=== PATIENT | male | born 1945 | race Caucasian/White ===

== ENCOUNTER 2017-11-26 15:48 | Observation (INO) | payer MEDICARE, SELFPAY ==
[2017-11-26 15:57] VITALS: BP 168/85; PULSE 76; RESP 16; TEMP 37.7; O2SAT 95
--- NOTE | 2017-11-26 17:15 | DI.REPORT_ITS ---
SYMPTOM/DIAGNOSIS: CONFUSION, HALLUCINATIONS, ALZEHEIMERS, ? PNEUMONIA AP AND LATERAL CHEST: Comparison is made with 07/22/17. The lungs are suboptimally inflated on both views. The heart is enlarged. The patient is status post CABG. No definite infiltrate, effusion or pulmonary edema is seen. IMPRESSION: Limited exam. No gross evidence of an acute abnormality.
--- NOTE | 2017-11-26 17:16 | DI.RPTCT_ITS ---
SYMPTOM/DIAGNOSIS: ALTERED MENTAL STATUS, H/O ALZHEIMERS, CONFUSION, ? ACUTE CVA NONCONTRAST HEAD CT: Comparison is made with 07/22/17. Mild atrophy and white matter changes are again noted. No superimposed hemorrhage, mass or acute infarct is seen. The ventricles are normal in size. There is no evidence of skull fracture. The sinuses and mastoid air cells appear clear. IMPRESSION: No acute abnormality.
--- NOTE | 2017-11-26 17:17 | ED.GENADUL ---
Disposition Clinical Impression: Cognitive and behavioral changes, Confusion, History of dementia Disposition: [facility] INPATIENT Condition: Stable Medical Decision Making - Lab Data Laboratory Tests 11/26/17 11/26/17 11/26/17 17:24 17:24 17:24 WBC 9.08 RBC 4.39 L Hgb 14.3 Hct 42.3 MCV 96.4 H MCH 32.6 MCHC 33.8 RDW 13.0 Plt Count 215 MPV 8.7 Immature Gran % 0.2 Neutrophils % 55.5 Lymphocytes % 26.8 Monocytes % 14.8 Eosinophils % 2.4 Basophils % 0.3 Absolute Neutrophils 5.04 Absolute Lymphocytes 2.43 Absolute Monocytes 1.34 H Absolute Eosinophils 0.22 Absolute Basophils 0.03 Sodium 138 Potassium 4.3 Chloride 103 Carbon Dioxide 27.9 Anion Gap 7.1 BUN 22 H Creatinine 1.48 H Estimated GFR/1.73 m2 46.46 Glucose 141 H Calcium 8.9 Magnesium 2.1 Total Bilirubin 0.4 0.4 Conjugated Bilirubin 0.10 AST 13 L 13 L ALT 17 16 Alkaline Phosphatase 69 68 Troponin I 0.03 Total Protein 7.8 7.8 Albumin 3.8 3.8 Urine Color Urine Clarity Urine pH Ur Specific [place] Urine Protein Urine Ketones Urine Blood Urine Nitrite Urine Bilirubin Urine Urobilinogen Ur Leukocyte Esterase Urine Glucose 11/26/17 17:45 WBC RBC Hgb Hct MCV MCH MCHC RDW Plt Count MPV Immature Gran % Neutrophils % Lymphocytes % Monocytes % Eosinophils % Basophils % Absolute Neutrophils Absolute Lymphocytes Absolute Monocytes Absolute Eosinophils Absolute Basophils Sodium Potassium Chloride Carbon Dioxide Anion Gap BUN Creatinine Estimated GFR/1.73 m2 Glucose Calcium Magnesium Total Bilirubin Conjugated Bilirubin AST ALT Alkaline Phosphatase Troponin I Total Protein Albumin Urine Color Yellow Urine Clarity Clear Urine pH 5.0 Ur Specific [place] 1.020 Urine Protein Negative Urine Ketones Negative Urine Blood Negative Urine Nitrite Negative Urine Bilirubin Negative Urine Urobilinogen 0.2 Ur Leukocyte Esterase Negative Urine Glucose Negative 11/26/17 1750: 77 bpm. Sinus. Left anterior fascicular block. T-wave inversion in aVL which is seen in previous. No acute ST elevation or depression. - Radiology Data Radiology results: report reviewed, image reviewed Chest x-ray: No acute findings. Minimal interstitial stranding in the left lung base but no focal infiltrate. CT head: No acute findings. Moderate to severe cerebral atrophy. - Medical Decision Making 72-year-old male with history of Alzheimer's dementia who presents for worsening mental status and confusion x 3 weeks and now associated with hallucinations, and aggressive behavior for the past few days. Patient has a previous history of CVA with no residual deficits. Family denies acute medical illness. Patient started on Ativan by PCP yesterday to help the symptoms but has had no relief per family. Family concerned about patient and their safety. does not want patient coming home tonight family is open to placement at this time. Vitals within normal limits. No acute findings on exam. Patient has a flat affect and shuffled gait. Family states at baseline patient has difficulty following instructions. Patient is able to follow some commands but overall requires significant redirection and assistance. Will place an IV, check screening labs, urinalysis, chest x-ray, EKG and CT head. 1800: Nurse states that patient still agitated after 2 mg Ativan, moving around and will likely not stay still for CAT scan. Will give a dose of Haldol. 192: Labs and imaging reviewed. No acute significant findings. Chest x-ray and CT head negative for acute findings. I discussed admission with care management and they state patient has Medicare and recommend observation admission and will work on placement tomorrow. 1940: Discussed with Dr. Aceves -except patient for admission. Patient is DNR/DNI per . History of Present Illness - General Chief complaint: AMS/LOC Stated complaint: ALHZEMERS Time Seen by Provider: 11/26/17 16:32 Source: family Mode of arrival: ambulatory Limitations: altered mental status, other (h/o alzheimer's disease) - History of Present Illness Initial comments: Patient is a 72-year-old man with a history of Alzheimer's dementia diagnosed 6 years ago who presents for worsening mental status and confusion over the past 3 weeks, even worse over the past 3 days causing his family to be concerned for his and their safety. states that she does not want patient in her house at this time because she is scared of his actions. Son states that patient has gotten verbally aggressive with them and has given him looks that makes him question if he is going to be violent. states that last night while helping patient to bed, he squeezed her arm. Son states that patient appears to be hallucinating at times and grabbing for things that are not there and not recognizing them. They state that patient wandered out of the house today and was found by the police [facility] the block. states that she is open to placement for pt due to safety concerns. They deny any recent hospital admission. He denies any recent acute medical illness, fever, vomiting, diarrhea. They state patient has been eating well. They state patient generally sleeps well except for the past few nights. Family called his PCP office and she prescribed Ativan which patient took once last night and this morning but does not seem to be helping. - Related Data Blood Sugar Diagnostic [Freestyle Lite Strips] 1 strip MC PRN strip 08/22/12 Aspirin [Aspir 81] 81 mg PO DAILY tab-cap 09/10/15 Nitroglycerin [Nitrostat] 1 tab SL PRN #25 tab 02/09/16 Ranitidine HCl 300 mg PO DAILY #90 tab-cap 09/01/17 Ropinirole HCl 1 mg PO HS #90 tab-cap 11/01/17 Lorazepam 1 mg PO BID PRN #60 tab-cap 11/24/17 Mirtazapine 15 mg PO HS #30 tab-cap 11/24/17 Allergies Allergy/AdvReac Type Severity Reaction Status Date / Time Anesthetics - Amide Type AdvReac Intermediate PROLONGED Unverified 11/26/17 16:02 EFFECT ibuprofen AdvReac Mild JOINT Unverified 11/26/17 16:02 SWELLING Ouytvfo-Cxo-Dmo Reductase AdvReac Unknown ANXIETY Unverified 11/26/17 16:02 Inhibitor atorvastatin AdvReac MYALGIAS Unverified 11/26/17 16:02 CUCUMBERS Allergy Intermediate Uncoded 11/26/17 16:02 ONION AdvReac Intermediate Uncoded 11/26/17 16:02 Review of Systems Limitations: ROS unobtainable due to patients medical condition Past Medical History - Past Medical History Medical history: arthritis, CAD, dementia (alzheimer's ) BPH, Pre-diabetes Surgical history: coronary bypass surgery, other (Mitral valve repair) Psychiatric history: depression - Social History Smoking status: never smoker Alcohol use: none Drug use: none General Exam - General Limitations: altered mental status (h/o dementia, worsening mental status) General appearance: alert - Head Head exam: Present: atraumatic, normocephalic - Eye Eye exam: Present: PERRL, EOMI - ENT ENT exam: Present: mucous membranes moist, TM's normal bilaterally - Neck Neck exam: Present: normal inspection, other (no midline c-spine tenderness) - Respiratory Respiratory exam: Present: normal lung sounds bilaterally, other (no ). Absent: respiratory distress, wheezes, rales, rhonchi, stridor, chest wall tenderness - Cardiovascular Cardiovascular Exam: Present: regular rate, normal rhythm. Absent: bradycardia, tachycardia - GI/Abdominal GI/Abdominal exam: Present: soft, normal bowel sounds. Absent: distended, tenderness, guarding, rebound, rigid - Extremities Exam Extremities exam: Present: full ROM - Back Exam Back exam: Present: normal inspection - Neurological Exam Neurological exam: Present: alert, abnormal gait (shuffled) - Psychiatric Psychiatric exam: Present: normal affect - Skin Skin exam: Present: warm, dry, intact. Absent: rash Course Vital Signs - 24 hr 11/26/17 15:57 Temperature 99.9 F H Pulse 76 Respiratory 16 Rate Blood Pressure 168/85 Pulse Oximetry 95
[2017-11-26 17:26] LABS: Abs Immature Grans 0.02 k/cumm (0.0-0.09); Absolute Basophil Count 0.03 k/cumm (0.0-0.2); Absolute Eosinophil Count 0.22 k/cumm (0.0-0.7); Absolute Lymphocyte Count 2.43 k/cumm (1.2-3.4); Absolute Monocyte Count 1.34 k/cumm (0.11-0.7); Absolute Neutrophil Count 5.04 k/cumm (1.2-6.7); Basophils % 0.3; Eosinophils % 2.4; HCT 42.3 % (40.0-50.0); HGB 14.3 g/dL (13.5-17.5); Immature Grans % 0.2; Lymphocytes % 26.8; Mean Corp. HGB Concentration 33.8 g/dL (32.0-36.0); Mean Corpuscular Hemoglobin 32.6 pg (27.0-33.0); Mean Corpuscular Volume 96.4 fL (80-95); Mean Platelet Volume 8.7 fL (8.0-11.0); Monocytes % 14.8; Neutrophils % 55.5; Platelet Count 215 x1000/uL (130-400); RBC 4.39 m/cumm (4.50-6.00); White Blood Cell Count 9.08 k/cumm (4.4-10.8)
[2017-11-26] MEDS: Normal Saline 1,000 ML 125 ML IV (17:30)
[2017-11-26] MEDS: LORazepam 2 MG/ML VIAL 1 MG IVP ×2 (17:30→17:55)
[2017-11-26] MEDS: Lidocaine 2% Jelly 11 ML SYR (17:40)
[2017-11-26 17:44] LABS: ALT 16 U/L (12-78); AST 13 U/L (15-37); Albumin 3.8 g/dL (3.4-5.0); Alkaline Phosphatase 68 U/L (46-116); Bilirubin, Total 0.4 mg/dL (0.2-1.0); Total Protein 7.8 g/dL (6.4-8.2)
[2017-11-26 17:47] LABS: ALT 17 U/L (12-78); AST 13 U/L (15-37); Albumin 3.8 g/dL (3.4-5.0); Alkaline Phosphatase 69 U/L (46-116); Anion Gap 7.1 mmol/L (3-11); BUN 22 mg/dL (7-18); Bilirubin, Total 0.4 mg/dL (0.2-1.0); CO2 27.9 mmol/L (21.0-32.0); CREATININE 1.48 mg/dL (0.70-1.30); Calcium 8.9 mg/dL (8.5-10.1); Chloride 103 mmol/L (98-107); Estimated GFR 46.46 (mL/min/1.73m2); Glucose 141 mg/dL (70-100); Magnesium 2.1 mg/dL (1.8-2.4); Potassium 4.3 mmol/L (3.5-5.1); Sodium 138 mmol/L (136-145); Total Protein 7.8 g/dL (6.4-8.2); Troponin I 0.03 ng/mL (0.00-0.06)
[2017-11-26 17:56] LABS: Bilirubin Negative (Negative); Blood Negative (Negative); Clarity Clear; Glucose Negative (Negative); Ketones Negative (Negative); Leukocyte Esterase Negative (Negative); Nitrite Negative (Negative); Urobilinogen 0.2 EU/dL (Up TO 0.2)
[2017-11-26] MEDS: Haloperidol 5 MG/ML VIAL (18:10)
[2017-11-26 18:19] VITALS: RESP 16
--- NOTE | 2017-11-26 19:05 | DI.VRAD_ITS ---
EXAM: CT Head Without Intravenous Contrast CLINICAL HISTORY: 72 years old, male; Signs and symptoms; Altered mental status/memory loss; Patient HX: Altered mental status, confusion, hallucinations, h/o alzheimer's; Additional info: R/O acute CVA TECHNIQUE: Axial computed tomography images of the head/brain without intravenous contrast. Coronal and sagittal reformatted images were created and reviewed. COMPARISON: CT - HEAD WITHOUT CONTRAST 2017-07-22 09:37 FINDINGS: Brain: There is mild periventricular white matter hypodensity consistent with mild chronic microvascular ischemic change. No hemorrhage. Ventricles: There is moderate to severe, diffuse involutional change with moderate associated ventriculomegaly. Bones/joints: Unremarkable. No acute fracture. Soft tissues: Unremarkable. Sinuses: Unremarkable as visualized. No acute sinusitis. Mastoid air cells: Unremarkable as visualized. No mastoid effusion. IMPRESSION: No acute findings. Moderate to severe cerebral atrophy as discussed above. Dictated and Authenticated by: Arpan Salter MD. Ordering:GERMAINE CROWLEY MD
--- NOTE | 2017-11-26 19:29 | DI.VRAD_ITS ---
EXAM: XR Chest, 2 Views CLINICAL HISTORY: 72 years old, male; Signs and symptoms; Other: Confusion, hallucinations; Patient HX: Confusion, hallucinations, h/o alzheimers TECHNIQUE: Frontal and lateral views of the chest. COMPARISON: CR - CHEST 2 VIEWS PA,LAT 2017-07-22 09:45 FINDINGS: Lungs: There is mild interstitial stranding in the left lung base with no alveolar consolidation to suggest lobar pneumonia. Pleural space: Unremarkable. No pneumothorax. Heart: Unremarkable. No cardiomegaly. Mediastinum: Unremarkable. Bones/joints: The patient is rotated to the left. There are again median sternotomy wires. IMPRESSION: No acute findings. Minimal interstitial stranding in the left lung base with no focal infiltrate evident. Dictated and Authenticated by: Arpan Salter MD. Ordering:GERMAINE CROWLEY MD
[2017-11-26 20:43] VITALS: BP 164/91; PULSE 88; RESP 22; TEMP 37.8; O2SAT 95
[2017-11-26] MEDS: Mirtazapine 15 MG TAB PO (22:13)
[2017-11-26 22:33] LABS: TSH (W/Ref FT4) 3.33 uIU/mL (0.358-3.74)
[2017-11-26 22:38] VITALS: BP 164/91; PULSE 88; RESP 22; O2SAT 95
--- NOTE | 2017-11-27 04:58 | HPE_ITS ---
CHIEF COMPLAINT Escalating uncontrolled behavior in a patient with progressive dementia. ASSESSMENT Dementia with progression behavioral abnormalities. This is a 72-year-old gentleman with progressive dementia now with some behavioral abnormalities and the family is finding it difficult to care for him at home. He does have a low-grade elevation in his temperature, but no source of infection and no white count seen. Therefore, this will observed for n ow with repeat chest x-ray if he has any respiratory symptoms since there was some streakiness seen o n the first chest x-ray. His lungs are clear by exam now. PLAN Observe. Continue usual medications, except hold ropinirole, we may have to use Haldol, though he hanson s not have a history of Parkinson's, there is a conflict with this drug. Ativan will be used p.r.n. as will Haldol. His other medications will be continued the same, which are minimal. Case management was consulted to review possible placement for this progressive dementia, now with be havioral abnormalities and caregivers not being able to care for him at home. He is a DNR/DNI, this will be respected. HISTORY OF PRESENT ILLNESS This is a 72-year-old gentleman who has had dementia for several years, previously on a patch for his dementia, which has been discontinued. He also is seeing the Neurologist less often recently. He is a DNR/DNI and is cared for by his daughter, who was beginning to look for a placement or increased he lp at home to care for her father. Over the last several days, his delusional thoughts and agitated b ehavior has worsened, and on the night of admission, the patient was brought to the Emergency Room fo r evaluation because of three days of much worse behavior. Evaluation revealed nothing new ongoing, b ut the patient having chronic elevation of his renal functions and frequent urination because of an e nlarged prostate with an increasing PSA, which is being watched to Urology. The daughter states that he was hallucinating or at least in a delusional state and becomes very agitated when challenged. His urine was clear. He had no fever or elevation of his white blood cell count and there were no sig ns of infection on chest x-ray, though there was some streaking at the bases. The patient was brought in for observation to work on long-term placement versus increased home care for this patient. The family has already maximized their ability to take care of him and I think ther e is some caregiver burnout. When I approached the patient he was sleeping and slightly agitated, therefore, I did not awaken him, but according to the nurse, Amara Funez, he was not oriented to person, place or time and was very agitated and hard to re-direct. REVIEW OF SYSTEMS Review of systems otherwise unrevealing or unobtainable. PAST MEDICAL HISTORY 1. Coronary artery disease status post bypass surgery in the past. 2. Osteoarthritis with no surgical intervention. The patient has had injections in both knees. 3. Dementia, which is progressive, now with behavioral abnormalities and difficulty caring for him a t home. 4. Hyperglycemia with impaired glucose tolerance, not on therapy. 5. Depression with anxiety. 6. Restless leg syndrome and enlarged prostate with frequency of urine with an increasing PSA. No me ntion of prostate cancer on his outpatient records. 7. Gastroesophageal reflux disease. PAST SURGICAL HISTORY 1. CABG x3 in 2005. 2. Inguinal herniorrhaphy bilaterally, 2008. 3. Umbilical herniorrhaphy, 2008. ALLERGIES Anesthetics of the Amide type. NSAIDs. Lipitor. All statins. As well as some food allergies to cucumbers and onions. MEDICATIONS Home medications - Lorazepam 1 mg twice a day. Aspirin 81 mg daily. Ropinirole 1 mg at bedtime. Zantac 300 mg daily. Nitroglycerin 0.4 mg sublingually q. 5 minutes x3 p.r.n. chest pain. Remeron 15 mg at bedtime. He previously had been on Exelon patches, which are not being used presently. FAMILY HISTORY Family history is positive for colon cancer. Heart disease, including hypertension and strokes. SOCIAL HISTORY The patient lives with family, with the daughter being the DPOA and primary caregiver. I did not meet her, but the family was with the patient in the Emergency Room. He is a DNR/DNI. He is not a drinker. He has never smoked. Full review of systems as above, otherwise unrevealing or unobtainable. PHYSICAL EXAMINATION VITAL SIGNS - Blood pressure 194/91 last taken. Pulse 88. Respirations 22. Pulse oximetry 95% on ro om air. Temperature 37.8 slightly elevated. Glucometer was 89. Weight is 83.4 kilograms. Height 1.8 meters. GENERAL - The patient is not oriented to person, place or time and is easily agitated when challenged , even in his sleep he is fidget. He has a flattened affect. HEENT - Normocephalic. Eyes normal with sclerae anicteric. Oropharynx with slightly dry oral mucos a. NECK - Supple. No JVD noted. LUNGS - Lungs are clear to auscultation. HEART - Regular rate and rhythm. No appreciable murmurs or gallops. ABDOMEN - Soft, nontender. No palpable hepatosplenomegaly with a gentle exam, attempting not to awak en the patient. BACK - Slightly kyphotic. GENITALIA - Deferred. RECTAL - Deferred. EXTREMITIES - Nonpitting edema over the lower extremities with arthritic changes of both knees with g enu varus bilaterally. Capillary refill is fair over both feet. SKIN - Has loss of hair and shiny atrophic skin over both legs. No cyanosis. No clubbing. Skin overa ll pale, warm and dry. NEUROLOGIC - The patient moves all extremities with no focalizing motor deficits. No Babinski's bilat erally. 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 LABORATORY REVIEW Sodium 138, potassium 4.3, TCO2 27.9, creatinine 1.48, which the Emergency Room physician states is n ear his baseline. He did receive some fluids in the Emergency Room, but not as a saline lock. BUN 22, slightly elevated, glucose randomly drawn 141, Glucometer as mentioned once he was on the Medical Fl oor was only 89. Calcium 8.9, magnesium 2.1. Liver functions normal or low. TSH 3.33, protein 7.8, albumin 3.8. Troponin 0.03, which is negative. White count 9.08, H and H 14.3/42.3, MCV slightly up at 96.4, platelet count is 215. URINALYSIS - Yellow clear, pH 5, Specific gravity of 1.020, negative DIPstick say for urobilinogen 0. 2. Chest x-ray report of no infiltrates, though they mention some streakiness at the base. CT of the head had no acute findings reported.
[2017-11-27 06:53] LABS: HCT 44.4 % (40.0-50.0); HGB 15.3 g/dL (13.5-17.5); Mean Corp. HGB Concentration 34.5 g/dL (32.0-36.0); Mean Corpuscular Hemoglobin 33.3 pg (27.0-33.0); Mean Corpuscular Volume 96.5 fL (80-95); Mean Platelet Volume 8.9 fL (8.0-11.0); Platelet Count 225 x1000/uL (130-400); White Blood Cell Count 9.07 k/cumm (4.4-10.8)
[2017-11-27] MEDS: Heparin 5,000 UNITS/ML VIAL 5000 UNITS SC ×3 (06:59→22:28)
[2017-11-27 07:08] LABS: ALT 16 U/L (12-78); AST 22 U/L (15-37); Albumin 3.4 g/dL (3.4-5.0); Alkaline Phosphatase 68 U/L (46-116); Anion Gap 7.1 mmol/L (3-11); BUN 19 mg/dL (7-18); Bilirubin, Total 0.6 mg/dL (0.2-1.0); CO2 27.9 mmol/L (21.0-32.0); Chloride 105 mmol/L (98-107); Estimated GFR 49.54 (mL/min/1.73m2); Glucose 108 mg/dL (70-100); Potassium 4.4 mmol/L (3.5-5.1); Sodium 140 mmol/L (136-145); Total Protein 7.4 g/dL (6.4-8.2)
[2017-11-27 08:30] VITALS: BP 160/97; PULSE 62; RESP 16; TEMP 36.9; O2SAT 94
--- NOTE | 2017-11-27 09:03 | NUR.NOTE ---
Nursing Note: Mr. Cordero is resting well in the bed.
[2017-11-27] MEDS: Aspirin E.C. 81 MG TABEC PO (10:29)
--- NOTE | 2017-11-27 11:03 | PHARADMIT ---
Addendum entered by Florentino Grady III 11/28/17 16:31: Pharmacy Note Subjective Patient with baseline dementia, here for worseening behavior at home. unable to cope. Objective VS-OK SCr-1.79, H&H,Plts,WBC-OK BM-yesterday. Assessment Haldol decreased yesterday do to somnolence, patient awaken last night and was agitated. Plan CM report patient has no payemnt source for placement and will need to return home with . Original Note: Admission Pharmacy Clinical Review behavioral changes, confusion, h/o dementia Code Status DNR/DNI Current Weight 80.8 kg Renally Cleared and Narrow Therapeutic Index Meds Crcl~49.00 mL/min current meds okay QTc Value / Action Taken QTc 430 BP Control, Fever BP 164/91 Tmax 37.8 Electrolytes reviewed within normal limits DVT Prophylaxis heparin Opiate Usage / Scheduled Bowel Regimen Ordered no/no Plt/SCr for Heparin / Enoxaparin plt 225 SCr 1.40 INR for Warfarin n/a H/H stable, WBC/Bands h/h 15.3/44.4 wbc 9.07 Antibiotic appropriateness n/a Cultures and Sensitivities n/a Surgical ABX d/c within 24 hr n/a DM control / Insulin Dosing bg 108 n/a Heart Failure (Check EF%) (THUAN's, B-Block, Diuretics) none IV to PO Switch n/a Home Meds Reviewed yes Home Meds Not Ordered ropinirole Comments
[2017-11-27 13:44] VITALS: BP 139/67; PULSE 80; RESP 18; TEMP 36.1; O2SAT 97
--- NOTE | 2017-11-27 14:03 | PGE_ITS ---
DATE OF SERVICE: November 27, 2017 ASSESSMENT AND PLAN: #1. Change in mental status. Worsening agitation and mental status in patient with baseline underly ing dementia. Unsure of exact etiology at this time. The patient does not appear to have any evidence of acidosis by labs, and while mildly hyperglycemic does not appear to have a significant derangement of blood glucose. His pulse oximetry is normal and he does not appear to have hypoxia, but with noted minimal interstitial stranding of the left lung b ase by chest x-ray. He also has an elevated temperature that is close to but not yet considered febr ile. Monitor respiratory status closely, and if the patient becomes febrile consider antibiotic cove rage and repeat chest x-ray. Mr. Cordero does appear to have an elevated creatinine which is mild and at baseline, and his LFTs ar e normal. He does not appear to be overtly dehydrated by exam or by labs. Will double check with armando hurst but there also does not appear to be any new medication changes, but will confirm as previously stated. CT of the head was negative without any evidence of acute intracranial process or space-occu pying lesion. An MRI would be preferred but doubt that Mr. Cordero could tolerate at this time. Sod ium and calcium levels are both normal as is TSH. We will check a B12 and folic acid. Will also dis cuss with nursing to monitor closely for any signs of urinary retention and constipation. Urinalysis negative. Further detailed treatment and evaluation pending above results. We use [id number] [place] ldol on a p.r.n. basis (ropinirole is currently on hold). Will also use [id number] lorazepam as n eeded - this is not ideal but please note that the patient is on higher-dose lorazepam at home on a p .r.n. basis. #2. History of CAD. Troponin is negative and current symptoms do not appear to indicate an acute co ronary syndrome. Continue home regimen of daily antiplatelet therapy with low-dose aspirin. The pat ient does not appear to be on a statin or beta francisco javier therapy. #3. Prophylaxis. Subcutaneous heparin. H2 francisco javier. #4. Code status - DNR/DNI. SUBJECTIVE: Ptjakez-ffgb-fwpd-old man with a history of dementia admitted from the [facility] on 11/27/17 with acutely worsening mental status. Mr. Cordero has a history of dementia that has been progressive. Over the last several days, however , he has been noted to have worsening delusional thoughts and agitated behavior prompting an evaluati on in the Emergency Department. His workup in the ER was essentially negative but he was referred fo r admission due to worsening agitation at home. PHYSICAL EXAM: General: This morning Mr. Cordero is found nonverbal, sleeping but arousable, no acute distress note d. Vitals: Temperature 36.9 with a T-max of 37.8. Blood pressure 164/91. Heart rate 88. Pulse oximet ry 95% on room air. Neck: Supple. CV: Regular, non-tachycardic. No overt rubs, murmurs, or gallops appreciated. Pulm: Clear to auscultation on very limited anterior and lateral exam. Abdomen: Bowel sounds present. Soft, nondistended. Does not appear to be tender. Vascular: No overt lower extremity edema noted. LABS: Basic metabolic panel normal with the exception of a BUN of 19 and a creatinine of 1.40. Prio r creatinine of 1.48 in June of 2017. Values of 1.2 to [address] back to 2011. Glu cose of 108. LFTs appear normal. Troponin was initially checked and negative at 0.03. TSH normal a t 3.3. CBC entirely normal as well with an MCV of 96.5. Differential was checked at time of admission and w as normal as well. Urinalysis appears completely negative as well. STUDIES: #1. CT of the head without contrast: No acute findings. Moderate to severe cerebral atrophy. #2. Chest x-ray: No acute findings. Minimal interstitial stranding in the left lung base with no f ocal infiltrates evident.
--- NOTE | 2017-11-27 15:05 | PDOC.CMIN ---
Date of Service: 11/27/17 Time of Service: 15:05 Care Management Initial Assess REASON FOR HOSPITALIZATION:: Escalating uncontrolled behavior, progressive dementia PAST MEDICAL HISTORY/PAST SURGICAL HISTORY:: Coronary artery disease, osteoarthritis, dementia, hyperglycemia, depression with anxiety, restless leg syndrome, gastric reflux disease, past surgical history: CABG in 2006, inguinal hernia repair, umbilical hernia repair. PREVIOUS FUNCTIONAL STATUS/SOCIAL/FAMILY SUPPORTS:: Patient lives with his spouse in [facility]. CURRENT FUNCTIONAL STATUS:: Mary Beth is alert he is not engaged he has a patient observer present. There is no family present at this time. Mary Beth does not make eye contact and he is not able to articulate his needs at this time. CM to contact spouse by phone to address concerns and current services that may be present in the home. ADVANCE DIRECTIVES:: On file at [facility] Has patient been provided with information about the portal?: No Did the patient sign up for the portal?: No CODE STATUS:: DNR/DNI INSURANCE COVERAGE / FINANCIAL ISSUES:: Medicare and AARP PRIMARY CARE PHYSICIAN:: Dr. Novoa POTENTIAL DISCHARGE NEEDS:: Possible referral to short-term rehab facility versus home with increased support services and follow-up with primary care. PATIENT/FAMILY EDUCATION NEEDS:: Discharge education, limitations, follow-up plan of care, and resources to provide support for progressive dementia. TRANSPORTATION:: Pending discharge disposition. PLAN:: Mary Beth admitted for observation follow-up in increased confusion at home with a history of progressive dementia. Mary Beth will be discharged when medically ready per provider. Discharge disposition to be determined. CM reviewed insurance options with family and possible resources. CM to continue to provide support ongoing discharge planning and disposition.
--- NOTE | 2017-11-27 15:10 | INITIAL_ITS ---
Date of Service: 11/27/17 Time of Service: 15:05 Care Management Initial Assess REASON FOR HOSPITALIZATION:: Escalating uncontrolled behavior, progressive dementia PAST MEDICAL HISTORY/PAST SURGICAL HISTORY:: Coronary artery disease, osteoarthritis, dementia, hyperglycemia, depression with anxiety, restless leg syndrome, gastric reflux disease, past surgical history: CABG in 2006, inguinal hernia repair, umbilical hernia repair. PREVIOUS FUNCTIONAL STATUS/SOCIAL/FAMILY SUPPORTS:: Patient lives with his spouse in [facility]. CURRENT FUNCTIONAL STATUS:: Mary Beth is alert he is not engaged he has a patient observer present. There is no family present at this time. Mary Beth does not make eye contact and he is not able to articulate his needs at this time. CM to contact spouse by phone to address concerns and current services that may be present in the home. ADVANCE DIRECTIVES:: On file at [facility] Has patient been provided with information about the portal?: No Did the patient sign up for the portal?: No CODE STATUS:: DNR/DNI INSURANCE COVERAGE / FINANCIAL ISSUES:: Medicare and AARP PRIMARY CARE PHYSICIAN:: Dr. Novoa POTENTIAL DISCHARGE NEEDS:: Possible referral to short-term rehab facility versus home with increased support services and follow-up with primary care. PATIENT/FAMILY EDUCATION NEEDS:: Discharge education, limitations, follow-up plan of care, and resources to provide support for progressive dementia. TRANSPORTATION:: Pending discharge disposition. PLAN:: Mary Beth admitted for observation follow-up in increased confusion at home with a history of progressive dementia. Mary Beth will be discharged when medically ready per provider. Discharge disposition to be determined. CM reviewed insurance options with family and possible resources. CM to continue to provide support ongoing discharge planning and disposition.
[2017-11-27 15:57] VITALS: BP 136/85; PULSE 80; RESP 18; TEMP 37.1; O2SAT 97
[2017-11-27] MEDS: LORazepam 0.5 MG TAB PO ×2 (16:58→22:49)
[2017-11-27] MEDS: Insulin Aspart 300 UNITS/3 ML PEN SC (17:34)
[2017-11-27 19:59] VITALS: BP 134/77; PULSE 85; RESP 19; TEMP 37.5; O2SAT 98
[2017-11-27] MEDS: Mirtazapine 15 MG TAB PO (22:28)
[2017-11-27 23:54] VITALS: BP 144/65; PULSE 65; RESP 16; TEMP 36.4; O2SAT 96
[2017-11-28] MEDS: Acetaminophen 325 MG TAB PO (03:33)
[2017-11-28] MEDS: Heparin 5,000 UNITS/ML VIAL 5000 UNITS SC (06:25)
[2017-11-28 07:26] LABS: Abs Immature Grans 0.02 k/cumm (0.0-0.09); Absolute Basophil Count 0.05 k/cumm (0.0-0.2); Absolute Eosinophil Count 0.22 k/cumm (0.0-0.7); Absolute Lymphocyte Count 2.03 k/cumm (1.2-3.4); Absolute Monocyte Count 1.66 k/cumm (0.11-0.7); Absolute Neutrophil Count 5.09 k/cumm (1.2-6.7); Basophils % 0.6; Eosinophils % 2.4; HCT 44.8 % (40.0-50.0); HGB 15.1 g/dL (13.5-17.5); Immature Grans % 0.2; Lymphocytes % 22.4; Mean Corp. HGB Concentration 33.7 g/dL (32.0-36.0); Mean Corpuscular Hemoglobin 32.8 pg (27.0-33.0); Mean Corpuscular Volume 97.2 fL (80-95); Mean Platelet Volume 9.4 fL (8.0-11.0); Monocytes % 18.3; Neutrophils % 56.1; Platelet Count 234 x1000/uL (130-400); RBC 4.61 m/cumm (4.50-6.00); RBC Distribution Width 13.2 % (11.8-14.1); White Blood Cell Count 9.07 k/cumm (4.4-10.8)
[2017-11-28 07:33] LABS: Anion Gap 8.5 mmol/L (3-11); BUN 35 mg/dL (7-18); CO2 27.5 mmol/L (21.0-32.0); CREATININE 1.79 mg/dL (0.70-1.30); Calcium 9.2 mg/dL (8.5-10.1); Chloride 102 mmol/L (98-107); Estimated GFR 37.31 (mL/min/1.73m2); Glucose 127 mg/dL (70-100); Potassium 4.2 mmol/L (3.5-5.1); Sodium 138 mmol/L (136-145)
[2017-11-28] MEDS: Aspirin E.C. 81 MG TABEC PO (07:52)
[2017-11-28] MEDS: LORazepam 0.5 MG TAB PO (07:52)
[2017-11-28 08:00] VITALS: O2SAT 97
[2017-11-28 08:21] VITALS: BP 116/73; PULSE 97; RESP 18; TEMP 36.6; O2SAT 99
[2017-11-28 08:26] LABS: Folate 16.7 ng/mL (8.6-20.0); Vitamin B12 329 pg/mL (193-986)
--- NOTE | 2017-11-28 09:06 | NUR.NOTE ---
8-9 am pt is busy picking at the air very restless redirectable Nursing Note:
[2017-11-28 11:43] VITALS: BP 164/90; PULSE 78; RESP 18; TEMP 36.4; O2SAT 99
--- NOTE | 2017-11-28 13:25 | DM INPTCON_ITS ---
DESCRIPTION/ASSESSMENT: Appreciate diabetes consult for Mr. Cordero who is hospitalized needing usp care placement. A1c 6.3 8 months ago. BMI 25. Blood sugars this hospitalization 83-160 with sensitive insulin correction beginning last evening. History and Physical indicates deficiency in mental capacity and inability for family to care for him. INTERVENTION/PLAN: No intervention suggested at this time for either self management or glycemic management. A current A1c could give us a better sense of his overall diabetes management, but based on blood sugars alone and the plan for residential care, no consideration of change in plan is evident.
[2017-11-28 16:29] VITALS: BP 168/69; PULSE 96; RESP 18; TEMP 37.3; O2SAT 94
[2017-11-28] MEDS: Insulin Aspart 300 UNITS/3 ML PEN SC (16:58)
--- NOTE | 2017-11-28 17:54 | PDOC.CMPRO ---
Date of Service: 11/28/17 Time of Service: 17:55 Care Management Progress Note S/O: CM met with Mary Beth's spouse at the bedside to discuss discharge options. Kaity reports that she cannot and will not take the patient home as she describes the difficulty she begins to sob heavy. She states he has become more aggressive, she states he is not hitting her but that he gets mad. She states he has wandered off from the home in the past. She states she does not have [place] med[place] at this point. She believes she has worked with Crystal Arreola out of [place] to complete the application. CM left voicemail for [facility] and Ana Celeste RN to determine where the application is in the process. Mary Beth continues to have patient observer, he does not sit still and continues to wander and pick at the air constantly. Kaity states she has developed her own health issues and she is unable to emotionally or physically able to take care of Mary Beth. She states that she does not have the financial capability to pay for his care privately. Currently Mary Beth has not has not had an acute stay and would and family would be responsible for the cost of admission. CM reviewed this with Kaity and she states she is unable to afford the care. CM reviewed swing bed level 2 while LTM application is pending and CM searches for placement. Kaity agrees to contract, CM reviewed cost of the SB2 she gives permission to place the patient in SB2 status. CM to complete the contract he will transition to SB2 on 11/29/17. CM reviewed activities, and requested that she bring in some clothes for patient. She would prefer to do his laundry at home which will be respected. CM encouraged spouse to bring in activities that patient likes that may keep him busy.CM will have Kaity complete the financial assistance application while awaiting determination of LTM. Mary Beth had an appointment with Palliative on 12/06/17 CM contacted and requested she meet with patient while inpatient. A: 72 year old male admitted for observation with a diagnosis of progressive dementia with behavioral changes. P: Mary Beth will transition to SB2 on 11/29/17, he will have palliative consult while here at [facility]. CM to request inpatient consult. Spouse will complete financial assistance application and submit. Kaity will bring her taxed to attach. CM to follow up with choice for care to determine eligibility for high highest needs and send a referral to [facility] at the request of spouse. Kaity to sign the swing bed contract and meet with palliative on Tuesday once a time is confirmed she should be contacted so that she may be present. CM to continue to provide support to Pt, family and care team ongoing discharge planning and disposition.
--- NOTE | 2017-11-28 18:13 | CMPROGNOTE_ITS ---
Date of Service: 11/28/17 Time of Service: 17:55 Care Management Progress Note S/O: CM met with Mary Beth's spouse at the bedside to discuss discharge options. Kaity reports that she cannot and will not take the patient home as she describes the difficulty she begins to sob heavy. She states he has become more aggressive, she states he is not hitting her but that he gets mad. She states he has wandered off from the home in the past. She states she does not have [place] med[place] at this point. She believes she has worked with Crystal Arreola out of [place] to complete the application. CM left voicemail for [facility] and Ana Celeste RN to determine where the application is in the process. Mary Beth continues to have patient observer, he does not sit still and continues to wander and pick at the air constantly. Kaity states she has developed her own health issues and she is unable to emotionally or physically able to take care of Mary Beth. She states that she does not have the financial capability to pay for his care privately. Currently Mary Beth has not has not had an acute stay and would and family would be responsible for the cost of admission. CM reviewed this with Kaity and she states she is unable to afford the care. CM reviewed swing bed level 2 while LTM application is pending and CM searches for placement. Kaity agrees to contract, CM reviewed cost of the SB2 she gives permission to place the patient in SB2 status. CM to complete the contract he will transition to SB2 on 11/29/17. CM reviewed activities, and requested that she bring in some clothes for patient. She would prefer to do his laundry at home which will be respected. CM encouraged spouse to bring in activities that patient likes that may keep him busy.CM will have Kaity complete the financial assistance application while awaiting determination of LTM. Mary Beth had an appointment with Palliative on 12/06/17 CM contacted and requested she meet with patient while inpatient. A: 72 year old male admitted for observation with a diagnosis of progressive dementia with behavioral changes. P: Mary Beth will transition to SB2 on 11/29/17, he will have palliative consult while here at [facility]. CM to request inpatient consult. Spouse will complete financial assistance application and submit. Kaity will bring her taxed to attach. CM to follow up with choice for care to determine eligibility for high highest needs and send a referral to [facility] at the request of spouse. Kaity to sign the swing bed contract and meet with palliative on Tuesday once a time is confirmed she should be contacted so that she may be present. CM to continue to provide support to Pt, family and care team ongoing discharge planning and disposition.
[2017-11-28 19:28] VITALS: BP 143/75; PULSE 84; RESP 19; TEMP 37.4; O2SAT 97
[2017-11-28 22:13] VITALS: BP 160/75; PULSE 86; RESP 18; TEMP 36.7; O2SAT 97
[2017-11-28] MEDS: Haloperidol 5 MG/ML VIAL 2 MG IM (22:16)
[2017-11-29 03:37] VITALS: BP 137/76; PULSE 85; RESP 18; TEMP 36.8; O2SAT 97
[2017-11-29 07:34] LABS: Abs Immature Grans 0.02 k/cumm (0.0-0.09); Absolute Basophil Count 0.03 k/cumm (0.0-0.2); Absolute Eosinophil Count 0.27 k/cumm (0.0-0.7); Absolute Lymphocyte Count 1.99 k/cumm (1.2-3.4); Absolute Monocyte Count 1.28 k/cumm (0.11-0.7); Absolute Neutrophil Count 3.97 k/cumm (1.2-6.7); Basophils % 0.4; Eosinophils % 3.6; HCT 40.5 % (40.0-50.0); HGB 13.4 g/dL (13.5-17.5); Immature Grans % 0.3; Lymphocytes % 26.3; Mean Corp. HGB Concentration 33.1 g/dL (32.0-36.0); Mean Corpuscular Hemoglobin 32.4 pg (27.0-33.0); Mean Corpuscular Volume 97.8 fL (80-95); Monocytes % 16.9; Neutrophils % 52.5; Platelet Count 220 x1000/uL (130-400); RBC 4.14 m/cumm (4.50-6.00); RBC Distribution Width 13.3 % (11.8-14.1); White Blood Cell Count 7.56 k/cumm (4.4-10.8)
[2017-11-29 07:37] VITALS: BP 122/75; PULSE 75; RESP 20; TEMP 36.5; O2SAT 96
[2017-11-29 07:40] VITALS: O2SAT 96
[2017-11-29 08:03] LABS: BUN 34 mg/dL (7-18); CREATININE 1.63 mg/dL (0.70-1.30); Calcium 8.5 mg/dL (8.5-10.1); Chloride 105 mmol/L (98-107); Estimated GFR 41.56 (mL/min/1.73m2); Glucose 116 mg/dL (70-100); Potassium 3.7 mmol/L (3.5-5.1); Sodium 140 mmol/L (136-145)
--- NOTE | 2017-11-29 10:43 | NUR.NOTE ---
Patient is sitting on edge of bed eating breakfast with cadre supervision. Patient has walked in daniels with cadre this morning and is following commands well at this time. Nursing Note:
--- NOTE | 2017-11-29 11:07 | PGE_ITS ---
PROGRESS NOTE DATE: November 28, 2017 ASSESSMENT: Dementia with severe behavioral abnormalities and delusions, if not psychotic behavior, which is escalating. PLAN: 1. IM Haldol 2 mg; this can be repeated x1; we will not do cardiac monitoring because this treatment will not be continued, with risks and benefits being assessed as far as overstimulation with attempts to use telemetry. 2. I d/c'd his Heparin because of his falls and noncompliance with risk of harm being greater than benefit. 3. Follow-up should include consideration of a fixed dose of low-dose Haldol every 5 p.m., with a repeat at 9 p.m., if needed, in the range of 0.5 mg to 1 mg of Haldol p.o. ++++++++++++++++ SUBJECTIVE: The patient was having escalating agitation and falling to the ground with the assistants and cadre next to him, holding him, but also scratching himself on furniture and with his hands, and being very agitated and not being able to be redirected. This was escalating despite the use of Ativan , as needed, and a low-dose of Haldol p.o. Because of the potential harm to himself and staff with the patient becoming agitated and physical, Haldol was ordered IM with the patient not placed on telemetry, despite the higher dose of Haldol IM being used because of stimulation worsening his symptoms. He is a DNR /DNI and we are trying to keep him from hurting himself or others with short- term remedy of antipsychotics, realizing the risks and benefits. OBJECTIVE: As stated, the patient physically is very agitated; he has severe arthritis of his knees with atrophy of his muscles around his knees; and some scratching over his lower leg. He is not having good eye contact, and when sitting in his chair, slightly resting, he is very fidgety. Vital signs were stable, except for a slightly increased blood pressure at 160/ 75, pulse was normal around 86, respirations 18 and pulse oximeter normal at 97 % on room air.
[2017-11-29 11:33] VITALS: BP 122/76; PULSE 63; RESP 20; TEMP 36.5; O2SAT 96
[2017-11-29] MEDS: Insulin Aspart 300 UNITS/3 ML PEN SC (12:25)
--- NOTE | 2017-11-29 14:59 | NUR.NOTE ---
pt being discharged from acute to swingbed. Nursing Note:
--- NOTE | 2017-11-29 16:15 | PDOC.CMDIS ---
LACE Index Scoring Tool - Questions: Length of Stay (in days): 3 Acuity (Admit via E.D.?): Yes Comorbidities: Cerebrovascular Disease E.D. Visits: 2 - Answers: Total Score: 9 Risk of Readmission: Low Risk Care Management Discharge Reason for Hospitalization: Escalating uncontrolled behavior, progressive dementia Discharge Plan: he is being admitted to [facility] on 11/28/17 for placement. Patient/Family Education Needs: RN to review with meds and activity levels. Services Needed at Discharge: [facility] Facility
--- NOTE | 2017-11-29 16:19 | CMDISCH_ITS ---
LACE Index Scoring Tool - Questions: Length of Stay (in days): 3 Acuity (Admit via E.D.?): Yes Comorbidities: Cerebrovascular Disease E.D. Visits: 2 - Answers: Total Score: 9 Risk of Readmission: Low Risk Care Management Discharge Reason for Hospitalization: Escalating uncontrolled behavior, progressive dementia Discharge Plan: he is being admitted to [facility] on 11/28/17 for placement. Patient/Family Education Needs: RN to review with meds and activity levels. Services Needed at Discharge: Residential Facility
--- NOTE | 2017-11-29 16:45 | DSE_ITS ---
DATE OF ACUTE ADMISSION: November 26, 2017 DATE OF DISCHARGE TO SWING BED: November 28, 2017 DATE OF DICTATION: November 29, 2017 PRIMARY CARE PROVIDER: Michelle Novoa M.D. DISCHARGING PHYSICIAN: Chris Sparrow M.D. DISCHARGE DIAGNOSIS: Dementia with neuropsychiatric symptoms, including agitation. HISTORY OF PRESENT ILLNESS: Xrbqixr-bzhn-efbk-old man with a past medical history significant for pr ogressive dementia, reportedly worsening recently. Mr. Cordero was admitted from the Emergency Department on 11/26/17 with acute worsening mental status. Unsure of the time period or the acute nature of this change, but it has become apparent that the zunilda stapleton's spouse is no longer able to care for him. The patient was reportedly having worsening delus ional thoughts and agitation, with worsening behavior prompting an evaluation in the Emergency Depart ment. Mr. Cordero had an essentially unremarkable evaluation in the Emergency Department. However, as his spouse could not care for him at home he was admitted to the hospital. PAST MEDICAL HISTORY: 1. Dementia. 2. CAD status post CABG. 3. OA. 4. Depression and anxiety. 5. RLS. 6. BPH. 7. GERD. PAST SURGICAL HISTORY: 1. CABG x3 in 2005. 2. Bilateral inguinal hernia repair, 2008. 3. Umbilical hernia repair, 2008. ALLERGIES: 1. NSAIDs 2. Statins 3. Anesthetics of the amide type. SWING BED MEDICATIONS: 1. Aspirin 81 mg daily. 2. Nitroglycerin, 1 tablet p.r.n. 3. Ranitidine 300 mg daily. 4. Ropinirole 1 mg q.h.s. 5. Mirtazapine 15 mg q.h.s. 6. Lorazepam 1 mg b.i.d. p.r.n. 7. Haldol 0.25 mg t.i.d. p.r.n. 8. Risperidone 0.25 to 0.5 mg q.h.s. 9. Citalopram 10 mg daily. 10. Milk of magnesia. 11. Mylanta. LABS: Normal sodium, potassium, bicarb, and chloride. BUN of 34. Creatinine 1.63 with a baseline o f 1.5 last checked in June 2017. Glucose 116. LFTs are normal. Troponin negative at time of ad mission at 0.03. Normal B12, folic acid, and TSH. CBC with a normal white count and platelet count. Hemoglobin minimally low at 13.4. Urinalysis negative for protein, blood, nitrite, or leukocyte esterase. STUDIES: #1. CT of the head, 11/26/17: No acute abnormality. #2. Chest x-ray, limited exam: No gross evidence of acute abnormality. ASSESSMENT AND PLAN: #1. Change in mental status: Patient with reported worsening aggression and behavioral changes, ess entially worsening neuropsychiatric symptoms associated with dementia. At time of admission consideration was given to a wide degree of differential diagnoses for a change in mental status in this patient. He was not noted to be febrile (although at time of admission he h ad a temperature of 37.8), and his urinalysis and chest x-ray were negative for any evidence of infec tion and he does not have any leukocytosis. There does not appear to be an infection as a driving so urce of the patient's reported mental status change. Mr. Cordero does appear to have an elevated cre atinine which was mildly above baseline, and his LFTs were normal. He was not overtly dehydrated by exam or by labs. TSH, B12, and folic acid were also checked and within normal limits. CT of the hea d was negative without evidence of any acute intracranial process or space-occupying lesion - an MRI was considered but doubtful to be performed as Mr. Cordero would like not tolerate this test currentl y. The patient's sodium and calcium levels, as well as his other electrolytes were essentially normal. No evidence of urinary retention or constipation was noted and his urinalysis was negative. No recen t medication changes were noted, and although the patient is on relatively low-dose benzodiazepine on a p.r.n. basis this has been a chronic medication for him. Will consider simple progression of the patient's disease process. Please see below for specifics. #2. Dementia. Currently worsening with agitation and other neuropsychiatric symptoms. For now star t on low-dose SSRI therapy, continue chronic low-dose benzodiazepine, along with ordered [id number]-jco-[id number] e haloperidol on a p.r.n. basis. The patient will also be maintained on his q.h.s. trazodone, with l ow-dose q.h.s. risperidone ordered as well. There is a potential for QT prolongation with citalopram and haloperidol, however the SSRI is being initiated at a relatively low dose, and the patient's Marc dol is at minimal dosing on a p.r.n. basis only. Continue to monitor and adjust medications accordin gly. #3. History of CAD - noted. Continue low-dose aspirin only. The patient does not appear to be on a statin or beta francisco javier therapy. #4. Code status - DNR/DNI. #5. Disposition. Mr. Cordero's spouse is unwilling and unable to care for him at home due to his wo rsening overall behavior. She also is unable to afford either private care or placement for him. At this point, Case Management is actively working on possible safe and appropriate disposition for the patient. Greater than 45 minutes were spent on this today. cc: Michelle Novoa M.D.
== END 2017-11-28 16:00 | disposition swing bed (61) ==
PROVIDERS: Admitting Provider Family Medicine; Emergency Provider Physician Assistant; PCP Family Medicine; Visit Provider Internal Medicine
DX: F03.91 Unspecified dementia, unspecified severity, with behavioral disturbance (principal); F05 Delirium due to known physiological condition; N40.0 Benign prostatic hyperplasia without lower urinary tract symptoms; G25.81 Restless legs syndrome; K21.9 Gastro-esophageal reflux disease without esophagitis; F41.8 Other specified anxiety disorders
CPT/HCPCS: 70450; 71046; 93005; 96361; 96374; 96375; 99219; 99285 ×2; J1630 ×2; J1644 ×2; J2060; 36415; 80048; 80053; 80076; 85027; 81003; 82607; 82746; 83735; 84443; 84484; 85025; 93010; 99217; 99225; G0378

== ENCOUNTER 2017-11-28 16:00 | Inpatient (IN) | payer MEDICARE, MEDICAID, SELFPAY ==
--- NOTE | 2017-11-29 15:10 | PHARADMIT ---
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 control / Insulin Dosing bg 108 n/a Heart Failure (Check EF%) (THUAN's, B-Block, Diuretics) none IV to PO Switch n/a Home Meds Reviewed yes Home Meds Not Ordered ropinirole Comments
--- NOTE | 2017-11-29 16:20 | PDOC.CMPRO ---
Care Management Progress Note S/O-72 yo man admitted to [facility] on 11/28/17 until appropriate LTC placement can be found. Met with and completed admission agreement and psychosocail/activities assessment and plan of care. She has already completed [facility] application which is now pending. The RN, Nga Hardy, will be here on to complete the clinical assessment for [facility]. His will need to be here then. Nga will let Crystal know when this will happen. Received call from [facility] office. Dr Novoa had apparently ordered consult which has now been scheduled with Dr Martin for 3 PM on 12/01/17. Crystal has made referral to [facility]-awaiting response. A-72 yo man admitted to [facility] in anticipation of LTC placement. P-Continue to coordinate plans.
--- NOTE | 2017-11-29 16:26 | CMPROGNOTE_ITS ---
Care Management Progress Note S/O-72 yo man admitted to [facility] on 11/28/17 until appropriate LTC placement can be found. Met with and completed admission agreement and psychosocail/ activities assessment and plan of care. She has already completed [facility] application which is now pending. The RN, Nga Hardy, will be here on to complete the clinical assessment for [facility]. His will need to be here then. Nga will let Crystal know when this will happen. Received call from [facility] office. Dr Novoa had apparently ordered consult which has now been scheduled with Dr Martin for 3 PM on 12/01/17. Crystal has made referral to [facility]-awaiting response. A-72 yo man admitted to [facility] in anticipation of LTC placement. P-Continue to coordinate plans.
--- NOTE | 2017-11-29 16:27 | NUR.NOTE ---
Pt admitted to [facility] pt. See acute account [id number] for todays shift assessment. Nursing Note:
--- NOTE | 2017-11-29 16:45 | HPE_ITS ---
DATE OF ADMISSION TO SWING BED: November 28, 2017 DATE OF DICTATION: November 29, 2017 PRIMARY CARE PROVIDER: Michelle Novoa M.D. ADMITTING PHYSICIAN: Chris Sparrow M.D. DISCHARGE DIAGNOSIS: Dementia with neuropsychiatric symptoms, including agitation. HISTORY OF PRESENT ILLNESS: Assfiws-veqs-opue-old man with a past medical history significant for pr ogressive dementia, reportedly worsening recently. Mr. Cordero was admitted from the Emergency Department on 11/26/17 with acute worsening mental status. Unsure of the time period or the acute nature of this change, but it has become apparent that the zunilda stapleton's spouse is no longer able to care for him. The patient was reportedly having worsening delus ional thoughts and agitation, with worsening behavior prompting an evaluation in the Emergency Depart ment. Mr. Cordero had an essentially unremarkable evaluation in the Emergency Department. However, as his spouse could not care for him at home he was admitted to the hospital. PAST MEDICAL HISTORY: 1. Dementia. 2. CAD status post CABG. 3. OA. 4. Depression and anxiety. 5. RLS. 6. BPH. 7. GERD. PAST SURGICAL HISTORY: 1. CABG x3 in 2005. 2. Bilateral inguinal hernia repair, 2008. 3. Umbilical hernia repair, 2008. ALLERGIES: 1. NSAIDs 2. Statins 3. Anesthetics of the amide type. SWING BED MEDICATIONS: 1. Aspirin 81 mg daily. 2. Nitroglycerin, 1 tablet p.r.n. 3. Ranitidine 300 mg daily. 4. Ropinirole 1 mg q.h.s. 5. Mirtazapine 15 mg q.h.s. 6. Lorazepam 1 mg b.i.d. p.r.n. 7. Haldol 0.25 mg t.i.d. p.r.n. 8. Risperidone 0.25 to 0.5 mg q.h.s. 9. Citalopram 10 mg daily. 10. Milk of magnesia. 11. Mylanta. LABS: Normal sodium, potassium, bicarb, and chloride. BUN of 34. Creatinine 1.63 with a baseline o f 1.5 last checked in June 2017. Glucose 116. LFTs are normal. Troponin negative at time of ad mission at 0.03. Normal B12, folic acid, and TSH. CBC with a normal white count and platelet count. Hemoglobin minimally low at 13.4. Urinalysis negative for protein, blood, nitrite, or leukocyte esterase. STUDIES: #1. CT of the head, 11/26/17: No acute abnormality. #2. Chest x-ray, limited exam: No gross evidence of acute abnormality. ASSESSMENT AND PLAN: #1. Change in mental status: Patient with reported worsening aggression and behavioral changes, ess entially worsening neuropsychiatric symptoms associated with dementia. At time of admission consideration was given to a wide degree of differential diagnoses for a change in mental status in this patient. He was not noted to be febrile (although at time of admission he h ad a temperature of 37.8), and his urinalysis and chest x-ray were negative for any evidence of infec tion and he does not have any leukocytosis. There does not appear to be an infection as a driving so urce of the patient's reported mental status change. Mr. Cordero does appear to have an elevated cre atinine which was mildly above baseline, and his LFTs were normal. He was not overtly dehydrated by exam or by labs. TSH, B12, and folic acid were also checked and within normal limits. CT of the hea d was negative without evidence of any acute intracranial process or space-occupying lesion - an MRI was considered but doubtful to be performed as Mr. Cordero would like not tolerate this test currentl y. The patient's sodium and calcium levels, as well as his other electrolytes were essentially normal. No evidence of urinary retention or constipation was noted and his urinalysis was negative. No recen t medication changes were noted, and although the patient is on relatively low-dose benzodiazepine on a p.r.n. basis this has been a chronic medication for him. Will consider simple progression of the patient's disease process. Please see below for specifics. #2. Dementia. Currently worsening with agitation and other neuropsychiatric symptoms. For now star t on low-dose SSRI therapy, continue chronic low-dose benzodiazepine, along with ordered [id number]-xmm e haloperidol on a p.r.n. basis. The patient will also be maintained on his q.h.s. trazodone, with l ow-dose q.h.s. risperidone ordered as well. There is a potential for QT prolongation with citalopram and haloperidol, however the SSRI is being initiated at a relatively low dose, and the patient's Marc dol is at minimal dosing on a p.r.n. basis only. Continue to monitor and adjust medications accordin gly. #3. History of CAD - noted. Continue low-dose aspirin only. The patient does not appear to be on a statin or beta francisco javier therapy. #4. Code status - DNR/DNI. #5. Disposition. Mr. Cordero's spouse is unwilling and unable to care for him at home due to his wo rsening overall behavior. She also is unable to afford either private care or placement for him. At this point, Case Management is actively working on possible safe and appropriate disposition for the patient. Greater than 45 minutes were spent on this today. cc: Michelle Novao M.D.
[2017-11-29 19:12] VITALS: BP 123/76; PULSE 71; RESP 18; TEMP 37; O2SAT 94
[2017-11-29] MEDS: Mirtazapine 15 MG TAB (20:32)
[2017-11-29] MEDS: risperiDONE 0.25 MG TAB (20:32)
[2017-11-30] MEDS: Citalopram 10 MG TAB PO (08:06)
[2017-11-30] MEDS: LORazepam 0.5 MG TAB PO (08:06)
[2017-11-30] MEDS: Aspirin E.C. 81 MG TABEC PO (08:07)
[2017-11-30 12:05] VITALS: BP 155/81; PULSE 90; RESP 24; TEMP 37.3; O2SAT 96
--- NOTE | 2017-11-30 13:14 | PDOC.CMPRO ---
Date of Service: 11/30/17 Time of Service: 13:14 Care Management Progress Note S/O: Mary Beth is active he walks the halls frequently with patient observer. Nursing reports he is able to be redirected, and not showing signs of agitation. Medication continue to be adjusted MD reports he is slowly increasing the Risperidone to control mood and symptom management of Dementia. A:72 yo man admitted to [facility] in anticipation of LTC placement. P:Mary Beth continues to have a patient observer, he is active and walks frequently. He will have a psychiatric consult with when she has availability to address medication management and symptom improvement. CM awaiting a response from [facility] referral. alf medicaid in pending [facility] nurse Nga Ritchie will assess patient on here at [facility]. Mary Beth is in need of LTC facility, CM will review other rehab options on with spouse. Palliative is also set to meet with Pt and spouse 12/01/17. CM to continue to provide support to patient, family and care team ongoing discharge planning and disposition.
--- NOTE | 2017-11-30 13:34 | CMPROGNOTE_ITS ---
Date of Service: 11/30/17 Time of Service: 13:14 Care Management Progress Note S/O: Mary Beth is active he walks the halls frequently with patient observer. Nursing reports he is able to be redirected, and not showing signs of agitation. Medication continue to be adjusted MD reports he is slowly increasing the Risperidone to control mood and symptom management of Dementia. A:72 yo man admitted to [facility] in anticipation of LTC placement. P:Mary Beth continues to have a patient observer, he is active and walks frequently. He will have a psychiatric consult with when she has availability to address medication management and symptom improvement. CM awaiting a response from [facility] referral. group home medicaid in pending [facility] nurse Nga Ritchie will assess patient on here at [facility]. Mary Beth is in need of LTC facility, CM will review other rehab options on with spouse. Palliative is also set to meet with Pt and spouse 12/01/17. CM to continue to provide support to patient, family and care team ongoing discharge planning and disposition.
[2017-11-30 15:23] VITALS: BP 120/68; PULSE 112; RESP 20; TEMP 37.2
[2017-11-30] MEDS: Mirtazapine 15 MG TAB PO (19:56)
[2017-11-30] MEDS: risperiDONE 0.25 MG TAB 0.5 MG PO (19:57)
[2017-12-01] MEDS: LORazepam 0.5 MG TAB PO ×2 (02:06→12:30)
[2017-12-01 07:15] VITALS: BP 166/80; PULSE 84; RESP 18; TEMP 37.1; O2SAT 97
[2017-12-01] MEDS: Citalopram 10 MG TAB PO (07:49)
[2017-12-01] MEDS: Acetaminophen 325 MG TAB 650 MG PO ×2 (07:50→19:14)
[2017-12-01] MEDS: Aspirin 81 MG CHEW PO (08:46)
--- NOTE | 2017-12-01 13:00 | NUR.NOTE ---
Nursing Note: This shift, patient has required a moderate amount of assistance with feeding, complete assistance with incontinence care and bathing, and stand by guard for ambulating to ensure safety. Patient is confused and wandering, and requires a lot of redirecting to ensure patient safety. This afternoon, patient became agitated, throwing his walker around. Staff were unsuccessful in redirecting or distracting patient. PO haldol was given. Patient ambulated through halls with stand by guard assist from staff, and continued to be agitated and trying to get onto elevators. Staff assisted patient to his room and offered him food, fluid, and incontinence care. Patient ate a few bites of food, drank some coffee and an ensure. He also allowed incontinence care to be performed. Patient continued to be agitated. Patient did not respond to staff attempts to redirect or distract. PO ativan given.
--- NOTE | 2017-12-01 14:01 | PDOC.CMACT ---
Date of Service: 12/01/17 Time of Service: 14:01 Care Management Activity Note Mary Beth has had visit with his spouse, he continues to ambulate in the halls with one on one staff. He is being offered activities that allow him to fidget. He is often restless, he is re-directable at times. Music therapy has been offered, Mary Beth has difficulty focusing or expressing his needs. He appears to appreciate being allowed to walk around the halls with supervision. P:Mary Beth continues to have a patient observer, he is active and walks frequently. consulted and made medication recommendations. CM awaiting a response from [facility] referral. [employer] medicaid in pending [facility] nurse Nga Ritchie has been faxed clinicals on patient, she will try to complete the physical assessment before 12/14/17. Mary Beth is in need of LTC facility, CM to continue to provide support to patient, family and care team ongoing discharge planning and disposition.
--- NOTE | 2017-12-01 14:08 | CMACTNOTE_ITS ---
Date of Service: 12/01/17 Time of Service: 14:01 Care Management Activity Note Mary Beth has had visit with his spouse, he continues to ambulate in the halls with one on one staff. He is being offered activities that allow him to fidget. He is often restless, he is re-directable at times. Music therapy has been offered, Mary Beth has difficulty focusing or expressing his needs. He appears to appreciate being allowed to walk around the halls with supervision. P:Mary Beth continues to have a patient observer, he is active and walks frequently. consulted and made medication recommendations. CM awaiting a response from [facility] referral. group home medicaid in pending [facility] nurse Nga Ritchie has been faxed clinicals on patient, she will try to complete the physical assessment before 12/14/17. Mary Beth is in need of LTC facility, CM to continue to provide support to patient, family and care team ongoing discharge planning and disposition.
[2017-12-01] MEDS: traZODone 50 MG TAB 25 MG PO (14:32)
[2017-12-01] MEDS: Insulin Aspart 300 UNITS/3 ML PEN SC (17:10)
[2017-12-01] MEDS: Mirtazapine 15 MG TAB PO (19:14)
[2017-12-01] MEDS: risperiDONE 0.25 MG TAB 0.5 MG PO (19:14)
[2017-12-01] MEDS: Melatonin 3 MG TAB PO (22:10)
--- NOTE | 2017-12-02 02:43 | NUR.NOTE ---
Nursing Note: Care assumed at 1900. Patient confused, restless and agitated; does not respond appropriately to questions or directions. Appears to be seeing things on floor and continues to bend over to sampler pickup items or pull at things in the air. 1:1 sitter with patient at all times. Patient ambulating throughout room. Gait unsteady, appeared weak. Walking in squatting position. Patient almost fell x3, sat onto knee of nursing two times and assisted to chair with 2-3 people each time. Patient became agitated during pericare/incontinence care and swung and hit sitter once during care. Continued to reorient patient verbally, but patient shows little evidence of comprehension or learning. Patient currently resting in bed. Appears comfortable. Sitter at bedside.
[2017-12-02 09:00] VITALS: BP 168/91; PULSE 77; RESP 18; TEMP 36.9; O2SAT 97
[2017-12-02] MEDS: Citalopram 10 MG TAB PO (09:02)
[2017-12-02] MEDS: risperiDONE 0.25 MG TAB PO (09:03)
[2017-12-02] MEDS: Aspirin 81 MG CHEW PO (09:03)
[2017-12-02] MEDS: traZODone 50 MG TAB 25 MG PO (13:40)
--- NOTE | 2017-12-02 15:07 | PDOC.CMPRO ---
Date of Service: 12/02/17 Time of Service: 15:07 Care Management Progress Note S/O: CM met with spouse Kaity at the bedside she is tearful she states that she slept for the first time in five years over the past few nights. She states even with supports she would be unable to take him home. She will complete the financial application for LTM the clinicals have been faxed to [facility] and pending review. Palliative met with Mary Beth and Kaity today. Mary Beth continues to have a patient observer in the room, he is active at times he has been less agitated today per primary nurse. A: Mary Beth is a 72 year old male admitted to [facility] awaiting LTC pending approval of intermodal customer service medicaid a referral was faxed to [facility] there has been no response at this time. P:Mary Beth continues to have a patient observer, he is active and walks frequently. consulted and made medication recommendations. CM awaiting a response from [facility] referral CM left a voicemail. 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 Mary Beth is in need of LTC facility, CM to continue to provide support to patient, family and care team ongoing discharge planning and disposition.
--- NOTE | 2017-12-02 15:16 | CMPROGNOTE_ITS ---
Date of Service: 12/02/17 Time of Service: 15:07 Care Management Progress Note S/O: CM met with spouse Kaity at the bedside she is tearful she states that she slept for the first time in five years over the past few nights. She states even with supports she would be unable to take him home. She will complete the financial application for LTM the clinicals have been faxed to [facility] and pending review. Palliative met with Mary Beth and Kaity today. Mary Beth continues to have a patient observer in the room, he is active at times he has been less agitated today per primary nurse. 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 P:Mary Beth continues to have a patient observer, he is active and walks frequently. consulted and made medication recommendations. CM awaiting a response from [facility] referral CM left a voicemail. 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 Mary Beth is in need of LTC facility, CM to continue to provide support to patient, family and care team ongoing discharge planning and disposition.
[2017-12-02] MEDS: Insulin Aspart 300 UNITS/3 ML PEN SC (17:37)
[2017-12-02] MEDS: risperiDONE 0.25 MG TAB 0.5 MG PO (19:16)
[2017-12-02] MEDS: Mirtazapine 15 MG TAB PO (19:16)
[2017-12-02] MEDS: Melatonin 3 MG TAB PO (20:55)
[2017-12-03 08:20] VITALS: BP 186/88; PULSE 88; RESP 20; TEMP 37.2; O2SAT 99
[2017-12-03] MEDS: risperiDONE 0.25 MG TAB PO (09:18)
[2017-12-03] MEDS: Aspirin 81 MG CHEW PO (09:19)
[2017-12-03] MEDS: Citalopram 10 MG TAB PO (09:20)
[2017-12-03] MEDS: Haloperidol 5 MG/ML VIAL 2 MG IM (10:51)
[2017-12-03] MEDS: traZODone 50 MG TAB 25 MG PO (12:19)
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
[2017-12-03] MEDS: Melatonin 3 MG TAB PO (20:19)
[2017-12-03] MEDS: LORazepam 0.5 MG TAB PO (20:19)
[2017-12-03] MEDS: risperiDONE 0.25 MG TAB 0.5 MG PO (20:19)
[2017-12-03] MEDS: Mirtazapine 15 MG TAB PO (20:20)
[2017-12-04] MEDS: Aspirin 81 MG CHEW PO (10:05)
[2017-12-04] MEDS: Citalopram 10 MG TAB PO (10:06)
[2017-12-04] MEDS: risperiDONE 0.25 MG TAB PO (10:06)
[2017-12-04] MEDS: Milk of Magnesia 30 ML CUP PO (10:13)
[2017-12-04 10:55] VITALS: BP 197/84; PULSE 81; RESP 18; TEMP 36.7; O2SAT 97
[2017-12-04] MEDS: traZODone 50 MG TAB 25 MG PO (12:16)
[2017-12-04] MEDS: Insulin Aspart 300 UNITS/3 ML PEN SC ×2 (12:18→16:57)
[2017-12-04 19:30] VITALS: PULSE 82; RESP 24
[2017-12-04] MEDS: risperiDONE 0.25 MG TAB 0.5 MG PO (19:35)
[2017-12-04] MEDS: Mirtazapine 15 MG TAB PO (19:35)
[2017-12-04] MEDS: LORazepam 0.5 MG TAB PO (20:54)
[2017-12-04] MEDS: Melatonin 3 MG TAB PO (20:54)
[2017-12-05 07:35] VITALS: BP 165/72; PULSE 84; RESP 19; TEMP 36.8; O2SAT 97
[2017-12-05] MEDS: risperiDONE 0.25 MG TAB PO (07:44)
[2017-12-05] MEDS: Aspirin 81 MG CHEW PO (07:44)
[2017-12-05] MEDS: Citalopram 10 MG TAB PO (07:44)
[2017-12-05] MEDS: Insulin Aspart 300 UNITS/3 ML PEN SC ×3 (07:44→16:44)
[2017-12-05] MEDS: LORazepam 0.5 MG TAB PO (11:13)
--- NOTE | 2017-12-05 12:29 | PDOC.CMPRO ---
Date of Service: 12/05/17 Time of Service: 12:29 Care Management Progress Note S/O: CM met with patient and spoke with his spouse Kaity. She brought lunch from home today for Mary Beth. Mary Beth appears to enjoy her company and he appears to be eating some with her coaching. She has found all the paperwork needed for financial piece of the LTM application. CM faxed updated clinicals today to JANET [facility]. Spouse would like Mary Beth to have a shower if this is possible she states she uses the shower chair at home. A: Mary Beth is a 72 year old male admitted to [facility] awaiting LTC facility P:Mary Beth remains [facility]2 no change in status today. Awaiting [facility] med[facility] for placement. 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 CM to continue to provide support to patient, family and care team ongoing discharge planning and disposition.
--- NOTE | 2017-12-05 12:40 | CMPROGNOTE_ITS ---
Date of Service: 12/05/17 Time of Service: 12:29 Care Management Progress Note S/O: CM met with patient and spoke with his spouse Kaity. She brought lunch from home today for Mary Beth. Mary Beth appears to enjoy her company and he appears to be eating some with her coaching. She has found all the paperwork needed for financial piece of the LTM application. CM faxed updated clinicals today to JANET Clifford. Spouse would like Mary Beth to have a shower if this is possible she states she uses the shower chair at home. A: Mary Beth is a 72 year old male admitted to [facility] awaiting LTC facility P:Mary Beth remains SB2 no change in status today. Awaiting half-way medicaid for placement. 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 CM to continue to provide support to patient, family and care team ongoing discharge planning and disposition.
[2017-12-05] MEDS: traZODone 50 MG TAB 25 MG PO (16:43)
[2017-12-05] MEDS: risperiDONE 0.25 MG TAB 0.5 MG PO (20:32)
[2017-12-05] MEDS: Melatonin 3 MG TAB PO (20:33)
[2017-12-05] MEDS: Mirtazapine 15 MG TAB PO (20:33)
[2017-12-06] MEDS: Aspirin 81 MG CHEW PO (08:55)
[2017-12-06] MEDS: risperiDONE 0.25 MG TAB PO (08:55)
[2017-12-06] MEDS: Citalopram 10 MG TAB PO (08:55)
[2017-12-06] MEDS: traZODone 50 MG TAB 25 MG PO (12:21)
[2017-12-06] MEDS: Insulin Aspart 300 UNITS/3 ML PEN SC (12:21)
[2017-12-06] MEDS: Acetaminophen 325 MG TAB 650 MG PO ×2 (12:25→16:38)
[2017-12-06] MEDS: Haloperidol 5 MG/ML VIAL 2 MG IM (13:20)
--- NOTE | 2017-12-06 14:57 | NUR.NOTE ---
Nursing Note: Pt agitated, yelling in hallway, charging in different directions quickly. Nursing staff attempted to reorient Pt to room, Pt refusing to enter at this time. Attempts were made to give Pt oral Haldol, unsuccessfully. IM haldol administered to Pt. Pt was able to be directed back into his room. Kaity currently visiting with pt.
[2017-12-06] MEDS: LORazepam 0.5 MG TAB PO (16:34)
[2017-12-06] MEDS: Mirtazapine 15 MG TAB PO (19:09)
[2017-12-06] MEDS: risperiDONE 0.25 MG TAB 0.5 MG PO (19:09)
[2017-12-06] MEDS: Melatonin 3 MG TAB PO (19:09)
--- NOTE | 2017-12-07 07:44 | PCNE_ITS ---
PALLIATIVE CARE CONSULTATION DATE OF DICTATION December 05, 2017 at 11:30 a.m. DATE OF VISIT December 02, 2017 REASON FOR CONSULT 1. Advanced dementia. 2. Goals of care. 3. Family support in setting of caregiver stress. CONSULT CALLED BY Chris Sparrow M.D. PLACE OF VISIT Inpatient. ASSESSMENT AND PLAN Mary Beth Cordero is a 72-year-old man physically fit, except for his brain disease /dementia with Parkinsonism. His reports a dramatic decline in the last three weeks. He said he has had TIAs in the past and she wondered if this is what had happened again. It is unclear as this is not definable on a CAT scan and he would not be able to tolerate a brain MRI at this point in his life. His , Kaity, is quite clear, she will not be able to bring Mary Beth home. She feels that he is too much work for her at this point in time. It is dangerous for both him and her. She does have three sons, but they all have their own lives she reports and they cannot help their father to the degree that he needs it. They are looking for placement for him. Unfortunately, he did not have a three- night qualifying stay. He is currently being transferred over to Swing Bed level [address] Sparrow. He does quality for [facility] based on his illness, hopefully his finances will make him eligible as well. I do not think there is much neurologically that can be done by Dr. Lainez to help him. I do feel like he was not at all sedated during my visit with him, so I think there is certainly room to go up on his risperidone. I would probably go directly up to 0.5 b.i.d. and try to avoid Haldol due to his higher side effect incidence. Unclear whether his citalopram will really be helping him at this time. Dr. Sparrow does have a psychiatry consult into Dr. Overton, who we hope will help us manage Mr. Cordero more affectively as well. I did explain to Katiy, Mr. Cordero's , that given his other minimal health problems that Mr. Cordero could live another decade, though generally people with dementia within 10 years of first diagnosis. So we will see what happens. FOLLOWUP If he is placed in the community, I would be glad to followup with him in two months time. We will see where he ends up going. HISTORY OF PRESENT ILLNESS Mary Beth Cordero is a 72-year-old man who initially showed signs of dementia about six and a half or seven years ago. He was officially diagnosed with dementia five years ago. He was living with his up until this admission. His is Kaity. No one else has been helping her. Currently on this admission, he has been evaluated for [facility] by both Crystal Arreola and Nga Cruz. Medically, he qualifies. They are now working on finances. His reports that last three weeks, Mary Beth has had a very fast downhill decline. He has been getting mad and breaking things. He does see Dr. Lainez, Neurologist for his dementia. He has tried various medications, but none of them have worked. During my visit, he was actually pleasant and cooperative most of the time. He did standup and try to throw away papers, but otherwise was in his chair. He did not want me to touch him, but other than that, he was cooperative. Initially he was admitted by Dr. Aceves on 11/26 as an observation patient. He did have a through workup for change in mental status, all of which was negative. As the hospitalist, have modified his medications, he is doing better behaviorally. He is currently on lorazepam b.i.d. (he was on this at home). He has Haldol ordered p.r.n., though they are trying to minimize that due to his Parkinsonism. He is on mirtazapine at bedtime at 15. Citalopram just started by Dr. Sparrow. Risperidone at 0.25 in the morning and 0.5 in the afternoon. Trazodone is recommended by Dr. Overton Psychiatry. His has been seeing him every day. She is struggling with guilt. They do have three son's together, and all of them live locally, but she says that one of them cannot even look at his dad he is so upset. There is a son Tiago, who lives with them who helps a bit, but the other two sons really do not help much. His Kaity is very clear that she will not be able to bring Mary Beth home. It is too much for her. She is frightened that either he or she will be hurt. Again however, during my visit with him, he was cooperative and pleasant for 95 % of the time. PAST MEDICAL HISTORY 1. Dementia probably a combination of Alzheimer's and vascular. 2. Coronary artery bypass graft x3. 3. History of multiple TIAs. 4. Valve repair. 5. Bilateral inguinal hernia and umbilical hernia repair. 6. Osteoarthritis. 7. Hyperglycemia with impaired glucose tolerance, but not on medications. 8. History of depression with anxiety. 9. Restless leg syndrome, previously on ropinirole, but stopped on this admission. 10. Benign prostatic hypertrophy. 11. Gastroesophageal reflux disease. FAMILY HISTORY His grandmother of dementia at age 64. His aunt of dementia at age 85. His mother of dementia at age 84. His three sons are all relatively healthy so far. SOCIAL HISTORY He has been to his for 54 years. He never smoked. 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 He is not a unfortunately for him. He does not drink alcohol and never had a problem with alcohol. He has always been physically active and fit. Still is slender and strong. CURRENT MEDICATION LIST 1. Acetaminophen 650 mg p.o. q. 4 hours p.r.n. 2. Mylanta 30 cc p.o. q. 2 hours p.r.n. 3. Aspirin 81 mg p.o. daily scheduled. 4. Bisacodyl 10 mg RI daily p.r.n. 5. Citalopram 10 mg p.o. daily, started on this admission. 6. Court Protect cream. 7. Docusate sodium 100 mg p.o. t.i.d. p.r.n. 8. Glycerine chips 1 suppository RI daily. 9. Haloperidol 0.25 mg p.o. t.i.d., which they are really trying not to use, though he does appear on the 5th that he got that three times, the day prior to my visit, none on my visit day. 10. Lorazepam 0.5 mg p.o. b.i.d. p.r.n. (long-term medication for him). 11. Milk of Magnesia 30 cc p.o. daily p.r.n. 12. Melatonin 3 mg p.o. at bedtime. 13. Mirtazapine 15 mg p.o. q. pm. 14. Nitroglycerin 0.4 mg sublingual q. 5 hours p.r.n. 15. Risperidone 0.25 in the morning and 0.5 at night. 16. Trazodone 25 mg p.o. daily. 17. Fleets enema p.r.n. 18. Eucerin cream p.r.n. ALLERGIES Anesthetics of the Amide-type. Ibuprofen. REVIEW OF SYSTEMS Review of systems unable to be obtained from the patient due to his degree of dementia, but per , no fevers or chills. No weight loss. He did have some kind of change three weeks ago, which she thinks may have been a kind of TIA with behavioral changes. No complaints of pain. No nonverbal evidence of pain. No grimacing. No moaning. The rest of review of systems as much as can be obtained was negative. OBJECTIVE GENERAL - He is a slender, strong-looking man, he looks younger than stated age. Very busy working with his hands with keys, oxygen tubing, magazines. VITAL SIGNS - Temperature 36.9. Pulse 77 and regular. Blood pressure was elevated at 168/91. That is the highest he has been. Respiratory rate is 18. O2 saturation is 97% on room air. EYES - His eyes are anicteric, not injected. EOMI. HENT - No rhinorrhea. Moist mucous membranes. NECK - Neck without lymphadenopathy or thyromegaly. LUNGS - I just hear briefly before he took my stethoscope off his chest, but he has no increased work of breathing. I was unable to do any further exam. NEUROLOGIC - He is able to speak and walk without any assistance. He does seem to recognize his , but there is very poor eye contact with me. He prefers to be busy with his things than interact. SKIN - No obvious rashes or lesions. No bruising. Per nurses, no skin breakdown. LABORATORY STUDIES His white count was normal when he came in. MCV slightly elevated, but not enough to indicate a severe B12 deficiency or drinking problem. Chemistries have shown elevated creatinine throughout his admission. His last normal creatinine was 1.23 in February of 2017. His urine was negative when he came in. IMAGING Head CT done on 11/26/17 - Showed no acute abnormality, though he did have mild atrophy and white matter changes. His last brain MRI was done in September of 2014 and that showed global cerebral atrophy, but normal flow in the [place].
[2017-12-07 08:28] VITALS: PULSE 76; RESP 18; TEMP 36.7
[2017-12-07] MEDS: Aspirin 81 MG CHEW PO (08:43)
[2017-12-07] MEDS: Citalopram 10 MG TAB PO (08:43)
[2017-12-07] MEDS: risperiDONE 0.25 MG TAB PO (08:45)
[2017-12-07] MEDS: LORazepam 0.5 MG TAB PO ×2 (10:08→23:23)
[2017-12-07] MEDS: Acetaminophen 325 MG TAB 650 MG PO (10:08)
[2017-12-07] MEDS: Insulin Aspart 300 UNITS/3 ML PEN SC (11:44)
[2017-12-07] MEDS: traZODone 50 MG TAB 25 MG PO (13:41)
--- NOTE | 2017-12-07 14:39 | PDOC.CMPRO ---
Date of Service: 12/07/17 Time of Service: 14:39 Care Management Progress Note S/O: CM met with patient and his spouse Kaity today. Mary Beth has been walking the halls frequently today with [employer] he has been difficult to redirect. His spouse Kaity did bring in lunch a few times this week and sat with him he appears to enjoy this company. He has a difficult time articulating his needs often his words are garbled and word salad. CM spoke with Nga Cruz RN today pharmaceutical specialty representative medicaid clinical certification is complete still awaiting the financial completion. Spouse Kaity has agreed to referrals to all local LTC facilities and in [facility] and [place]. CM to fax referrals today. Kaity is concerned about the distant she may have to travel to see Mary Beth however understands the constraint of available facilities. A: Mary Beth is a 72 year old male admitted to [facility] advance dementia, awaiting placement. P: Mary Beth is awaiting placement, CM to fax referrals to all area LTC placement options at the request of spouse. Cm to continue to provide support to patient, family and care team ongoing discharge planning and disposition.
--- NOTE | 2017-12-07 15:00 | CMPROGNOTE_ITS ---
Date of Service: 12/07/17 Time of Service: 14:39 Care Management Progress Note S/O: CM met with patient and his spouse Kaity today. Mary Beth has been walking the halls frequently today with [employer] he has been difficult to redirect. His spouse Kaity did bring in lunch a few times this week and sat with him he appears to enjoy this company. He has a difficult time articulating his needs often his words are garbled and word salad. CM spoke with Nga Cruz RN today [place] clinical certification is complete still awaiting the financial completion. Spouse Kaity has agreed to referrals to all local LTC facilities and in [facility] and [place]. CM to fax referrals today. Kaity is concerned about the distant she may have to travel to see Mary Beth however understands the constraint of available facilities. A: Mary Beth is a 72 year old male admitted to [facility] advance dementia, awaiting placement. P: Mary Beth is awaiting placement, CM to fax referrals to all area LTC placement options at the request of spouse. Cm to continue to provide support to patient, family and care team ongoing discharge planning and disposition.
[2017-12-07] MEDS: risperiDONE 0.25 MG TAB 0.5 MG PO (19:39)
[2017-12-07] MEDS: Mirtazapine 15 MG TAB PO (19:39)
[2017-12-07] MEDS: Milk of Magnesia 30 ML CUP PO (19:40)
[2017-12-07] MEDS: Melatonin 3 MG TAB PO (19:40)
[2017-12-08] MEDS: Acetaminophen 325 MG TAB 650 MG PO ×2 (03:14→07:28)
[2017-12-08 07:20] VITALS: BP 143/71; PULSE 80; RESP 20; TEMP 36.2; O2SAT 98
[2017-12-08] MEDS: Citalopram 10 MG TAB PO (07:27)
[2017-12-08] MEDS: Aspirin 81 MG CHEW PO (07:28)
[2017-12-08] MEDS: LORazepam 0.5 MG TAB PO (07:28)
[2017-12-08] MEDS: Docusate Sodium 100 MG CAP PO (07:28)
[2017-12-08] MEDS: risperiDONE 0.25 MG TAB PO (07:29)
[2017-12-08] MEDS: Insulin Aspart 300 UNITS/3 ML PEN SC (08:13)
--- NOTE | 2017-12-08 10:50 | PDOC.PSYCONS ---
Date of Service: 12/08/17 I was asked by Alexis Malloy MD to see Mr. Cordero to evaluation and make recommendations for dementia with behavioral agitation. Information source: Patient, chart, rating scales, nursing staff. Identifying information / Chief Complaint: Mr. Cordero is a 72 year old male with past psychiatric history of dementia with prior history of anxiety and depression who was brought to the ED on November 26, 2017 with concern for worsening mental status. After a comprehensive medical work up without findings of an infectious, metabolic, or traumatic etiology for his behaviors, it was determined that his agitation was likely related to worsening dementia. He was admitted to swing bed status on November 29 given inability for his to care for the patient at home due to his dementia. Care management is actively involved in finding him placement. History Of Present Illness: Soon after admission risperidone was added twice daily to reduce prn haloperidol and lorazepam usage, as well as citalopram 10mg daily and trazodone 25mg at 1pm to haro of sundowning behaviors. Per nursing, some nights he sleeps well and other nights he is up a lot. His typical periods of agitation are in the afternoon and around 10am. This morning before 10am his nurse gave him lorazepam prn followed later by haloperidol prn at the earliest sign of possible agitation in order to prevent the typical mid-morning agitation period. Patient himself is not able to engage in conversation about mood, pain level, or any topic about his name or simply small talk. He pleasantly makes eye contact from time to time and sometimes tries to respond to my questions but speech is impoverished and poorly articulated and content is nonsensical. At one point he asked what I was selling. He cheerily said Okay, see ya! when I waved to him and said good-bye. The sitter with him at the time of my visit, who is new to the patient, reports that for the last hour has has been sitting pleasantly in the chair and sometimes engaging in conversation vaguely. He was able to name 2 of 3 colors for her on the board. He will talk about numbers. Substances: unknown history, patient unable to provide. Collateral information not available at this time. Safety: patient unable to communicate ideations, no evidence of suicidal or violent ideations. Inpatient medications: Active Medications Generic Name Dose Route Start Last Admin Trade Name Freq PRN Reason Stop Dose Admin Acetaminophen 650 mg 11/29/17 14:48 12/08/17 07:28 Tylenol PO 650 mg Q4H PRN PRN Administration Al Hydrox/Mg Hydrox/Simethicone 30 ml 11/29/17 14:42 Mylanta Liquid PO Q2H PRN PRN Aspirin 81 mg 12/01/17 08:30 12/08/17 07:28 PO 81 mg DAILY SARAH Administration Bisacodyl 10 mg 11/29/17 14:48 Dulcolax Suppository IN DAILY PRN PRN Constipation Citalopram Hydrobromide 10 mg 11/30/17 08:30 12/08/17 07:27 Celexa PO 10 mg DAILY SARAH Administration Dextrose 0 gm 11/29/17 14:41 Insta-Glucose PO DIRECTED PRN Dimethicone/Zinc Oxide 0 gm 11/29/17 14:41 Court Protect Cream TP PRN PRN Docusate Sodium 100 mg 11/29/17 14:41 12/08/17 07:28 Colace PO 100 mg TID PRN PRN Administration Glycerin 1 supp 11/29/17 14:48 IN DAILY PRN PRN Constipation Haloperidol 0.25 mg 11/29/17 14:43 12/08/17 08:14 Haldol PO 0.25 mg TID PRN PRN Administration Agitation Insulin Aspart 0 units 11/29/17 17:00 12/08/17 08:13 Novolog Flexpen SC 2 unit 0800,1200,1700 SARAH Administration Protocol Lorazepam 0.5 mg 11/29/17 14:44 12/08/17 07:28 Ativan PO 0.5 mg BID PRN PRN Administration Magnesium Hydroxide 30 ml 11/29/17 14:43 12/07/17 19:40 Milk Of Magnesia PO 30 ml DAILY PRN PRN Administration Melatonin 3 mg 12/01/17 22:00 12/07/17 19:40 PO 3 mg HS SARAH Administration Mirtazapine 15 mg 11/30/17 20:00 12/07/17 19:39 Remeron PO 15 mg QPM SARAH Administration Nitroglycerin 0.4 mg 11/29/17 14:43 Nitrostat SL Q5 MIN PRN X3 PRN Ranitidine HCl 300 mg 11/30/17 08:30 12/08/17 07:28 Zantac PO 300 mg DAILY SARAH Administration Risperidone 0.5 mg 11/30/17 20:00 12/07/17 19:39 Risperdal PO 0.5 mg QPM SARAH Administration Risperidone 0.25 mg 12/02/17 08:30 12/08/17 07:29 Risperdal PO 0.25 mg DAILY SARAH Administration Sodium Biphosphate/Sodium Phosphate 133 ml 11/29/17 14:48 Fleet Enema IN Q72H PRN Constipation Trazodone HCl 25 mg 12/01/17 13:00 12/07/17 13:41 Desyrel PO 25 mg DAILY@1300 SARAH Administration White Petrol/Mineral Oil/Lanolin 0 gm 11/29/17 14:48 Eucerin Creme TP PRN PRN Past Medical history per primary care chart: - restless Leg Syndrome - depression and anxiety - dementia - sensory hearing loss bilaterao - CABG x 3 in 2005 PAST PSYCHIATRIC HISTORY: Hospitalizations: history not gathered at this time Suicide attempts: history not gathered at this time. Prescribers: Medications: - outpatient meds - mirtazapine 15mg - lorazepam 1mg twice daily prn (likely recently getting these doses) - bupropion xl 150mg on discontinued med list. 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 REVIEW OF SYSTEMS: - patient not able to engage in ROS. MENTAL STATUS EXAM: Constitutional: appears healthy, stated age, appropriate dress, grooming, hygiene. sitting in chair with sitter beside him. Social graces to greeting and parting intact. Attitude: cooperative Psychomotor: no retardation or agitation Speech: paucity of speech, poor articulation Associations: no looseness Thought process: nonlogical Thought content without psychosis, delusions, obsessions No evidence of suicidal or homicidal ideations observed Hallucinations - none evident Mood: pt unable to state Affect: pleasant, bland Attention/Concentration: poor Judgment/insight: impaired Oriented possibly to self Language below age and education Fund of knowledge below age and education Memory poor Other cognitive testing: patient states his black sweat pants are white and when held up a playing card with the number 4 and asked the number he was unable to say. When asked if it is a 6 he stated I think probably. Assessment/Recommendations: Diagnosis: dementia with neuropsychiatric symptoms of agitation Gil Clinton is a 72 year old male with past psychiatric history of depression, anxiety and dementia who presents with acute mental status change for which medical work up was negative. He has had episodes of acute agitation on the [facility] floor and has a 1:1 sitter. Given that he likely was regularly getting lorazepam at home, he could be going through benzodiazepine withdrawal with it not being scheduled here. Starting a slow benzo taper on a schedule might reduce agitation. He appears to be tolerating citalopram well and increasing to 20mg may help with reducing agitation further. Keeping room bright during the day and dark at night will help with chronobiological rhythms and reduce risk for delirium. A 1:1 sitter while he is awake is necessary at all times. Medications: - schedule lorazepam 0.5mg around 9am. Maintain prn lorazepam 0.5mg twice daily for agitation. - increase citalopram to 20mg daily and monitor for Qtc prolongation - continue risperidone 0.5mg Am and 0.25mg pm - continue trazodone 25mg at 1pm - continue mirtazapine 15mg at bedtime - continue haloperidol 0.25mg IM prn agitation, but use this second if lorazepam prn is ineffective. Documentation of behaviors: - nursing/sitters will help with refining his management plan if they document each shift his behaviors, the time and the possible antecedents to agitated behaviors, and if medication is given, his behaviors after medication administration. Visit Statistics Total Visit Minutes: 55 Visit Time Allocation >50% of face to face visit spent in counseling (Extensive teaching, explanation and instructions. Counseling as appropriate. Review of plans, and discussion concerning medical problems dealt with at this visit. Discussion of benefits/risks of treatment, anticipated course of events, potential medication side effects, options, alternatives, and follow up plans. Questions were solicited and answered, and the patient verbalized understanding.), and/or coordination of care.
--- NOTE | 2017-12-08 11:30 | PSYCO_ITS ---
Date of Service: 12/08/17 I was asked by Alexis Malloy MD to see Mr. Cordero to evaluation and make recommendations for dementia with behavioral agitation. Information source: Patient, chart, rating scales, nursing staff. Identifying information / Chief Complaint: Mr. Cordero is a 72 year old male with past psychiatric history of dementia with prior history of anxiety and depression who was brought to the ED on November 26, 2017 with concern for worsening mental status. After a comprehensive medical work up without findings of an infectious, metabolic, or traumatic etiology for his behaviors, it was determined that his agitation was likely related to worsening dementia. He was admitted to swing bed status on November 29 given inability for his to care for the patient at home due to his dementia. Care management is actively involved in finding him placement. History Of Present Illness: Soon after admission risperidone was added twice daily to reduce prn haloperidol and lorazepam usage, as well as citalopram 10mg daily and trazodone 25mg at 1pm to haro of sundowning behaviors. Per nursing, some nights he sleeps well and other nights he is up a lot. His typical periods of agitation are in the afternoon and around 10am. This morning before 10am his nurse gave him lorazepam prn followed later by haloperidol prn at the earliest sign of possible agitation in order to prevent the typical mid- morning agitation period. Patient himself is not able to engage in conversation about mood, pain level, or any topic about his name or simply small talk. He pleasantly makes eye contact from time to time and sometimes tries to respond to my questions but speech is impoverished and poorly articulated and content is nonsensical. At one point he asked what I was selling. He cheerily said Okay, see ya! when I waved to him and said good-bye. The sitter with him at the time of my visit, who is new to the patient, reports that for the last hour has has been sitting pleasantly in the chair and sometimes engaging in conversation vaguely. He was able to name 2 of 3 colors for her on the board. He will talk about numbers. Substances: unknown history, patient unable to provide. Collateral information not available at this time. Safety: patient unable to communicate ideations, no evidence of suicidal or violent ideations. Inpatient medications: Active Medications Generic Name Dose Route Start Last Admin Trade Name Freq PRN Reason Stop Dose Admin Acetaminophen 650 mg 11/29/17 14:48 12/08/17 07:28 Tylenol PO 650 mg Q4H PRN PRN Administration Al Hydrox/Mg Hydrox/Simethicone 30 ml 11/29/17 14:42 Mylanta Liquid PO Q2H PRN PRN Aspirin 81 mg 12/01/17 08:30 12/08/17 07:28 PO 81 mg DAILY SARAH Administration Bisacodyl 10 mg 11/29/17 14:48 Dulcolax Suppository [place] DAILY PRN PRN Constipation Citalopram Hydrobromide 10 mg 11/30/17 08:30 12/08/17 07:27 Celexa PO 10 mg DAILY SARAH Administration Dextrose 0 gm 11/29/17 14:41 Insta-Glucose PO DIRECTED PRN Dimethicone/Zinc Oxide 0 gm 11/29/17 14:41 [address] Protect Cream TP PRN PRN Docusate Sodium 100 mg 11/29/17 14:41 12/08/17 07:28 Colace PO 100 mg TID PRN PRN Administration Glycerin 1 supp 11/29/17 14:48 W[place] DAILY PRN PRN Constipation Haloperidol 0.25 mg 11/29/17 14:43 12/08/17 08:14 Haldol PO 0.25 mg TID PRN PRN Administration Agitation Insulin Aspart 0 units 11/29/17 17:00 12/08/17 08:13 Novolog Flexpen SC 2 unit 0800,1200,1700 SARAH Administration Protocol Lorazepam 0.5 mg 11/29/17 14:44 12/08/17 07:28 Ativan PO 0.5 mg BID PRN PRN Administration Magnesium Hydroxide 30 ml 11/29/17 14:43 12/07/17 19:40 Milk Of Magnesia PO 30 ml DAILY PRN PRN Administration Melatonin 3 mg 12/01/17 22:00 12/07/17 19:40 PO 3 mg HS SARAH Administration Mirtazapine 15 mg 11/30/17 20:00 12/07/17 19:39 Remeron PO 15 mg QPM SARAH Administration Nitroglycerin 0.4 mg 11/29/17 14:43 Nitrostat SL Q5 MIN PRN X3 PRN Ranitidine HCl 300 mg 11/30/17 08:30 12/08/17 07:28 Zantac PO 300 mg DAILY SARAH Administration Risperidone 0.5 mg 11/30/17 20:00 12/07/17 19:39 Risperdal PO 0.5 mg QPM SARAH Administration Risperidone 0.25 mg 12/02/17 08:30 12/08/17 07:29 Risperdal PO 0.25 mg DAILY SARAH Administration Sodium Biphosphate/Sodium Phosphate 133 ml 11/29/17 14:48 Fleet Enema W[place] Q72H PRN Constipation Trazodone HCl 25 mg 12/01/17 13:00 12/07/17 13:41 Desyrel PO 25 mg DAILY@1300 SARAH Administration White Petrol/Mineral Oil/Lanolin 0 gm 11/29/17 14:48 Eucerin Creme TP PRN PRN Past Medical history per primary care chart: - restless Leg Syndrome - depression and anxiety - dementia - sensory hearing loss bilaterao - CABG x 3 in 2005 PAST PSYCHIATRIC HISTORY: Hospitalizations: history not gathered at this time Suicide attempts: history not gathered at this time. Prescribers: Medications: - outpatient meds - mirtazapine 15mg - lorazepam 1mg twice daily prn (likely recently getting these doses) - bupropion xl 150mg on discontinued med list. 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 REVIEW OF SYSTEMS: - patient not able to engage in ROS. MENTAL STATUS EXAM: Constitutional: appears healthy, stated age, appropriate dress, grooming, hygiene. sitting in chair with sitter beside him. Social graces to greeting and parting intact. Attitude: cooperative Psychomotor: no retardation or agitation Speech: paucity of speech, poor articulation Associations: no looseness Thought process: nonlogical Thought content without psychosis, delusions, obsessions No evidence of suicidal or homicidal ideations observed Hallucinations - none evident Mood: pt unable to state Affect: pleasant, bland Attention/Concentration: poor Judgment/insight: impaired Oriented possibly to self Language below age and education Fund of knowledge below age and education Memory poor Other cognitive testing: patient states his black sweat pants are white and when held up a playing card with the number 4 and asked the number he was unable to say. When asked if it is a 6 he stated I think probably. Assessment/Recommendations: Diagnosis: dementia with neuropsychiatric symptoms of agitation Gil Clinton is a 72 year old male with past psychiatric history of depression , anxiety and dementia who presents with acute mental status change for which medical work up was negative. He has had episodes of acute agitation on the [facility] floor and has a 1:1 sitter. Given that he likely was regularly getting lorazepam at home, he could be going through benzodiazepine withdrawal with it not being scheduled here. Starting a slow benzo taper on a schedule might reduce agitation. He appears to be tolerating citalopram well and increasing to 20mg may help with reducing agitation further. Keeping room bright during the day and dark at night will help with chronobiological rhythms and reduce risk for delirium. A 1:1 sitter while he is awake is necessary at all times. Medications: - schedule lorazepam 0.5mg around 9am. Maintain prn lorazepam 0.5mg twice daily for agitation. - increase citalopram to 20mg daily and monitor for Qtc prolongation - continue risperidone 0.5mg Am and 0.25mg pm - continue trazodone 25mg at 1pm - continue mirtazapine 15mg at bedtime - continue haloperidol 0.25mg IM prn agitation, but use this second if lorazepam prn is ineffective. Documentation of behaviors: - nursing/sitters will help with refining his management plan if they document each shift his behaviors, the time and the possible antecedents to agitated behaviors, and if medication is given, his behaviors after medication administration. Visit Statistics Total Visit Minutes: 55 Visit Time Allocation >50% of face to face visit spent in counseling (Extensive teaching, explanation and instructions. Counseling as appropriate. Review of plans, and discussion concerning medical problems dealt with at this visit. Discussion of benefits/risks of treatment, anticipated course of events, potential medication side effects, options, alternatives, and follow up plans. Questions were solicited and answered, and the patient verbalized understanding.), and/or coordination of care.
[2017-12-08] MEDS: traZODone 50 MG TAB 25 MG PO (13:15)
[2017-12-08] MEDS: Melatonin 3 MG TAB PO (20:03)
[2017-12-08] MEDS: risperiDONE 0.25 MG TAB 0.5 MG PO (20:03)
[2017-12-08] MEDS: Mirtazapine 15 MG TAB PO (20:04)
[2017-12-09 07:40] VITALS: BP 173/78; PULSE 77; RESP 20; TEMP 36.3; O2SAT 95
[2017-12-09 08:00] VITALS: BP 159/85
[2017-12-09] MEDS: Citalopram 10 MG TAB 20 MG PO (08:47)
[2017-12-09] MEDS: Aspirin 81 MG CHEW PO (08:47)
[2017-12-09] MEDS: LORazepam 0.5 MG TAB PO ×2 (08:47→18:49)
[2017-12-09] MEDS: risperiDONE 0.25 MG TAB PO (08:47)
--- NOTE | 2017-12-09 10:46 | PDOC.CMPRO ---
Date of Service: 12/09/17 Time of Service: 10:46 Care Management Progress Note S/O: CM faxed referrals to [facility], [facility], [facility], and [facility] at the request of Mary Beth's spouse awaiting to hear back from several. [facility] does not have a bed available per cruise coordinator Eileen, however they will keep the referral if anything changes. [facility] is reviewing the referral CM spoke with Amara in admissions. CM to continue to search for LTC placement and follow up on LTM application. Mary Beth has psychiatry consult with whom also recommended medication changes (please see her note). Mary Beth continues to have one on one patient observer. A: Mary Beth is a 72 year old male admitted to [facility] awaiting LTC placement and LTM approval. P: CM to continue to provide support to patient, family and care team ongoing discharge planning and disposition. CM to follow up referrals sent to LTC facilities.
--- NOTE | 2017-12-09 10:54 | CMPROGNOTE_ITS ---
Date of Service: 12/09/17 Time of Service: 10:46 Care Management Progress Note S/O: CM faxed referrals to [facility], [facility], [facility], and [facility] at the request of Mary Beth's spouse awaiting to hear back from several. [facility] does not have a bed available per sales planning coordinator Eileen, however they will keep the referral if anything changes. [facility] is reviewing the referral CM spoke with Amara in admissions. CM to continue to search for LTC placement and follow up on LTM application. MaryB eth has psychiatry consult with whom also recommended medication changes (please see her note). Mary Beth continues to have one on one patient observer. A: Mary Beth is a 72 year old male admitted to [facility] awaiting LTC placement and LTM approval. P: CM to continue to provide support to patient, family and care team ongoing discharge planning and disposition. CM to follow up referrals sent to LTC facilities.
--- NOTE | 2017-12-09 16:10 | PGE_ITS ---
PROGRESS NOTE DATE: December 09, 2017 @ 1542 hours Mr. Cordero has impaired glucose tolerance and has been getting fingerstick blood sugars on a daily b asis, rarely needing any insulin and if so, low dose. His last hemoglobin A1c was in the fall, 6.3% in February. I don't see the value of continuing to do fingerstick blood sugars with minimal interven tion and will discontinue these and check his hemoglobin A1c level tomorrow. If it is above 7 or 7.5 % it might be worth considering putting him on an oral agent.
[2017-12-09] MEDS: traZODone 50 MG TAB 25 MG PO (17:02)
[2017-12-09] MEDS: Mirtazapine 15 MG TAB PO (20:24)
[2017-12-09] MEDS: Melatonin 3 MG TAB PO (20:25)
[2017-12-09] MEDS: risperiDONE 0.25 MG TAB 0.5 MG PO (20:25)
[2017-12-10 07:40] LABS: Hemoglobin A1C 6.9 % (4.5-6.2)
[2017-12-10] MEDS: Citalopram 10 MG TAB 20 MG PO (08:33)
[2017-12-10] MEDS: Aspirin 81 MG CHEW PO (08:33)
[2017-12-10] MEDS: LORazepam 0.5 MG TAB PO ×2 (08:34→19:03)
[2017-12-10] MEDS: risperiDONE 0.25 MG TAB PO (08:35)
[2017-12-10 08:42] VITALS: BP 185/78; PULSE 77; RESP 20; TEMP 36.9; O2SAT 97
[2017-12-10 09:05] VITALS: BP 168/87
[2017-12-10] MEDS: traZODone 50 MG TAB 25 MG PO (12:08)
[2017-12-10] MEDS: Mirtazapine 15 MG TAB PO (19:46)
[2017-12-10] MEDS: risperiDONE 0.25 MG TAB 0.5 MG PO (19:47)
[2017-12-10] MEDS: Melatonin 3 MG TAB PO (19:47)
[2017-12-11 09:15] VITALS: BP 199/92; PULSE 78; RESP 20; TEMP 37; O2SAT 97
[2017-12-11] MEDS: risperiDONE 0.25 MG TAB PO (09:16)
[2017-12-11] MEDS: Citalopram 10 MG TAB 20 MG PO (09:16)
[2017-12-11] MEDS: LORazepam 0.5 MG TAB PO ×3 (09:17→18:07)
[2017-12-11] MEDS: Aspirin 81 MG CHEW PO (09:17)
[2017-12-11] MEDS: traZODone 50 MG TAB 25 MG PO (12:41)
--- NOTE | 2017-12-11 15:36 | NUR.NOTE ---
0910: Informed Kaity Pena CCRN of pt. elevated BP and need for potential antihypertensive medication, Kaity stated she will consult with MD. Nursing Note:
[2017-12-11] MEDS: Mirtazapine 15 MG TAB PO (18:07)
[2017-12-11] MEDS: risperiDONE 0.25 MG TAB 0.5 MG PO (18:07)
[2017-12-11] MEDS: Melatonin 3 MG TAB PO (18:08)
--- NOTE | 2017-12-11 18:27 | PDOC.CMPRO ---
Date of Service: 12/11/17 Time of Service: 18:27 Care Management Progress Note S/O: Mary Beth has a visit with his spouse and son today at the bedside. He continues to have a one on one patient observer. Mary Beth is alert and walks frequently. He appears to enjoy his and sons visit and he was able to spend sometime watching the Baseball game with them. Kaity reports that she has received notification from Medicaid that they require more financial information which she has gathered and will send in on Tuesday. Kaity also reports she has a phone interview set up with MACHO next week to review the financial information. A: Mary Beth is a 72 year old male admitted to [facility] awaiting LTC placement and LTM approval. P: CM to continue to provide support to patient, family and care team ongoing discharge planning and disposition. CM to follow up referrals sent to LTC facilities.
--- NOTE | 2017-12-11 18:30 | CMPROGNOTE_ITS ---
Date of Service: 12/11/17 Time of Service: 18:27 Care Management Progress Note S/O: Mary Beth has a visit with his spouse and son today at the bedside. He continues to have a one on one patient observer. Mary Beth is alert and walks frequently. He appears to enjoy his and sons visit and he was able to spend sometime watching the Baseball game with them. Kaity reports that she has received notification from Medicaid that they require more financial information which she has gathered and will send in on Tuesday. Kaity also reports she has a phone interview set up with MACHO next week to review the financial information. A: Mary Beth is a 72 year old male admitted to [facility] awaiting LTC placement and LTM approval. P: CM to continue to provide support to patient, family and care team ongoing discharge planning and disposition. CM to follow up referrals sent to LTC facilities.
[2017-12-12] MEDS: LORazepam 0.5 MG TAB PO ×3 (01:46→17:47)
[2017-12-12] MEDS: risperiDONE 0.25 MG TAB PO (08:26)
[2017-12-12] MEDS: Aspirin 81 MG CHEW PO (08:26)
[2017-12-12] MEDS: Citalopram 10 MG TAB 20 MG PO (08:27)
[2017-12-12] MEDS: traZODone 50 MG TAB 25 MG PO (12:56)
--- NOTE | 2017-12-12 18:09 | NUR.NOTE ---
Nursing Note: This nurse found the patient and his cadre in the kitchenette, she was trying to redirect the patient back to his room, he was not listening to her, and as she tried to direct him again , he grabbed her arm and started to push her back and forth. i intervened, and got between them, I motioned for an FELLED SEAM OPERATOR CHAINSTITCH, who took the resident for a walk around the unit, A prn nasir was taken from the [facility]. This was offered to the patient in ice cream. He refused ice cream, stated he wasn't interested. I asked him if he was interested in another coffee, he said he would like another coffee. The pill was dissolved in the coffee, and he drank it. Staff were directed to let him walk for the short time, he will be monitored for effect
[2017-12-12] MEDS: Melatonin 3 MG TAB PO (20:40)
[2017-12-12] MEDS: Acetaminophen 325 MG TAB 650 MG PO (20:40)
[2017-12-12] MEDS: risperiDONE 0.25 MG TAB 0.5 MG PO (20:40)
[2017-12-12] MEDS: Mirtazapine 15 MG TAB PO (20:41)
[2017-12-12 22:31] VITALS: BP 150/71
[2017-12-13] MEDS: LORazepam 0.5 MG TAB PO ×3 (03:30→22:50)
[2017-12-13] MEDS: Acetaminophen 325 MG TAB 650 MG PO ×2 (03:30→19:33)
[2017-12-13] MEDS: Milk of Magnesia 30 ML CUP PO (03:35)
[2017-12-13] MEDS: traZODone 50 MG TAB 25 MG PO (13:44)
[2017-12-13] MEDS: Citalopram 10 MG TAB 20 MG PO (13:44)
[2017-12-13] MEDS: risperiDONE 0.25 MG TAB PO (13:45)
[2017-12-13] MEDS: Aspirin 81 MG CHEW PO (13:45)
[2017-12-13] MEDS: Bisacodyl 10 MG SUPP PR (17:33)
[2017-12-13] MEDS: Melatonin 3 MG TAB PO (19:33)
[2017-12-13] MEDS: Docusate Sodium 100 MG CAP PO (19:33)
[2017-12-13] MEDS: risperiDONE 0.25 MG TAB 0.5 MG PO (19:33)
[2017-12-13] MEDS: Mirtazapine 15 MG TAB PO (20:00)
[2017-12-14] MEDS: LORazepam 0.5 MG TAB PO ×2 (07:31→10:34)
[2017-12-14] MEDS: Citalopram 10 MG TAB 20 MG PO (07:31)
[2017-12-14] MEDS: risperiDONE 0.25 MG TAB PO (07:31)
[2017-12-14] MEDS: Aspirin 81 MG CHEW PO (07:31)
[2017-12-14] MEDS: traZODone 50 MG TAB 25 MG PO (12:58)
--- NOTE | 2017-12-14 14:42 | SATEXT_ITS ---
Assessment: Mr. Cordero's intake is declining somewhat. It had been very good, then variable, and now it is fair to poor. His last weight was 81.6 kg. His BMI was 30 kg/m2 which is c/2 class 1 obesity. Nutritional Diagnosis: Increased nutritional risk secondary to inability to care for self. Intervention: We will continue to provide nutrient dense foods. Will continue to check in with patient and family regarding any milkshakes or supplements they may want to try for Mr. Cordero. Would suggest weighing Mr. Cordero weekly to help assess his nutritional status. Monitoring and Evaluation: 1. Will continue to monitor PO and weight. 2. Will evaluate nutrition care plan and adjust as needed.
[2017-12-15] MEDS: Aspirin 81 MG CHEW PO (07:33)
[2017-12-15] MEDS: Acetaminophen 325 MG TAB 650 MG PO (07:33)
[2017-12-15] MEDS: LORazepam 0.5 MG TAB PO (07:33)
[2017-12-15] MEDS: Citalopram 10 MG TAB 20 MG PO (07:33)
[2017-12-15] MEDS: risperiDONE 0.25 MG TAB PO (07:34)
[2017-12-15] MEDS: traZODone 50 MG TAB 25 MG PO (14:20)
[2017-12-15] MEDS: Melatonin 3 MG TAB PO (20:00)
[2017-12-15] MEDS: risperiDONE 0.25 MG TAB 0.5 MG PO (20:00)
[2017-12-15] MEDS: Mirtazapine 15 MG TAB PO (20:01)
[2017-12-15 20:42] VITALS: BP 129/70; PULSE 77; RESP 18; TEMP 37.1; O2SAT 95
[2017-12-16] MEDS: Aspirin 81 MG CHEW PO (08:33)
[2017-12-16] MEDS: Citalopram 10 MG TAB 20 MG PO (08:34)
[2017-12-16] MEDS: risperiDONE 0.25 MG TAB PO (08:39)
[2017-12-16] MEDS: LORazepam 0.5 MG TAB PO (08:43)
[2017-12-16] MEDS: traZODone 50 MG TAB 25 MG PO (12:23)
--- NOTE | 2017-12-16 13:46 | PDOC.CMACT ---
Date of Service: 12/16/17 Time of Service: 13:46 Care Management Activity Note S/O: CM met with Mary Beth today he is sitting in the chair and greets the CM upon entering the room. Mary Beth's words are clear today when the CM ask him how he is doing he states I want to go home. Per patient observer Mary Beth has been pleasant today and per report he slept well. He enjoys his spouse company she sits with him and feeds him his lunch. She often brings fresh fruits from home. Mary Beth is active and walks frequently with the patient observer. His spouse brought him a fidget blanket which she sewed buttons and other tactile object's to help with his fidgeting. Plan Mary Beth is awaiting LTM approval and transition to a LTC facility. Dr. Caicedo will meet with him and his spouse Tuesday between 12 and 1pm to discuss and review medications and treatment. Spouse has an appointment with LTM on Tuesday to review financial portion of the LTM application. Discharge disposition to be determined.
[2017-12-16] MEDS: Mirtazapine 15 MG TAB PO (19:41)
[2017-12-16] MEDS: Melatonin 3 MG TAB PO (19:41)
[2017-12-16] MEDS: risperiDONE 0.25 MG TAB 0.5 MG PO (19:41)
[2017-12-17] MEDS: Citalopram 10 MG TAB 20 MG PO (07:26)
[2017-12-17] MEDS: LORazepam 0.5 MG TAB PO (07:26)
[2017-12-17] MEDS: Aspirin 81 MG CHEW PO (07:27)
[2017-12-17] MEDS: risperiDONE 0.25 MG TAB PO (07:27)
[2017-12-17] MEDS: traZODone 50 MG TAB 25 MG PO (13:28)
[2017-12-17] MEDS: risperiDONE 0.25 MG TAB 0.5 MG PO (21:01)
[2017-12-17] MEDS: Melatonin 3 MG TAB PO (21:01)
[2017-12-17] MEDS: Mirtazapine 15 MG TAB PO (21:01)
[2017-12-18 07:21] VITALS: BP 146/86; PULSE 60; RESP 18; TEMP 36; O2SAT 95
[2017-12-18] MEDS: risperiDONE 0.25 MG TAB PO (08:05)
[2017-12-18] MEDS: Aspirin 81 MG CHEW PO (08:05)
[2017-12-18] MEDS: Citalopram 10 MG TAB 20 MG PO (08:05)
[2017-12-18] MEDS: LORazepam 0.5 MG TAB PO (08:05)
[2017-12-18] MEDS: Milk of Magnesia 30 ML CUP PO (09:21)
[2017-12-18] MEDS: traZODone 50 MG TAB 25 MG PO (12:59)
[2017-12-18] MEDS: Mirtazapine 15 MG TAB PO (20:41)
[2017-12-18] MEDS: risperiDONE 0.25 MG TAB 0.5 MG PO (20:41)
[2017-12-18] MEDS: Melatonin 3 MG TAB PO (20:41)
[2017-12-18] MEDS: Acetaminophen 325 MG TAB 650 MG PO (20:42)
[2017-12-19] MEDS: LORazepam 0.5 MG TAB PO (08:10)
[2017-12-19] MEDS: Citalopram 10 MG TAB 20 MG PO (08:10)
[2017-12-19] MEDS: risperiDONE 0.25 MG TAB PO (08:10)
[2017-12-19] MEDS: Aspirin 81 MG CHEW PO (08:10)
--- NOTE | 2017-12-19 11:51 | SATEXT_ITS ---
Assessment: Mr. Cordero's intake continues to be variable from 25% PO to 100% PO at meals, although over the weekend 100% PO is recorded at meals. There is no current weight on Mr. Cordero. His last weight was on admission 11/28/17 and was 81.6 kg. He is 63. BMI is 30 c/w class 1 obesity. He eats a wide variety of foods and takes an occasional liquid nutritional supplement. Nutritional Diagnosis: Increased nutritional risk related to inability to care for self. Intervention: Will continue to encourage nutrient dense meals and will check in with his whenever she is available at meal time. Please weigh patient now and weekly so that we can best assess his nutritional status and continue to monitor his nutritional needs. Monitoring and Evaluation: 1. Will monitor weight and PO. 2. Will evaluate nutrition care plan ongoing and adjust as needed.
--- NOTE | 2017-12-19 13:35 | PDOC.PSYFU ---
Date of Service: 12/19/17 Time of Service: 01:35 Follow Up: FOLLOW UP: Overnight and weekend events: - per notes and verbal communication with team, he had minimal agitation over the last three days and he responded well to an evening shower, a strategy they have noted may help with evening routine and prevention of agitation - MAR indicates no Haldol prn or ativan prn in the last three days. - Last night patient reportedly was not sleeping as well, up a lot of the night - This morning patient reportedly was awake, conversant, had a bowel movement, ate his full breakfast. Became sleepy by late morning. Subjective: Patient was sleeping and I did not wake him for this interview. Most of interview was with , Kaity who I met for the first time. Kaity reported concern about is sleepiness today but also states she understood he was up and alert this morning and he didn't sleep much last night. Kaity explained that she has known of his dementia for a while, chose to care for him as long as possible, became afraid of him due to his physical aggression in the couple weeks leading up to bringing him to the ED and her sons were concerned about her safety with him. Kaity reports he had anxiety throughout adulthood but did not take any psychotropic medications until the last few years prescribed by Dr. Novoa. He was on bupropion xl 150mg which was helping until recently. This was switched to mirtazapine 15mg in the couple weeks before his admission to [facility]. Kaity reports he never had trouble falling asleep, and when he did wake up in the night to pee he would go back to sleep easily. Kaity reports that she was giving him lorazepam once daily at home in the weeks prior to this admission primarily for anxiety. Kaity reports wanting him to be comfortable and for him to have medication that helps avoid episodes of agitation. Kaity reports that she has submitted all required financial paperwork for medicaid to review in preparation for long-term placement. REVIEW OF SYSTEMS: patient unable to participate MENTAL STATUS EXAM: Constitutional: resting comfortable sitting up in bed, eyes closed, breathing easily. Attitude: cooperative Psychomotor: no agitation Speech:none at this interview Associations: no looseness Thought process:unable to assess today Thought content: unable to assess today No suicidal or homicidal ideations evident behaviorally Hallucinations: none evident behaviorally Mood: calm today per staff. Affect: relaxed, calm, sleeping Attention/Concentration: asleep Judgment/insight: poor/poor Oriented: not assessed today, known to be limited to self when awake. Other cognitive testing: none Admission labs: LFTs were normal on admission, Hgb A1c is elevated. Laboratory Tests 12/10/17 06:48 Hemoglobin A1c 6.9 H Assessment/Recommendations: Gil sexton is a 72 year old male with dementia with intermittent behavioral aggression which has improved. He has not received lorazepam or haloperidol for acute agitation in 5 and 6 days respectively suggesting that scheduled medications and environmental interventions are helping. I provided psychoeducation to Kaity about the course of dementia and about the medication regimen that he is on here at the hospital. I explained the risks and benefits and indications for use of antipsychotics, benzodiazepines, and antidepressants and the longer term goal of simplifying and reducing his medications, particularly of antipsychotics and benzodiazepine. Kaity expressed concern about severe agitation returning and prefers a cautious slow approach. We agreed that given he will likely be here at [facility] for at least a couple more weeks awaiting placement, that we would not change his current medications for a few more days to be sure agitation remains minimal. Then we will begin to taper the lorazepam and the risperidone. Labs: Given that he is now on scheduled antipsychotics, we should recheck LFTs, lipids, and glucose. I will continue to follow Mr. Cordero while he is here at [facility]. Visit Statistics Total Visit Minutes: 45 Visit Time Allocation >50% of face to face visit spent in counseling (Extensive teaching, explanation and instructions. Counseling as appropriate. Review of plans, and discussion concerning medical problems dealt with at this visit. Discussion of benefits/risks of treatment, anticipated course of events, potential medication side effects, options, alternatives, and follow up plans. Questions were solicited and answered, and the patient verbalized understanding.), and/or coordination of care.
[2017-12-19] MEDS: risperiDONE 0.25 MG TAB 0.5 MG PO (19:38)
[2017-12-19] MEDS: Mirtazapine 15 MG TAB PO (19:38)
[2017-12-19] MEDS: Acetaminophen 325 MG TAB 650 MG PO (19:38)
[2017-12-19] MEDS: Melatonin 3 MG TAB PO (19:38)
[2017-12-20] MEDS: LORazepam 0.5 MG TAB PO (09:18)
[2017-12-20] MEDS: Aspirin 81 MG CHEW PO (09:18)
[2017-12-20] MEDS: Citalopram 10 MG TAB 20 MG PO (09:18)
[2017-12-20] MEDS: risperiDONE 0.25 MG TAB PO (09:18)
[2017-12-20] MEDS: traZODone 50 MG TAB 25 MG PO (13:44)
[2017-12-20] MEDS: Melatonin 3 MG TAB PO (20:16)
[2017-12-20] MEDS: Acetaminophen 325 MG TAB 650 MG PO (20:16)
[2017-12-20] MEDS: Mirtazapine 15 MG TAB PO (20:16)
[2017-12-20] MEDS: risperiDONE 0.25 MG TAB 0.5 MG PO (20:16)
[2017-12-21 07:44] LABS: ALT 19 U/L (12-78); AST 10 U/L (15-37); Albumin 3.2 g/dL (3.4-5.0); Alkaline Phosphatase 63 U/L (46-116); Anion Gap 8.7 mmol/L (3-11); BUN 23 mg/dL (7-18); Bilirubin, Total 0.6 mg/dL (0.2-1.0); CO2 27.3 mmol/L (21.0-32.0); CREATININE 1.52 mg/dL (0.70-1.30); Calcium 8.5 mg/dL (8.5-10.1); Chloride 104 mmol/L (98-107); Cholesterol 126 mg/dL (50-200); Estimated GFR 45.05 (mL/min/1.73m2); Glucose 151 mg/dL (70-100); HDL Cholesterol 37 mg/dL (40-60); LDL CHOLESTEROL 83 mg/dL (<100); Potassium 3.8 mmol/L (3.5-5.1); Sodium 140 mmol/L (136-145); Total Protein 7.3 g/dL (6.4-8.2); Triglyceride 75 mg/dL (30-150)
[2017-12-21] MEDS: LORazepam 0.5 MG TAB PO (08:31)
[2017-12-21] MEDS: Citalopram 10 MG TAB 20 MG PO (08:31)
[2017-12-21] MEDS: Aspirin 81 MG CHEW PO (08:31)
[2017-12-21] MEDS: risperiDONE 0.25 MG TAB PO (08:31)
[2017-12-21] MEDS: traZODone 50 MG TAB 25 MG PO (14:17)
--- NOTE | 2017-12-21 15:15 | PDOC.CMPRO ---
Date of Service: 12/21/17 Time of Service: 15:15 Care Management Progress Note S/O: CM met with Mary Beth today he is sitting in the chair and greets the CM upon entering the room. His spouse Kaity is present she has completed the financial portion of the LTM application she is awaiting the decision. Mary Beth has been more re-directable and appears to enjoy Kaity's visit. He is more interactive with CM and is able to answer simple questions clearly. CM faxed updates and referrals to [facility] and updates to [facility]. Kaity states she feels more confident in Mary Beth's plan of care after and his medications after meeting with . 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 Plan Mary Beth is awaiting LTM approval and transition to a LTC facility. Discharge disposition to be determined.
--- NOTE | 2017-12-21 15:25 | CMPROGNOTE_ITS ---
Date of Service: 12/21/17 Time of Service: 15:15 Care Management Progress Note S/O: CM met with Mary Beth today he is sitting in the chair and greets the CM upon entering the room. His spouse Kaity is present she has completed the financial portion of the LTM application she is awaiting the decision. Mary Beth has been more re-directable and appears to enjoy Kaity's visit. He is more interactive with CM and is able to answer simple questions clearly. CM faxed updates and referrals to [facility] and updates to [facility] first choice. Kaity states she feels more confident in Mary Beth's plan of care after and his medications after meeting with . 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 Plan Mary Beth is awaiting LTM approval and transition to a LTC facility. Discharge disposition to be determined.
[2017-12-21] MEDS: risperiDONE 0.25 MG TAB 0.5 MG PO (19:27)
[2017-12-21] MEDS: Mirtazapine 15 MG TAB PO (19:27)
[2017-12-21] MEDS: Melatonin 3 MG TAB PO (19:27)
[2017-12-22] MEDS: LORazepam 0.5 MG TAB PO (08:57)
[2017-12-22] MEDS: risperiDONE 0.25 MG TAB PO (08:57)
[2017-12-22] MEDS: Aspirin 81 MG CHEW PO (08:57)
[2017-12-22] MEDS: Citalopram 10 MG TAB 20 MG PO (08:57)
--- NOTE | 2017-12-22 11:59 | PDOC.CMACT ---
Date of Service: 12/22/17 Time of Service: 11:59 Care Management Activity Note CM met with Mary Beth today he is sitting in the chair and greets the CM upon entering the room. He continues to have a one on one patient observer. He has been more verbal throughout the week. His spouse Kaity is here most days of the week to visit she brings foods from home that he enjoys. His spouse has brought a fidget blanket which he uses sometimes, he often walks the daniels with the patient observer. He appears to enjoy his time with his spouse and family. Plan Mary Beth is awaiting LTM approval and transition to a LTC facility. Discharge disposition to be determined.
--- NOTE | 2017-12-22 15:25 | NUR.NOTE ---
Nursing Note: 1515: pt has been very sleepy throughout the day. pt awakens for am care and breakfast. pt eats well independently but does require prompting. pt ambulating in halls with GLOBAL COORDINATOR today x 1. pt falls asleep in chair, GLOBAL COORDINATOR awakens pt for lunch. pt assisted with lunch today but does not eat very well. pt back to bed after lunch today and has been resting in bed for the afternoon. afternoon dose of trazadone held related to pt sleeping. hand off to JANET Zhou who will assess the need for the medication when pt awakens. pt has been conversant when awake today, answering questions.
[2017-12-22] MEDS: risperiDONE 0.25 MG TAB 0.5 MG PO (19:41)
[2017-12-22] MEDS: Melatonin 3 MG TAB PO (19:41)
[2017-12-22] MEDS: Mirtazapine 15 MG TAB PO (19:42)
[2017-12-22] MEDS: Acetaminophen 325 MG TAB 650 MG PO (19:46)
[2017-12-23] MEDS: Citalopram 10 MG TAB 20 MG PO (09:01)
[2017-12-23] MEDS: LORazepam 0.5 MG TAB 0.25 MG PO (09:01)
[2017-12-23] MEDS: Senna TAB 1 TAB PO (09:02)
[2017-12-23] MEDS: Aspirin 81 MG CHEW PO (09:03)
[2017-12-23] MEDS: risperiDONE 0.25 MG TAB PO (09:03)
--- NOTE | 2017-12-23 12:30 | NUR.NOTE ---
Nursing Note: 1230: pt alert, ambulating in halls with PCO. pt making good eye contact. pt reported to have eaten lunch very well today. pt answering questions appropriately. continue to monitor.
[2017-12-23] MEDS: risperiDONE 0.25 MG TAB 0.5 MG PO (20:36)
[2017-12-23] MEDS: Melatonin 3 MG TAB PO (20:36)
[2017-12-23] MEDS: Mirtazapine 15 MG TAB PO (20:36)
[2017-12-24] MEDS: risperiDONE 0.25 MG TAB PO (09:02)
[2017-12-24] MEDS: Aspirin 81 MG CHEW PO (09:02)
[2017-12-24] MEDS: Citalopram 10 MG TAB 20 MG PO (09:02)
[2017-12-24] MEDS: LORazepam 0.5 MG TAB 0.25 MG PO (09:02)
[2017-12-24] MEDS: risperiDONE 0.25 MG TAB 0.5 MG PO (20:30)
[2017-12-24] MEDS: Mirtazapine 15 MG TAB PO (20:30)
[2017-12-24] MEDS: Melatonin 3 MG TAB PO (20:30)
[2017-12-25] MEDS: Citalopram 10 MG TAB 20 MG PO (09:30)
[2017-12-25] MEDS: LORazepam 0.5 MG TAB 0.25 MG PO (09:30)
[2017-12-25] MEDS: risperiDONE 0.25 MG TAB PO (09:30)
[2017-12-25] MEDS: Aspirin 81 MG CHEW PO (09:31)
[2017-12-25] MEDS: Melatonin 3 MG TAB PO (19:45)
[2017-12-25] MEDS: Mirtazapine 15 MG TAB PO (19:50)
[2017-12-25] MEDS: risperiDONE 0.25 MG TAB 0.5 MG PO (19:50)
[2017-12-26 11:30] VITALS: BP 179/90; PULSE 71; RESP 18; TEMP 36.8; O2SAT 98
[2017-12-26] MEDS: Aspirin 81 MG CHEW PO (11:30)
[2017-12-26] MEDS: Citalopram 10 MG TAB 20 MG PO (11:30)
[2017-12-26] MEDS: LORazepam 0.5 MG TAB PO (11:30)
[2017-12-26] MEDS: risperiDONE 0.25 MG TAB PO (11:30)
[2017-12-26] MEDS: Melatonin 3 MG TAB PO (20:27)
[2017-12-26] MEDS: risperiDONE 0.25 MG TAB 0.5 MG PO (20:28)
[2017-12-26] MEDS: Mirtazapine 15 MG TAB PO (20:28)
[2017-12-27] MEDS: LORazepam 0.5 MG TAB PO ×2 (09:09→17:59)
[2017-12-27] MEDS: Citalopram 10 MG TAB 20 MG PO (09:09)
[2017-12-27] MEDS: Aspirin 81 MG CHEW PO (09:09)
[2017-12-27] MEDS: risperiDONE 0.25 MG TAB PO (09:09)
[2017-12-27] MEDS: Acetaminophen 325 MG TAB 650 MG PO (18:00)
[2017-12-27] MEDS: Mirtazapine 15 MG TAB PO (19:54)
[2017-12-27] MEDS: risperiDONE 0.25 MG TAB 0.5 MG PO (19:54)
[2017-12-27] MEDS: Melatonin 3 MG TAB PO (19:54)
[2017-12-28] MEDS: Acetaminophen 325 MG TAB 650 MG PO (08:42)
[2017-12-28] MEDS: LORazepam 0.5 MG TAB PO ×2 (08:43→17:25)
[2017-12-28] MEDS: risperiDONE 0.25 MG TAB PO (08:43)
[2017-12-28] MEDS: Citalopram 10 MG TAB 20 MG PO (08:43)
[2017-12-28] MEDS: Aspirin 81 MG CHEW PO (08:43)
[2017-12-28] MEDS: Mirtazapine 15 MG TAB PO (21:38)
[2017-12-28] MEDS: risperiDONE 0.25 MG TAB 0.5 MG PO (21:39)
[2017-12-28] MEDS: Melatonin 3 MG TAB PO (21:39)
--- NOTE | 2017-12-28 22:59 | NUR.NOTE ---
Nursing Note: This patient awoke around 1630. Patient was up wandering the halls with his cadre. Patient became fixated on going into ICU and other patient's rooms. Patient became undirectable and attempted to hit another RN. PRN Ativan was given. Patient was convinced to go back to his room and finish his supper. When the patient finished eating he went to the bathroom and then continued walking the halls with staff. Patient then became tired and returned to his room got into bed and fell asleep.
[2017-12-29] MEDS: LORazepam 0.5 MG TAB PO (08:57)
[2017-12-29] MEDS: Aspirin 81 MG CHEW PO (08:58)
[2017-12-29] MEDS: Citalopram 10 MG TAB 20 MG PO (08:58)
[2017-12-29] MEDS: risperiDONE 0.25 MG TAB PO (08:59)
--- NOTE | 2017-12-29 12:23 | NUTRITION ---
Mr. Cordero's PO intake has improved and he is now taking 75-100% PO more consistently. His last weight on 12/20/17 was stable from his admission weight. Would continue to recommend however, weighing Mr. Cordero weekly to be sure we can stay on top of his nutritional status as he is at risk given his inability to care for himself. Will continue to monitor PO intake and weights. Will evaluate nutrition care plan ongoing and adjust as needed.
--- NOTE | 2017-12-29 14:13 | PDOC.CMACT ---
Date of Service: 12/29/17 Time of Service: 14:13 Care Management Activity Note Mary Beth has been ambulating in the halls with patient observer. He was visited by family yesterday including grandchildren. He received pet and music therapy this week and appears to enjoy the company. CM spoke with [facility] admissions today coordinator Meagan has just returned from vacation and is reviewing the referral. [facility] declined patient due to his wandering, concerned that they will not be able to manage his needs at their facility. Plan: Mary Beth's intermediate medicaid is pending, awaiting financial approval. [facility] is reviewing the referral and will contact CM with a decision. CM to continue to provide support to Patient and family ongoing discharge planning and disposition.
--- NOTE | 2017-12-29 14:18 | CMACTNOTE_ITS ---
Date of Service: 12/29/17 Time of Service: 14:13 Care Management Activity Note Mary Beth has been ambulating in the halls with patient observer. He was visited by family yesterday including grandchildren. He received pet and music therapy this week and appears to enjoy the company. CM spoke with [facility] admissions today coordinator Meagan has just returned from vacation and is reviewing the referral. [facility] has declined patient due to his wandering, concerned that they will not be able to manage his needs at their facility. Plan: Mary Beth's group home medicaid is pending, awaiting financial approval. [facility] is reviewing the referral and will contact CM with a decision. CM to continue to provide support to Patient and family ongoing discharge planning and disposition.
[2017-12-29] MEDS: risperiDONE 0.25 MG TAB 0.5 MG PO (19:52)
[2017-12-29] MEDS: Mirtazapine 15 MG TAB PO (19:53)
[2017-12-29] MEDS: Melatonin 3 MG TAB PO (19:53)
[2017-12-30] MEDS: Aspirin 81 MG CHEW PO (08:23)
[2017-12-30] MEDS: risperiDONE 0.25 MG TAB PO (08:24)
[2017-12-30] MEDS: LORazepam 0.5 MG TAB PO ×2 (08:24→18:30)
[2017-12-30] MEDS: Citalopram 10 MG TAB 20 MG PO (08:25)
[2017-12-30] MEDS: Acetaminophen 325 MG TAB 650 MG PO (19:27)
[2017-12-30] MEDS: risperiDONE 0.25 MG TAB 0.5 MG PO (19:27)
[2017-12-30] MEDS: Mirtazapine 15 MG TAB PO (19:28)
[2017-12-30] MEDS: Melatonin 3 MG TAB PO (19:28)
[2017-12-31] MEDS: Aspirin 81 MG CHEW PO (11:24)
[2017-12-31] MEDS: LORazepam 0.5 MG TAB PO ×2 (11:24→16:35)
[2017-12-31] MEDS: risperiDONE 0.25 MG TAB PO (11:25)
[2017-12-31] MEDS: Citalopram 10 MG TAB 20 MG PO (11:25)
[2017-12-31] MEDS: Melatonin 3 MG TAB PO (23:00)
[2017-12-31] MEDS: risperiDONE 0.25 MG TAB 0.5 MG PO (23:00)
[2017-12-31] MEDS: Mirtazapine 15 MG TAB PO (23:00)
[2018-01-01] MEDS: LORazepam 0.5 MG TAB PO (08:27)
[2018-01-01] MEDS: Aspirin 81 MG CHEW PO (08:27)
[2018-01-01] MEDS: Citalopram 10 MG TAB 20 MG PO (08:27)
[2018-01-01] MEDS: risperiDONE 0.25 MG TAB PO (08:28)
[2018-01-01 09:25] VITALS: BP 129/71; PULSE 67; RESP 18; TEMP 36.7; O2SAT 97
[2018-01-01] MEDS: Acetaminophen 325 MG TAB 650 MG PO (20:30)
[2018-01-01] MEDS: Mirtazapine 15 MG TAB PO (20:31)
[2018-01-01] MEDS: Melatonin 3 MG TAB PO (20:31)
[2018-01-01] MEDS: risperiDONE 0.25 MG TAB 0.5 MG PO (20:31)
[2018-01-02] MEDS: LORazepam 0.5 MG TAB PO (09:44)
[2018-01-02] MEDS: Aspirin 81 MG CHEW PO (09:44)
[2018-01-02] MEDS: Citalopram 10 MG TAB 20 MG PO (09:44)
[2018-01-02] MEDS: risperiDONE 0.25 MG TAB PO (09:45)
[2018-01-02] MEDS: Melatonin 3 MG TAB PO (19:31)
[2018-01-02] MEDS: risperiDONE 0.25 MG TAB 0.5 MG PO (19:31)
[2018-01-02] MEDS: Mirtazapine 15 MG TAB PO (19:32)
[2018-01-03] MEDS: LORazepam 0.5 MG TAB PO ×2 (07:43→18:20)
[2018-01-03] MEDS: risperiDONE 0.25 MG TAB PO (07:43)
[2018-01-03] MEDS: Citalopram 10 MG TAB 20 MG PO (07:44)
[2018-01-03] MEDS: Aspirin 81 MG CHEW PO (07:44)
[2018-01-03] MEDS: risperiDONE 0.25 MG TAB 0.5 MG PO (19:09)
[2018-01-03] MEDS: Melatonin 3 MG TAB PO (19:09)
[2018-01-03] MEDS: Mirtazapine 15 MG TAB PO (19:09)
[2018-01-03] MEDS: Acetaminophen 325 MG TAB 650 MG PO (23:40)
[2018-01-04] MEDS: risperiDONE 0.25 MG TAB PO (09:06)
[2018-01-04] MEDS: Citalopram 10 MG TAB 20 MG PO (09:06)
[2018-01-04] MEDS: LORazepam 0.5 MG TAB PO (09:06)
[2018-01-04] MEDS: Aspirin 81 MG CHEW PO (09:06)
--- NOTE | 2018-01-04 13:43 | NS.NUTBLAN_ITS ---
Mr. Cordero's PO intake has been more consistently good to excellent. He still has meals with poor PO. However, his weight is trending up and is currently 83.3 kg. His BMI is now 30 kg/m2 which is c/w class 1 obesity. For that reason , we will discontinue scheduled high protein liquid supplements. We can certainly send them prn. Please continue with weekly weights so that we can continue to monitor his nutritional status and evaluate the adequacy of his nutrition care plan.
--- NOTE | 2018-01-04 14:06 | PDOC.CMPRO ---
Date of Service: 01/04/18 Time of Service: 14:06 Care Management Progress Note S/O: CM met with the patient, Mary Beth is kind at time of encounter he appreciates holding his hand and talking softly. He states he is tired today he did receive a PRN dose of ativan last evening. He is ambulating in the halls with patient observer he appears to enjoy his spouse visit. continues to be consulted for medication management. CM left a voicemail for Crystal Arreola community child care associate teacher at [facility] to review supports available for the patient. A: Mary Beth is an 72 year old male admitted with dementia awaiting LTM for placement in LTC. Plan: Mary Beth's senior living medicaid is pending, awaiting financial approval. [facility] is reviewing the referral and will contact CM with a decision. CM to continue to provide support to Patient and family ongoing discharge planning and disposition.
--- NOTE | 2018-01-04 14:13 | CMPROGNOTE_ITS ---
Date of Service: 01/04/18 Time of Service: 14:06 Care Management Progress Note S/O: CM met with the patient, Mary Beth is kind at time of encounter he appreciates holding his hand and talking softly. He states he is tired today he did receive a PRN dose of ativan last evening. He is ambulating in the halls with patient observer he appears to enjoy his spouse visit. continues to be consulted for medication management. CM left a voicemail for Crystal Arreola community childcare director at [facility] to review supports available for the patient. A: Mary Beth is an 72 year old male admitted with dementia awaiting LTM for placement in LTC. Plan: Mary Beth's long-term medicaid is pending, awaiting financial approval. [facility] is reviewing the referral and will contact CM with a decision. CM to continue to provide support to Patient and family ongoing discharge planning and disposition.
--- NOTE | 2018-01-04 15:25 | NUR.NOTE ---
Nursing Note: 1525: pt has had a good day. slept in chair until approximately 0900. pt ate a fair breakfast. pt has been ambulating in halls t/o the day. pt had a very large bowel movement today; when toileted he stood up and stooled on the floor. pt making conversation that does not correlate to what is going on around him. pt is re-directable. cadre has been with pt today. continue to monitor.
[2018-01-04] MEDS: Mirtazapine 15 MG TAB PO (19:44)
[2018-01-04] MEDS: Melatonin 3 MG TAB PO (19:44)
[2018-01-04] MEDS: risperiDONE 0.25 MG TAB 0.5 MG PO (19:44)
[2018-01-05] MEDS: Acetaminophen 325 MG TAB 650 MG PO ×3 (00:35→19:45)
[2018-01-05] MEDS: Citalopram 10 MG TAB 20 MG PO (07:36)
[2018-01-05] MEDS: LORazepam 0.5 MG TAB PO ×2 (07:37→20:20)
[2018-01-05] MEDS: Aspirin 81 MG CHEW PO (07:37)
[2018-01-05] MEDS: risperiDONE 0.25 MG TAB PO (07:37)
[2018-01-05] MEDS: risperiDONE 0.25 MG TAB 0.5 MG PO (19:46)
[2018-01-05] MEDS: Mirtazapine 15 MG TAB PO (19:46)
[2018-01-05] MEDS: Melatonin 3 MG TAB PO (19:46)
[2018-01-06] MEDS: Citalopram 10 MG TAB 20 MG PO (10:33)
[2018-01-06] MEDS: Acetaminophen 325 MG TAB 650 MG PO (10:33)
[2018-01-06] MEDS: LORazepam 0.5 MG TAB PO (10:33)
[2018-01-06] MEDS: risperiDONE 0.25 MG TAB PO (10:34)
[2018-01-06] MEDS: Aspirin 81 MG CHEW PO (10:34)
--- NOTE | 2018-01-06 11:10 | PDOC.CMACT ---
Date of Service: 01/06/18 Time of Service: 11:10 Care Management Activity Note Mary Beth has been active he frequently ambulates in the halls, His family and his spouse have been visiting, he appears to enjoy having lunch with his spouse and foods from home. He appreciates soft spoken approach and visits with staff. A: Mary Beth is an 72 year old male admitted with dementia awaiting LTM for placement in LTC. Plan: Mary Beth's custodial medicaid is pending, awaiting financial approval. [facility] is reviewing the referral and will contact CM with a decision. CM to continue to provide support to Patient and family ongoing discharge planning and disposition.
--- NOTE | 2018-01-06 11:19 | CMACTNOTE_ITS ---
Date of Service: 01/06/18 Time of Service: 11:10 Care Management Activity Note Mary Beth has been active he frequently ambulates in the halls, His family and his spouse have been visiting, he appears to enjoy having lunch with his spouse and foods from home. He appreciates soft spoken approach and visits with staff. A: Mary Beth is an 72 year old male admitted with dementia awaiting LTM for placement in LTC. Plan: Mary Beth's half-way medicaid is pending, awaiting financial approval. [facility] is reviewing the referral and will contact CM with a decision. CM to continue to provide support to Patient and family ongoing discharge planning and disposition.
--- NOTE | 2018-01-06 13:29 | NS.NUTBLAN_ITS ---
Addendum to note on 01/14/18. Mr. Cordero's height was corrected and is 71/180 cm. His BMI is actually 25.7 kg/m2 which is well WNL but not consistent with class 1 obesity. Would continue to weigh patient weekly so we can monitor his nutritional status. We will continue to offer nutrient dense PO, visit with his in the afternoon to go over menus, as well as use our list of likes and dislikes for Mr. Cordero that we have in the kitchen to help get him the most satisfying and nourishing meals.
[2018-01-06] MEDS: Mirtazapine 15 MG TAB PO (20:05)
[2018-01-06] MEDS: risperiDONE 0.25 MG TAB 0.5 MG PO (20:05)
[2018-01-06] MEDS: Melatonin 3 MG TAB PO (20:05)
[2018-01-07] MEDS: risperiDONE 0.25 MG TAB PO (07:59)
[2018-01-07] MEDS: Aspirin 81 MG CHEW PO (08:00)
[2018-01-07] MEDS: LORazepam 0.5 MG TAB PO (08:00)
[2018-01-07] MEDS: Citalopram 10 MG TAB 20 MG PO (08:01)
[2018-01-07] MEDS: Melatonin 3 MG TAB PO (19:57)
[2018-01-07] MEDS: risperiDONE 0.25 MG TAB 0.5 MG PO (19:58)
[2018-01-07] MEDS: Mirtazapine 15 MG TAB PO (19:58)
[2018-01-08] MEDS: LORazepam 0.5 MG TAB PO ×2 (00:32→07:46)
--- NOTE | 2018-01-08 00:33 | NUR.NOTE ---
Nursing Note: Pt at this time was pushing and pinching trying to get into the ICU. He would not be redirected and went to hit this expert medical writer. Pt was brought back to his room, the TV was shut off and the door was closed. Pt still pushing and pinching. PRN ativan was given, will continue to monitor.
[2018-01-08 07:44] VITALS: BP 180/84; PULSE 73; RESP 17; TEMP 36.3; O2SAT 94
[2018-01-08] MEDS: Citalopram 10 MG TAB 20 MG PO (07:45)
[2018-01-08] MEDS: Aspirin 81 MG CHEW PO (07:46)
[2018-01-08] MEDS: risperiDONE 0.25 MG TAB PO (07:46)
[2018-01-08] MEDS: Acetaminophen 325 MG TAB 650 MG PO (07:50)
[2018-01-08] MEDS: Melatonin 3 MG TAB PO (20:13)
[2018-01-08] MEDS: Mirtazapine 15 MG TAB PO (20:13)
[2018-01-08] MEDS: risperiDONE 0.25 MG TAB 0.5 MG PO (20:14)
[2018-01-09] MEDS: LORazepam 0.5 MG TAB PO ×3 (09:31→22:50)
[2018-01-09] MEDS: Citalopram 10 MG TAB 20 MG PO (09:31)
[2018-01-09] MEDS: risperiDONE 0.25 MG TAB PO (09:32)
[2018-01-09] MEDS: Aspirin 81 MG CHEW PO (09:32)
--- NOTE | 2018-01-09 14:22 | PDOC.CMPRO ---
Date of Service: 01/09/18 Time of Service: 14:22 Care Management Progress Note S/O: Mary Beth is sitting up in the chair next to the bed. His spouse Kaity is present and the one on one Pt observer. Mary Beth is eating a candy bar which he appears to enjoy. He was able to shower today and tolerated it well per report. Spouse has not received a determination from residential medicaid at this time. A: Mary Beth is an 72 year old male admitted with dementia awaiting LTM for placement in LTC. Plan: Mary Beth's auditor tax medicaid is pending, awaiting financial approval. [facility] is reviewing the referral and will contact CM with a decision. CM to continue to provide support to Patient and family ongoing discharge planning and disposition.
--- NOTE | 2018-01-09 14:26 | CMPROGNOTE_ITS ---
Date of Service: 01/09/18 Time of Service: 14:22 Care Management Progress Note S/O: Mary Beth is sitting up in the chair next to the bed. His spouse Kaity is present and the one on one Pt observer. Mary Beth is eating a candy bar which he appears to enjoy. He was able to shower today and tolerated it well per report. Spouse has not received a determination from halfway medicaid at this time. A: Mary Beth is an 72 year old male admitted with dementia awaiting LTM for placement in LTC. Plan: Mary Beth's intermission coordinator medicaid is pending, awaiting financial approval. [facility] is reviewing the referral and will contact CM with a decision. CM to continue to provide support to Patient and family ongoing discharge planning and disposition.
--- NOTE | 2018-01-09 15:26 | PGE_ITS ---
DATE: January 09, 2018 ASSESSMENT AND PLAN: Mary Beth is a pleasant 72-year-old gentleman with a few medical comorbidities, mo st notable for advanced dementia. Case Management is involved in discharge planning with plans for p lacement. Continue risperidone and lorazepam as needed for aggressive behaviors. SUBJECTIVE: Adam is a pleasantly confused 72-year-old gentleman with a past medical history signif icant for CAD status post CABG, OA, depression and anxiety, restless leg syndrome, BPH, GERD, and dem entia who is on swing bed 2 status secondary to progressive dementia and his spouse's inability to ca re for him at home. He was reportedly having increased delusional thoughts and agitation as an outpa tient that were unresponsive to medication changes. In late November he had a psychiatric consultation w elier Caicedo. He has lorazepam and Haldol as needed for agitation. Nursing has no concern s or complaints to offer. There is an ACTIVATED SLUDGE ATTENDANT sitting at the bedside assisting him eating lunch. Mary Beth does not answer questions appropriately but appears comfortable. ACTIVATED SLUDGE ATTENDANT has no concerns and has not no ticed anything concerning. REVIEW OF SYSTEMS: Unable to obtain, patient does not participate. PHYSICAL EXAM: GENERAL: [id number], male. Appears his stated age. In no acute distress. Ines rt, oriented to self only. Does not respond appropriately to questions. HEENT: Unremarkable. CARDIOVASCULAR: Regular rate and rhythm, S1-S2, no S3 or S4. No murmurs. RESPIRATORY: Chest expansion symmetrical, respirations unlabored. Lungs are clear to auscultation. ABDOMEN: Flat, soft, nontender to palpation. Normoactive bowel sounds. No hepatosplenomegaly or pr ominent masses. EXTREMITIES: Lower extremities without deformity or edema. NEURO: Nonfocal. Time spent with patient was 15 minutes. This case was discussed with Dr. Chris Sparrow who is in agreement.
[2018-01-09] MEDS: Polyethylene Glycol 3350 17 GM PACKET PO (16:01)
[2018-01-09] MEDS: Melatonin 3 MG TAB PO (19:57)
[2018-01-09] MEDS: risperiDONE 0.25 MG TAB 0.5 MG PO (19:57)
[2018-01-09] MEDS: Mirtazapine 15 MG TAB PO (19:57)
[2018-01-10] MEDS: Milk of Magnesia 30 ML CUP PO (04:07)
[2018-01-10] MEDS: LORazepam 0.5 MG TAB PO ×4 (04:07→19:10)
[2018-01-10] MEDS: Acetaminophen 325 MG TAB 650 MG PO ×3 (04:07→23:17)
[2018-01-10] MEDS: risperiDONE 0.25 MG TAB PO (08:43)
[2018-01-10] MEDS: Aspirin 81 MG CHEW PO (08:43)
[2018-01-10] MEDS: Citalopram 10 MG TAB 20 MG PO (08:43)
--- NOTE | 2018-01-10 10:46 | NUR.NOTE ---
Nursing Note: Pt had an episode of epitaxis from right nare. Cadre states Pt was ripping apart a brief and cadre Giovanni thinks Pt may have hit his own face accidentally, causing the nosebleed. Pressure applied, bleeding stopped.
[2018-01-10] MEDS: Mirtazapine 15 MG TAB PO (19:09)
[2018-01-10] MEDS: risperiDONE 0.25 MG TAB 0.5 MG PO (19:09)
[2018-01-10] MEDS: Melatonin 3 MG TAB PO (19:10)
[2018-01-11] MEDS: risperiDONE 0.25 MG TAB PO (09:12)
[2018-01-11] MEDS: Aspirin 81 MG CHEW PO (09:12)
[2018-01-11] MEDS: Acetaminophen 325 MG TAB 650 MG PO (09:12)
[2018-01-11] MEDS: Polyethylene Glycol 3350 17 GM PACKET PO (09:12)
[2018-01-11] MEDS: Citalopram 10 MG TAB 20 MG PO (09:12)
[2018-01-11] MEDS: LORazepam 0.5 MG TAB PO (09:12)
[2018-01-11] MEDS: risperiDONE 0.25 MG TAB 0.5 MG PO (19:12)
[2018-01-11] MEDS: Melatonin 3 MG TAB PO (19:12)
[2018-01-11] MEDS: Mirtazapine 15 MG TAB PO (19:12)
[2018-01-12] MEDS: risperiDONE 0.25 MG TAB PO (09:29)
[2018-01-12] MEDS: LORazepam 0.5 MG TAB PO (09:29)
[2018-01-12] MEDS: Senna TAB 1 TAB PO (09:29)
[2018-01-12] MEDS: Acetaminophen 325 MG TAB 650 MG PO (09:30)
[2018-01-12] MEDS: Aspirin 81 MG CHEW PO (09:30)
[2018-01-12] MEDS: Citalopram 10 MG TAB 20 MG PO (09:30)
--- NOTE | 2018-01-12 12:09 | PDOC.CMACT ---
Date of Service: 01/12/18 Time of Service: 12:09 Care Management Activity Note Mary Beth has been ambulating in the halls with patient observer. He enjoys company during the day and interacts with staff. His spouse visits most afternoon's and appears to appreciate her visits. Mary Beth has activities in the room his spouse has brought in to enjoy during the day and help with restlessness. Mary Beth is rubbing his knees today after his walk. He is able to say that they hurt at times and better when he rest. CM noticed during ambulation Mary Beth was shuffling his feet. When Mary Beth return to his chair in the room he was rubbing both knees and they where warm to touch. CM did review this information with MANAGER MINING provider. Plan: José Miguels superintendent container terminal medicaid is pending, awaiting financial approval. CM contacted [facility] and was unable to gain information r/t need for consent to consult on patients behalf. CALVIN spoke with Julia Thomson and Sury Choi at [facility] consent was faxed to CM to have signed by Mary Beth's spouse. [facility] is reviewing the referral and will contact CM with a decision. CM to continue to provide support to Patient and family ongoing discharge planning and disposition.
--- NOTE | 2018-01-12 12:25 | CMACTNOTE_ITS ---
Date of Service: 01/12/18 Time of Service: 12:09 Care Management Activity Note Mary Beth has been ambulating in the halls with patient observer. He enjoys company during the day and interacts with staff. His spouse visits most afternoon's and appears to appreciate her visits. Mary Beth has activities in the room his spouse has brought in to enjoy during the day and help with restlessness. Mary Beth is rubbing his knees today after his walk. He is able to say that they hurt at times and better when he rest. CM noticed during ambulation Mary Beth was shuffling his feet. When Mary Beth return to his chair in the room he was rubbing both knees and they where warm to touch. CM did review this information with BUSINESS CONTINUITY GLOBAL DIRECTOR provider. Plan: José Miguels long distance operator medicaid is pending, awaiting financial approval. CM contacted [facility] and was unable to gain information r/t need for consent to consult on patients behalf. CALVIN spoke with Julia Thomson and Sury Choi at [facility] consent was faxed to CM to have signed by Mary Beth's spouse. [facility] is reviewing the referral and will contact CM with a decision. CM to continue to provide support to Patient and family ongoing discharge planning and disposition.
[2018-01-12] MEDS: risperiDONE 0.25 MG TAB 0.5 MG PO (19:49)
[2018-01-12] MEDS: Melatonin 3 MG TAB PO (19:50)
[2018-01-12] MEDS: Mirtazapine 15 MG TAB PO (19:50)
[2018-01-13] MEDS: Acetaminophen 325 MG TAB 650 MG PO (03:12)
[2018-01-13] MEDS: Citalopram 10 MG TAB 20 MG PO (08:46)
[2018-01-13] MEDS: risperiDONE 0.25 MG TAB PO (08:48)
[2018-01-13] MEDS: Senna TAB 1 TAB PO ×2 (08:48→16:30)
[2018-01-13] MEDS: LORazepam 0.5 MG TAB PO ×2 (08:48→16:30)
--- NOTE | 2018-01-13 10:12 | NUR.NOTE ---
Nursing Note: Patient noted to have a nose bleed from his R nostril lasting about 20 minutes, despite pressure being applied to this nostril. PRICILA Briceno notified. ASA held until evaluation by .
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
[2018-01-13] MEDS: Mirtazapine 15 MG TAB PO (21:01)
[2018-01-13] MEDS: Polyethylene Glycol 3350 17 GM PACKET PO (21:01)
[2018-01-13] MEDS: risperiDONE 0.25 MG TAB 0.5 MG PO (21:01)
[2018-01-13] MEDS: Melatonin 3 MG TAB PO (21:02)
[2018-01-14] MEDS: Bacitracin 1 PACKET TP ×3 (09:00→20:02)
[2018-01-14] MEDS: Senna TAB 1 TAB PO (09:01)
[2018-01-14] MEDS: Citalopram 10 MG TAB 20 MG PO (09:02)
[2018-01-14] MEDS: risperiDONE 0.25 MG TAB PO (09:03)
[2018-01-14] MEDS: LORazepam 0.5 MG TAB PO ×2 (09:04→20:33)
[2018-01-14] MEDS: Aspirin 81 MG CHEW PO (09:05)
--- NOTE | 2018-01-14 12:54 | PCNE_ITS ---
PALLIATIVE CARE FOLLOWUP NOTE DATE OF SERVICE January 13, [address] PLACE OF CONSULTATION Inpatient REASON FOR CONSULT 1. Advanced dementia. 2. Goals of care. 3. Family support in setting of caregiver stress. PLACE OF VISIT Inpatient. ASSESSMENT AND PLAN Mary Beth Cordero is a 72-year-old man with advanced dementia. His was very clear when I saw them l ast that she was not able to care for him at home further, he exhausts her. He has required one-on-on e care. He is physically still pretty agile and he loves to pace and walk. Care Management is working on finding him long-term placement. His Kaity lead me to believe that they are just waiting for long-term Medicaid to be approved. In the meantime, he is far from Hospice level of care as he is relatively physically fit. Once he los es ambulation abilities, then certainly, he can transition over to Hospice, but I do not think this i s imminent. He is stable from his behavioral perspective. Advised I would followup with him one he is settled into a new place, probably not for another month or so. SUBJECTIVE Mary Beth Cordero has been an inpatient initially on acute care, then on swing bed care since 11/26/2017. He has not been discharged since then. Unfortunately, he did not have a three-night qualifying stay, so he has been here as swing bed level 2, as a self pay I believe. He has been pleasant. He likes to walk a lot. He has required a one-on-one sitter most of the time he has been here. He is well known to the staff. He is cooperative. He likes to hold hands. Of note, hi s gait has become more shuffling since he has been here. His Parkinsonism is more pronounced. Note that since I have seen him, he has also seen Dr. Overton, psychiatrist. She recommended continu ing the citalopram he has been on prior to admission, scheduled lorazepam, melatonin for sleep, aramis zapine at night. Also, she supports the use of ongoing antipsychotics of risperidone 0.5 at night and 0.25 in the morning. Mary Beth's Kaity does not come in regularly to see him. She finds that it upsets him. He does bett er often without her. His appetite has been good. He is eating the usual amount. He is getting weighed about once a week. Shanika martinez weighed 82 kilograms when he came in, and 82.6 kilograms yesterday. He is chronically incontinent of urine and often of stool. He stools about every three days, that has been his pattern at home apparently as well. The Care Management team has just finished applying for long-term care Medicaid for him. This is acco rding to Kaity. OBJECTIVE GENERAL - A slender man, looks younger than stated age. Physically active walks fine. No acute dist ress. EYES - He seems to have poor vision. He has a hard time focusing. HENT - Hearing is also decreased. Mucous membranes are moist. Nose is without rhinorrhea. LUNGS - Lungs were clear. HEART - Heart was regular. NEUROLOGIC - Gait is shuffling. He is oriented only to self. LABORATORY STUDIES None done on his swing bed admission. The last day of his acute admission was 11/29/2017 and at that t simón he did not have an elevated white count. He was minimally anemic with a hemoglobin of 13.4. His creatinine was elevated, most recently tested on 12/21/2017 at 1.52. He did have elevated glucose of 151. His Hemoglobin A1c was 6.9. Note that this dementia testing of vitamin B12 and folate were normal. IMAGING He had a Head CT on admission on 11/26/17 - which was noted to show mild atrophy and white matter grossman ges.
--- NOTE | 2018-01-14 16:40 | PROG.BLANK ---
Date of Service: 01/14/18 Time of Service: 16:40 Progress Note Called to see Mr. Cordero with concerns regarding a rash in both lower extremities. There has been nothing new in terms of medication or topical skin care products. He does not seem to be bothered by this. He has not been seen to be scratching the area. He has been calm today and allows me to examine his legs. Exam: Bilateral lower extremity 2+ pitting edema with flat erythema, mild scale mostly on the anterior lower shins bilaterally. There is no ulceration, no induration no tenderness. Chronic venous insufficiency with stasis dermatitis. We will try compression socks and see if he will tolerate them. If not, could consider Tubigrip's. Continue moisturizing cream application.
[2018-01-14] MEDS: Acetaminophen 325 MG TAB 650 MG PO (19:29)
[2018-01-14 19:40] VITALS: BP 134/71; PULSE 69; RESP 18; TEMP 36.4; O2SAT 96
[2018-01-14] MEDS: risperiDONE 0.25 MG TAB 0.5 MG PO (20:03)
[2018-01-14] MEDS: Melatonin 3 MG TAB PO (20:04)
[2018-01-14] MEDS: Mirtazapine 15 MG TAB PO (20:04)
[2018-01-15] MEDS: Milk of Magnesia 30 ML CUP PO (10:30)
[2018-01-15] MEDS: Senna TAB 1 TAB PO ×2 (10:31→20:01)
[2018-01-15] MEDS: risperiDONE 0.25 MG TAB PO (10:33)
[2018-01-15] MEDS: Citalopram 10 MG TAB 20 MG PO (10:33)
[2018-01-15] MEDS: LORazepam 0.5 MG TAB PO ×3 (10:33→20:01)
[2018-01-15] MEDS: Aspirin 81 MG CHEW PO (10:34)
[2018-01-15] MEDS: Bacitracin 1 PACKET TP (10:34)
[2018-01-15 10:38] VITALS: BP 178/89; PULSE 72; RESP 18; TEMP 36.6; O2SAT 97
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
[2018-01-15] MEDS: risperiDONE 0.25 MG TAB 0.5 MG PO (20:01)
[2018-01-15] MEDS: Mirtazapine 15 MG TAB PO (20:01)
[2018-01-15] MEDS: Melatonin 3 MG TAB PO (20:01)
[2018-01-15] MEDS: Acetaminophen 325 MG TAB 650 MG PO (20:03)
[2018-01-16] MEDS: Bacitracin 1 PACKET TP ×2 (13:03→20:43)
[2018-01-16] MEDS: Aspirin 81 MG CHEW PO (13:03)
[2018-01-16] MEDS: Senna TAB 1 TAB PO (13:03)
[2018-01-16] MEDS: Citalopram 10 MG TAB 20 MG PO (13:03)
[2018-01-16] MEDS: Melatonin 3 MG TAB PO (20:44)
[2018-01-16] MEDS: risperiDONE 0.25 MG TAB 0.5 MG PO (20:45)
[2018-01-16] MEDS: Mirtazapine 15 MG TAB PO (20:47)
[2018-01-17] MEDS: risperiDONE 0.25 MG TAB PO (08:03)
[2018-01-17] MEDS: Aspirin 81 MG CHEW PO (08:03)
[2018-01-17] MEDS: Bacitracin 1 PACKET TP ×2 (08:03→20:19)
[2018-01-17] MEDS: Citalopram 10 MG TAB 20 MG PO (08:03)
[2018-01-17] MEDS: Senna TAB 1 TAB PO (08:04)
[2018-01-17] MEDS: LORazepam 0.5 MG TAB PO (08:04)
--- NOTE | 2018-01-17 11:04 | PDOC.CMPRO ---
Date of Service: 01/17/18 Time of Service: 11:04 Care Management Progress Note S/O: CM met with patient he has has some reported increase agitation over the last few days. CM discussed medical concerns with provider including possibility of pain or UTI as being a source of agitation. to follow up with SENIOR TRIAL ATTORNEY. Provider will order labs for Tuesday. Last labs where completed on 12/21/17. Mary Beth continues with a one on one patient observer, he is active today. CM reviewed care with primary nurse, Mary Beth was able to tolerate a shower today, and take his medication this morning. CM was able to ambulate with the patient in the daniels he is active today not wanting to stay in his room and wandering frequently. CM contacted spouse Kaity she will be here soon to visit. She states that she thinks he would benefit from some Tylenol and feels that when he gets agitated it is sometimes related to discomfort in his knees and feet. CM will review information with primary nurse. Kaity did receive information from [employer] and she mailed it to LTM today. CALVIN has left multiple messages for LTC, Ro Thomson [phone] who is on vacation until 01/23/18 and Sury Choi her yard general car supervisor at [phone] who has not returned any calls. CALVIN contacted deputy commissioners office and spoke with Renetta Mccabe and was directed to yard general car supervisor Kiesha Ramey [phone] for Choice for care and left voicemail she is on vacation until 01/23/18. CM left a message with Adult service division [phone] as well requesting a return call. A: Mary Beth is an 72 year old male admitted with dementia awaiting LTM for placement in LTC. Plan: Mary Beth's custodial medicaid is pending, awaiting financial approval. CM faxed consent to [place] medicaid and left several voicemails daily r/t status of application. LTC placement has been difficult without a payor source. CM left a voicemail. CM left a message for Meagan admission coordinator at [facility] to review referral again pending LTM. CM to continue to provide support to Patient and family ongoing discharge planning and disposition.
--- NOTE | 2018-01-17 12:31 | CMPROGNOTE_ITS ---
Date of Service: 01/17/18 Time of Service: 11:04 Care Management Progress Note S/O: CM met with patient he has has some reported increase agitation over the last few days. CM discussed medical concerns with provider including possibility of pain or UTI as being a source of agitation. to follow up with LOGISTICS SYSTEM ENGINEER. Provider will order labs for Tuesday. Last labs where completed on 12/21/17. Mary Beth continues with a one on one patient observer, he is active today. CM reviewed care with primary nurse, Mary Beth was able to tolerate a shower today, and take his medication this morning. CM was able to ambulate with the patient in the daniels he is active today not wanting to stay in his room and wandering frequently. CM contacted spouse Kaity she will be here soon to visit. She states that she thinks he would benefit from some Tylenol and feels that when he gets agitated it is sometimes related to discomfort in his knees and feet. CM will review information with primary nurse. Kaity did receive information from [employer] and she mailed it to LTM today. CALVIN has left multiple messages for LTC, Ro Thomson [phone] who is on vacation until and Sury Choi her carpenters supervisor at [phone] who has not returned any calls. CALVIN contacted deputy commissioners office and spoke with Renetta Mccabe and was directed to carpenters supervisor Kiesha Ramey [phone] for Choice for care and left voicemail she is on vacation until 01/23/18. CM left a message with Adult service division [phone] as well requesting a return call. A: Mary Beth is an 72 year old male admitted with dementia awaiting LTM for placement in LTC. Plan: Mary Beth's [facility] med[facility] is pending, awaiting financial approval. CM faxed consent to [place] medicaid and left several voicemails daily r/t status of application. LTC placement has been difficult without a payor source. CM left a voicemail. CM left a message for Meagan admission coordinator at [facility] to review referral again pending LTM. CM to continue to provide support to Patient and family ongoing discharge planning and disposition.
[2018-01-17] MEDS: Acetaminophen 325 MG TAB 650 MG PO (15:29)
[2018-01-17] MEDS: Melatonin 3 MG TAB PO (20:19)
[2018-01-17] MEDS: risperiDONE 0.25 MG TAB 0.5 MG PO (20:19)
[2018-01-17] MEDS: Mirtazapine 15 MG TAB PO (20:19)
[2018-01-18 07:07] LABS: Abs Immature Grans 0.01 k/cumm (0.0-0.09); Absolute Basophil Count 0.01 k/cumm (0.0-0.2); Absolute Eosinophil Count 0.22 k/cumm (0.0-0.7); Absolute Lymphocyte Count 1.64 k/cumm (1.2-3.4); Absolute Monocyte Count 1.12 k/cumm (0.11-0.7); Absolute Neutrophil Count 4.45 k/cumm (1.2-6.7); Basophils % 0.1; HCT 36.7 % (40.0-50.0); HGB 11.7 g/dL (13.5-17.5); Immature Grans % 0.1; Mean Corp. HGB Concentration 31.9 g/dL (32.0-36.0); Mean Corpuscular Volume 100.3 fL (80-95); Mean Platelet Volume 9.3 fL (8.0-11.0); Neutrophils % 59.8; Platelet Count 178 x1000/uL (130-400); RBC 3.66 m/cumm (4.50-6.00); RBC Distribution Width 13.7 % (11.8-14.1); White Blood Cell Count 7.45 k/cumm (4.4-10.8)
[2018-01-18 07:31] LABS: ALT 17 U/L (12-78); AST 11 U/L (15-37); Albumin 2.9 g/dL (3.4-5.0); Alkaline Phosphatase 55 U/L (46-116); Anion Gap 6.9 mmol/L (3-11); BUN 36 mg/dL (7-18); Bilirubin, Total 0.3 mg/dL (0.2-1.0); CO2 27.1 mmol/L (21.0-32.0); CREATININE 1.36 mg/dL (0.70-1.30); Calcium 8.3 mg/dL (8.5-10.1); Chloride 105 mmol/L (98-107); Estimated GFR 51.22 (mL/min/1.73m2); Glucose 129 mg/dL (70-100); Potassium 3.8 mmol/L (3.5-5.1); Sodium 139 mmol/L (136-145); TSH (W/Ref FT4) 2.03 uIU/mL (0.358-3.74); Total Protein 6.8 g/dL (6.4-8.2); Uric Acid 7.5 mg/dL (3.5-7.2)
--- NOTE | 2018-01-18 09:16 | PDOC.PSYFU ---
Date of Service: 01/18/18 Follow Up: FOLLOW UP: Recent events: increased agitation with difficulty calming, soothing. Haldol 0.25mg prn given after several environmental changes and ativan tried on 01/15/2018. Diet changed from heart healthy to regular to promote caloric intake Care management still working with patient's to facilitate approval of long-term Medicaid. b Active Medications Generic Name Dose Route Start Last Admin Trade Name Freq PRN Reason Stop Dose Admin Acetaminophen 650 mg 11/29/17 14:48 01/17/18 15:29 Tylenol PO 650 mg Q4H PRN PRN Administration Acetaminophen 650 mg 01/18/18 08:30 Tylenol PO 01/23/18 08:29 BID SARAH Al Hydrox/Mg Hydrox/Simethicone 30 ml 11/29/17 14:42 Mylanta Liquid PO Q2H PRN PRN Aspirin 81 mg 12/01/17 08:30 01/17/18 08:03 PO 81 mg DAILY SARAH Administration Bacitracin Zinc 0 packet 01/14/18 08:30 01/17/18 20:19 Bacitracin TP 1 packet TID SARAH Administration Bisacodyl 10 mg 11/29/17 14:48 12/13/17 17:33 Dulcolax Suppository TN 10 mg DAILY PRN PRN Administration Constipation Citalopram Hydrobromide 20 mg 12/08/17 12:20 01/17/18 08:03 Celexa PO 20 mg DAILY SARAH Administration Dextrose 0 gm 11/29/17 14:41 Insta-Glucose PO DIRECTED PRN Dimethicone/Zinc Oxide 0 gm 11/29/17 14:41 12/13/17 20:10 Court Protect Cream TP 1 applic PRN PRN Administration Docusate Sodium 100 mg 01/15/18 13:37 Colace Liquid PO TID PRN PRN Glycerin 1 supp 11/29/17 14:48 TN DAILY PRN PRN Constipation Haloperidol 0.25 mg 11/29/17 14:43 01/15/18 21:12 Haldol PO 0.25 mg TID PRN PRN Administration Agitation Lorazepam 0.5 mg 12/25/17 17:20 01/17/18 08:04 Ativan PO 0.5 mg DAILY SARAH Administration Lorazepam 0.5 mg 12/25/17 17:20 01/15/18 20:01 Ativan PO 0.5 mg TID PRN PRN Administration agitation or anxiety Magnesium Hydroxide 30 ml 11/29/17 14:43 01/15/18 10:30 Milk Of Magnesia PO 30 ml DAILY PRN PRN Administration Melatonin 3 mg 12/10/17 20:00 01/17/18 20:19 PO 3 mg DAILY@2000 SARAH Administration Mirtazapine 15 mg 11/30/17 20:00 01/17/18 20:19 Remeron PO 15 mg QPM SARAH Administration Nitroglycerin 0.4 mg 11/29/17 14:43 Nitrostat SL Q5 MIN PRN X3 PRN Polyethylene Glycol 17 gm 12/22/17 13:40 01/13/18 21:01 Miralax PO 17 gm DAILY PRN PRN Administration Ranitidine HCl 300 mg 11/30/17 08:30 01/17/18 08:03 Zantac PO 300 mg DAILY SARAH Administration Risperidone 0.5 mg 11/30/17 20:00 01/17/18 20:19 Risperdal PO 0.5 mg QPM SARAH Administration Risperidone 0.25 mg 12/02/17 08:30 01/17/18 08:03 Risperdal PO 0.25 mg DAILY SARAH Administration Sennosides 1 tab 12/22/17 13:40 01/15/18 20:01 Senokot PO 1 tab BID PRN PRN Administration Sennosides 1 tab 01/12/18 08:30 01/17/18 08:04 Senokot PO 1 tab DAILY SARAH Administration Sodium Biphosphate/Sodium Phosphate 133 ml 11/29/17 14:48 Fleet Enema TN Q72H PRN Constipation White Petrol/Mineral Oil/Lanolin 0 gm 11/29/17 14:48 Eucerin Creme TP PRN PRN History of Present Illness: Patient not able to participate in interview this morning as he was sleeping. Patient has been generally behaviorally stable with exception of increased agitation over the weekend. Patient's reported possibly increased pain and care management had the same impression. Labs drawn yesterday at this writers recommendation. U/A still pending. REVIEW OF SYSTEMS: patient not able to provide MENTAL STATUS EXAM: Constitutional: resting comfortably in bed, sleeping, with sitter at bedside. Assessment/recommendations: Patient with dementia with intermittent behavioral agitation and inability to verbally express needs. Recommend obtaining U/A, hold off on straight-cathing unless he is clearly delirious with worsening agitation to indicate intrusive measures to obtain urine. Recommend schedule tylenol given that he is getting prn tylenol most days and pain may be contributing to agitation. Continue psychiatric medications as prescribed. Now is not the time to attempt reduction of risperidone given his agitation. Labs reviewed and no evidence of adverse effects of medications or evidence of infection. Visit Statistics Total Visit Minutes: 15 minutes Visit Time Allocation >50% of face to face visit spent in counseling (Extensive teaching, explanation and instructions. Counseling as appropriate. Review of plans, and discussion concerning medical problems dealt with at this visit. Discussion of benefits/risks of treatment, anticipated course of events, potential medication side effects, options, alternatives, and follow up plans. Questions were solicited and answered, and the patient verbalized understanding.), and/or coordination of care.
--- NOTE | 2018-01-18 09:45 | PSYCO_ITS ---
Date of Service: 01/18/18 Follow Up: FOLLOW UP: Recent events: increased agitation with difficulty calming, soothing. Haldol 0.25mg prn given after several environmental changes and ativan tried on 2017. Diet changed from heart healthy to regular to promote caloric intake Care management still working with patient's to facilitate approval of long -term Medicaid. b Active Medications Generic Name Dose Route Start Last Admin Trade Name Freq PRN Reason Stop Dose Admin Acetaminophen 650 mg 11/29/17 14:48 01/17/18 15:29 Tylenol PO 650 mg Q4H PRN PRN Administration Acetaminophen 650 mg 01/18/18 08:30 Tylenol PO 01/23/18 08:29 BID SARAH Al Hydrox/Mg Hydrox/Simethicone 30 ml 11/29/17 14:42 Mylanta Liquid PO Q2H PRN PRN Aspirin 81 mg 12/01/17 08:30 01/17/18 08:03 PO 81 mg DAILY SARAH Administration Bacitracin Zinc 0 packet 01/14/18 08:30 01/17/18 20:19 Bacitracin TP 1 packet TID SARAH Administration Bisacodyl 10 mg 11/29/17 14:48 12/13/17 17:33 Dulcolax Suppository NE 10 mg DAILY PRN PRN Administration Constipation Citalopram Hydrobromide 20 mg 12/08/17 12:20 01/17/18 08:03 Celexa PO 20 mg DAILY SARAH Administration Dextrose 0 gm 11/29/17 14:41 Insta-Glucose PO DIRECTED PRN Dimethicone/Zinc Oxide 0 gm 11/29/17 14:41 12/13/17 20:10 Court Protect Cream TP 1 applic PRN PRN Administration Docusate Sodium 100 mg 01/15/18 13:37 Colace Liquid PO TID PRN PRN Glycerin 1 supp 11/29/17 14:48 NE DAILY PRN PRN Constipation Haloperidol 0.25 mg 11/29/17 14:43 01/15/18 21:12 Haldol PO 0.25 mg TID PRN PRN Administration Agitation Lorazepam 0.5 mg 12/25/17 17:20 01/17/18 08:04 Ativan PO 0.5 mg DAILY SARAH Administration Lorazepam 0.5 mg 12/25/17 17:20 01/15/18 20:01 Ativan PO 0.5 mg TID PRN PRN Administration agitation or anxiety Magnesium Hydroxide 30 ml 11/29/17 14:43 01/15/18 10:30 Milk Of Magnesia PO 30 ml DAILY PRN PRN Administration Melatonin 3 mg 12/10/17 20:00 01/17/18 20:19 PO 3 mg DAILY@2000 SARAH Administration Mirtazapine 15 mg 11/30/17 20:00 01/17/18 20:19 Remeron PO 15 mg QPM SARAH Administration Nitroglycerin 0.4 mg 11/29/17 14:43 Nitrostat SL Q5 MIN PRN X3 PRN Polyethylene Glycol 17 gm 12/22/17 13:40 01/13/18 21:01 Miralax PO 17 gm DAILY PRN PRN Administration Ranitidine HCl 300 mg 11/30/17 08:30 01/17/18 08:03 Zantac PO 300 mg DAILY SARAH Administration Risperidone 0.5 mg 11/30/17 20:00 01/17/18 20:19 Risperdal PO 0.5 mg QPM SARAH Administration Risperidone 0.25 mg 12/02/17 08:30 01/17/18 08:03 Risperdal PO 0.25 mg DAILY SARAH Administration Sennosides 1 tab 12/22/17 13:40 01/15/18 20:01 Senokot PO 1 tab BID PRN PRN Administration Sennosides 1 tab 01/12/18 08:30 01/17/18 08:04 Senokot PO 1 tab DAILY SARAH Administration Sodium Biphosphate/Sodium Phosphate 133 ml 11/29/17 14:48 Fleet Enema NE Q72H PRN Constipation White Petrol/Mineral Oil/Lanolin 0 gm 11/29/17 14:48 Eucerin Creme TP PRN PRN History of Present Illness: Patient not able to participate in interview this morning as he was sleeping. Patient has been generally behaviorally stable with exception of increased agitation over the weekend. Patient's reported possibly increased pain and care management had the same impression. Labs drawn yesterday at this writers recommendation. U/A still pending. REVIEW OF SYSTEMS: patient not able to provide MENTAL STATUS EXAM: Constitutional: resting comfortably in bed, sleeping, with sitter at bedside. Assessment/recommendations: Patient with dementia with intermittent behavioral agitation and inability to verbally express needs. Recommend obtaining U/A, hold off on straight-cathing unless he is clearly delirious with worsening agitation to indicate intrusive measures to obtain urine. Recommend schedule tylenol given that he is getting prn tylenol most days and pain may be contributing to agitation. Continue psychiatric medications as prescribed. Now is not the time to attempt reduction of risperidone given his agitation. Labs reviewed and no evidence of adverse effects of medications or evidence of infection. Visit Statistics Total Visit Minutes: 15 minutes Visit Time Allocation >50% of face to face visit spent in counseling (Extensive teaching, explanation and instructions. Counseling as appropriate. Review of plans, and discussion concerning medical problems dealt with at this visit. Discussion of benefits/risks of treatment, anticipated course of events, potential medication side effects, options, alternatives, and follow up plans. Questions were solicited and answered, and the patient verbalized understanding.), and/or coordination of care.
[2018-01-18] MEDS: Bacitracin 1 PACKET TP ×3 (09:47→20:37)
[2018-01-18] MEDS: Acetaminophen 325 MG TAB 650 MG PO ×2 (09:48→20:37)
[2018-01-18] MEDS: Citalopram 10 MG TAB 20 MG PO (09:49)
[2018-01-18] MEDS: LORazepam 0.5 MG TAB PO (09:49)
[2018-01-18] MEDS: Senna TAB 1 TAB PO (09:50)
[2018-01-18] MEDS: Aspirin 81 MG CHEW PO (09:52)
[2018-01-18] MEDS: risperiDONE 0.25 MG TAB PO (09:52)
--- NOTE | 2018-01-18 13:06 | PDOC.CMACT ---
Date of Service: 01/18/18 Time of Service: 13:06 Care Management Activity Note Mary Beth has been ambulating in the halls with patient observer. He enjoys company during the day and interacts with staff. His spouse visits most afternoon's. Mary Beth has activities in the room his spouse has brought in to enjoy during the day and help with restlessness. Mary Beth is offered Reiki, as well as music therapy when available. Crystal Johnston RN CM, has left multiple messages with [facility] Medicaid in regards to the status of Mary Beth's application. Plan: Mary Beth's skilled nursing medicaid is pending, awaiting financial approval. [facility] is reviewing the referral and will contact CM with a decision. CM to continue to provide support to Patient and family ongoing discharge planning and disposition.
--- NOTE | 2018-01-18 13:09 | CMACTNOTE_ITS ---
Date of Service: 01/18/18 Time of Service: 13:06 Care Management Activity Note Mary Beth has been ambulating in the halls with patient observer. He enjoys company during the day and interacts with staff. His spouse visits most afternoon's. Mary Beth has activities in the room his spouse has brought in to enjoy during the day and help with restlessness. Mary Beth is offered Reiki, as well as music therapy when available. Crystal Johnston RN CM, has left multiple messages with [facility] Medicaid in regards to the status of Mary Beth's application. Plan: Mary Beth's senior living medicaid is pending, awaiting financial approval. [facility] is reviewing the referral and will contact CM with a decision. CM to continue to provide support to Patient and family ongoing discharge planning and disposition.
[2018-01-18] MEDS: risperiDONE 0.25 MG TAB 0.5 MG PO (20:36)
[2018-01-18] MEDS: Melatonin 3 MG TAB PO (20:37)
[2018-01-18] MEDS: Mirtazapine 15 MG TAB PO (20:37)
[2018-01-18] MEDS: Docusate Sodium 100 MG/10 ML CUP PO (20:47)
[2018-01-19] MEDS: Polyethylene Glycol 3350 17 GM PACKET PO (10:42)
[2018-01-19] MEDS: Bacitracin 1 PACKET TP ×3 (10:42→19:52)
[2018-01-19] MEDS: Docusate Sodium 100 MG/10 ML CUP PO (10:42)
[2018-01-19] MEDS: Senna TAB 1 TAB PO (10:43)
[2018-01-19] MEDS: Acetaminophen 325 MG TAB 650 MG PO ×2 (10:43→19:53)
[2018-01-19] MEDS: LORazepam 0.5 MG TAB PO ×2 (10:44→19:21)
[2018-01-19] MEDS: risperiDONE 0.25 MG TAB PO (10:45)
[2018-01-19] MEDS: Aspirin 81 MG CHEW PO (10:46)
[2018-01-19] MEDS: Citalopram 10 MG TAB 20 MG PO (10:46)
[2018-01-19 15:01] LABS: Bilirubin Negative (Negative); Blood Negative (Negative); Clarity Clear; Glucose Negative (Negative); Ketones Negative (Negative); Leukocyte Esterase Trace (Negative); Nitrite Negative (Negative); Urobilinogen 0.2 EU/dL (Up TO 0.2)
[2018-01-19 15:13] LABS: WBC >50 HPF (0-5)
[2018-01-19 15:14] LABS: Bacteria Few HPF (Negative); C & S Indicated? Yes; Casts Negative LPF (Negative); Crystals Moderate Amorphous HPF (Negative); Epithelial Cells Few HPF (Negative); Mucus Trace (Negative); RBC Negative (0-2)
[2018-01-19] MEDS: Mirtazapine 15 MG TAB PO (19:52)
[2018-01-19] MEDS: Melatonin 3 MG TAB PO (19:54)
[2018-01-19] MEDS: risperiDONE 0.25 MG TAB 0.5 MG PO (19:55)
[2018-01-19 20:00] VITALS: BP 146/75; PULSE 74; RESP 18; TEMP 37.5; O2SAT 94
[2018-01-20] MEDS: Citalopram 10 MG TAB 20 MG PO (10:03)
[2018-01-20] MEDS: Senna TAB 1 TAB PO (10:03)
[2018-01-20] MEDS: LORazepam 0.5 MG TAB PO ×2 (10:04→11:50)
[2018-01-20] MEDS: risperiDONE 0.25 MG TAB PO (10:05)
[2018-01-20] MEDS: Bacitracin 1 PACKET TP ×2 (10:05→20:06)
[2018-01-20] MEDS: Acetaminophen 325 MG TAB 650 MG PO ×2 (10:06→20:08)
[2018-01-20] MEDS: Aspirin 81 MG CHEW PO (10:06)
--- NOTE | 2018-01-20 14:16 | NUR.NOTE ---
Nursing Note: Patient agitated and combative. Staff attempting to calm patient and redirect patient, but this only offers temporary relief. Patient refusing food, fluids, and toileting. This nurse administered PO haldol.
--- NOTE | 2018-01-20 14:33 | NUR.NOTE ---
Nursing Note: Patient continues to be wandering and determined, attempting to enter patient's rooms and becoming agitated when redirected. Patient continues to refuse offered food, drink, and toileting. PO ativan administered.
[2018-01-20 19:33] VITALS: BP 153/83; PULSE 69; RESP 18; TEMP 37.3; O2SAT 96
[2018-01-20] MEDS: Melatonin 3 MG TAB PO (20:07)
[2018-01-20] MEDS: Mirtazapine 15 MG TAB PO (20:07)
[2018-01-20] MEDS: risperiDONE 0.25 MG TAB 0.5 MG PO (20:07)
[2018-01-21] MEDS: Citalopram 10 MG TAB 20 MG PO (12:30)
[2018-01-21] MEDS: Bacitracin 1 PACKET TP ×2 (12:32→19:55)
[2018-01-21] MEDS: LORazepam 0.5 MG TAB PO (12:33)
[2018-01-21] MEDS: Aspirin 81 MG CHEW PO (12:34)
[2018-01-21] MEDS: risperiDONE 0.25 MG TAB PO (12:34)
[2018-01-21] MEDS: Senna TAB 1 TAB PO ×2 (12:34→19:56)
[2018-01-21] MEDS: Acetaminophen 325 MG TAB 650 MG PO ×2 (12:34→19:55)
[2018-01-21] MEDS: Melatonin 3 MG TAB PO (19:56)
[2018-01-21] MEDS: Mirtazapine 15 MG TAB PO (19:56)
[2018-01-21] MEDS: risperiDONE 0.25 MG TAB 0.5 MG PO (19:56)
[2018-01-22] MEDS: Aspirin 81 MG CHEW PO (08:50)
[2018-01-22] MEDS: Acetaminophen 325 MG TAB 650 MG PO ×2 (08:50→19:20)
[2018-01-22] MEDS: LORazepam 0.5 MG TAB PO (08:51)
[2018-01-22] MEDS: Senna TAB 1 TAB PO (08:51)
[2018-01-22] MEDS: risperiDONE 0.25 MG TAB PO (08:51)
[2018-01-22] MEDS: Bacitracin 1 PACKET TP (08:51)
[2018-01-22] MEDS: Citalopram 10 MG TAB 20 MG PO (08:54)
[2018-01-22] MEDS: Melatonin 3 MG TAB PO (19:21)
[2018-01-22] MEDS: risperiDONE 0.25 MG TAB 0.5 MG PO (19:21)
[2018-01-22] MEDS: Mirtazapine 15 MG TAB PO (19:21)
[2018-01-23] MEDS: Aspirin 81 MG CHEW PO (08:17)
[2018-01-23] MEDS: LORazepam 0.5 MG TAB PO ×2 (08:17→18:44)
[2018-01-23] MEDS: Citalopram 10 MG TAB 20 MG PO (08:18)
[2018-01-23] MEDS: Senna TAB 1 TAB PO (08:18)
[2018-01-23] MEDS: risperiDONE 0.25 MG TAB PO (08:18)
[2018-01-23] MEDS: Bacitracin 1 PACKET TP ×3 (08:18→19:22)
--- NOTE | 2018-01-23 11:35 | PDOC.CMPRO ---
Date of Service: 01/23/18 Time of Service: 11:35 Care Management Progress Note S/O: Mary Beth is sitting up in the chair today his observer is outside the room. CALVIN contacted LTM and spoke with Ro Thomson, she continues to not share any information r/t medicaid application and what financial pieces may be needed. CALVIN contacted [employer] analysis manager LTM she states she did receive the consent on behalf of the patient and is requesting it be uploaded into their system. She will contacted Ro and request follow up with CALVIN. No changes in status today CALVIN has left several messages for [facility] public information coordinator regarding placement. A: Mary Beth is an 72 year old male admitted with dementia awaiting LTM for placement in LTC. 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 LTC placement has been difficult without a payor source. CM left a voicemail. CM left a message for Meagan admission coordinator at [facility] to review referral again pending LTM. CM to continue to provide support to Patient and family ongoing discharge planning and disposition.
--- NOTE | 2018-01-23 11:50 | CMPROGNOTE_ITS ---
Date of Service: 01/23/18 Time of Service: 11:35 Care Management Progress Note S/O: Mary Beth is sitting up in the chair today his observer is outside the room. CALVIN contacted LTM and spoke with Ro Thomson, she continues to not share any information r/t medicaid application and what financial pieces may be needed. CALVIN contacted [employer] laboratory manager LTM she states she did receive the consent on behalf of the patient and is requesting it be uploaded into their system. She will contacted Ro and request follow up with CALVIN. No changes in status today CALVIN has left several messages for [facility] patient flow coordinator regarding placement. A: Mary Beth is an 72 year old male admitted with dementia awaiting LTM for placement in LTC. Plan: Mary Beth's terminal worker medicaid is pending, awaiting financial approval. LTC placement has been difficult without a payor source. CM left a voicemail. CM left a message for Meagan admission coordinator at [facility] to review referral again pending LTM. CM to continue to provide support to Patient and family ongoing discharge planning and disposition.
[2018-01-23] MEDS: Acetaminophen 325 MG TAB 650 MG PO (18:44)
[2018-01-23] MEDS: Mirtazapine 15 MG TAB PO (19:22)
[2018-01-23] MEDS: Melatonin 3 MG TAB PO (19:22)
[2018-01-23] MEDS: risperiDONE 0.25 MG TAB 0.5 MG PO (19:23)
[2018-01-24] MEDS: LORazepam 0.5 MG TAB PO ×3 (08:13→19:26)
[2018-01-24] MEDS: Senna TAB 1 TAB PO (08:13)
[2018-01-24] MEDS: Citalopram 10 MG TAB 20 MG PO (08:13)
[2018-01-24] MEDS: Bacitracin 1 PACKET TP ×3 (08:13→19:25)
[2018-01-24] MEDS: Aspirin 81 MG CHEW PO (08:13)
[2018-01-24] MEDS: risperiDONE 0.25 MG TAB PO (08:14)
--- NOTE | 2018-01-24 15:52 | PDOC.CMPRO ---
Date of Service: 01/24/18 Time of Service: 15:52 Care Management Progress Note S/O: Mary Beth is sitting up in the chair today his observer is outside the room. CM contacted LTM and spoke with Julia Thomson, reviewed the financial required documents. Three way call with Julia, Kaity (Mary Beth's spouse) and [employer] funds verified and Senior Living Medicaid has been approved. It will be retroactive until the day of admission to swing bed on 11/29/2017. CM reviewed benefits with Kaity and what to expect as the patient share cost. Kaity was provided with a break down from medicaid r/t how patient share is determined and what cost of living expenses are included. CM contacted Meagan at [facility] and notified of approval of terminal carman medicaid she has requested updated reports. CM faxed requested information to [facility]. A: Mary Beth is an 72 year old male admitted with dementia awaiting LTM for placement in LTC. Plan: [facility] terminal carman medicaid is now active LTC placement has been difficult without a payor source. [facility] is reviewing referral. CM to continue to provide support to Patient and family ongoing discharge planning and disposition.
--- NOTE | 2018-01-24 15:58 | CMPROGNOTE_ITS ---
Date of Service: 01/24/18 Time of Service: 15:52 Care Management Progress Note S/O: Mary Beth is sitting up in the chair today his observer is outside the room. CM contacted LTM and spoke with Julia Thomson, reviewed the financial required documents. Three way call with Julia, Kaity (Mary Beth's spouse) and [employer] funds verified and [employer] Medicaid has been approved. It will be retroactive until the day of admission to swing bed on 11/29/2017. CM reviewed benefits with Kaity and what to expect as the patient share cost. Kaity was provided with a break down from medicaid r/t how patient share is determined and what cost of living expenses are included. CM contacted Meagan at [facility] and notified of approval of terminal operations manager medicaid she has requested updated reports. CM faxed requested information to [facility]. A: Mary Beth is an 72 year old male admitted with dementia awaiting LTM for placement in LTC. Plan: [facility] terminal operations manager medicaid is now active LTC placement has been difficult without a payor source. [facility] is reviewing referral. CM to continue to provide support to Patient and family ongoing discharge planning and disposition.
[2018-01-24] MEDS: Acetaminophen 325 MG TAB 650 MG PO (19:25)
[2018-01-24] MEDS: Melatonin 3 MG TAB PO (19:26)
[2018-01-24] MEDS: Mirtazapine 15 MG TAB PO (19:26)
[2018-01-24] MEDS: risperiDONE 0.25 MG TAB 0.5 MG PO (19:26)
[2018-01-25] MEDS: Acetaminophen 325 MG TAB 650 MG PO (01:28)
[2018-01-25] MEDS: LORazepam 0.5 MG TAB PO (11:57)
[2018-01-25] MEDS: Bacitracin 1 PACKET TP ×3 (11:57→19:26)
[2018-01-25] MEDS: Citalopram 10 MG TAB 20 MG PO (11:57)
[2018-01-25] MEDS: Senna TAB 1 TAB PO (11:57)
[2018-01-25] MEDS: Aspirin 81 MG CHEW PO (11:57)
[2018-01-25] MEDS: risperiDONE 0.25 MG TAB PO (11:57)
--- NOTE | 2018-01-25 13:20 | NUR.NOTE ---
Nursing Note: As of 1320 on 01/25/18, pt. has been appropriate, cooperative, and pleasant throughout the day thus far. Pt. has slept most of the day thus far. Pt. did wake up to use the bathroom, sit in the chair, eat lunch, and then walk one half loop around the unit with the HEATING OPERATORS ENGINEER cadre. Pt. allowed the RN to perform a full assessment and to administer his medications to him. Pt. is currently resting in bed. RN will reassess as necessary.
--- NOTE | 2018-01-25 16:23 | NUR.NOTE ---
Nursing Note: darshan is sitting up in his chair.Having a snack an is cooperative at this time
[2018-01-25] MEDS: risperiDONE 0.25 MG TAB 0.5 MG PO (19:28)
[2018-01-25] MEDS: Melatonin 3 MG TAB PO (19:29)
[2018-01-25] MEDS: Mirtazapine 15 MG TAB PO (19:29)
[2018-01-26] MEDS: LORazepam 0.5 MG TAB PO ×2 (12:16→20:25)
[2018-01-26] MEDS: Acetaminophen 325 MG TAB 650 MG PO ×2 (12:17→19:22)
[2018-01-26] MEDS: Bacitracin 1 PACKET TP ×2 (12:17→19:21)
[2018-01-26] MEDS: Citalopram 10 MG TAB 20 MG PO (12:17)
[2018-01-26] MEDS: risperiDONE 0.25 MG TAB PO (12:17)
[2018-01-26] MEDS: Senna TAB 1 TAB PO ×2 (12:17→19:22)
[2018-01-26] MEDS: Aspirin 81 MG CHEW PO (12:17)
--- NOTE | 2018-01-26 13:07 | NUR.NOTE ---
Nursing Note: pt eating well, verbalizes need to use the bathroom/void. pt drinking well. taking medications without difficulty. pt is alert and responding to staff questions today. pt denies pain. pt did sleep until approximately 1030 this am and has been appropriate since that time.
--- NOTE | 2018-01-26 15:43 | PDOC.CMACT ---
Date of Service: 01/26/18 Time of Service: 15:43 Care Management Activity Note Mary Beth is sitting up in the chair today he is appropriate with nurse CALVIN he smiles and holds my hand. He has been sleepy this morning per patient observer report. Mary Beth has been ambulating in the halls with patient observer. He enjoys company during the day and interacts with staff. His spouse visits most afternoon's and appears to appreciate her visits. Mary Beth has activities in the room his spouse has brought in to enjoy during the day and help with restlessness. CM met with spouse at the bedside and provided an update. She has brought Mary Beth haro and is sitting with him. Plan: Mary Beth's custodial medicaid is now active. [facility] was sent updated clinicals and the [facility] is looking at the referral again. CM to continue to provide support to Patient and family ongoing discharge planning and disposition.
--- NOTE | 2018-01-26 15:47 | CMACTNOTE_ITS ---
Date of Service: 01/26/18 Time of Service: 15:43 Care Management Activity Note Mary Beth is sitting up in the chair today he is appropriate with nurse CALVIN he smiles and holds my hand. He has been sleepy this morning per patient observer report. Mary Beth has been ambulating in the halls with patient observer. He enjoys company during the day and interacts with staff. His spouse visits most afternoon's and appears to appreciate her visits. Mary Beth has activities in the room his spouse has brought in to enjoy during the day and help with restlessness. CM met with spouse at the bedside and provided an update. She has brought Mary Beth haro and is sitting with him. Plan: Mary Beth's alf medicaid is now active. [facility] was sent updated clinicals and the [facility] is looking at the referral again. CM to continue to provide support to Patient and family ongoing discharge planning and disposition.
[2018-01-26] MEDS: risperiDONE 0.25 MG TAB 0.5 MG PO (19:21)
[2018-01-26] MEDS: Mirtazapine 15 MG TAB PO (19:21)
[2018-01-26] MEDS: Melatonin 3 MG TAB PO (19:22)
[2018-01-27] MEDS: Acetaminophen 325 MG TAB 650 MG PO ×3 (03:46→19:26)
[2018-01-27] MEDS: Citalopram 10 MG TAB 20 MG PO (10:52)
[2018-01-27] MEDS: Senna TAB 1 TAB PO (10:52)
[2018-01-27] MEDS: Bacitracin 1 PACKET TP ×2 (10:52→14:17)
[2018-01-27] MEDS: Aspirin 81 MG CHEW PO (10:52)
[2018-01-27] MEDS: LORazepam 0.5 MG TAB PO (10:53)
[2018-01-27] MEDS: risperiDONE 0.25 MG TAB PO (10:53)
[2018-01-27] MEDS: Melatonin 3 MG TAB PO (19:26)
[2018-01-27] MEDS: risperiDONE 0.25 MG TAB 0.5 MG PO (19:26)
[2018-01-27] MEDS: Mirtazapine 15 MG TAB PO (19:26)
[2018-01-28] MEDS: Bacitracin 1 PACKET TP ×3 (09:00→19:24)
[2018-01-28] MEDS: Senna TAB 1 TAB PO (09:00)
[2018-01-28] MEDS: risperiDONE 0.25 MG TAB PO (09:00)
[2018-01-28] MEDS: LORazepam 0.5 MG TAB PO ×2 (09:00→22:07)
[2018-01-28] MEDS: Aspirin 81 MG CHEW PO (09:00)
[2018-01-28] MEDS: Citalopram 10 MG TAB 20 MG PO (09:00)
--- NOTE | 2018-01-28 16:57 | NUR.NOTE ---
Nursing Note: 1650 Pt quite agitated with current cadre, cadres in rooms 226 and 227 switched to try and alleviate Pt agitation. Lithographic Photographer and CC aware and are in agreement with this plan.
[2018-01-28] MEDS: risperiDONE 0.25 MG TAB 0.5 MG PO (19:22)
[2018-01-28] MEDS: Acetaminophen 325 MG TAB 650 MG PO (19:22)
[2018-01-28] MEDS: Melatonin 3 MG TAB PO (19:24)
[2018-01-28] MEDS: Mirtazapine 15 MG TAB PO (19:24)
[2018-01-28 19:40] VITALS: BP 155/74; RESP 18; TEMP 37.3
[2018-01-29] MEDS: risperiDONE 0.25 MG TAB PO (11:00)
[2018-01-29] MEDS: Acetaminophen 325 MG TAB 650 MG PO ×2 (11:00→19:11)
[2018-01-29] MEDS: LORazepam 0.5 MG TAB PO (11:00)
[2018-01-29] MEDS: Senna TAB 1 TAB PO (11:00)
[2018-01-29] MEDS: Citalopram 10 MG TAB 20 MG PO (11:00)
[2018-01-29] MEDS: Aspirin 81 MG CHEW PO (11:01)
[2018-01-29] MEDS: Bacitracin 1 PACKET TP ×2 (11:01→19:12)
[2018-01-29] MEDS: risperiDONE 0.25 MG TAB 0.5 MG PO (19:12)
[2018-01-29] MEDS: Mirtazapine 15 MG TAB PO (19:12)
[2018-01-29] MEDS: Melatonin 3 MG TAB PO (19:12)
--- NOTE | 2018-01-29 21:04 | NUR.NOTE ---
Nursing Note: Patient has been in a great mood this shift. Patient had a good visit with his early in the shift. Attempting to talk and joke with staff, laughing and smiling. Patient has walked the halls with his TEMPERATURE LOGGING OPERATOR and took a shower. Patient ate supper and a snack around 1999. Patient is now quietly puttering in his room
[2018-01-30] MEDS: Bacitracin 1 PACKET TP ×2 (10:19→19:15)
[2018-01-30] MEDS: Citalopram 10 MG TAB 20 MG PO (10:19)
[2018-01-30] MEDS: Aspirin 81 MG CHEW PO (10:19)
[2018-01-30] MEDS: risperiDONE 0.25 MG TAB PO (10:20)
[2018-01-30] MEDS: LORazepam 0.5 MG TAB PO (10:20)
[2018-01-30] MEDS: Senna TAB 1 TAB PO (10:20)
[2018-01-30] MEDS: Melatonin 3 MG TAB PO (19:14)
[2018-01-30] MEDS: Mirtazapine 15 MG TAB PO (19:14)
[2018-01-30] MEDS: risperiDONE 0.25 MG TAB 0.5 MG PO (19:15)
[2018-01-31] MEDS: Bacitracin 1 PACKET TP ×2 (08:26→19:06)
[2018-01-31] MEDS: risperiDONE 0.25 MG TAB PO (08:26)
[2018-01-31] MEDS: Senna TAB 1 TAB PO (08:26)
[2018-01-31] MEDS: LORazepam 0.5 MG TAB PO (08:26)
[2018-01-31] MEDS: Citalopram 10 MG TAB 20 MG PO (08:27)
[2018-01-31] MEDS: Aspirin 81 MG CHEW PO (08:27)
--- NOTE | 2018-01-31 15:04 | PDOC.CMPRO ---
- If Service Date Differs Date of service: 01/31/18 Time of Service: 15:04 Care Management Progress Note S/O: Mary Beth is visiting with his spouse Kaity today and walking in the halls. CM sent requested clinicals and updates to Betty Steven at [facility] assistance in finding appropriate placement for Mary Beth. CM to expand referrals throughout [place] to clerk rating care facilities. Admission coordinator at the [facility] is planning to meet with Mary Beth and Kaity sometime this week.Coordiantor is out of the office today unable to confirm a date and time. [facility] has not offered a bed at this time. 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 P:Mary Beth will remain at [facility] until bricklayer's assistant care facility offers a bed. CM to fax referrals across [place] today. clerk rating medicaid is active at this time, CM verified Kaity has received notification. CM to continue to outreach [facility] for assistance and resources for group home placement for Mary Beth.
--- NOTE | 2018-01-31 15:16 | CMPROGNOTE_ITS ---
- If Service Date Differs Date of service: 01/31/18 Time of Service: 15:04 Care Management Progress Note S/O: Mary Beth is visiting with his spouse Kaity today and walking in the halls. CM sent requested clinicals and updates to Betty Steven at [facility] assistance in finding appropriate placement for Mary Beth. CM to expand referrals throughout [place] to manager intermediate care facilities. Admission coordinator at the [facility] is planning to meet with Mary eBth and Kaity sometime this week.Coordiantor is out of the office today unable to confirm a date and time. [facility] has not offered a bed at this time. 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 P:Mary Beth will remain at [facility] until watermelon inspector care facility offers a bed. CM to fax referrals across [place] today. manager intermediate medicaid is active at this time, CM verified Kaity has received notification. CM to continue to outreach [facility] for assistance and resources for [facility] placement for Mary Beth.
[2018-01-31] MEDS: risperiDONE 0.25 MG TAB 0.5 MG PO (19:06)
[2018-01-31] MEDS: Melatonin 3 MG TAB PO (19:06)
[2018-01-31] MEDS: Acetaminophen 325 MG TAB 650 MG PO (19:07)
[2018-01-31] MEDS: Mirtazapine 15 MG TAB PO (19:07)
--- NOTE | 2018-01-31 22:49 | NUR.NOTE ---
pt has been in a good mood since this nurse came on at 1900. pt has been happy and talking with this nurse and lamberto. pt has walked multiple loops in [place] and has eaten lots of snacks, ice cream, grapes and gram crackers with peanut butter, pt has shown no signs of anger or aggression. will continue to monitor.
[2018-02-01] MEDS: risperiDONE 0.25 MG TAB PO (10:31)
[2018-02-01] MEDS: Citalopram 10 MG TAB 20 MG PO (10:31)
[2018-02-01] MEDS: Bacitracin 1 PACKET TP (10:31)
[2018-02-01] MEDS: LORazepam 0.5 MG TAB PO (10:31)
[2018-02-01] MEDS: Senna TAB 1 TAB PO (10:31)
[2018-02-01] MEDS: Aspirin 81 MG CHEW PO (10:31)
--- NOTE | 2018-02-01 13:48 | PDOC.CMACT ---
- If Service Date Differs Date of service: 02/01/18 Time of Service: 13:48 Care Management Activity Note Mary Beth is sitting up in the chair his spouse is at his side. He appears to be enjoying Montoya's food at this time and dipping his [place] Sor[place] fries in ketchup. He has been ambulating in the halls frequently. He has several activities his spouse has brought including building blocks. Mary Beth was able to have pet therapy this week. He has had several visits with his spouse and family during the week, he appears to enjoy her spending time and eating lunch with him. Mary Beth and Kaity where able to meet with Amara from the [facility] today to review as a potential predatory animal exterminator placement. [facility] today. A referral was faxed to [facility] awaiting response from admission coordinator. Plan: Mary Beth is awaiting skilled nursing placement. Meeting went well with the [facility], CM and family are awaiting possible bed offer. CM to continue to provide support to patient and family ongoing discharge planning and disposition.
--- NOTE | 2018-02-01 14:04 | CMACTNOTE_ITS ---
- If Service Date Differs Date of service: 02/01/18 Time of Service: 13:48 Care Management Activity Note Mary Beth is sitting up in the chair his spouse is at his side. He appears to be enjoying Montoya's food at this time and dipping his Malay fries in ketchup. He has been ambulating in the halls frequently. He has several activities his spouse has brought including building blocks. Mary Beth was able to have pet therapy this week. He has had several visits with his spouse and family during the week, he appears to enjoy her spending time and eating lunch with him. Mary Beth and Kaity where able to meet with Amara from the [facility] today to review as a potential intermediate manager placement. [facility] not have a bed today. A referral was faxed to [facility]a [facility] awaiting response from admission coordinator. Plan: Mary Beth is awaiting nursing home placement. Meeting went well with the [facility], CM and family are awaiting possible bed offer. CM to continue to provide support to patient and family ongoing discharge planning and disposition.
--- NOTE | 2018-02-01 18:19 | NUR.NOTE ---
Nursing Note: Pt quite cooperative and pleasant throughout this shift. Agreeable to taking medications, has a good appetite, and has been ambulating the halls frequently with patient sitter.
[2018-02-01] MEDS: risperiDONE 0.25 MG TAB 0.5 MG PO (20:20)
[2018-02-01] MEDS: Melatonin 3 MG TAB PO (20:20)
[2018-02-01] MEDS: Mirtazapine 15 MG TAB PO (20:21)
[2018-02-02] MEDS: Acetaminophen 325 MG TAB 650 MG PO ×2 (10:04→18:17)
[2018-02-02] MEDS: Citalopram 10 MG TAB 20 MG PO (10:04)
[2018-02-02] MEDS: Senna TAB 1 TAB PO (10:04)
[2018-02-02] MEDS: Aspirin 81 MG CHEW PO (10:04)
[2018-02-02] MEDS: risperiDONE 0.25 MG TAB PO (10:04)
[2018-02-02] MEDS: LORazepam 0.5 MG TAB PO (10:04)
[2018-02-02] MEDS: Bacitracin 1 PACKET TP (10:04)
[2018-02-02] MEDS: Mirtazapine 15 MG TAB PO (18:18)
[2018-02-02] MEDS: Melatonin 3 MG TAB PO (18:18)
[2018-02-02] MEDS: risperiDONE 0.25 MG TAB 0.5 MG PO (18:18)
[2018-02-03 01:42] VITALS: RESP 16
[2018-02-03] MEDS: Bacitracin 1 PACKET TP ×3 (07:51→19:23)
[2018-02-03] MEDS: Acetaminophen 325 MG TAB 650 MG PO (07:51)
[2018-02-03] MEDS: Aspirin 81 MG CHEW PO (07:51)
[2018-02-03] MEDS: Senna TAB 1 TAB PO (07:51)
[2018-02-03] MEDS: Citalopram 10 MG TAB 20 MG PO (07:51)
[2018-02-03] MEDS: LORazepam 0.5 MG TAB PO (07:51)
[2018-02-03] MEDS: risperiDONE 0.25 MG TAB PO (07:52)
[2018-02-03] MEDS: Mirtazapine 15 MG TAB PO (19:23)
[2018-02-03] MEDS: risperiDONE 0.25 MG TAB 0.5 MG PO (19:23)
[2018-02-03] MEDS: Melatonin 3 MG TAB PO (19:23)
--- NOTE | 2018-02-04 02:07 | NUR.NOTE ---
Nursing Note: Pt has had a good shift. He was pleasant and easy to redirect. He had a good appetite and took all of his meds crushed in chocolate ice cream. Pt was up walking the halls for about 3 hours straight. In that time he sat down in a wheelchair and asked to be pushed. As he was being pushed he was laughing, smiling and joking around. At one point every time he went around the corner he made car noises and then would laugh.After all of this, at approximately 2AM, he went straight to bed and fell asleep. Will continue to monitor.
[2018-02-04] MEDS: Citalopram 10 MG TAB 20 MG PO (07:29)
[2018-02-04] MEDS: risperiDONE 0.25 MG TAB PO (07:29)
[2018-02-04] MEDS: Bacitracin 1 PACKET TP ×2 (07:29→20:09)
[2018-02-04] MEDS: Aspirin 81 MG CHEW PO (07:30)
[2018-02-04] MEDS: Senna TAB 1 TAB PO ×2 (07:30→18:10)
[2018-02-04] MEDS: LORazepam 0.5 MG TAB PO (07:30)
--- NOTE | 2018-02-04 12:02 | PDOC.CMPRO ---
- If Service Date Differs Date of service: 02/04/18 Time of Service: 12:02 Care Management Progress Note S/O: CM met with patient at the bedside he is sitting up in the chair. He slept in this morning he continues to have a patient observer outside the room. Mary Beth is eating on his own and appears to have a good appetite. CM provided support and comfort to the patient including a warm blanket around his shoulders. A: Mary Beth is a 72 year old male admitted with advance dementia awaiting a lobsterman placement. Plan: Mary Beth is awaiting manager terminal placement. Lalito gates, [facility] request follow up on Tuesday related to bed. Referral was sent to [facility] spouse would prefer Mary Beth stay in the this area. CM and family are awaiting possible bed offer. CM to continue to provide support to patient and family ongoing discharge planning and disposition.
--- NOTE | 2018-02-04 12:08 | CMPROGNOTE_ITS ---
- If Service Date Differs Date of service: 02/04/18 Time of Service: 12:02 Care Management Progress Note S/O: CM met with patient at the bedside he is sitting up in the chair. He slept in this morning he continues to have a patient observer outside the room. Mary Beth is eating on his own and appears to have a good appetite. CM provided support and comfort to the patient including a warm blanket around his shoulders. A: Mary Beth is a 72 year old male admitted with advance dementia awaiting a lobsterman placement. Plan: Mary Beth is awaiting remote computer terminal operator placement. Lalito gates[facility] request follow up on Tuesday related to bed. Referral was sent to [facility] spouse would prefer Mary Beth stay in the this area. CM and family are awaiting possible bed offer. CM to continue to provide support to patient and family ongoing discharge planning and disposition.
[2018-02-04] MEDS: Docusate Sodium 100 MG/10 ML CUP PO (18:09)
[2018-02-04] MEDS: risperiDONE 0.25 MG TAB 0.5 MG PO (20:09)
[2018-02-04] MEDS: Melatonin 3 MG TAB PO (20:09)
[2018-02-04] MEDS: Mirtazapine 15 MG TAB PO (20:09)
[2018-02-05] MEDS: Senna TAB 1 TAB PO (07:46)
[2018-02-05] MEDS: LORazepam 0.5 MG TAB PO ×2 (07:46→16:42)
[2018-02-05] MEDS: Bacitracin 1 PACKET TP ×2 (07:46→13:37)
[2018-02-05] MEDS: risperiDONE 0.25 MG TAB PO (07:46)
[2018-02-05] MEDS: Acetaminophen 325 MG TAB 650 MG PO ×2 (07:46→16:41)
[2018-02-05] MEDS: Aspirin 81 MG CHEW PO (07:46)
[2018-02-05] MEDS: Citalopram 10 MG TAB 20 MG PO (07:47)
[2018-02-05] MEDS: Milk of Magnesia 30 ML CUP PO (08:19)
[2018-02-05] MEDS: Mirtazapine 15 MG TAB PO (19:39)
[2018-02-05] MEDS: risperiDONE 0.25 MG TAB 0.5 MG PO (19:39)
[2018-02-05] MEDS: Melatonin 3 MG TAB PO (19:39)
--- NOTE | 2018-02-05 23:29 | NUR.NOTE ---
Nursing Note: 3-11 shift assessment- Pt appears alert,awake,flat affect up dressed in street clothes walking in room and wandering at times out into daniels .Approximately around 1630 pt became restless ,pushing staff away in an attempt to go jose other rooms. was given PO Ativan and PO tylenol and redirected back into room. Pt was offered snacks/drinks and eat 2 pudding and had 240cc fliuds and 100% f dinner.The rest of this evening uneventful visited at 1900 and brought pt 360cc vanilla shake and pt took 100% .Pt was toileted several times this shift no incontinence reported . Pt took all meds PO crushed in pudding/ice cream without difficulty and was in bed asleep by 2100 .cadre present all times with pt this shift
[2018-02-06] MEDS: Citalopram 10 MG TAB 20 MG PO (10:46)
[2018-02-06] MEDS: LORazepam 0.5 MG TAB PO (10:46)
[2018-02-06] MEDS: Bacitracin 1 PACKET TP ×3 (10:46→19:38)
[2018-02-06] MEDS: Senna TAB 1 TAB PO (10:47)
[2018-02-06] MEDS: risperiDONE 0.25 MG TAB PO (10:47)
[2018-02-06] MEDS: Aspirin 81 MG CHEW PO (10:47)
--- NOTE | 2018-02-06 16:20 | PDOC.CMPRO ---
- If Service Date Differs Date of service: 02/06/18 Time of Service: 16:20 Care Management Progress Note S/O: CM met with Mary Beth at the bedside he is sitting up in the chair today. Met with his spouse Kaity to provide an update. [facility] not have a bed, and they are unsure they would be able to accept him if they did. [facility] is not able to offer a bed. CM left a message for [facility] regarding referral. Per LTC facilities barriers to offering a LTC setting to Mary Beth includes past behaviors by the patient and current treatment with antipsychotics including Risperidone and Seroquel. CM reviewed benefits with spouse and explained adult family care homes in the community and Mary Beth returning home with resources including hiring a caregiver at home and paying them through [employer]. Kaity is not ready to consider home care as an options at this time. CM to continue to search for placement across [place] at the request of spouse. Mary Beth had a good day he did sleep late, he calm when Kaity is with him and visiting. A: Mary Beth is a 72 year old male with dementia waiting placement in long term care pharmacist care facility. P: CM to continue to outreach LTC facilities. CM will provide spouse with more resources to review r/t AFC homes and choices for care highest needs program. CM to continue to provide support to patient, family and care team ongoing discharge planning and disposition.
--- NOTE | 2018-02-06 16:36 | CMPROGNOTE_ITS ---
- If Service Date Differs Date of service: 02/06/18 Time of Service: 16:20 Care Management Progress Note S/O: CM met with Mary Beth at the bedside he is sitting up in the chair today. Met with his spouse Kaity to provide an update. [facility] not have a bed, and they are unsure they would be able to accept him if they did. [facility] is not able to offer a bed. CM left a message for Maura Hernandez regarding referral. Per LTC facilities barriers to offering a LTC setting to Mary Beth includes past behaviors by the patient and current treatment with antipsychotics including Risperidone and Seroquel. CM reviewed benefits with spouse and explained adult family care homes in the community and Mary Beth returning home with resources including hiring a caregiver at home and paying them through [employer]. Kaity is not ready to consider home care as an options at this time. CM to continue to search for placement across [place] at the request of spouse. Mary Beth had a good day he did sleep late, he calm when Kaity is with him and visiting. A: Mary Beth is a 72 year old male with dementia waiting placement in long term care social worker care facility. P: CM to continue to outreach LTC facilities. CM will provide spouse with more resources to review r/t AFC homes and choices for care highest needs program. CM to continue to provide support to patient, family and care team ongoing discharge planning and disposition.
[2018-02-06 19:27] VITALS: BP 158/81; PULSE 71; RESP 18; TEMP 37.1; O2SAT 97
[2018-02-06] MEDS: risperiDONE 0.25 MG TAB 0.5 MG PO (19:38)
[2018-02-06] MEDS: Mirtazapine 15 MG TAB PO (19:39)
[2018-02-06] MEDS: Melatonin 3 MG TAB PO (19:39)
[2018-02-07] MEDS: Bacitracin 1 PACKET TP ×3 (08:42→20:10)
[2018-02-07] MEDS: LORazepam 0.5 MG TAB PO (08:43)
[2018-02-07] MEDS: Senna TAB 1 TAB PO (08:43)
[2018-02-07] MEDS: risperiDONE 0.25 MG TAB PO (08:43)
[2018-02-07] MEDS: Aspirin 81 MG CHEW PO (08:43)
[2018-02-07] MEDS: Citalopram 10 MG TAB 20 MG PO (08:43)
[2018-02-07] MEDS: Mirtazapine 15 MG TAB PO (20:10)
[2018-02-07] MEDS: Melatonin 3 MG TAB PO (20:10)
[2018-02-07] MEDS: risperiDONE 0.25 MG TAB 0.5 MG PO (20:11)
[2018-02-08] MEDS: Acetaminophen 325 MG TAB 650 MG PO ×2 (00:08→20:41)
[2018-02-08] MEDS: Citalopram 10 MG TAB 20 MG PO (09:25)
[2018-02-08] MEDS: Bacitracin 1 PACKET TP ×2 (09:26→13:47)
[2018-02-08] MEDS: Senna TAB 1 TAB PO (09:26)
[2018-02-08] MEDS: Aspirin 81 MG CHEW PO (09:26)
[2018-02-08] MEDS: LORazepam 0.5 MG TAB PO (09:26)
[2018-02-08] MEDS: risperiDONE 0.25 MG TAB PO (09:27)
--- NOTE | 2018-02-08 15:20 | PDOC.CMPRO ---
- If Service Date Differs Date of service: 02/08/18 Time of Service: 15:20 Care Management Progress Note S/O: CM met with Mary Beth and his spouse at the bedside. Mary Beth is appropriate and smiles occasionally at . CM refaxed a referral [facility] at the request of Kaity, she also would like referral to AFC resources. CM provided information on AFC homes to his spouse. Referred Mary Beth to Belinda Acevedo at [facility] and [facility] in [place], [place] for possible AFC placement. A: Mary Beth is a 72 year old male with dementia waiting placement in prison care facility. P: CM to continue to outreach LTC facilities. Provide spouse with more resources to review r/t AFC homes and choices for care highest needs program. CM to continue to provide support to patient, family and care team ongoing discharge planning and disposition.
--- NOTE | 2018-02-08 15:31 | CMPROGNOTE_ITS ---
- If Service Date Differs Date of service: 02/08/18 Time of Service: 15:20 Care Management Progress Note S/O: CM met with Mary Beth and his spouse at the bedside. Mary Beth is appropriate and smiles occasionally at . CM refaxed a referral to [facility] at the request of Kaity, she also would like referral to AFC resources. CM provided information on AFC homes to his spouse. Referred Mary Beth to Belinda Acevedo at [facility] and [facility] in [place], [place] for possible AFC placement. A: Mary Beth is a 72 year old male with dementia waiting placement in longterm care facility. P: CM to continue to outreach LTC facilities. Provide spouse with more resources to review r/t AFC homes and choices for care highest needs program. CM to continue to provide support to patient, family and care team ongoing discharge planning and disposition.
[2018-02-08] MEDS: risperiDONE 0.25 MG TAB 0.5 MG PO (20:42)
[2018-02-08] MEDS: Mirtazapine 15 MG TAB PO (20:42)
[2018-02-08] MEDS: Melatonin 3 MG TAB PO (20:42)
--- NOTE | 2018-02-08 22:10 | NUR.NOTE ---
Nursing Note: 3-11 shift assessment --Pt dressed in street clothes asleep from 1530 to 1630 . Pt awoke for dinner ate 100% and took 1000cc fluids along with several snacks this shift .Pt has been calm,relaxed ,cooperative ,compliant taking medications crushed in pudding this shift.Pt was incontinent x 1 the beginning of this shift and toileted x 3.Pt has had a cadre all shift at 2200 pt assisted into bed ,teds removed and now asleep by 2230 .NO S/S of any discomfort this shift
[2018-02-09] MEDS: Senna TAB 1 TAB PO (10:33)
[2018-02-09] MEDS: LORazepam 0.5 MG TAB PO ×2 (10:33→15:56)
[2018-02-09] MEDS: Aspirin 81 MG CHEW PO (10:33)
[2018-02-09] MEDS: risperiDONE 0.25 MG TAB PO (10:33)
[2018-02-09] MEDS: Bacitracin 1 PACKET TP ×3 (10:33→19:32)
[2018-02-09] MEDS: Citalopram 10 MG TAB 20 MG PO (10:33)
--- NOTE | 2018-02-09 10:52 | PDOC.CMACT ---
- If Service Date Differs Date of service: 02/09/18 Time of Service: 10:53 Care Management Activity Note Mary Beth continues to have a patient observer outside the room. He has been corporative and redirectable. He appears to enjoy visits with his spouse, and family. CM did spend some time in the room with Mary Beth and discussing daily events with him. He has several tactile activities in the room. Kaity brought in a photo album for him to look through of him and his family. Mary Beth has taken several walks every day with his spouse, STEAM TRAIN DRIVER's and one on one patient observer. P: CM to continue to outreach LTC facilities. [facility] is reviewing new referral. CM Provided spouse with more resources to review r/t AFC homes and choices for care highest needs program. CM to continue to provide support to patient, family and care team ongoing discharge planning and disposition.
--- NOTE | 2018-02-09 11:06 | CMACTNOTE_ITS ---
- If Service Date Differs Date of service: 02/09/18 Time of Service: 10:53 Care Management Activity Note Mary Beth continues to have a patient observer outside the room. He has been corporative and redirectable. He appears to enjoy visits with his spouse, and family. CM did spend some time in the room with Mary Beth and discussing daily events with him. He has several tactile activities in the room. Kaity brought in a photo album for him to look through of him and his family. Mary Beth has taken several walks every day with his spouse, CONTINUOUS LOFT OPERATOR's and one on one patient observer. P: CM to continue to outreach LTC facilities. [facility] is reviewing new referral. CM Provided spouse with more resources to review r/t AFC homes and choices for care highest needs program. CM to continue to provide support to patient, family and care team ongoing discharge planning and disposition.
[2018-02-09] MEDS: Melatonin 3 MG TAB PO (19:33)
[2018-02-09] MEDS: Mirtazapine 15 MG TAB PO (19:33)
[2018-02-09] MEDS: risperiDONE 0.25 MG TAB 0.5 MG PO (19:33)
[2018-02-10] MEDS: Bacitracin 1 PACKET TP ×3 (10:06→21:23)
[2018-02-10] MEDS: Citalopram 10 MG TAB 20 MG PO (10:07)
[2018-02-10] MEDS: Senna TAB 1 TAB PO (10:07)
[2018-02-10] MEDS: Aspirin 81 MG CHEW PO (10:07)
[2018-02-10] MEDS: LORazepam 0.5 MG TAB PO (10:07)
[2018-02-10] MEDS: risperiDONE 0.25 MG TAB PO (10:15)
[2018-02-10] MEDS: Mirtazapine 15 MG TAB PO (21:23)
[2018-02-10] MEDS: Polyethylene Glycol 3350 17 GM PACKET PO (21:24)
[2018-02-10] MEDS: risperiDONE 0.25 MG TAB 0.5 MG PO (21:24)
[2018-02-10] MEDS: Melatonin 3 MG TAB PO (21:24)
[2018-02-11 08:33] VITALS: BP 111/72; PULSE 64; RESP 20; TEMP 36.8
[2018-02-11] MEDS: risperiDONE 0.25 MG TAB PO (08:41)
[2018-02-11] MEDS: LORazepam 0.5 MG TAB PO (08:41)
[2018-02-11] MEDS: Bacitracin 1 PACKET TP ×2 (08:41→21:03)
[2018-02-11] MEDS: Aspirin 81 MG CHEW PO (08:42)
[2018-02-11] MEDS: Senna TAB 1 TAB PO (08:42)
[2018-02-11] MEDS: Citalopram 10 MG TAB 20 MG PO (08:42)
[2018-02-11 10:30] VITALS: O2SAT 93
[2018-02-11] MEDS: risperiDONE 0.25 MG TAB 0.5 MG PO (21:03)
[2018-02-11] MEDS: Melatonin 3 MG TAB PO (21:03)
[2018-02-11] MEDS: Mirtazapine 15 MG TAB PO (21:03)
[2018-02-12] MEDS: Bacitracin 1 PACKET TP (09:50)
[2018-02-12] MEDS: LORazepam 0.5 MG TAB PO (09:50)
[2018-02-12] MEDS: Citalopram 10 MG TAB 20 MG PO (09:50)
[2018-02-12] MEDS: risperiDONE 0.25 MG TAB PO (09:50)
[2018-02-12] MEDS: Senna TAB 1 TAB PO (09:50)
[2018-02-12] MEDS: Aspirin 81 MG CHEW PO (09:50)
[2018-02-12] MEDS: risperiDONE 0.25 MG TAB 0.5 MG PO (19:27)
[2018-02-12] MEDS: Mirtazapine 15 MG TAB PO (19:27)
[2018-02-12] MEDS: Melatonin 3 MG TAB PO (19:27)
[2018-02-13] MEDS: Citalopram 10 MG TAB 20 MG PO (08:53)
[2018-02-13] MEDS: risperiDONE 0.25 MG TAB PO (08:53)
[2018-02-13] MEDS: LORazepam 0.5 MG TAB PO (08:53)
[2018-02-13] MEDS: Aspirin 81 MG CHEW PO (08:53)
[2018-02-13] MEDS: Senna TAB 1 TAB PO (08:53)
[2018-02-13] MEDS: Bacitracin 1 PACKET TP ×3 (08:53→20:50)
--- NOTE | 2018-02-13 11:36 | SATEXT_ITS ---
Assessment: Mr. Cordero continues to have excellent PO intake on a regular diet. His weight has increased significantly in the past month. He has had a 9.9% weight gain. His BMI is 28 kg/m2 which is well WNL. It was also WNL a month ago. He is 69 and currently 90.8 kg/200 lbs. He is eating his meals well and he does get snacks throughout the day. Nutritional Diagnosis: Significant weight gain related to increased energy intake. Intervention: Would recommend that we track Mr. Cordero's in between snacks specifically to see if his snacking is an area that needs to be at the very least not increased. Given his history of type 2 diabetes, excessive weight gain should be minimized even though he continues to be within a normal body weight range. Although Mr. Cordero walks frequently around the second floor, his activity is likely less than when he was at home, so he is burning less calories. Would recommend weight maintenance at this time. Monitoring and Evaluation: 1. Will monitor weight and PO intake. Please document specifically in [employer] when snacks are given so we can evaluate if Mr. Cordero needs to have lower calorie snacks available or if we can just keep his regimen the same. 2. Will evaluate his nutrition care plan on-going and adjust as needed.
--- NOTE | 2018-02-13 13:23 | W.PSYCHCONSU ---
Date of service: 02/13/18 History of Present Illness Narrative: Events since initial consultation/last note: Attempted reduction of risperidone >1month ago coincided with increased agitation and resumption of previous dose of risperidone. Medications: prn haldol last administered on 02/01/18, and 01/24/18 previous to that Labs last 24 hours: n/a Subjective: Patient was with cadre in room. Patient unable to provide history except to indicate he wanted to use the toilet. Gregory Sal reports today Mary Beth seems a bit more out of sorts, didn't get good sleep last night. No dysregulated or agitated behaviors. Has been walking a lot in the halls today and strength and balance seem unchanged and good. REVIEW OF SYSTEMS: pt unable to participate MENTAL STATUS EXAM: Constitutional: Standing up in room, makes eye contact, wearing hospital clothing, alert Attitude: cooperative, pleasant Psychomotor: no retardation or agitation Speech: extremely minimal, vague Associations: no looseness Thought process: confused Thought content without psychosis, delusions, obsessions evident No suicidal or homicidal ideations evident Hallucinations: no evidence of responding to internal stimuli Mood: off per patient sitter Affect: pleasant, but a bit concerned appearing Attention/Concentration: poor Judgment/insight: poor Oriented: x 0 Language minimal Fund of knowledge minimal Memory very poor Other cognitive testing: none Visit Statistics Total Visit Minutes: Visit Time Allocation >50% of face to face visit spent in counseling (Extensive teaching, explanation and instructions. Counseling as appropriate. Review of plans, and discussion concerning medical problems dealt with at this visit. Discussion of benefits/risks of treatment, anticipated course of events, potential medication side effects, options, alternatives, and follow up plans. Questions were solicited and answered, and the patient verbalized understanding.), and/or coordination of care. Assessment and Plan (1) Dementia with behavioral problem: Current visit: Yes Status: Chronic Mary Beth Cordero is a 72 year old male with dementia and history of neuropsychiatric behavioral dysregulation who is awaiting long-term care placement. Per Care Management, the fact that he is on antipsychotics is a barrier to placement. Today I reviewed his chart and saw patient. An re-attempt at antipsychotic reduction is appropriate given that he has not had dysregulated behaviors in over two weeks and perhaps mirtazapine could be increased and lorazepam used more often if needed for behavioral dysregulation. I will consult with team in morning meeting before making specific recommendations. Continue with care and with seeking placement as planned. [facility] Medical History CAD (coronary artery disease) Dementia Depression Hx of CABG Prediabetes Social History Smoking/Tobacco Use Status: Never Surgical History CORONARY BYPASS, 3 (~08/2005) Colonoscopy - MAC Repair of inguinal hernia (~03/2009) Repair of umbilical hernia (~03/2009) Exam Neuro General: moves all extremities Other: AIMS assessment: pt unable to comply with full AIMS. no cogwheeling or ridgity in upper extremities bilaterally. No abnormal movement or tremors noted. Standing steadily, gait noted to be slow but steady for the few steps observed. Results Labs : 01/18/18 06:50 01/18/18 06:50
--- NOTE | 2018-02-13 13:48 | PSYCO_ITS ---
Date of service: 02/13/18 History of Present Illness Narrative: Events since initial consultation/last note: Attempted reduction of risperidone >1month ago coincided with increased agitation and resumption of previous dose of risperidone. Medications: prn haldol last administered on 02/01/18, and 01/24/18 previous to that Labs last 24 hours: n/a Subjective: Patient was with cadre in room. Patient unable to provide history except to indicate he wanted to use the toilet. Gregory Sal reports today Mary Beth seems a bit more out of sorts, didn't get good sleep last night. No dysregulated or agitated behaviors. Has been walking a lot in the halls today and strength and balance seem unchanged and good. REVIEW OF SYSTEMS: pt unable to participate MENTAL STATUS EXAM: Constitutional: Standing up in room, makes eye contact, wearing hospital clothing, alert Attitude: cooperative, pleasant Psychomotor: no retardation or agitation Speech: extremely minimal, vague Associations: no looseness Thought process: confused Thought content without psychosis, delusions, obsessions evident No suicidal or homicidal ideations evident Hallucinations: no evidence of responding to internal stimuli Mood: off per patient sitter Affect: pleasant, but a bit concerned appearing Attention/Concentration: poor Judgment/insight: poor Oriented: x 0 Language minimal Fund of knowledge minimal Memory very poor Other cognitive testing: none Visit Statistics Total Visit Minutes: Visit Time Allocation >50% of face to face visit spent in counseling (Extensive teaching, explanation and instructions. Counseling as appropriate. Review of plans, and discussion concerning medical problems dealt with at this visit. Discussion of benefits/ risks of treatment, anticipated course of events, potential medication side effects, options, alternatives, and follow up plans. Questions were solicited and answered, and the patient verbalized understanding.), and/or coordination of care. Assessment and Plan (1) Dementia with behavioral problem: Current visit: Yes Status: Chronic Mary Beth Cordero is a 72 year old male with dementia and history of neuropsychiatric behavioral dysregulation who is awaiting long-term care placement. Per Care Management, the fact that he is on antipsychotics is a barrier to placement. Today I reviewed his chart and saw patient. An re- attempt at antipsychotic reduction is appropriate given that he has not had dysregulated behaviors in over two weeks and perhaps mirtazapine could be increased and lorazepam used more often if needed for behavioral dysregulation. I will consult with team in morning meeting before making specific recommendations. Continue with care and with seeking placement as planned. [facility] Medical History CAD (coronary artery disease) Dementia Depression Hx of CABG Prediabetes Social History Smoking/Tobacco Use Status: Never Surgical History CORONARY BYPASS, 3 (~08/2005) Colonoscopy - MAC Repair of inguinal hernia (~03/2009) Repair of umbilical hernia (~03/2009) Exam Neuro General: moves all extremities Other: AIMS assessment: pt unable to comply with full AIMS. no cogwheeling or ridgity in upper extremities bilaterally. No abnormal movement or tremors noted. Standing steadily, gait noted to be slow but steady for the few steps observed. Results Labs : 01/18/18 06:50 01/18/18 06:50
[2018-02-13] MEDS: Mirtazapine 15 MG TAB PO (20:50)
[2018-02-13] MEDS: Melatonin 3 MG TAB PO (20:50)
[2018-02-13] MEDS: risperiDONE 0.25 MG TAB 0.5 MG PO (20:50)
[2018-02-14] MEDS: Bacitracin 1 PACKET TP ×2 (09:12→19:38)
[2018-02-14] MEDS: Citalopram 10 MG TAB 20 MG PO (09:13)
[2018-02-14] MEDS: Senna TAB 1 TAB PO (09:13)
[2018-02-14] MEDS: LORazepam 0.5 MG TAB PO (09:13)
[2018-02-14] MEDS: risperiDONE 0.25 MG TAB PO ×2 (09:13→19:38)
[2018-02-14] MEDS: Aspirin 81 MG CHEW PO (09:14)
--- NOTE | 2018-02-14 09:49 | W.PSYCHCONSU ---
Date of service: 02/14/18 History of Present Illness Narrative: As per plan yesterday, I spoke with the medical team including hospitalist, care management, nursing, regarding reducing Mr. Cordero's risperidone. Risks and benefits were discussed including emergent and longer term plans if this trial decrease has adverse effects of worsening behaviors. Recommendations as discussed with team: - decrease risperidone to 0.25mg twice daily, down from 0.25mg AM, 0.5mg PM. - continue schedule lorazepam 0.5mg daily - continue lorazepam 0.5mg three x daily as needed for agitation - continue haloperidol 0.25mg three times daily as needed for severe agitation when no response to lorazepam prn. - we will monitor need for prn medications and adjust scheduled medications accordingly. alternatives to antipsychotics may be increasing mirtazapine at bedtime, increasing use of lorazepam, continued use of environmental interventions as allowed by circumstances of med-surg floor including daytime walking of the halls and dark room at night. - reduction of risperidone will be stepped down weekly so as not to cause agitation related to withdrawal. I will continue to be involved in his mental health management while he is here at [facility]. [facility] Medical History CAD (coronary artery disease) Dementia Depression Hx of CABG Prediabetes Social History Smoking/Tobacco Use Status: Never Surgical History CORONARY BYPASS, 3 (~08/2005) Colonoscopy - MAC Repair of inguinal hernia (~03/2009) Repair of umbilical hernia (~03/2009) Results Labs : 01/18/18 06:50 01/18/18 06:50
--- NOTE | 2018-02-14 09:56 | PSYCO_ITS ---
Date of service: 02/14/18 History of Present Illness Narrative: As per plan yesterday, I spoke with the medical team including hospitalist, care management, nursing, regarding reducing Mr. Cordero's risperidone. Risks and benefits were discussed including emergent and longer term plans if this trial decrease has adverse effects of worsening behaviors. Recommendations as discussed with team: - decrease risperidone to 0.25mg twice daily, down from 0.25mg AM, 0.5mg PM. - continue schedule lorazepam 0.5mg daily - continue lorazepam 0.5mg three x daily as needed for agitation - continue haloperidol 0.25mg three times daily as needed for severe agitation when no response to lorazepam prn. - we will monitor need for prn medications and adjust scheduled medications accordingly. alternatives to antipsychotics may be increasing mirtazapine at bedtime, increasing use of lorazepam, continued use of environmental interventions as allowed by circumstances of med-surg floor including daytime walking of the halls and dark room at night. - reduction of risperidone will be stepped down weekly so as not to cause agitation related to withdrawal. I will continue to be involved in his mental health management while he is here at [facility]. [facility] Medical History CAD (coronary artery disease) Dementia Depression Hx of CABG Prediabetes Social History Smoking/Tobacco Use Status: Never Surgical History CORONARY BYPASS, 3 (~08/2005) Colonoscopy - MAC Repair of inguinal hernia (~03/2009) Repair of umbilical hernia (~03/2009) Results Labs : 01/18/18 06:50 01/18/18 06:50
[2018-02-14] MEDS: Milk of Magnesia 30 ML CUP PO ×2 (11:51→19:39)
[2018-02-14] MEDS: Mirtazapine 15 MG TAB PO (19:38)
[2018-02-14] MEDS: Melatonin 3 MG TAB PO (19:38)
[2018-02-14] MEDS: Docusate Sodium 100 MG/10 ML CUP PO (19:39)
[2018-02-15] MEDS: Citalopram 10 MG TAB 20 MG PO (09:48)
[2018-02-15] MEDS: LORazepam 0.5 MG TAB PO ×2 (09:48→17:15)
[2018-02-15] MEDS: risperiDONE 0.25 MG TAB PO ×2 (09:48→20:42)
[2018-02-15] MEDS: Senna TAB 1 TAB PO (09:49)
[2018-02-15] MEDS: Aspirin 81 MG CHEW PO (09:49)
--- NOTE | 2018-02-15 11:17 | PDOC.CMACT ---
- If Service Date Differs Date of service: 02/15/18 Time of Service: 11:17 Care Management Activity Note Mary Beth continues to have a patient observer outside the room. He has been corporative and redirectable. He appears to enjoy visits with his spouse, and family. CM did spend some time in the room with Mary Beth and discussing daily events with him. He has several tactile activities in the room. Kaity brought in a photo album for him to look through of him and his family. Mary Beth has taken several walks every day with his spouse, CENTER LINE CUTTER OPERATOR's and one on one patient observer. recommended decreasing Risperidone which was done and per report he did well over night. P: CM to continue to outreach LTC facilities. [facility] Re[facility] is reviewing new referral. CM Provided spouse with more resources to review r/t AFC homes and choices for care highest needs program. CM is awaiting contact by Belinda Acevedo from [facility] to discuss possible AFC placement. CM to continue to provide support to patient, family and care team ongoing discharge planning and disposition.
--- NOTE | 2018-02-15 11:20 | CMACTNOTE_ITS ---
- If Service Date Differs Date of service: 02/15/18 Time of Service: 11:17 Care Management Activity Note Mary Beth continues to have a patient observer outside the room. He has been corporative and redirectable. He appears to enjoy visits with his spouse, and family. CM did spend some time in the room with Mary Beth and discussing daily events with him. He has several tactile activities in the room. Kaity brought in a photo album for him to look through of him and his family. Mary Beth has taken several walks every day with his spouse, WELDING SYSTEMS AND EQUIPMENT REPAIRER's and one on one patient observer. recommended decreasing Risperidone which was done and per report he did well over night. P: CM to continue to outreach LTC facilities. [facility] Re[facility] is reviewing new referral. CM Provided spouse with more resources to review r/t AFC homes and choices for care highest needs program. CM is awaiting contact by Belinda Acevedo from [facility] to discuss possible AFC placement. CM to continue to provide support to patient, family and care team ongoing discharge planning and disposition.
[2018-02-15] MEDS: Bacitracin 1 PACKET TP ×3 (15:53→20:42)
[2018-02-15] MEDS: Acetaminophen 325 MG TAB 650 MG PO (17:16)
[2018-02-15] MEDS: Docusate Sodium 100 MG/10 ML CUP PO (17:17)
[2018-02-15] MEDS: Mirtazapine 15 MG TAB PO (20:42)
[2018-02-15] MEDS: Melatonin 3 MG TAB PO (20:42)
--- NOTE | 2018-02-15 23:50 | NUR.NOTE ---
Nursing Note: 3-11 shift assessment-- Pt up dressed in street clothes ,appars alert,awake ,sullen wandering in room or daniels frequently this shift -1715 increasing aggitation difficult to redirect during meal time given ativan/apap 650mg and dss - Pt only ate about 50% took fliuds and medications well,Pt up voided x 2 in toilet ,no BM this shift --Pt has been pacing ,wandering majority of this shift taking several rest periods in recliner before walking about in rom again .. Snacks /juices/ea offered . Approximately 2230 pt up out of bed more aggitated haldol given PO and redirecte back to bed results pending ,coordinator informed
[2018-02-16] MEDS: Citalopram 10 MG TAB 20 MG PO (08:52)
[2018-02-16] MEDS: Milk of Magnesia 30 ML CUP PO (08:52)
[2018-02-16] MEDS: Bacitracin 1 PACKET TP ×3 (08:52→19:49)
[2018-02-16] MEDS: Aspirin 81 MG CHEW PO (08:52)
[2018-02-16] MEDS: risperiDONE 0.25 MG TAB PO ×2 (08:52→19:50)
[2018-02-16] MEDS: LORazepam 0.5 MG TAB PO ×2 (08:52→17:26)
[2018-02-16] MEDS: Senna TAB 1 TAB PO (08:53)
[2018-02-16] MEDS: Acetaminophen 325 MG TAB 650 MG PO ×2 (08:53→17:28)
--- NOTE | 2018-02-16 13:24 | NUR.NOTE ---
1245: pt has nose bleed from right nare following lunch today. pt tolerant of tissue in nose to stop bleeding. continue to monitor. Nursing Note:
--- NOTE | 2018-02-16 14:24 | NUR.NOTE ---
Nursing Note: 0634: RN arrives to shift to see CAPACITY ANALYST waiting outside pt's door looking for assistance. CAPACITY ANALYST reports pt is getting agitated. this RN enters room to find pt standing at window, furrowed brow, pt is bleeding from right hand. pt interacts with RN but does not allow RN to put bandaid on hand. pt moves towards door and RN ambulates with pt in daniels. pt agitation begins to decrease. warm blanket applied to pt's shoulders. CAPACITY ANALYST takes over care of pt at this time. pt allows for CAPACITY ANALYST to place a bandaid on hand without incident. pt eats 50% of his breakfast, takes medications without incident for RN. pt ambulates frequently this am, begins to interact and joke with staff, smiling. pt sits with CAPACITY ANALYST in daniels for a brief time this am. pt eats a good lunch. pt has been continent. pt passing flatus. pt falls asleep in recliner at approximately 1350. continue to monitor.
[2018-02-16] MEDS: Melatonin 3 MG TAB PO (19:49)
[2018-02-16] MEDS: Mirtazapine 15 MG TAB PO (19:49)
--- NOTE | 2018-02-16 23:40 | NUR.NOTE ---
Nursing Note: 3-11shift assessment pt alert,aware, cooperative most of shift -- given atiavn and apap at 1730 for anxiety /generalized joint discomfort ,brief /pants changed r/t incontinenet of urine x 1 -did well rest of night ate most of dinner ,cooperative with taking po meds,offered snacks /fliuds,walked in room most times ,toileted when agreeable ,easily redirected ,denies any pain/sob
[2018-02-17] MEDS: Bacitracin 1 PACKET TP ×3 (09:40→19:42)
[2018-02-17] MEDS: Polyethylene Glycol 3350 17 GM PACKET PO (09:40)
[2018-02-17] MEDS: Citalopram 10 MG TAB 20 MG PO (09:40)
[2018-02-17] MEDS: Docusate Sodium 100 MG/10 ML CUP PO (09:40)
[2018-02-17] MEDS: Senna TAB 1 TAB PO (09:41)
[2018-02-17] MEDS: risperiDONE 0.25 MG TAB PO ×2 (09:41→19:42)
[2018-02-17] MEDS: LORazepam 0.5 MG TAB PO (09:41)
[2018-02-17] MEDS: Aspirin 81 MG CHEW PO (09:41)
[2018-02-17] MEDS: Acetaminophen 325 MG TAB 650 MG PO (09:41)
[2018-02-17] MEDS: Melatonin 3 MG TAB PO (19:42)
[2018-02-17] MEDS: Mirtazapine 15 MG TAB 30 MG PO (19:42)
[2018-02-18] MEDS: Acetaminophen 325 MG TAB 650 MG PO ×2 (00:03→14:10)
[2018-02-18] MEDS: LORazepam 0.5 MG TAB PO ×2 (01:05→07:38)
[2018-02-18] MEDS: Milk of Magnesia 30 ML CUP PO (07:37)
[2018-02-18] MEDS: Aspirin 81 MG CHEW PO (07:37)
[2018-02-18] MEDS: Bacitracin 1 PACKET TP ×2 (07:37→14:09)
[2018-02-18] MEDS: risperiDONE 0.25 MG TAB PO ×2 (07:38→21:00)
[2018-02-18] MEDS: Senna TAB 1 TAB PO (07:38)
[2018-02-18] MEDS: Citalopram 10 MG TAB 20 MG PO (07:38)
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
[2018-02-18] MEDS: Polyethylene Glycol 3350 17 GM PACKET PO (18:35)
[2018-02-18] MEDS: Docusate Sodium 100 MG/10 ML CUP PO (18:35)
[2018-02-18] MEDS: Mirtazapine 15 MG TAB 7.5 MG PO (21:00)
[2018-02-18] MEDS: Melatonin 3 MG TAB 9 MG PO (21:00)
[2018-02-19 07:25] VITALS: BP 146/82; PULSE 75; RESP 17; TEMP 36.9; O2SAT 94
[2018-02-19] MEDS: Acetaminophen 325 MG TAB 650 MG PO ×2 (09:46→19:35)
[2018-02-19] MEDS: Milk of Magnesia 30 ML CUP PO (09:46)
[2018-02-19] MEDS: Citalopram 10 MG TAB 20 MG PO (09:46)
[2018-02-19] MEDS: Bacitracin 1 PACKET TP ×3 (09:46→19:34)
[2018-02-19] MEDS: Senna TAB 1 TAB PO ×3 (09:47→19:36)
[2018-02-19] MEDS: risperiDONE 0.25 MG TAB PO ×2 (09:47→19:34)
[2018-02-19] MEDS: LORazepam 0.5 MG TAB PO (09:47)
[2018-02-19] MEDS: Aspirin 81 MG CHEW PO (09:47)
[2018-02-19] MEDS: Bisacodyl 10 MG SUPP PR (10:05)
[2018-02-19] MEDS: Polyethylene Glycol 3350 17 GM PACKET PO ×2 (12:43→19:34)
[2018-02-19] MEDS: Melatonin 3 MG TAB 9 MG PO (19:34)
[2018-02-19] MEDS: Mirtazapine 15 MG TAB 7.5 MG PO (19:35)
[2018-02-19] MEDS: Docusate Sodium 100 MG/10 ML CUP PO (19:36)
[2018-02-20] MEDS: Bacitracin 1 PACKET TP ×3 (09:30→20:22)
[2018-02-20] MEDS: LORazepam 0.5 MG TAB PO ×2 (09:31→23:00)
[2018-02-20] MEDS: Aspirin 81 MG CHEW PO (09:31)
[2018-02-20] MEDS: risperiDONE 0.25 MG TAB PO ×2 (09:31→20:21)
[2018-02-20] MEDS: Senna TAB 1 TAB PO (09:31)
[2018-02-20] MEDS: Citalopram 10 MG TAB 20 MG PO (09:31)
[2018-02-20] MEDS: Melatonin 3 MG TAB 9 MG PO (20:20)
[2018-02-20] MEDS: Acetaminophen 325 MG TAB 650 MG PO (20:21)
[2018-02-20] MEDS: Mirtazapine 15 MG TAB 7.5 MG PO (20:21)
[2018-02-21] MEDS: Senna TAB 1 TAB PO (08:16)
[2018-02-21] MEDS: LORazepam 0.5 MG TAB PO ×3 (08:16→23:10)
[2018-02-21] MEDS: Bacitracin 1 PACKET TP ×2 (08:16→19:02)
[2018-02-21] MEDS: risperiDONE 0.25 MG TAB PO ×2 (08:17→19:03)
[2018-02-21] MEDS: Aspirin 81 MG CHEW PO (08:17)
[2018-02-21] MEDS: Citalopram 10 MG TAB 20 MG PO (08:17)
[2018-02-21] MEDS: Milk of Magnesia 30 ML CUP PO (12:46)
[2018-02-21] MEDS: Melatonin 3 MG TAB 9 MG PO (19:02)
[2018-02-21] MEDS: Mirtazapine 15 MG TAB 7.5 MG PO (19:03)
[2018-02-21] MEDS: Acetaminophen 325 MG TAB 650 MG PO (23:10)
[2018-02-22] MEDS: Milk of Magnesia 30 ML CUP PO (08:17)
[2018-02-22] MEDS: Bacitracin 1 PACKET TP ×3 (08:17→19:34)
[2018-02-22] MEDS: Acetaminophen 325 MG TAB 650 MG PO (08:17)
[2018-02-22] MEDS: Citalopram 10 MG TAB 20 MG PO (08:18)
[2018-02-22] MEDS: Aspirin 81 MG CHEW PO (08:18)
[2018-02-22] MEDS: LORazepam 0.5 MG TAB PO (08:18)
[2018-02-22] MEDS: risperiDONE 0.25 MG TAB PO ×2 (08:18→19:35)
[2018-02-22] MEDS: Senna TAB 1 TAB PO (08:18)
--- NOTE | 2018-02-22 14:58 | NUR.NOTE ---
Nursing Note: 1458: pt has had a good day today. pt does require assist with feeding today but did feed himself some of this breakfast. pt takes medications without difficulty. pt alert to self only today. pt does have a furrowed brow for part of today but did have a large bowel movement with a decrease in facial furrow. pt slept for several hours this shift. pt's does come in to visit today. pt's AUGUSTO also here to visit. continue to monitor.
[2018-02-22] MEDS: Melatonin 3 MG TAB 9 MG PO (19:34)
[2018-02-22] MEDS: Mirtazapine 15 MG TAB 7.5 MG PO (19:35)
[2018-02-22] MEDS: traZODone 50 MG TAB PO (21:26)
[2018-02-23] MEDS: LORazepam 0.5 MG TAB PO ×2 (05:31→08:59)
[2018-02-23] MEDS: Milk of Magnesia 30 ML CUP PO (08:58)
[2018-02-23] MEDS: Citalopram 10 MG TAB 20 MG PO (08:58)
[2018-02-23] MEDS: Bacitracin 1 PACKET TP ×3 (08:58→19:18)
[2018-02-23] MEDS: Aspirin 81 MG CHEW PO (08:59)
[2018-02-23] MEDS: risperiDONE 0.25 MG TAB PO ×2 (08:59→19:19)
[2018-02-23] MEDS: Acetaminophen 325 MG TAB 650 MG PO (08:59)
[2018-02-23] MEDS: Senna TAB 1 TAB PO (08:59)
--- NOTE | 2018-02-23 14:10 | PDOC.CMACT ---
- If Service Date Differs Date of service: 02/23/18 Time of Service: 14:10 Care Management Activity Note Mary Beth continues to have a patient observer outside the room and one on one at times when he needs it. He has been corporative and redirectable. He appears to enjoy visits with his spouse, and family. CM did spend some time in the room with Mary Beth and discussing daily events with him. He has several tactile activities in the room. Kaity has been here throughout the week visiting Mary Beth. Mary Beth has taken several walks every day with his spouse, SET OFF BLOCKER's and one on one patient observer. Maura Hernandez declined patient today based on behaviors. Awaiting [facility] to meet with patient and revaluate for placement. P: CM to continue to outreach LTC facilities. CM received update from [facility] a potential AFC home will be here on Tuesday at 1:30 pm to meet Mary Beth. CM provided update to spouse. CM to continue to provide support to patient, family and care team ongoing discharge planning and disposition.
--- NOTE | 2018-02-23 14:37 | NUR.NOTE ---
1435: pt has had a good day. upon arrival to this shift, pt was noted to be resting in bed. pt awoke for breakfast, does require some initial cueing with using spoon and fork but then is able to feed self. pt drinking well today, enjoying iced tea his brings in for him. pt took medications without incident. pt naps t/o the morning, gets up to void in toilet x 2. pt passing flatus and has sat on the toilet x 3 with no bowel movement noted. pt's in to visit today and states oh, there you are. pt and have been ambulating. pt making better eye contact today in comparison to 02/22 and is more verbal. continue to monitor. Nursing Note:
--- NOTE | 2018-02-23 15:00 | CMACTNOTE_ITS ---
- If Service Date Differs Date of service: 02/23/18 Time of Service: 14:10 Care Management Activity Note Mary Beth continues to have a patient observer outside the room and one on one at times when he needs it. He has been corporative and redirectable. He appears to enjoy visits with his spouse, and family. CM did spend some time in the room with Mary Beth and discussing daily events with him. He has several tactile activities in the room. Kaity has been here throughout the week visiting Mary Beth. Mary Beth has taken several walks every day with his spouse, DIPPING MACHINE OPERATOR's and one on one patient observer. Maura Hernandez declined patient today based on behaviors. Awaiting [facility] to meet with patient and revaluate for placement. P: CM to continue to outreach LTC facilities. CM received update from [facility] a potential AFC home will be here on Tuesday at 1:30 pm to meet Mary Beth. CM provided update to spouse. CM to continue to provide support to patient, family and care team ongoing discharge planning and disposition.
[2018-02-23] MEDS: Docusate Sodium 100 MG/10 ML CUP PO (19:18)
[2018-02-23] MEDS: Melatonin 3 MG TAB 9 MG PO (19:19)
[2018-02-23] MEDS: Mirtazapine 15 MG TAB 7.5 MG PO (19:19)
--- NOTE | 2018-02-23 20:37 | NUR.NOTE ---
Nursing Note: Patient is recieving scheduled bowel meds today. he has been passing a large amount of flatus he has been up and down to the toilet repeatedly with gas and urine to this point, he is restless but thus far not agitated
[2018-02-23] MEDS: traZODone 50 MG TAB PO (20:55)
[2018-02-23] MEDS: Senna TAB 2 TAB PO (21:03)
[2018-02-24] MEDS: LORazepam 0.5 MG TAB PO (08:11)
[2018-02-24] MEDS: Bacitracin 1 PACKET TP ×3 (08:11→19:34)
[2018-02-24] MEDS: Docusate Sodium 100 MG/10 ML CUP PO ×2 (08:11→19:34)
[2018-02-24] MEDS: Citalopram 10 MG TAB 20 MG PO (08:12)
[2018-02-24] MEDS: Aspirin 81 MG CHEW PO (08:12)
[2018-02-24] MEDS: Acetaminophen 325 MG TAB 650 MG PO ×2 (08:12→13:26)
[2018-02-24] MEDS: risperiDONE 0.25 MG TAB PO ×2 (08:12→19:35)
[2018-02-24] MEDS: Senna TAB 1 TAB PO (08:12)
[2018-02-24 19:23] VITALS: BP 145/70; PULSE 66; RESP 18; TEMP 37; O2SAT 94
[2018-02-24] MEDS: Mylanta Suspension 30 ML CUP PO (19:33)
[2018-02-24] MEDS: Melatonin 3 MG TAB 9 MG PO (19:34)
[2018-02-24] MEDS: Mirtazapine 15 MG TAB 7.5 MG PO (19:35)
[2018-02-24] MEDS: Senna TAB 2 TAB PO (21:39)
[2018-02-24] MEDS: traZODone 50 MG TAB 100 MG PO (21:39)
--- NOTE | 2018-02-24 22:16 | NUR.NOTE ---
Nursing Note: After dinner staff reported that they felt patient was having chest pain. apical heart rate vs all within patients normal limits, subsequent information was symptoms started as patient was lying down. patient pointed to the epigastric when asked where pain was. Patient has history of gerd and was noted to be burping frequently. He was given mylanta for the stomach, pain resolved, however patient continued to burp and his activity returned to baseline
[2018-02-25] MEDS: Acetaminophen 325 MG TAB 650 MG PO (01:45)
[2018-02-25] MEDS: LORazepam 0.5 MG TAB PO ×3 (01:46→20:11)
[2018-02-25] MEDS: Docusate Sodium 100 MG/10 ML CUP PO ×2 (09:46→20:11)
[2018-02-25] MEDS: Citalopram 10 MG TAB 20 MG PO (09:46)
[2018-02-25] MEDS: Aspirin 81 MG CHEW PO (09:46)
[2018-02-25] MEDS: risperiDONE 0.25 MG TAB PO ×2 (09:47→20:17)
[2018-02-25] MEDS: Bacitracin 1 PACKET TP ×3 (09:47→20:16)
--- NOTE | 2018-02-25 11:09 | NUR.NOTE ---
Nursing Note: Pt quite cooperative and pleasant this morning, smiling and conversing during morning care. Pt took medications without objection, and is now resting quietly in recliner.
[2018-02-25] MEDS: Melatonin 3 MG TAB 9 MG PO (20:10)
[2018-02-25] MEDS: Mirtazapine 15 MG TAB 7.5 MG PO (20:17)
[2018-02-25] MEDS: traZODone 50 MG TAB 100 MG PO (21:43)
[2018-02-25] MEDS: Senna TAB 2 TAB PO (21:43)
[2018-02-26] MEDS: Acetaminophen 325 MG TAB 650 MG PO ×2 (00:25→20:30)
[2018-02-26] MEDS: Docusate Sodium 100 MG/10 ML CUP PO ×2 (09:22→20:30)
[2018-02-26] MEDS: Aspirin 81 MG CHEW PO (09:23)
[2018-02-26] MEDS: risperiDONE 0.25 MG TAB PO ×2 (09:23→20:30)
[2018-02-26] MEDS: LORazepam 0.5 MG TAB PO (09:23)
[2018-02-26] MEDS: Citalopram 10 MG TAB 20 MG PO (09:23)
[2018-02-26] MEDS: Bacitracin 1 PACKET TP ×3 (09:23→20:30)
[2018-02-26] MEDS: Polyethylene Glycol 3350 17 GM PACKET PO (09:31)
[2018-02-26] MEDS: Mylanta Suspension 30 ML CUP PO (18:00)
--- NOTE | 2018-02-26 18:39 | NUR.NOTE ---
Nursing Note: Pt had another great day: cooperative, pleasant, agreeable to taking medications, etc. Pt ate quite well for all meals. Pt visited with family members for a few hours today and appeared to enjoy himself.
[2018-02-26] MEDS: Melatonin 3 MG TAB 9 MG PO (20:30)
[2018-02-26] MEDS: Mirtazapine 15 MG TAB 7.5 MG PO (20:30)
[2018-02-26] MEDS: Senna TAB 2 TAB PO (21:27)
[2018-02-26] MEDS: traZODone 50 MG TAB 100 MG PO (21:28)
--- NOTE | 2018-02-27 01:40 | NUR.NOTE ---
pt very pleasant, happy talking and joking with this nurse, pt walked loops in hallway with cadre and wanted to take a shower this evening. pt took all meds and ate an HS snack. pt then went wanted to go to bed. pt was tuck in by staff and is now sleeping.
[2018-02-27] MEDS: Docusate Sodium 100 MG/10 ML CUP PO ×2 (08:48→21:31)
[2018-02-27] MEDS: Polyethylene Glycol 3350 17 GM PACKET PO (08:48)
[2018-02-27] MEDS: Bacitracin 1 PACKET TP ×3 (08:48→21:31)
[2018-02-27] MEDS: risperiDONE 0.25 MG TAB PO ×2 (08:49→21:31)
[2018-02-27] MEDS: Citalopram 10 MG TAB 20 MG PO (08:49)
[2018-02-27] MEDS: LORazepam 0.5 MG TAB PO (08:49)
[2018-02-27] MEDS: Aspirin 81 MG CHEW PO (08:49)
--- NOTE | 2018-02-27 15:29 | NUR.NOTE ---
Nursing Note: Pt cooperative today, agreeable with taking medications and allowing care to be provided. Pt visited with along with adult [facility] members.
[2018-02-27] MEDS: Melatonin 3 MG TAB 9 MG PO (21:31)
[2018-02-27] MEDS: Senna TAB 2 TAB PO (21:31)
[2018-02-27] MEDS: traZODone 50 MG TAB 100 MG PO (21:31)
[2018-02-27] MEDS: Mirtazapine 15 MG TAB 7.5 MG PO (21:31)
[2018-02-28] MEDS: Docusate Sodium 100 MG/10 ML CUP PO ×2 (07:53→20:22)
[2018-02-28] MEDS: risperiDONE 0.25 MG TAB PO ×2 (07:53→20:22)
[2018-02-28] MEDS: Acetaminophen 325 MG TAB 650 MG PO (07:54)
[2018-02-28] MEDS: LORazepam 0.5 MG TAB PO (07:54)
[2018-02-28] MEDS: Aspirin 81 MG CHEW PO (07:54)
[2018-02-28] MEDS: Senna TAB 1 TAB PO (07:54)
[2018-02-28] MEDS: Citalopram 10 MG TAB 20 MG PO (07:54)
--- NOTE | 2018-02-28 10:07 | PDOC.CMPRO ---
- If Service Date Differs Date of service: 02/28/18 Time of Service: 10:07 Care Management Progress Note S/O: Mary Beth and his spouse met with potential AFC provider on Tuesday. The meeting went well Dalila EISENBERG was present during the interview. Mary Beth appeared to tolerate the meeting well he was pleasant post meeting. He smiled often throughout the rest of the day. Maureen is the potential provider she will consider the care, CM will compete the JUAN assessment and email it to Dalila Acevedo for funding. Spouse will do a home visit if placement is offered with provider and [facility]. Today Mary Beth is walking the halls with patient observer. He is chatty and smiling frequently. He continues to ambulate in the halls and appears to redirectable. He is resting better at night his trazadone was increased over the past week and appears to be improving his resting. A: Mary Beth is a 72 year old male with dementia awaiting placement in AFC home vs LTC facility. P: No change in Mary Beth status today. He continued to have a patient observer. continued to consult. Mary Beth will transition to AFC vs LTC when placement is offered. CM to complete JUAN and email to [facility]. CM to continue to provide support to patient and family ongoing discharge planning and disposition.
--- NOTE | 2018-02-28 10:25 | CMPROGNOTE_ITS ---
- If Service Date Differs Date of service: 02/28/18 Time of Service: 10:07 Care Management Progress Note S/O: Mary Beth and his spouse met with potential AFC provider on Tuesday. The meeting went well Dalila EISENBERG was present during the interview. Mary Beth appeared to tolerate the meeting well he was pleasant post meeting. He smiled often throughout the rest of the day. Maureen is the potential provider she will consider the care, CM will compete the JUAN assessment and email it to Dalila Acevedo for funding. Spouse will do a home visit if placement is offered with provider and [facility]. Today Mary Beth is walking the halls with patient observer. He is chatty and smiling frequently. He continues to ambulate in the halls and appears to redirectable. He is resting better at night his trazadone was increased over the past week and appears to be improving his resting. A: Mary Beth is a 72 year old male with dementia awaiting placement in AFC home vs LTC facility. P: No change in Mary Beth status today. He continued to have a patient observer. continued to consult. Mary Beth will transition to AFC vs LTC when placement is offered. CM to complete JUAN and email to [facility]. CM to continue to provide support to patient and family ongoing discharge planning and disposition.
[2018-02-28] MEDS: Bacitracin 1 PACKET TP ×2 (14:27→20:22)
[2018-02-28] MEDS: Melatonin 3 MG TAB 9 MG PO (20:22)
[2018-02-28] MEDS: Mirtazapine 15 MG TAB 7.5 MG PO (20:22)
[2018-02-28] MEDS: traZODone 50 MG TAB 100 MG PO (20:49)
[2018-02-28] MEDS: Senna TAB 2 TAB PO (20:49)
[2018-03-01] MEDS: Citalopram 10 MG TAB 20 MG PO (08:31)
[2018-03-01] MEDS: LORazepam 0.5 MG TAB PO ×2 (08:32→21:35)
[2018-03-01] MEDS: risperiDONE 0.25 MG TAB PO ×2 (08:32→19:10)
[2018-03-01] MEDS: Acetaminophen 325 MG TAB 650 MG PO ×2 (08:32→21:36)
[2018-03-01] MEDS: Aspirin 81 MG CHEW PO (08:32)
[2018-03-01 11:35] LABS: HCT 36.6 % (40.0-50.0); HGB 11.8 g/dL (13.5-17.5); Mean Corp. HGB Concentration 32.2 g/dL (32.0-36.0); Mean Corpuscular Hemoglobin 32.5 pg (27.0-33.0); Mean Corpuscular Volume 100.8 fL (80-95); Mean Platelet Volume 9.2 fL (8.0-11.0); Platelet Count 223 x1000/uL (130-400); RBC 3.63 m/cumm (4.50-6.00); RBC Distribution Width 13.8 % (11.8-14.1); White Blood Cell Count 7.26 k/cumm (4.4-10.8)
[2018-03-01 11:55] LABS: Anion Gap 6.6 mmol/L (3-11); BUN 34 mg/dL (7-18); CO2 28.4 mmol/L (21.0-32.0); CREATININE 1.55 mg/dL (0.70-1.30); Calcium 9.1 mg/dL (8.5-10.1); Chloride 105 mmol/L (98-107); Estimated GFR 44.05 (mL/min/1.73m2); Glucose 127 mg/dL (70-100); NT-proBNP 219 pg/mL; Potassium 4.3 mmol/L (3.5-5.1); Sodium 140 mmol/L (136-145)
[2018-03-01] MEDS: Hydrochlorothiazide 25 MG TAB PO (13:27)
--- NOTE | 2018-03-01 14:34 | PDOC.CMPRO ---
- If Service Date Differs Date of service: 03/01/18 Time of Service: 14:34 Care Management Progress Note S/O: CM was called to Mary Beth's room during the morning for increased agitation. Per report Mary Beth became agitated during his morning walk when he was redirected from a patients room. CM placed a call to spouse and requested that she come in and sit with him. CM arrived to room spoke calmly to patient, and held his hand while he took oral medications for primary nurse. CM stayed with patient until he was calm and fell asleep in his recliner. Spouse arrived and was updated. CM noticed that Mary Beth's legs where swollen and leaking serous fluid. CM reported this to primary nurse and provider. Mary Beth will have labs, and medication to assist with edema. to follow up. A: Mary Beth is a 72 year old male with dementia awaiting placement in AFC home vs LTC facility. P: No change in Mary Beth status today. He continues to have a patient observer. continues to consult. Mary Beth will transition to AFC vs LTC when placement is offered. CM to complete JUAN and email to [facility]. CM to continue to provide support to patient and family ongoing discharge planning and disposition.
--- NOTE | 2018-03-01 14:43 | CMPROGNOTE_ITS ---
- If Service Date Differs Date of service: 03/01/18 Time of Service: 14:34 Care Management Progress Note S/O: CM was called to Mary Beth's room during the morning for increased agitation. Per report Mary Beth became agitated during his morning walk when he was redirected from a patients room. CM placed a call to spouse and requested that she come in and sit with him. CM arrived to room spoke calmly to patient, and held his hand while he took oral medications for primary nurse. CM stayed with patient until he was calm and fell asleep in his recliner. Spouse arrived and was updated. CM noticed that Mary Beth's legs where swollen and leaking serous fluid. CM reported this to primary nurse and provider. Mary Beth will have labs, and medication to assist with edema. to follow up. A: Mary Beth is a 72 year old male with dementia awaiting placement in AFC home vs LTC facility. P: No change in Mary Beth status today. He continues to have a patient observer. continues to consult. Mary Beth will transition to AFC vs LTC when placement is offered. CM to complete JUAN and email to [facility]. CM to continue to provide support to patient and family ongoing discharge planning and disposition.
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
--- NOTE | 2018-03-01 15:46 | PGE_ITS ---
Assessment and Plan (1) Venous insufficiency (chronic) (peripheral): Current visit: Yes Status: Acute Trial of using Tubigrip's and see if he tolerates this. 5-day trial with hydrochlorothiazide to see if this makes any difference. If symptoms worsening may need to reconsider continued use of mirtazapine. (2) Agitation: Current visit: Yes Status: Acute Not clear if this is an unexplainable fluctuation in his mental status or driven by some underlying physical problem. Nothing on recent labs to point towards an etiology. It is difficult to know if he may have had a cerebral ischemic event, which has been a concern of his for some time. At this point I do not think we need to do any neuroimaging (unlikely that he would be able to cooperate with this). Continue current psychotropic medications. Continue behavioral interventions. Subjective Interval history since last seen: Mr. Medina was agitated again today, physically striking out at [facility] and caregivers. He received his usual morning medications and a supplemental dose of Haldol and then fell asleep. His came in also which seemed to help calm him down. There has been concerned that his legs have slowly been getting more swollen and now has a few small blisters and weeping of fluid. He is unable to provide any history. He had a bowel movement yesterday, sometimes constipation has triggered agitated behaviors. He is incontinent of urine. He has not had any cough, choking episodes and no recent fevers. Exam Narrative Exam Narrative: Somnolent in chair, does move his extremities to tactile stimuli but does not open his eyes or follow any commands at this time. Tone is symmetric. Neck veins are not visibly distended. Anterior and lateral lung [place] clear although breath sounds somewhat diminished at the bases. Regular heart rhythm without S3 or S4. No evidence of discomfort and no behavioral changes with palpation of the abdomen which does not appear distended. Bladder is not palpably distended. Extremities have 3+ edema to the knees with a few 1 cm or less superficial vesicles and a little bit of weeping of fluid from one that is ruptured. There is no erythema and no infestations of pain with palpation. Objective Objective Clinical Data: Abnormal lab results 03/01/18 03/01/18 Range/Units 11:24 11:24 RBC 3.63 L (4.50-6.00) m/cumm Hgb 11.8 L (13.5-17.5) g/dL Hct 36.6 L (40.0-50.0) % MCV 100.8 H (80-95) fL BUN 34 H (7-18) mg/dL Creatinine 1.55 H (0.70-1.30) mg/dL Glucose 127 H (70-100) mg/dL Vital Signs Temperature 37.0 C 02/24/18 19:23 Temperature Source Temporal Artery Scan 02/24/18 19:23 Pulse 66 02/24/18 19:23 Pulse Rhythm Regular 03/01/18 00:06 Respiratory Rate 18 02/24/18 19:23 Respiratory Effort Non-Labored 03/01/18 00:06 Respiratory Depth Normal 03/01/18 00:06 Respiratory Pattern Normal 03/01/18 00:06 Blood Pressure 145/70 H 02/24/18 19:23 Pulse Oximetry 94 L 02/24/18 19:23 Oxygen Delivery Method Room Air 02/24/18 19:23 Oxygen Flow Rate 0 02/24/18 19:23 Pain Level 0 02/20/18 07:14 Comment 02/20/18 07:14 Intake & Output 02/28/18 03/01/18 03/01/18 23:59 11:59 23:59 Intake Total 600 / 600 Balance 600 / 600 Intake: Oral 600 / 600 Other: Urine Color Yellow Urine Appearance Clear Stool Size Large Stool Characteristics Hard Brown Voiding Methods Toilet Laboratory Results WBC 7.26 k/cumm (4.4-10.8) 03/01/18 11:24 RBC 3.63 m/cumm (4.50-6.00) L 03/01/18 11:24 Hgb 11.8 g/dL (13.5-17.5) L 03/01/18 11:24 Hct 36.6 % (40.0-50.0) L 03/01/18 11:24 MCV 100.8 fL (80-95) H 03/01/18 11:24 MCH 32.5 pg (27.0-33.0) 03/01/18 11:24 MCHC 32.2 g/dL (32.0-36.0) 03/01/18 11:24 RDW 13.8 % (11.8-14.1) 03/01/18 11:24 Plt Count 223 x1000/uL (130-400) 03/01/18 11:24 MPV 9.2 fL (8.0-11.0) 03/01/18 11:24 Immature Gran % 0.1 01/18/18 06:50 Neutrophils % 59.8 01/18/18 06:50 Lymphocytes % 22.0 01/18/18 06:50 Monocytes % 15.0 01/18/18 06:50 Eosinophils % 3.0 01/18/18 06:50 Basophils % 0.1 01/18/18 06:50 Absolute Neutrophils 4.45 k/cumm (1.2-6.7) 01/18/18 06:50 Absolute Lymphocytes 1.64 k/cumm (1.2-3.4) 01/18/18 06:50 Absolute Monocytes 1.12 k/cumm (0.11-0.7) H 01/18/18 06:50 Absolute Eosinophils 0.22 k/cumm (0.0-0.7) 01/18/18 06:50 Absolute Basophils 0.01 k/cumm (0.0-0.2) 01/18/18 06:50 Sodium 140 mmol/L (136-145) 03/01/18 11:24 Potassium 4.3 mmol/L (3.5-5.1) 03/01/18 11:24 Chloride 105 mmol/L (98-107) 03/01/18 11:24 Carbon Dioxide 28.4 mmol/L (21.0-32.0) 03/01/18 11:24 Anion Gap 6.6 mmol/L (3-11) 03/01/18 11:24 BUN 34 mg/dL (7-18) H 03/01/18 11:24 Creatinine 1.55 mg/dL (0.70-1.30) H 03/01/18 11:24 Estimated GFR/1.73 m2 44.05 (mL/min/1.73m2) 03/01/18 11:24 Glucose 127 mg/dL (70-100) H 03/01/18 11:24 Hemoglobin A1c 6.9 % (4.5-6.2) H 12/10/17 06:48 Uric Acid 7.5 mg/dL (3.5-7.2) H 01/18/18 06:50 Calcium 9.1 mg/dL (8.5-10.1) 03/01/18 11:24 Total Bilirubin 0.3 mg/dL (0.2-1.0) 01/18/18 06:50 AST 11 U/L (15-37) L 01/18/18 06:50 ALT 17 U/L (12-78) 01/18/18 06:50 Alkaline Phosphatase 55 U/L (46-116) 01/18/18 06:50 NT-Pro-B Natriuret Pep 219 pg/mL (-299) 03/01/18 11:24 Total Protein 6.8 g/dL (6.4-8.2) 01/18/18 06:50 Albumin 2.9 g/dL (3.4-5.0) L 01/18/18 06:50 Triglycerides 75 mg/dL (30-150) 12/21/17 06:35 Total Cholesterol 126 mg/dL (50-200) 12/21/17 06:35 LDL Cholesterol Direct 83 mg/dL (<100) 12/21/17 06:35 HDL Cholesterol 37 mg/dL (40-60) L 12/21/17 06:35 TSH 2.03 uIU/mL (0.358-3.74) 01/18/18 06:50 Urine Color Yellow (Yellow) 01/19/18 13:05 Urine Clarity Clear 01/19/18 13:05 Urine pH 6.0 (5-8) 01/19/18 13:05 Ur Specific [place] 1.020 (1.005-1.025) 01/19/18 13:05 Urine Protein Negative mg/dL (Negative) 01/19/18 13:05 Urine Ketones Negative mg/dL (Negative) 01/19/18 13:05 Urine Blood Negative (Negative) 01/19/18 13:05 Urine Nitrite Negative (Negative) 01/19/18 13:05 Urine Bilirubin Negative (Negative) 01/19/18 13:05 Urine Urobilinogen 0.2 EU/dL (Up TO 0.2) 01/19/18 13:05 Ur Leukocyte Esterase Trace (Negative) H 01/19/18 13:05 Urine RBC Negative (0-2) 01/19/18 13:05 Urine WBC >50 HPF (0-5) 01/19/18 13:05 Ur Epithelial Cells Few HPF (Negative) 01/19/18 13:05 Urine Crystals Moderate amorphous HPF (Negative) 01/19/18 13:05 Urine Bacteria Few HPF (Negative) 01/19/18 13:05 Urine Casts Negative LPF (Negative) 01/19/18 13:05 Urine Mucus Trace (Negative) 01/19/18 13:05 Ur Culture Indicated? Yes 01/19/18 13:05 Urine Glucose Negative mg/dL (Negative) 01/19/18 13:05
[2018-03-01] MEDS: Melatonin 3 MG TAB 9 MG PO (19:09)
[2018-03-01] MEDS: Docusate Sodium 100 MG/10 ML CUP PO (19:09)
[2018-03-01] MEDS: Mirtazapine 15 MG TAB 7.5 MG PO (19:10)
[2018-03-01] MEDS: Bacitracin 1 PACKET TP (19:10)
[2018-03-01] MEDS: traZODone 50 MG TAB 100 MG PO (21:35)
[2018-03-02] MEDS: Acetaminophen 325 MG TAB 650 MG PO ×2 (01:33→22:30)
[2018-03-02] MEDS: Hydrochlorothiazide 25 MG TAB PO (08:25)
[2018-03-02] MEDS: Docusate Sodium 100 MG/10 ML CUP PO ×2 (08:25→19:54)
[2018-03-02] MEDS: Bacitracin 1 PACKET TP (08:25)
[2018-03-02] MEDS: Citalopram 10 MG TAB 20 MG PO (08:25)
[2018-03-02] MEDS: Aspirin 81 MG CHEW PO (08:25)
[2018-03-02] MEDS: risperiDONE 0.25 MG TAB PO ×2 (08:26→19:51)
[2018-03-02] MEDS: LORazepam 0.5 MG TAB PO ×2 (08:26→22:30)
--- NOTE | 2018-03-02 16:35 | PDOC.CMACT ---
- If Service Date Differs Date of service: 03/02/18 Time of Service: 16:35 Care Management Activity Note Mary Beth is walking in the halls with his . He is smiling he appears to be in good spirts. He appears to enjoy his spouses company. He walks the halls frequently with the patient observer. CM has spent time talking about current event with patient including sports. Mary Beth is calm with soft voices, soft rub on the back of his shoulder and sitting next to him visiting. A: Mary Beth is a 72 year old male with dementia awaiting placement in [facility] home vs LTC facility. P: No change in Mary Beth status today. He continues to have a patient observer. continues to consult. Mary Beth will transition to [facility] vs LTC when placement is offered. CM to complete JUAN and email to [facility]. CM to continue to provide support to patient and family ongoing discharge planning and disposition.
--- NOTE | 2018-03-02 16:43 | CMACTNOTE_ITS ---
- If Service Date Differs Date of service: 03/02/18 Time of Service: 16:35 Care Management Activity Note Mary Beth is walking in the halls with his . He is smiling he appears to be in good spirts. He appears to enjoy his spouses company. He walks the halls frequently with the patient observer. CM has spent time talking about current event with patient including sports. Mary Beth is calm with soft voices, soft rub on the back of his shoulder and sitting next to him visiting. A: Mary Beth is a 72 year old male with dementia awaiting placement in [facility] home vs LTC facility. P: No change in Mary Beth status today. He continues to have a patient observer. continues to consult. Mary Beth will transition to [facility] vs LTC when placement is offered. CM to complete JUAN and email to [facility]. CM to continue to provide support to patient and family ongoing discharge planning and disposition.
[2018-03-02] MEDS: Melatonin 3 MG TAB 9 MG PO (19:50)
[2018-03-02] MEDS: traZODone 50 MG TAB 100 MG PO (19:51)
[2018-03-02] MEDS: Senna TAB 2 TAB PO (19:51)
[2018-03-02] MEDS: Mirtazapine 15 MG TAB 7.5 MG PO (19:53)
[2018-03-03] MEDS: Citalopram 10 MG TAB 20 MG PO (07:50)
[2018-03-03] MEDS: Acetaminophen 325 MG TAB 650 MG PO ×2 (07:51→20:32)
[2018-03-03] MEDS: Docusate Sodium 100 MG/10 ML CUP PO ×2 (07:51→20:32)
[2018-03-03] MEDS: LORazepam 0.5 MG TAB PO ×2 (07:51→18:15)
[2018-03-03] MEDS: Aspirin 81 MG CHEW PO (07:51)
[2018-03-03] MEDS: Hydrochlorothiazide 25 MG TAB PO (07:51)
[2018-03-03] MEDS: Bacitracin 1 PACKET TP ×2 (07:51→20:32)
[2018-03-03] MEDS: risperiDONE 0.25 MG TAB PO ×2 (07:51→20:32)
[2018-03-03] MEDS: Mirtazapine 15 MG TAB 7.5 MG PO (20:31)
[2018-03-03] MEDS: Melatonin 3 MG TAB 9 MG PO (20:32)
[2018-03-03] MEDS: Senna TAB 2 TAB PO (22:07)
[2018-03-03] MEDS: traZODone 50 MG TAB 100 MG PO (22:07)
[2018-03-04] MEDS: LORazepam 0.5 MG TAB PO (07:50)
[2018-03-04] MEDS: Acetaminophen 325 MG TAB 650 MG PO ×2 (07:50→13:56)
[2018-03-04] MEDS: Citalopram 10 MG TAB 20 MG PO (07:50)
[2018-03-04] MEDS: Bacitracin 1 PACKET TP ×2 (07:50→13:56)
[2018-03-04] MEDS: risperiDONE 0.25 MG TAB PO ×2 (07:50→20:47)
[2018-03-04] MEDS: Docusate Sodium 100 MG/10 ML CUP PO ×2 (07:50→20:46)
[2018-03-04] MEDS: Aspirin 81 MG CHEW PO (07:50)
[2018-03-04] MEDS: Hydrochlorothiazide 25 MG TAB PO (07:50)
[2018-03-04] MEDS: Mirtazapine 15 MG TAB 7.5 MG PO (20:47)
[2018-03-04] MEDS: Melatonin 3 MG TAB 9 MG PO (20:47)
[2018-03-04] MEDS: Senna TAB 2 TAB PO (22:02)
[2018-03-04] MEDS: traZODone 50 MG TAB 100 MG PO (22:02)
[2018-03-05] MEDS: Acetaminophen 325 MG TAB 650 MG PO ×3 (00:18→20:18)
[2018-03-05] MEDS: LORazepam 0.5 MG TAB PO ×2 (08:33→20:18)
[2018-03-05] MEDS: risperiDONE 0.25 MG TAB PO ×2 (08:33→20:18)
[2018-03-05] MEDS: Aspirin 81 MG CHEW PO (08:33)
[2018-03-05] MEDS: Docusate Sodium 100 MG/10 ML CUP PO ×2 (08:33→20:17)
[2018-03-05] MEDS: Hydrochlorothiazide 25 MG TAB PO (08:34)
[2018-03-05] MEDS: Citalopram 10 MG TAB 20 MG PO (08:34)
[2018-03-05] MEDS: Bacitracin 1 PACKET TP ×3 (08:34→20:19)
--- NOTE | 2018-03-05 15:29 | NUR.NOTE ---
1525: this RN has had care of pt for last two days. pt has been pleasant and agreeable. no periods of agitation. pt is easily redirected. pt has taken medications with no difficulty. pt does like to sit in halls and watch people t/o the day. pt has been continent and incontinent. pt did eat better on Tuesday than on Tuesday. pt's son, Tiago was in to visit on Tuesday. pt interacted very little with son but did speak with him upon his arrival. pt watching sports on TV which he enjoys at times. continue to monitor. Nursing Note:
[2018-03-05] MEDS: Melatonin 3 MG TAB 9 MG PO (20:17)
[2018-03-05] MEDS: Mirtazapine 15 MG TAB 7.5 MG PO (20:17)
--- NOTE | 2018-03-05 22:03 | NUTRITION ---
patient is experiencing increasing agitation this evening. does not want to settle down, will not stay in one spot for any length of time. It is with great difficulty that patient takes his 2000 ordered meds. He spits the ordered 2200 meds on the plexiglass in front of the nursing station. Peer nurse attempts to soothe the patient and get him to get in bed or at least sit in the recliner
[2018-03-06] MEDS: LORazepam 0.5 MG TAB PO ×3 (03:40→19:26)
[2018-03-06] MEDS: Aspirin 81 MG CHEW PO (08:48)
[2018-03-06] MEDS: Docusate Sodium 100 MG/10 ML CUP PO ×2 (08:48→19:25)
[2018-03-06] MEDS: Citalopram 10 MG TAB 20 MG PO (08:48)
[2018-03-06] MEDS: risperiDONE 0.25 MG TAB PO ×2 (08:49→19:32)
[2018-03-06 11:47] VITALS: BP 135/55; PULSE 73; RESP 15; TEMP 36.6; O2SAT 95
[2018-03-06] MEDS: Milk of Magnesia 30 ML CUP PO (17:35)
[2018-03-06] MEDS: Melatonin 3 MG TAB 9 MG PO (19:06)
[2018-03-06] MEDS: Bacitracin 1 PACKET TP (19:06)
[2018-03-06] MEDS: Acetaminophen 325 MG TAB 650 MG PO (19:06)
[2018-03-06] MEDS: Senna TAB 1 TAB PO (19:25)
[2018-03-06] MEDS: traZODone 50 MG TAB 100 MG PO (19:25)
[2018-03-06] MEDS: Senna TAB 2 TAB PO (19:25)
[2018-03-06] MEDS: Polyethylene Glycol 3350 17 GM PACKET PO (19:27)
[2018-03-06] MEDS: Mirtazapine 15 MG TAB 7.5 MG PO (19:32)
[2018-03-07] MEDS: Acetaminophen 325 MG TAB 650 MG PO ×3 (00:10→20:57)
[2018-03-07] MEDS: Bacitracin 1 PACKET TP ×2 (08:03→20:55)
[2018-03-07] MEDS: Citalopram 10 MG TAB 20 MG PO (08:03)
[2018-03-07] MEDS: Aspirin 81 MG CHEW PO (08:03)
[2018-03-07] MEDS: LORazepam 0.5 MG TAB PO ×3 (08:03→20:55)
[2018-03-07] MEDS: risperiDONE 0.25 MG TAB PO ×2 (08:03→20:55)
[2018-03-07] MEDS: Docusate Sodium 100 MG/10 ML CUP PO ×2 (08:04→20:53)
--- NOTE | 2018-03-07 10:04 | PDOC.CMPRO ---
- If Service Date Differs Date of service: 03/07/18 Time of Service: 10:04 Care Management Progress Note S/O: Mary Beth is sitting up in the chair in his room. CM sat with patient and discussed current events with him. Mary eBth responds verbally at times throughout the conversation. CM continues to to search for LTC placement and will outreach sn[facility] medicaid again today to identify additional resources. A: Mary Beth is a 72 year old male with dementia awaiting placement in [facility] home vs LTC facility. P: No change in Mary Beth status today. He continues to have a patient observer. continues to consult. Mary Beth will transition to [facility] vs LTC when placement is offered. CM completed JUAN and emailed to [facility]. CM to continue to provide support to patient and family ongoing discharge planning and disposition.
--- NOTE | 2018-03-07 10:22 | CMPROGNOTE_ITS ---
- If Service Date Differs Date of service: 03/07/18 Time of Service: 10:04 Care Management Progress Note S/O: Mary Beth is sitting up in the chair in his room. CM sat with patient and discussed current events with him. Mary Beth responds verbally at times throughout the conversation. CM continues to to search for LTC placement and will [facility] again today to identify additional resources. A: Mary Beth is a 72 year old male with dementia awaiting placement in [facility] home vs LTC facility. P: No change in Mary Beth status today. He continues to have a patient observer. continues to consult. Mary Beth will transition to [facility] vs LTC when placement is offered. CM completed JUAN and emailed to [facility]. CM to continue to provide support to patient and family ongoing discharge planning and disposition.
--- NOTE | 2018-03-07 20:26 | PGE_ITS ---
Subjective Interval history since last seen: Patient seen briefly for his edema, which appears to be doing better, no longer weeping. Will check BMP tomorrow - if ok, resume HCTZ. Objective Objective Clinical Data: Vital Signs Temperature 36.6 C 03/06/18 11:47 Temperature Source Tympanic 03/06/18 11:47 Pulse 73 03/06/18 11:47 Pulse Rhythm Regular 03/07/18 07:39 Respiratory Rate 15 03/06/18 11:47 Respiratory Effort 03/07/18 07:39 Respiratory Depth Normal 03/07/18 07:39 Respiratory Pattern Normal 03/07/18 07:39 Blood Pressure 135/55 L 03/06/18 11:47 Pulse Oximetry 95 03/06/18 11:47 Oxygen Delivery Method Room Air 03/06/18 11:47 Oxygen Flow Rate 0 03/06/18 11:47 Pain Level 6 03/05/18 20:18 Comment 03/02/18 08:10 Intake & Output 03/06/18 03/07/18 03/07/18 23:59 11:59 23:59 Intake Total 600 / 600 960 / 960 240 / 240 Balance 600 / 600 960 / 960 240 / 240 Intake: Oral 600 / 600 960 / 960 240 / 240 Other: Comment observed pt use toilet at hs, urine. he is wearing a brief as well. brief is dry, voided in toilet Voiding Methods Diaper Diaper Toilet Incontinent Incontinent Laboratory Results WBC 7.26 k/cumm (4.4-10.8) 03/01/18 11:24 RBC 3.63 m/cumm (4.50-6.00) L 03/01/18 11:24 Hgb 11.8 g/dL (13.5-17.5) L 03/01/18 11:24 Hct 36.6 % (40.0-50.0) L 03/01/18 11:24 MCV 100.8 fL (80-95) H 03/01/18 11:24 MCH 32.5 pg (27.0-33.0) 03/01/18 11:24 MCHC 32.2 g/dL (32.0-36.0) 03/01/18 11:24 RDW 13.8 % (11.8-14.1) 03/01/18 11:24 Plt Count 223 x1000/uL (130-400) 03/01/18 11:24 MPV 9.2 fL (8.0-11.0) 03/01/18 11:24 Immature Gran % 0.1 01/18/18 06:50 Neutrophils % 59.8 01/18/18 06:50 Lymphocytes % 22.0 01/18/18 06:50 Monocytes % 15.0 01/18/18 06:50 Eosinophils % 3.0 01/18/18 06:50 Basophils % 0.1 01/18/18 06:50 Absolute Neutrophils 4.45 k/cumm (1.2-6.7) 01/18/18 06:50 Absolute Lymphocytes 1.64 k/cumm (1.2-3.4) 01/18/18 06:50 Absolute Monocytes 1.12 k/cumm (0.11-0.7) H 01/18/18 06:50 Absolute Eosinophils 0.22 k/cumm (0.0-0.7) 01/18/18 06:50 Absolute Basophils 0.01 k/cumm (0.0-0.2) 01/18/18 06:50 Sodium 140 mmol/L (136-145) 03/01/18 11:24 Potassium 4.3 mmol/L (3.5-5.1) 03/01/18 11:24 Chloride 105 mmol/L (98-107) 03/01/18 11:24 Carbon Dioxide 28.4 mmol/L (21.0-32.0) 03/01/18 11:24 Anion Gap 6.6 mmol/L (3-11) 03/01/18 11:24 BUN 34 mg/dL (7-18) H 03/01/18 11:24 Creatinine 1.55 mg/dL (0.70-1.30) H 03/01/18 11:24 Estimated GFR/1.73 m2 44.05 (mL/min/1.73m2) 03/01/18 11:24 Glucose 127 mg/dL (70-100) H 03/01/18 11:24 Hemoglobin A1c 6.9 % (4.5-6.2) H 12/10/17 06:48 Uric Acid 7.5 mg/dL (3.5-7.2) H 01/18/18 06:50 Calcium 9.1 mg/dL (8.5-10.1) 03/01/18 11:24 Total Bilirubin 0.3 mg/dL (0.2-1.0) 01/18/18 06:50 AST 11 U/L (15-37) L 01/18/18 06:50 ALT 17 U/L (12-78) 01/18/18 06:50 Alkaline Phosphatase 55 U/L (46-116) 01/18/18 06:50 NT-Pro-B Natriuret Pep 219 pg/mL (-299) 03/01/18 11:24 Total Protein 6.8 g/dL (6.4-8.2) 01/18/18 06:50 Albumin 2.9 g/dL (3.4-5.0) L 01/18/18 06:50 Triglycerides 75 mg/dL (30-150) 12/21/17 06:35 Total Cholesterol 126 mg/dL (50-200) 12/21/17 06:35 LDL Cholesterol Direct 83 mg/dL (<100) 12/21/17 06:35 HDL Cholesterol 37 mg/dL (40-60) L 12/21/17 06:35 TSH 2.03 uIU/mL (0.358-3.74) 01/18/18 06:50 Urine Color Yellow (Yellow) 01/19/18 13:05 Urine Clarity Clear 01/19/18 13:05 Urine pH 6.0 (5-8) 01/19/18 13:05 Ur Specific [place] 1.020 (1.005-1.025) 01/19/18 13:05 Urine Protein Negative mg/dL (Negative) 01/19/18 13:05 Urine Ketones Negative mg/dL (Negative) 01/19/18 13:05 Urine Blood Negative (Negative) 01/19/18 13:05 Urine Nitrite Negative (Negative) 01/19/18 13:05 Urine Bilirubin Negative (Negative) 01/19/18 13:05 Urine Urobilinogen 0.2 EU/dL (Up TO 0.2) 01/19/18 13:05 Ur Leukocyte Esterase Trace (Negative) H 01/19/18 13:05 Urine RBC Negative (0-2) 01/19/18 13:05 Urine WBC >50 HPF (0-5) 01/19/18 13:05 Ur Epithelial Cells Few HPF (Negative) 01/19/18 13:05 Urine Crystals Moderate amorphous HPF (Negative) 01/19/18 13:05 Urine Bacteria Few HPF (Negative) 01/19/18 13:05 Urine Casts Negative LPF (Negative) 01/19/18 13:05 Urine Mucus Trace (Negative) 01/19/18 13:05 Ur Culture Indicated? Yes 01/19/18 13:05 Urine Glucose Negative mg/dL (Negative) 01/19/18 13:05
[2018-03-07] MEDS: Senna TAB 2 TAB PO (20:54)
[2018-03-07] MEDS: Mirtazapine 15 MG TAB 7.5 MG PO (20:54)
[2018-03-07] MEDS: Melatonin 3 MG TAB 9 MG PO (20:55)
[2018-03-07] MEDS: traZODone 50 MG TAB 100 MG PO (20:55)
[2018-03-08 07:05] LABS: Anion Gap 9.1 mmol/L (3-11); BUN 33 mg/dL (7-18); CO2 27.9 mmol/L (21.0-32.0); CREATININE 1.68 mg/dL (0.70-1.30); Calcium 8.5 mg/dL (8.5-10.1); Chloride 104 mmol/L (98-107); Estimated GFR 40.14 (mL/min/1.73m2); Glucose 157 mg/dL (70-100); Potassium 3.6 mmol/L (3.5-5.1); Sodium 141 mmol/L (136-145)
[2018-03-08] MEDS: Citalopram 10 MG TAB 20 MG PO (10:16)
[2018-03-08] MEDS: Bacitracin 1 PACKET TP ×2 (10:16→19:32)
[2018-03-08] MEDS: Docusate Sodium 100 MG/10 ML CUP PO ×2 (10:16→19:35)
[2018-03-08] MEDS: LORazepam 0.5 MG TAB PO (10:17)
[2018-03-08] MEDS: Aspirin 81 MG CHEW PO (10:17)
[2018-03-08] MEDS: risperiDONE 0.25 MG TAB PO ×2 (10:17→19:35)
[2018-03-08 11:31] VITALS: BP 128/73; PULSE 60; RESP 20; TEMP 36.1; O2SAT 97
--- NOTE | 2018-03-08 14:12 | PDOC.CMACT ---
- If Service Date Differs Date of service: 03/08/18 Time of Service: 14:12 Care Management Activity Note Mary Beth walks frequently with patient observer, CM or his family. He had a visit this week with his family including his spouse. He smiles at times. He appears to enjoy his spouses company. CM has spent time talking about current event with patient including sports and reading to patient. Mary Beth is calm with soft voices, soft rub on the back of his shoulder and sitting next to him visiting. A: Mary Beth is a 72 year old male with dementia awaiting placement in [facility] home vs LTC facility. P: No change in Mary Beth status today. He continues to have a patient observer. CM contacted Betty PRITCHARD and faxed updated referral to be faxed to other agencies that can assist in placement. continues to consult. Mary Beth will transition to [facility] vs LTC when placement is offered. CM completed JUAN and emailed it to [facility]. CM to continue to provide support to patient and family ongoing discharge planning and disposition.
--- NOTE | 2018-03-08 14:20 | CMACTNOTE_ITS ---
- If Service Date Differs Date of service: 03/08/18 Time of Service: 14:12 Care Management Activity Note Mary Beth walks frequently with patient observer, CM or his family. He had a visit this week with his family including his spouse. He smiles at times. He appears to enjoy his spouses company. CM has spent time talking about current event with patient including sports and reading to patient. Mary Beth is calm with soft voices, soft rub on the back of his shoulder and sitting next to him visiting. A: Mary Beth is a 72 year old male with dementia awaiting placement in [facility] home vs LTC facility. P: No change in Mary Beth status today. He continues to have a patient observer. CM contacted Betty PRITCHARD and faxed updated referral to be faxed to other agencies that can assist in placement. continues to consult. Mary Beth will transition to [facility] vs LTC when placement is offered. CM completed JUAN and emailed it to [facility]. CM to continue to provide support to patient and family ongoing discharge planning and disposition.
[2018-03-08 16:27] VITALS: BP 152/81; PULSE 66; RESP 20; TEMP 36.6; O2SAT 95
[2018-03-08] MEDS: Acetaminophen 325 MG TAB 650 MG PO (16:48)
[2018-03-08] MEDS: Senna TAB 2 TAB PO (19:32)
[2018-03-08] MEDS: Mirtazapine 15 MG TAB 7.5 MG PO (19:33)
[2018-03-08] MEDS: Melatonin 3 MG TAB 9 MG PO (19:33)
[2018-03-08] MEDS: traZODone 50 MG TAB 100 MG PO (21:05)
[2018-03-09] MEDS: Acetaminophen 325 MG TAB 650 MG PO (01:48)
[2018-03-09] MEDS: LORazepam 0.5 MG TAB PO ×2 (01:48→07:39)
[2018-03-09] MEDS: Docusate Sodium 100 MG/10 ML CUP PO ×2 (07:38→19:45)
[2018-03-09] MEDS: Citalopram 10 MG TAB 20 MG PO (07:38)
[2018-03-09] MEDS: risperiDONE 0.25 MG TAB PO ×2 (07:39→19:46)
[2018-03-09] MEDS: Bacitracin 1 PACKET TP ×2 (07:39→19:44)
[2018-03-09] MEDS: Aspirin 81 MG CHEW PO (07:39)
[2018-03-09] MEDS: Mirtazapine 15 MG TAB 7.5 MG PO (19:45)
[2018-03-09] MEDS: Melatonin 3 MG TAB 9 MG PO (19:45)
[2018-03-09] MEDS: Senna TAB 2 TAB PO (21:08)
[2018-03-09] MEDS: traZODone 50 MG TAB 100 MG PO (21:08)
[2018-03-10] MEDS: Docusate Sodium 100 MG/10 ML CUP PO ×2 (10:48→19:35)
[2018-03-10] MEDS: Bacitracin 1 PACKET TP ×2 (10:48→14:24)
[2018-03-10] MEDS: Aspirin 81 MG CHEW PO (10:49)
[2018-03-10] MEDS: Citalopram 10 MG TAB 20 MG PO (10:49)
[2018-03-10] MEDS: LORazepam 0.5 MG TAB PO ×2 (10:51→22:36)
[2018-03-10] MEDS: risperiDONE 0.25 MG TAB PO ×2 (10:51→19:37)
[2018-03-10] MEDS: Acetaminophen 325 MG TAB 650 MG PO (19:36)
[2018-03-10] MEDS: Senna TAB 2 TAB PO (19:36)
[2018-03-10] MEDS: Mirtazapine 15 MG TAB 7.5 MG PO (19:37)
[2018-03-10] MEDS: Melatonin 3 MG TAB 9 MG PO (19:37)
[2018-03-10] MEDS: traZODone 50 MG TAB 100 MG PO (19:38)
[2018-03-10] MEDS: Polyethylene Glycol 3350 17 GM PACKET PO (19:39)
[2018-03-11] MEDS: Bacitracin 1 PACKET TP ×3 (07:34→19:40)
[2018-03-11] MEDS: Docusate Sodium 100 MG/10 ML CUP PO ×2 (07:34→19:40)
[2018-03-11] MEDS: Acetaminophen 325 MG TAB 650 MG PO ×3 (07:35→19:41)
[2018-03-11] MEDS: risperiDONE 0.25 MG TAB PO ×2 (07:35→19:41)
[2018-03-11] MEDS: LORazepam 0.5 MG TAB PO ×2 (07:35→13:35)
[2018-03-11] MEDS: Senna TAB 1 TAB PO (07:35)
[2018-03-11] MEDS: Citalopram 10 MG TAB 20 MG PO (07:35)
[2018-03-11] MEDS: Aspirin 81 MG CHEW PO (07:35)
[2018-03-11] MEDS: Mirtazapine 15 MG TAB 7.5 MG PO (19:40)
[2018-03-11] MEDS: Melatonin 3 MG TAB 9 MG PO (19:40)
[2018-03-11] MEDS: traZODone 50 MG TAB 100 MG PO (19:41)
[2018-03-11] MEDS: Senna TAB 2 TAB PO (19:41)
[2018-03-12] MEDS: Acetaminophen 325 MG TAB 650 MG PO ×2 (00:12→20:48)
[2018-03-12] MEDS: LORazepam 0.5 MG TAB PO ×2 (00:12→10:40)
[2018-03-12] MEDS: Aspirin 81 MG CHEW PO (10:40)
[2018-03-12] MEDS: Bacitracin 1 PACKET TP ×3 (10:40→20:47)
[2018-03-12] MEDS: Docusate Sodium 100 MG/10 ML CUP PO ×2 (10:40→20:47)
[2018-03-12] MEDS: Citalopram 10 MG TAB 20 MG PO (10:40)
[2018-03-12] MEDS: Senna TAB 1 TAB PO (10:40)
[2018-03-12] MEDS: risperiDONE 0.25 MG TAB PO ×2 (10:41→20:48)
[2018-03-12] MEDS: Polyethylene Glycol 3350 17 GM PACKET PO (10:41)
[2018-03-12 11:18] LABS: Anion Gap 10.5 mmol/L (3-11); BUN 32 mg/dL (7-18); CO2 27.5 mmol/L (21.0-32.0); CREATININE 1.41 mg/dL (0.70-1.30); Calcium 9.1 mg/dL (8.5-10.1); Chloride 103 mmol/L (98-107); Estimated GFR 49.13 (mL/min/1.73m2); Glucose 138 mg/dL (70-100); Potassium 3.7 mmol/L (3.5-5.1); Sodium 141 mmol/L (136-145)
[2018-03-12] MEDS: Melatonin 3 MG TAB 9 MG PO (20:47)
[2018-03-12] MEDS: Senna TAB 2 TAB PO (20:47)
[2018-03-12] MEDS: traZODone 50 MG TAB 100 MG PO (20:48)
[2018-03-12] MEDS: Mirtazapine 15 MG TAB 7.5 MG PO (20:48)
[2018-03-13] MEDS: LORazepam 0.5 MG TAB PO ×2 (01:42→12:32)
[2018-03-13] MEDS: Acetaminophen 325 MG TAB 650 MG PO (01:42)
[2018-03-13] MEDS: Bacitracin 1 PACKET TP ×2 (08:16→21:14)
[2018-03-13] MEDS: Polyethylene Glycol 3350 17 GM PACKET PO (08:16)
[2018-03-13 09:30] VITALS: BP 115/67; PULSE 62; RESP 18; TEMP 36.6; O2SAT 93
[2018-03-13] MEDS: Citalopram 10 MG TAB 20 MG PO (12:31)
[2018-03-13] MEDS: Aspirin 81 MG CHEW PO (12:32)
[2018-03-13] MEDS: risperiDONE 0.25 MG TAB PO ×2 (12:32→21:14)
[2018-03-13] MEDS: Docusate Sodium 100 MG/10 ML CUP PO ×2 (12:43→21:14)
--- NOTE | 2018-03-13 12:59 | NUR.NOTE ---
Nursing Note: Pt uncooperative and resistive to care this morning. Refused to take medications stating, I've had enough of that crap. Repeatedly stated over and over again No I don't want to take those. CC and MD aware. 1230 this RN attempted to medicate again, Pt did take regular AM medications but it took some time before he agreed to do so. Not willing to take this AM's ordered dose of magnesium and potassium. This nurse will attempt to medicate with these medications later in the day.
[2018-03-13 15:51] VITALS: BP 163/70; PULSE 82; RESP 20; TEMP 37.2; O2SAT 97
[2018-03-13] MEDS: traZODone 50 MG TAB 100 MG PO (21:13)
[2018-03-13] MEDS: Melatonin 3 MG TAB 9 MG PO (21:14)
[2018-03-13] MEDS: Mirtazapine 15 MG TAB 7.5 MG PO (21:14)
[2018-03-13] MEDS: Senna TAB 2 TAB PO (21:14)
[2018-03-14 07:30] VITALS: BP 166/82; PULSE 65; RESP 19; TEMP 37.2; O2SAT 94
[2018-03-14] MEDS: Polyethylene Glycol 3350 17 GM PACKET PO (09:34)
[2018-03-14] MEDS: Docusate Sodium 100 MG/10 ML CUP PO ×2 (09:34→21:00)
[2018-03-14] MEDS: Aspirin 81 MG CHEW PO (09:34)
[2018-03-14] MEDS: Citalopram 10 MG TAB 20 MG PO (09:35)
[2018-03-14] MEDS: risperiDONE 0.25 MG TAB PO ×2 (09:35→21:02)
[2018-03-14] MEDS: Potassium Chloride 20 MEQ TABCR PO (09:35)
[2018-03-14] MEDS: LORazepam 0.5 MG TAB PO (09:36)
[2018-03-14] MEDS: Bacitracin 1 PACKET TP ×2 (09:37→21:00)
[2018-03-14 16:15] VITALS: BP 149/71; PULSE 72; RESP 16; TEMP 36.6; O2SAT 96
[2018-03-14] MEDS: Melatonin 3 MG TAB 9 MG PO (21:01)
[2018-03-14] MEDS: Mirtazapine 15 MG TAB 7.5 MG PO (21:01)
[2018-03-14] MEDS: traZODone 50 MG TAB 100 MG PO (21:02)
[2018-03-15] MEDS: risperiDONE 0.25 MG TAB PO ×2 (09:13→21:25)
[2018-03-15] MEDS: Potassium Chloride 20 MEQ TABCR PO (09:13)
[2018-03-15] MEDS: Bacitracin 1 PACKET TP ×3 (09:13→21:24)
[2018-03-15] MEDS: Docusate Sodium 100 MG/10 ML CUP PO ×3 (09:13→21:24)
[2018-03-15] MEDS: Citalopram 10 MG TAB 20 MG PO (09:13)
[2018-03-15] MEDS: Polyethylene Glycol 3350 17 GM PACKET PO (09:13)
[2018-03-15] MEDS: LORazepam 0.5 MG TAB PO ×2 (09:14→16:19)
[2018-03-15] MEDS: Aspirin 81 MG CHEW PO (09:14)
[2018-03-15 09:49] VITALS: BP 168/85; PULSE 69; RESP 19; TEMP 36.5; O2SAT 96
--- NOTE | 2018-03-15 09:54 | PDOC.CMPRO ---
- If Service Date Differs Date of service: 03/15/18 Time of Service: 09:54 Care Management Progress Note S/O: Mary Beth is sitting up in his chair when this senior grant writer visits this morning. CM spoke with Linda Grider, whom states that he would like updated nursing notes for the past two weeks. CM faxed nursing notes, as well as nursing shift assessments to [facility] for review. A: Mary Beth is a 72 year old male with dementia awaiting placement in [facility] home vs LTC facility. P: No change in Mary Beth's status today. He continues to have a patient observer. Dr. Caicedo continues to consult. Mary Beth will transition to [facility] vs LTC when placement is offered. CM to continue to provide support to patient and family ongoing discharge planning and disposition
--- NOTE | 2018-03-15 09:59 | CMPROGNOTE_ITS ---
- If Service Date Differs Date of service: 03/15/18 Time of Service: 09:54 Care Management Progress Note S/O: Mary Beth is sitting up in his chair when this real estate underwriter visits this morning. CM spoke with Linda Grider, whom states that he would like updated nursing notes for the past two weeks. CM faxed nursing notes, as well as nursing shift assessments to [facility] for review. A: Mary Beth is a 72 year old male with dementia awaiting placement in [facility] home vs LTC facility. P: No change in Mary Beth's status today. He continues to have a patient observer. Dr. Caicedo continues to consult. Mary Beth will transition to [facility] vs LTC when placement is offered. CM to continue to provide support to patient and family ongoing discharge planning and disposition
[2018-03-15] MEDS: Mirtazapine 15 MG TAB 7.5 MG PO (21:23)
[2018-03-15] MEDS: traZODone 50 MG TAB 100 MG PO (21:25)
[2018-03-15] MEDS: Senna TAB 2 TAB PO (21:25)
[2018-03-15] MEDS: Melatonin 3 MG TAB 9 MG PO (21:25)
[2018-03-16 07:39] VITALS: BP 119/68; PULSE 54; RESP 19; TEMP 36.2; O2SAT 97
[2018-03-16] MEDS: LORazepam 0.5 MG TAB PO (08:28)
[2018-03-16] MEDS: Acetaminophen 325 MG TAB 650 MG PO (08:28)
[2018-03-16] MEDS: Aspirin 81 MG CHEW PO (08:28)
[2018-03-16] MEDS: Citalopram 10 MG TAB 20 MG PO (08:28)
[2018-03-16] MEDS: Docusate Sodium 100 MG/10 ML CUP PO ×2 (08:29→20:35)
[2018-03-16] MEDS: Bacitracin 1 PACKET TP ×3 (08:29→20:35)
[2018-03-16] MEDS: risperiDONE 0.25 MG TAB PO ×2 (08:29→20:36)
[2018-03-16] MEDS: Polyethylene Glycol 3350 17 GM PACKET PO (08:29)
[2018-03-16] MEDS: Potassium Chloride 10 MEQ CAPCR 20 MEQ PO (12:31)
--- NOTE | 2018-03-16 12:46 | PDOC.CMACT ---
- If Service Date Differs Date of service: 03/16/18 Time of Service: 12:46 Care Management Activity Note Mary Beth has been visited by family throughout the week. He has a patient observer with him to ambulate in the halls. He appears to enjoy food from home and visits with his family. CM meets with Mary Beth regularly to update on current events. A: Mary Beth is a 72 year old male with dementia awaiting placement in [facility] home vs LTC facility. P: No change in Mary Beth's status today. He continues to have a patient observer. Dr. Caicedo continues to consult. Mary Beth will transition to [facility] vs LTC when placement is offered. CM to continue to provide support to patient and family ongoing discharge planning and disposition
[2018-03-16] MEDS: Melatonin 3 MG TAB 9 MG PO (20:35)
[2018-03-16] MEDS: Senna TAB 2 TAB PO (20:36)
[2018-03-16] MEDS: Mirtazapine 15 MG TAB 7.5 MG PO (20:36)
[2018-03-16] MEDS: traZODone 50 MG TAB 100 MG PO (20:36)
[2018-03-17] MEDS: risperiDONE 0.25 MG TAB PO ×2 (08:44→19:29)
[2018-03-17] MEDS: Aspirin 81 MG CHEW PO (08:44)
[2018-03-17] MEDS: Polyethylene Glycol 3350 17 GM PACKET PO (08:44)
[2018-03-17] MEDS: Docusate Sodium 100 MG/10 ML CUP PO ×3 (08:44→19:28)
[2018-03-17] MEDS: LORazepam 0.5 MG TAB PO ×2 (08:45→18:19)
[2018-03-17] MEDS: Potassium Chloride 10 MEQ CAPCR 20 MEQ PO (08:45)
[2018-03-17] MEDS: Bacitracin 1 PACKET TP ×3 (08:45→19:27)
[2018-03-17] MEDS: Citalopram 10 MG TAB 20 MG PO (08:45)
[2018-03-17 11:21] LABS: Anion Gap 11.4 mmol/L (3-11); BUN 32 mg/dL (7-18); CO2 26.6 mmol/L (21.0-32.0); Chloride 103 mmol/L (98-107); Estimated GFR 45.75 (mL/min/1.73m2); Glucose 162 mg/dL (70-100); Sodium 141 mmol/L (136-145)
[2018-03-17] MEDS: Milk of Magnesia 30 ML CUP PO (15:07)
[2018-03-17] MEDS: Acetaminophen 325 MG TAB 650 MG PO (18:19)
[2018-03-17] MEDS: Melatonin 3 MG TAB 9 MG PO (19:28)
[2018-03-17] MEDS: Mirtazapine 15 MG TAB 7.5 MG PO (19:31)
[2018-03-17] MEDS: traZODone 50 MG TAB 100 MG PO (19:53)
[2018-03-17] MEDS: Senna TAB 2 TAB PO (19:53)
[2018-03-18] MEDS: Polyethylene Glycol 3350 17 GM PACKET PO (09:17)
[2018-03-18] MEDS: Citalopram 10 MG TAB 20 MG PO (09:18)
[2018-03-18] MEDS: risperiDONE 0.25 MG TAB PO ×2 (09:18→19:44)
[2018-03-18] MEDS: Bacitracin 1 PACKET TP ×2 (09:18→21:03)
[2018-03-18] MEDS: Potassium Chloride 10 MEQ CAPCR 20 MEQ PO (09:18)
[2018-03-18] MEDS: Aspirin 81 MG CHEW PO (09:19)
[2018-03-18] MEDS: Docusate Sodium 100 MG/10 ML CUP PO ×2 (09:19→19:43)
[2018-03-18] MEDS: LORazepam 0.5 MG TAB PO (09:19)
[2018-03-18] MEDS: Melatonin 3 MG TAB 9 MG PO (19:43)
[2018-03-18] MEDS: traZODone 50 MG TAB 100 MG PO (19:44)
[2018-03-18] MEDS: Mirtazapine 15 MG TAB 7.5 MG PO (19:44)
[2018-03-18] MEDS: Senna TAB 2 TAB PO (19:44)
[2018-03-19] MEDS: Acetaminophen 325 MG TAB 650 MG PO (00:03)
[2018-03-19] MEDS: LORazepam 0.5 MG TAB PO ×3 (01:52→22:37)
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
[2018-03-19] MEDS: Bacitracin 1 PACKET TP ×2 (09:31→14:14)
[2018-03-19] MEDS: Potassium Chloride 10 MEQ CAPCR 20 MEQ PO (09:32)
[2018-03-19] MEDS: Polyethylene Glycol 3350 17 GM PACKET PO (09:33)
[2018-03-19] MEDS: Citalopram 10 MG TAB 20 MG PO (09:33)
[2018-03-19] MEDS: risperiDONE 0.25 MG TAB PO (09:33)
[2018-03-19] MEDS: Aspirin 81 MG CHEW PO (09:33)
[2018-03-19] MEDS: Docusate Sodium 100 MG/10 ML CUP PO ×3 (09:34→20:04)
[2018-03-19] MEDS: Mirtazapine 15 MG TAB 7.5 MG PO (20:02)
[2018-03-19] MEDS: risperiDONE 0.25 MG TAB 0.5 MG PO (20:03)
[2018-03-19] MEDS: traZODone 50 MG TAB 100 MG PO (20:03)
[2018-03-19] MEDS: Melatonin 3 MG TAB 9 MG PO (20:04)
[2018-03-19] MEDS: Senna TAB 2 TAB PO (20:04)
[2018-03-20] MEDS: Acetaminophen 325 MG TAB 650 MG PO (01:03)
[2018-03-20] MEDS: Bacitracin 1 PACKET TP ×2 (09:11→13:38)
[2018-03-20] MEDS: Docusate Sodium 100 MG/10 ML CUP PO ×3 (09:11→21:23)
[2018-03-20] MEDS: Polyethylene Glycol 3350 17 GM PACKET PO (09:11)
[2018-03-20] MEDS: Potassium Chloride 10 MEQ CAPCR 20 MEQ PO (09:12)
[2018-03-20] MEDS: LORazepam 0.5 MG TAB PO (09:12)
[2018-03-20] MEDS: risperiDONE 0.25 MG TAB PO (09:12)
[2018-03-20] MEDS: Citalopram 10 MG TAB 20 MG PO (09:12)
[2018-03-20] MEDS: Aspirin 81 MG CHEW PO (09:13)
--- NOTE | 2018-03-20 11:23 | NUR.NOTE ---
Nursing Note:03/19/18-Great day today. Washed up. Dressed in clean street clothes, as always. Took meds well today. Had flu shot. Very well tolerated. Stated Thank you when done. Ate well day shift today. Fed self most meals. Visited w spouse. Also had a nice hair cut, brewer & nose hair trim today. Sat in chair great as if he was at a [employer]. Ambulated around room and hallway. Took a short nap in afternoon and was sleeping when I was ending my shift.
--- NOTE | 2018-03-20 15:47 | NUR.NOTE ---
Nursing Note: 03/20/18-good day today. Patient did seem tired, restless and unsteady. Took meds well in AM. Did take liquid colace in PM but held it in his mouth then spit it back in the med cup. stated this weekend that he does not like spicy things much and the colace is a cinnamon flavor. Breakfast was eaten very well but lunch was kind of stirred around and not really eaten. Voiding well today. dressed in street clothes and accepted change when dirty. No BM this shift but took Miralax well. Did not really seem to nap today so hopefully he will sleep good tonight. All in all a Good day.
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
[2018-03-20] MEDS: Mirtazapine 15 MG TAB 7.5 MG PO (21:23)
[2018-03-20] MEDS: Melatonin 3 MG TAB 9 MG PO (21:23)
[2018-03-20] MEDS: risperiDONE 0.25 MG TAB 0.5 MG PO (21:23)
[2018-03-20] MEDS: Senna TAB 2 TAB PO (21:24)
[2018-03-20] MEDS: traZODone 50 MG TAB 100 MG PO (21:24)
[2018-03-21] MEDS: Polyethylene Glycol 3350 17 GM PACKET PO (09:32)
[2018-03-21] MEDS: Docusate Sodium 100 MG/10 ML CUP PO ×2 (09:32→19:36)
[2018-03-21] MEDS: Potassium Chloride 10 MEQ CAPCR 20 MEQ PO (09:33)
[2018-03-21] MEDS: Bacitracin 1 PACKET TP ×2 (09:33→19:29)
[2018-03-21] MEDS: LORazepam 0.5 MG TAB PO (09:34)
[2018-03-21] MEDS: Aspirin 81 MG CHEW PO (09:34)
[2018-03-21] MEDS: Citalopram 10 MG TAB 20 MG PO (09:35)
[2018-03-21] MEDS: risperiDONE 0.25 MG TAB PO (09:35)
[2018-03-21] MEDS: Acetaminophen 325 MG TAB 650 MG PO (09:35)
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
--- NOTE | 2018-03-21 18:43 | W.PM.PROGNOT ---
Subjective Interval history since last seen: Case discussed with psychiatry (Dr Caicedo). It is felt by both of us that increasing of the risperidone dose is a safer alternative for the patient than him continuing to receive nearly nightly prn doses of ativan for his agitation. The patient is in no way more sedated during the day, but his behaviors will hopefully be more controlled during the night. The evening dose of risperidone was increased from 0.25 mg to 0.5 mg. Objective Objective Clinical Data: Vital Signs Temperature 36.2 C L 03/16/18 07:39 Temperature Source Tympanic 03/16/18 07:39 Pulse 54 L 03/16/18 07:39 Pulse Rhythm Regular 03/21/18 08:00 Respiratory Rate 19 03/16/18 07:39 Respiratory Effort Non-Labored 03/21/18 08:00 Respiratory Depth Normal 03/21/18 08:00 Respiratory Pattern Normal 03/21/18 08:00 Blood Pressure 119/68 03/16/18 07:39 Pulse Oximetry 97 03/16/18 07:39 Oxygen Delivery Method Room Air 03/16/18 07:39 Oxygen Flow Rate 0 03/16/18 07:39 Pain Level 0 03/15/18 09:49 Comment 03/02/18 08:10 Intake & Output 03/20/18 03/21/18 03/21/18 23:59 11:59 23:59 Intake Total 200 / 200 Balance 200 / 200 Intake: Oral 200 / 200 Other: Urine Appearance Cloudy Comment voided into toilet up with COMBINATION [employer]ELDER [employer]PRENTICE to void Stool Size Large Stool Characteristics [place] Voiding Methods Toilet Toilet Toilet Diaper Incontinent Laboratory Results WBC 7.26 k/cumm (4.4-10.8) 03/01/18 11:24 RBC 3.63 m/cumm (4.50-6.00) L 03/01/18 11:24 Hgb 11.8 g/dL (13.5-17.5) L 03/01/18 11:24 Hct 36.6 % (40.0-50.0) L 03/01/18 11:24 MCV 100.8 fL (80-95) H 03/01/18 11:24 MCH 32.5 pg (27.0-33.0) 03/01/18 11:24 MCHC 32.2 g/dL (32.0-36.0) 03/01/18 11:24 RDW 13.8 % (11.8-14.1) 03/01/18 11:24 Plt Count 223 x1000/uL (130-400) 03/01/18 11:24 MPV 9.2 fL (8.0-11.0) 03/01/18 11:24 Immature Gran % 0.1 01/18/18 06:50 Neutrophils % 59.8 01/18/18 06:50 Lymphocytes % 22.0 01/18/18 06:50 Monocytes % 15.0 01/18/18 06:50 Eosinophils % 3.0 01/18/18 06:50 Basophils % 0.1 01/18/18 06:50 Absolute Neutrophils 4.45 k/cumm (1.2-6.7) 01/18/18 06:50 Absolute Lymphocytes 1.64 k/cumm (1.2-3.4) 01/18/18 06:50 Absolute Monocytes 1.12 k/cumm (0.11-0.7) H 01/18/18 06:50 Absolute Eosinophils 0.22 k/cumm (0.0-0.7) 01/18/18 06:50 Absolute Basophils 0.01 k/cumm (0.0-0.2) 01/18/18 06:50 Sodium 141 mmol/L (136-145) 03/17/18 11:00 Potassium 4.0 mmol/L (3.5-5.1) 03/17/18 11:00 Chloride 103 mmol/L (98-107) 03/17/18 11:00 Carbon Dioxide 26.6 mmol/L (21.0-32.0) 03/17/18 11:00 Anion Gap 11.4 mmol/L (3-11) H 03/17/18 11:00 BUN 32 mg/dL (7-18) H 03/17/18 11:00 Creatinine 1.50 mg/dL (0.70-1.30) H 03/17/18 11:00 Estimated GFR/1.73 m2 45.75 (mL/min/1.73m2) 03/17/18 11:00 Glucose 162 mg/dL (70-100) H 03/17/18 11:00 Hemoglobin A1c 6.9 % (4.5-6.2) H 12/10/17 06:48 Uric Acid 7.5 mg/dL (3.5-7.2) H 01/18/18 06:50 Calcium 9.0 mg/dL (8.5-10.1) 03/17/18 11:00 Total Bilirubin 0.3 mg/dL (0.2-1.0) 01/18/18 06:50 AST 11 U/L (15-37) L 01/18/18 06:50 ALT 17 U/L (12-78) 01/18/18 06:50 Alkaline Phosphatase 55 U/L (46-116) 01/18/18 06:50 NT-Pro-B Natriuret Pep 219 pg/mL (-299) 03/01/18 11:24 Total Protein 6.8 g/dL (6.4-8.2) 01/18/18 06:50 Albumin 2.9 g/dL (3.4-5.0) L 01/18/18 06:50 Triglycerides 75 mg/dL (30-150) 12/21/17 06:35 Total Cholesterol 126 mg/dL (50-200) 12/21/17 06:35 LDL Cholesterol Direct 83 mg/dL (<100) 12/21/17 06:35 HDL Cholesterol 37 mg/dL (40-60) L 12/21/17 06:35 TSH 2.03 uIU/mL (0.358-3.74) 01/18/18 06:50 Urine Color Yellow (Yellow) 01/19/18 13:05 Urine Clarity Clear 01/19/18 13:05 Urine pH 6.0 (5-8) 01/19/18 13:05 Ur Specific [place] 1.020 (1.005-1.025) 01/19/18 13:05 Urine Protein Negative mg/dL (Negative) 01/19/18 13:05 Urine Ketones Negative mg/dL (Negative) 01/19/18 13:05 Urine Blood Negative (Negative) 01/19/18 13:05 Urine Nitrite Negative (Negative) 01/19/18 13:05 Urine Bilirubin Negative (Negative) 01/19/18 13:05 Urine Urobilinogen 0.2 EU/dL (Up TO 0.2) 01/19/18 13:05 Ur Leukocyte Esterase Trace (Negative) H 01/19/18 13:05 Urine RBC Negative (0-2) 01/19/18 13:05 Urine WBC >50 HPF (0-5) 01/19/18 13:05 Ur Epithelial Cells Few HPF (Negative) 01/19/18 13:05 Urine Crystals Moderate amorphous HPF (Negative) 01/19/18 13:05 Urine Bacteria Few HPF (Negative) 01/19/18 13:05 Urine Casts Negative LPF (Negative) 01/19/18 13:05 Urine Mucus Trace (Negative) 01/19/18 13:05 Ur Culture Indicated? Yes 01/19/18 13:05 Urine Glucose Negative mg/dL (Negative) 01/19/18 13:05
[2018-03-21] MEDS: Mirtazapine 15 MG TAB 7.5 MG PO (19:29)
[2018-03-21] MEDS: Melatonin 3 MG TAB 9 MG PO (19:30)
[2018-03-21] MEDS: risperiDONE 0.25 MG TAB 0.5 MG PO (19:31)
[2018-03-21] MEDS: traZODone 50 MG TAB 100 MG PO (19:32)
[2018-03-21] MEDS: Senna TAB 2 TAB PO (19:32)
[2018-03-22] MEDS: Bacitracin 1 PACKET TP ×2 (07:48→14:34)
[2018-03-22] MEDS: Docusate Sodium 100 MG/10 ML CUP PO ×3 (07:49→20:30)
[2018-03-22] MEDS: Polyethylene Glycol 3350 17 GM PACKET PO (07:49)
[2018-03-22] MEDS: Potassium Chloride 10 MEQ CAPCR 20 MEQ PO (07:49)
[2018-03-22] MEDS: LORazepam 0.5 MG TAB PO (07:49)
[2018-03-22] MEDS: Aspirin 81 MG CHEW PO (07:50)
[2018-03-22] MEDS: Citalopram 10 MG TAB 20 MG PO (07:50)
[2018-03-22] MEDS: risperiDONE 0.25 MG TAB PO (07:50)
--- NOTE | 2018-03-22 10:58 | NUR.NOTE ---
Nursing Note: clinical acute care nursing assistant has suggested prune juice as a natural intervention for patients bowel prophylaxis. He is a given a cup . He sips some and swallows, he sips some and spits it out, cup is left with patient as to continue to sip the juice as he is able. patient is cooperative with med pass today
[2018-03-22] MEDS: Mirtazapine 15 MG TAB 7.5 MG PO (20:30)
[2018-03-22] MEDS: traZODone 50 MG TAB 100 MG PO (20:30)
[2018-03-22] MEDS: risperiDONE 0.25 MG TAB 0.5 MG PO (20:30)
[2018-03-22] MEDS: Senna TAB 2 TAB PO (20:30)
[2018-03-22] MEDS: Melatonin 3 MG TAB 9 MG PO (20:30)
[2018-03-23] MEDS: Acetaminophen 325 MG TAB 650 MG PO ×2 (08:29→16:30)
[2018-03-23] MEDS: Polyethylene Glycol 3350 17 GM PACKET PO (08:29)
[2018-03-23] MEDS: Bacitracin 1 PACKET TP ×3 (08:29→21:21)
[2018-03-23] MEDS: Milk of Magnesia 30 ML CUP PO (08:29)
[2018-03-23] MEDS: Docusate Sodium 100 MG/10 ML CUP PO ×3 (08:29→21:20)
[2018-03-23] MEDS: LORazepam 0.5 MG TAB PO ×2 (08:30→18:50)
[2018-03-23] MEDS: Potassium Chloride 10 MEQ CAPCR 20 MEQ PO (08:30)
[2018-03-23] MEDS: risperiDONE 0.25 MG TAB PO (08:30)
[2018-03-23] MEDS: Citalopram 10 MG TAB 20 MG PO (08:30)
[2018-03-23] MEDS: Aspirin 81 MG CHEW PO (08:30)
[2018-03-23] MEDS: Mirtazapine 15 MG TAB 7.5 MG PO (21:19)
[2018-03-23] MEDS: Senna TAB 2 TAB PO (21:20)
[2018-03-23] MEDS: risperiDONE 0.25 MG TAB 0.5 MG PO (21:20)
[2018-03-23] MEDS: traZODone 50 MG TAB 100 MG PO (21:20)
[2018-03-23] MEDS: Melatonin 3 MG TAB 9 MG PO (21:20)
[2018-03-24 07:30] VITALS: BP 131/70; PULSE 61; RESP 18; TEMP 36.7; O2SAT 95
--- NOTE | 2018-03-24 09:26 | PDOC.CMACT ---
- If Service Date Differs Date of service: 03/24/18 Time of Service: 09:27 Care Management Activity Note Mary Beth has been visited by family throughout the week. He has a patient observer with him to ambulate in the halls. CM meets with Mary Beth regularly to update on current events. He is offered reiki, pet therapy and music therapy when available. CM contacted [facility] and spoke with Cheo there is currently not a bed available in the LTC unit. He will continue to review for admission. A: Mary Beth is a 72 year old male with dementia awaiting placement in [facility]FC home vs LTC facility. P: No change in Mary Beth's status today. He continues to have a patient observer. Dr. Caicedo continues to consult. Mary Beth will transition to AFC vs LTC when placement is offered. CM to continue to provide support to patient and family ongoing discharge planning and disposition
[2018-03-24] MEDS: Citalopram 10 MG TAB 20 MG PO (09:57)
[2018-03-24] MEDS: Aspirin 81 MG CHEW PO (09:57)
[2018-03-24] MEDS: Docusate Sodium 100 MG/10 ML CUP PO ×2 (09:57→19:32)
[2018-03-24] MEDS: risperiDONE 0.25 MG TAB PO (09:57)
[2018-03-24] MEDS: Acetaminophen 325 MG TAB 650 MG PO (09:57)
[2018-03-24] MEDS: Potassium Chloride 10 MEQ CAPCR 20 MEQ PO (09:57)
[2018-03-24] MEDS: LORazepam 0.5 MG TAB PO (09:58)
[2018-03-24] MEDS: Bacitracin 1 PACKET TP ×3 (09:58→19:32)
[2018-03-24] MEDS: Polyethylene Glycol 3350 17 GM PACKET PO (09:59)
[2018-03-24] MEDS: risperiDONE 0.25 MG TAB 0.5 MG PO (19:31)
[2018-03-24] MEDS: Mirtazapine 15 MG TAB 7.5 MG PO (19:31)
[2018-03-24] MEDS: Melatonin 3 MG TAB 9 MG PO (19:31)
[2018-03-24] MEDS: Senna TAB 2 TAB PO (19:32)
[2018-03-24] MEDS: traZODone 50 MG TAB 100 MG PO (19:32)
[2018-03-25] MEDS: Acetaminophen 325 MG TAB 650 MG PO (02:52)
[2018-03-25 06:00] VITALS: BP 116/66; PULSE 67; RESP 18; TEMP 36.9; O2SAT 95
[2018-03-25] MEDS: Mirtazapine 15 MG TAB 7.5 MG PO (20:06)
[2018-03-25] MEDS: LORazepam 0.5 MG TAB PO (20:06)
[2018-03-25] MEDS: Melatonin 3 MG TAB 9 MG PO (20:06)
[2018-03-25] MEDS: Senna TAB 2 TAB PO (20:07)
[2018-03-25] MEDS: risperiDONE 0.25 MG TAB 0.5 MG PO (20:07)
[2018-03-25] MEDS: traZODone 50 MG TAB 100 MG PO (20:07)
--- NOTE | 2018-03-26 09:06 | NUR.NOTE ---
Nursing Note: 0745: pt has no cadre at this time. pt is in recliner with BLE's elevated. call strip placed under pt's BLE's to alert staff to pt awakening. CC and litigation legal secretary aware. frequent safety checks at this time. currently it is 0907 and patient remains asleep. continue to monitor. 0730: MALENA Echeverria RN calls and speaks with supervisor of instruction JANET Dugan about cadre situation. [employer] will call Shalini and see if she is available. Currently 0907 and no return information on cadre to this RN and no cadre is present.
[2018-03-26] MEDS: Polyethylene Glycol 3350 17 GM PACKET PO (11:52)
[2018-03-26] MEDS: Potassium Chloride 10 MEQ CAPCR 20 MEQ PO (11:52)
[2018-03-26] MEDS: Bacitracin 1 PACKET TP ×2 (11:52→21:03)
[2018-03-26] MEDS: Docusate Sodium 100 MG/10 ML CUP PO ×2 (11:52→21:00)
[2018-03-26] MEDS: Citalopram 10 MG TAB 20 MG PO (11:52)
[2018-03-26] MEDS: risperiDONE 0.25 MG TAB PO (11:53)
[2018-03-26] MEDS: Aspirin 81 MG CHEW PO (11:53)
[2018-03-26] MEDS: LORazepam 0.5 MG TAB PO (11:53)
[2018-03-26] MEDS: Senna TAB 2 TAB PO (21:01)
[2018-03-26] MEDS: Mirtazapine 15 MG TAB 7.5 MG PO (21:01)
[2018-03-26] MEDS: Melatonin 3 MG TAB 9 MG PO (21:02)
[2018-03-26] MEDS: risperiDONE 0.25 MG TAB 0.5 MG PO (21:02)
[2018-03-26] MEDS: traZODone 50 MG TAB 100 MG PO (21:02)
[2018-03-27] MEDS: Acetaminophen 325 MG TAB 650 MG PO (05:26)
[2018-03-27] MEDS: LORazepam 0.5 MG TAB PO (12:27)
[2018-03-27] MEDS: risperiDONE 0.25 MG TAB PO (12:28)
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
--- NOTE | 2018-03-27 12:38 | PDOC.CMPRO ---
- If Service Date Differs Date of service: 03/27/18 Time of Service: 12:38 Care Management Progress Note S/O: CM met with Mary Beth today he is more restless wandering frequently with patient observer in the daniels. CM walked with Mary Beth He has been difficult to redirect at times today and per report from primary he did not take his medications this morning. CM contacted Mary Beth's spouse Kaity and requested she visit and provide a more familiar face to relieve some of his restlessness. No current nursing home placement at this time, spouse is not able to take Mary Beth home. CM to continue to outreach services in the community for placement. A: Mary Beth is a 72 year old male with dementia awaiting placement in AFC home vs LTC facility. P: No change in Mary Beth's status today. He continues to have a patient observer. Dr. Caicedo continues to consult. Mary Beth will transition to A[facility] vs LTC when placement is offered. CM to continue to provide support to patient and family ongoing discharge planning and disposition
--- NOTE | 2018-03-27 12:59 | CMPROGNOTE_ITS ---
- If Service Date Differs Date of service: 03/27/18 Time of Service: 12:38 Care Management Progress Note S/O: CM met with Mary Beth today he is more restless wandering frequently with patient observer in the daniels. CM walked with Mary Beth He has been difficult to redirect at times today and per report from primary he did not take his medications this morning. CM contacted Mary Beth's spouse Kaity and requested she visit and provide a more familiar face to relieve some of his restlessness. No current skilled nursing placement at this time, spouse is not able to take Mary Beth home. CM to continue to outreach services in the community for placement. A: Mary Beth is a 72 year old male with dementia awaiting placement in AFC home vs LTC facility. P: No change in Mary Beth's status today. He continues to have a patient observer. Dr. Caicedo continues to consult. Mary Beth will transition to AFC vs LTC when placement is offered. CM to continue to provide support to patient and family ongoing discharge planning and disposition
[2018-03-27] MEDS: Senna TAB 2 TAB PO (22:38)
[2018-03-27] MEDS: risperiDONE 0.25 MG TAB 0.5 MG PO (22:38)
[2018-03-27] MEDS: Mirtazapine 15 MG TAB 7.5 MG PO (22:38)
[2018-03-27] MEDS: Melatonin 3 MG TAB 9 MG PO (22:38)
[2018-03-27] MEDS: traZODone 50 MG TAB 100 MG PO (22:38)
--- NOTE | 2018-03-27 23:43 | NUR.NOTE ---
Nursing Note: pt up dressed in street clothes walking most of shift in daniels with or cadre ,has been incontinent x 1 of urine and voided in toilet x 2 ,pt has been alert,quiet ,cooperative , visited for several hours and left by 1730- cadre has been walking in daniels slow steady pace,pt has taken all po meds except dss liquid . 2200 pt assisted to bed now sleeping soundly
[2018-03-28] MEDS: LORazepam 0.5 MG TAB PO (08:47)
[2018-03-28] MEDS: risperiDONE 0.25 MG TAB PO (08:47)
--- NOTE | 2018-03-28 13:36 | NUR.NOTE ---
Nursing Note: 1330: pt has been sleeping for a majority of the shift. when awake, pt eats well but does require assist today to eat, drinking fair today. pt took morning medications this am without difficulty. pt up to void on toilet x 1. accepts am care without difficulty. pt's in at 1300 to visit with him. continue to monitor.
[2018-03-28] MEDS: Acetaminophen 325 MG TAB 650 MG PO (15:45)
[2018-03-28] MEDS: Melatonin 3 MG TAB 9 MG PO (19:20)
[2018-03-28] MEDS: traZODone 50 MG TAB 100 MG PO (19:21)
[2018-03-28] MEDS: Senna TAB 2 TAB PO (19:22)
[2018-03-28] MEDS: Mirtazapine 15 MG TAB 7.5 MG PO (19:24)
[2018-03-28] MEDS: risperiDONE 0.25 MG TAB 0.5 MG PO (19:24)
[2018-03-28] MEDS: Docusate Sodium 100 MG/10 ML CUP PO (19:27)
[2018-03-28] MEDS: Milk of Magnesia 30 ML CUP PO (19:28)
[2018-03-28] MEDS: Bacitracin 1 PACKET TP (19:32)
[2018-03-29] MEDS: Acetaminophen 325 MG TAB 650 MG PO ×3 (01:04→19:08)
[2018-03-29] MEDS: LORazepam 0.5 MG TAB PO ×4 (02:08→21:36)
[2018-03-29] MEDS: Docusate Sodium 100 MG/10 ML CUP PO ×3 (08:14→19:05)
[2018-03-29] MEDS: Polyethylene Glycol 3350 17 GM PACKET PO (08:15)
[2018-03-29] MEDS: Bacitracin 1 PACKET TP ×2 (08:15→19:06)
[2018-03-29] MEDS: Aspirin 81 MG CHEW PO (08:15)
[2018-03-29] MEDS: Potassium Chloride 10 MEQ CAPCR 20 MEQ PO (08:17)
[2018-03-29] MEDS: risperiDONE 0.25 MG TAB PO (08:18)
[2018-03-29] MEDS: Citalopram 10 MG TAB 20 MG PO (08:18)
[2018-03-29] MEDS: Senna TAB 2 TAB PO (19:06)
[2018-03-29] MEDS: Melatonin 3 MG TAB 9 MG PO (19:06)
[2018-03-29] MEDS: traZODone 50 MG TAB 100 MG PO (19:07)
[2018-03-29] MEDS: risperiDONE 0.25 MG TAB 0.5 MG PO (19:08)
[2018-03-29] MEDS: Mirtazapine 15 MG TAB 7.5 MG PO (19:09)
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
[2018-03-30] MEDS: LORazepam 0.5 MG TAB PO (11:20)
[2018-03-30] MEDS: Polyethylene Glycol 3350 17 GM PACKET PO (11:20)
[2018-03-30] MEDS: Citalopram 10 MG TAB 20 MG PO (11:20)
[2018-03-30] MEDS: Bacitracin 1 PACKET TP ×2 (11:20→19:55)
[2018-03-30] MEDS: Aspirin 81 MG CHEW PO (11:20)
[2018-03-30] MEDS: Potassium Chloride 10 MEQ CAPCR 20 MEQ PO (11:20)
[2018-03-30] MEDS: risperiDONE 0.25 MG TAB PO (11:20)
--- NOTE | 2018-03-30 13:55 | PDOC.CMACT ---
- If Service Date Differs Date of service: 03/30/18 Time of Service: 13:55 Care Management Activity Note Mary Beth has been visited by family throughout the week. He has a patient observer with him to ambulate in the halls. CM meets with Mary Beth regularly to update on current events. He is offered reiki, pet therapy and music therapy when available. CM outreached additional LTC facilities today including [facility] left a message for Dalila Acevedo [facility]. A: Mary Beth is a 72 year old male with dementia awaiting placement in AFC home vs LTC facility. P: No change in Mary Beth's status today. He continues to have a patient observer. Dr. Caicedo continues to consult. Mary Beth will transition to AFC vs LTC when placement is offered. CM to continue to provide support to patient and family ongoing discharge planning and disposition
--- NOTE | 2018-03-30 14:09 | CMACTNOTE_ITS ---
- If Service Date Differs Date of service: 03/30/18 Time of Service: 13:55 Care Management Activity Note Mary Beth has been visited by family throughout the week. He has a patient observer with him to ambulate in the halls. CM meets with Mary Beth regularly to update on current events. He is offered reiki, pet therapy and music therapy when available. CM outreached additional LTC facilities today including [facility] left a message for Dlaila Acevedo [facility]. A: Mary Beth is a 72 year old male with dementia awaiting placement in AFC home vs LTC facility. P: No change in Mary Beth's status today. He continues to have a patient observer. Dr. Caicedo continues to consult. Mary Beth will transition to AFC vs LTC when placement is offered. CM to continue to provide support to patient and family ongoing discharge planning and disposition
[2018-03-30] MEDS: Docusate Sodium 100 MG/10 ML CUP PO (19:54)
[2018-03-30] MEDS: risperiDONE 0.25 MG TAB 0.5 MG PO (19:54)
[2018-03-30] MEDS: Melatonin 3 MG TAB 9 MG PO (19:55)
[2018-03-30] MEDS: Mirtazapine 15 MG TAB 7.5 MG PO (19:56)
[2018-03-30 20:04] VITALS: PULSE 77; RESP 18; TEMP 36.6; O2SAT 95
[2018-03-30] MEDS: traZODone 50 MG TAB 100 MG PO (21:09)
[2018-03-30] MEDS: Senna TAB 2 TAB PO (21:09)
[2018-03-31 07:41] VITALS: BP 129/66; PULSE 60; RESP 19; TEMP 36.1; O2SAT 99
[2018-03-31] MEDS: LORazepam 0.5 MG TAB PO ×2 (08:21→21:53)
[2018-03-31] MEDS: Polyethylene Glycol 3350 17 GM PACKET PO (08:21)
[2018-03-31] MEDS: Aspirin 81 MG CHEW PO (08:22)
[2018-03-31] MEDS: risperiDONE 0.25 MG TAB PO (08:22)
[2018-03-31] MEDS: Potassium Chloride 10 MEQ CAPCR 20 MEQ PO (08:22)
[2018-03-31] MEDS: Citalopram 10 MG TAB 20 MG PO (08:22)
[2018-03-31] MEDS: Bacitracin 1 PACKET TP ×3 (08:22→20:06)
[2018-03-31] MEDS: Docusate Sodium 100 MG/10 ML CUP PO ×2 (14:09→20:03)
[2018-03-31 16:22] VITALS: BP 152/90; PULSE 64; RESP 17; TEMP 37.4; O2SAT 97
[2018-03-31] MEDS: Mirtazapine 15 MG TAB 7.5 MG PO (20:03)
[2018-03-31] MEDS: traZODone 50 MG TAB 100 MG PO (20:04)
[2018-03-31] MEDS: Senna TAB 2 TAB PO (20:04)
[2018-03-31] MEDS: Melatonin 3 MG TAB 9 MG PO (20:04)
[2018-03-31] MEDS: Acetaminophen 325 MG TAB 650 MG PO (20:05)
[2018-03-31] MEDS: risperiDONE 0.25 MG TAB 0.5 MG PO (20:06)
[2018-04-01] MEDS: Docusate Sodium 100 MG/10 ML CUP PO ×3 (09:55→20:03)
[2018-04-01] MEDS: Bacitracin 1 PACKET TP ×3 (09:55→20:03)
[2018-04-01] MEDS: Potassium Chloride 10 MEQ CAPCR 20 MEQ PO (09:55)
[2018-04-01] MEDS: risperiDONE 0.25 MG TAB PO (09:56)
[2018-04-01] MEDS: LORazepam 0.5 MG TAB PO (09:56)
[2018-04-01] MEDS: Polyethylene Glycol 3350 17 GM PACKET PO (09:56)
[2018-04-01] MEDS: Citalopram 10 MG TAB 20 MG PO (09:56)
[2018-04-01] MEDS: Aspirin 81 MG CHEW PO (09:56)
[2018-04-01] MEDS: risperiDONE 0.25 MG TAB 0.5 MG PO (20:02)
[2018-04-01] MEDS: Acetaminophen 325 MG TAB 650 MG PO (20:02)
[2018-04-01] MEDS: Mirtazapine 15 MG TAB 7.5 MG PO (20:03)
[2018-04-01] MEDS: Melatonin 3 MG TAB 9 MG PO (20:03)
[2018-04-01] MEDS: Senna TAB 2 TAB PO (22:17)
[2018-04-01] MEDS: traZODone 50 MG TAB 100 MG PO (22:17)
[2018-04-02] MEDS: Polyethylene Glycol 3350 17 GM PACKET PO (11:35)
[2018-04-02] MEDS: Bacitracin 1 PACKET TP ×2 (11:35→19:54)
[2018-04-02] MEDS: LORazepam 0.5 MG TAB PO ×2 (11:35→22:41)
[2018-04-02] MEDS: Aspirin 81 MG CHEW PO (11:35)
[2018-04-02] MEDS: Docusate Sodium 100 MG/10 ML CUP PO ×2 (11:35→19:51)
[2018-04-02] MEDS: Citalopram 10 MG TAB 20 MG PO (11:35)
[2018-04-02] MEDS: risperiDONE 0.25 MG TAB PO (11:36)
[2018-04-02] MEDS: Potassium Chloride 10 MEQ CAPCR 20 MEQ PO (11:36)
[2018-04-02] MEDS: Acetaminophen 325 MG TAB 650 MG PO (19:52)
[2018-04-02] MEDS: Melatonin 3 MG TAB 9 MG PO (19:52)
[2018-04-02] MEDS: Senna TAB 2 TAB PO (19:53)
[2018-04-02] MEDS: Mirtazapine 15 MG TAB 7.5 MG PO (19:53)
[2018-04-02] MEDS: traZODone 50 MG TAB 100 MG PO (19:54)
[2018-04-02] MEDS: risperiDONE 0.25 MG TAB 0.5 MG PO (19:54)
[2018-04-03] MEDS: Docusate Sodium 100 MG/10 ML CUP PO ×2 (08:22→20:58)
[2018-04-03] MEDS: Potassium Chloride 10 MEQ CAPCR 20 MEQ PO (08:22)
[2018-04-03] MEDS: Polyethylene Glycol 3350 17 GM PACKET PO (08:22)
[2018-04-03] MEDS: Citalopram 10 MG TAB 20 MG PO (08:22)
[2018-04-03] MEDS: Aspirin 81 MG CHEW PO (08:23)
[2018-04-03] MEDS: risperiDONE 0.25 MG TAB PO (08:23)
[2018-04-03] MEDS: LORazepam 0.5 MG TAB PO ×2 (08:23→20:57)
[2018-04-03] MEDS: Acetaminophen 325 MG TAB 650 MG PO (20:57)
[2018-04-03] MEDS: Mirtazapine 15 MG TAB 7.5 MG PO (20:58)
[2018-04-03] MEDS: risperiDONE 0.25 MG TAB 0.5 MG PO (20:58)
[2018-04-03] MEDS: Bacitracin 1 PACKET TP (20:58)
[2018-04-03] MEDS: Senna TAB 2 TAB PO (20:58)
[2018-04-03] MEDS: traZODone 50 MG TAB 100 MG PO (20:58)
[2018-04-03] MEDS: Melatonin 3 MG TAB 9 MG PO (20:58)
[2018-04-04] MEDS: Acetaminophen 325 MG TAB 650 MG PO ×2 (01:29→07:57)
[2018-04-04] MEDS: Polyethylene Glycol 3350 17 GM PACKET PO (07:56)
[2018-04-04] MEDS: Bacitracin 1 PACKET TP (07:56)
[2018-04-04] MEDS: Docusate Sodium 100 MG/10 ML CUP PO ×2 (07:56→19:15)
[2018-04-04] MEDS: LORazepam 0.5 MG TAB PO (07:57)
[2018-04-04] MEDS: risperiDONE 0.25 MG TAB PO (07:57)
[2018-04-04] MEDS: Aspirin 81 MG CHEW PO (07:57)
[2018-04-04] MEDS: Potassium Chloride 10 MEQ CAPCR 20 MEQ PO (07:58)
[2018-04-04] MEDS: Citalopram 10 MG TAB 20 MG PO (07:58)
--- NOTE | 2018-04-04 17:30 | PDOC.CMPRO ---
- If Service Date Differs Date of service: 04/04/18 Time of Service: 17:30 Care Management Progress Note S/O: Mary Beth continues to await placement at a [facility]pc facility. He has been appropriate during CM visits with him. CM received a request from [facility] today for updates on the patient for their memory unit. CM faxed requested updates and will outreach admission r/t status of review. A: Mary Beth is a 72 year old male with dementia awaiting placement in AFC home vs LTC facility. P: No change in Mary Beth's status today. He continues to have a patient observer. Dr. Caicedo continues to consult. Mary Beth will transition to AFC vs LTC when placement is offered. CM to continue to provide support to patient and family ongoing discharge planning and disposition
--- NOTE | 2018-04-04 17:33 | CMPROGNOTE_ITS ---
- If Service Date Differs Date of service: 04/04/18 Time of Service: 17:30 Care Management Progress Note S/O: Mary Beth continues to await placement at a shelter facility. He has been appropriate during CM visits with him. CM received a request from [facility] today for updates on the patient for their memory unit. CM faxed requested updates and will outreach admission r/t status of review. A: Mary Beth is a 72 year old male with dementia awaiting placement in AFC home vs LTC facility. P: No change in Mary Beth's status today. He continues to have a patient observer. Dr. Caicedo continues to consult. Mary Beth will transition to AFC vs LTC when placement is offered. CM to continue to provide support to patient and family ongoing discharge planning and disposition
[2018-04-04] MEDS: Melatonin 3 MG TAB 9 MG PO (19:15)
[2018-04-04] MEDS: risperiDONE 0.25 MG TAB 0.5 MG PO (19:15)
[2018-04-04] MEDS: Mirtazapine 15 MG TAB 7.5 MG PO (19:15)
[2018-04-04] MEDS: Senna TAB 2 TAB PO (19:15)
[2018-04-04] MEDS: traZODone 50 MG TAB 100 MG PO (19:15)
[2018-04-05] MEDS: Citalopram 10 MG TAB 20 MG PO (09:04)
[2018-04-05] MEDS: Docusate Sodium 100 MG/10 ML CUP PO ×3 (09:04→20:50)
[2018-04-05] MEDS: Polyethylene Glycol 3350 17 GM PACKET PO (09:04)
[2018-04-05] MEDS: risperiDONE 0.25 MG TAB PO (09:05)
[2018-04-05] MEDS: LORazepam 0.5 MG TAB PO (09:05)
[2018-04-05] MEDS: Potassium Chloride 10 MEQ CAPCR 20 MEQ PO (09:05)
[2018-04-05] MEDS: Bacitracin 1 PACKET TP ×3 (09:06→21:17)
[2018-04-05] MEDS: Aspirin 81 MG CHEW PO (09:06)
[2018-04-05] MEDS: Bisacodyl 10 MG SUPP PR (14:55)
[2018-04-05 16:26] VITALS: BP 164/80; PULSE 65; RESP 20; TEMP 37.4; O2SAT 96
[2018-04-05] MEDS: risperiDONE 0.25 MG TAB 0.5 MG PO (20:50)
[2018-04-05] MEDS: Mirtazapine 15 MG TAB 7.5 MG PO (20:50)
[2018-04-05] MEDS: Senna TAB 2 TAB PO (20:50)
[2018-04-05] MEDS: Melatonin 3 MG TAB 9 MG PO (20:50)
[2018-04-05] MEDS: traZODone 50 MG TAB 100 MG PO (20:50)
[2018-04-06] MEDS: Polyethylene Glycol 3350 17 GM PACKET PO (10:05)
[2018-04-06] MEDS: LORazepam 0.5 MG TAB PO (10:05)
[2018-04-06] MEDS: Docusate Sodium 100 MG/10 ML CUP PO ×3 (10:05→20:32)
[2018-04-06] MEDS: Potassium Chloride 10 MEQ CAPCR 20 MEQ PO (10:05)
[2018-04-06] MEDS: Aspirin 81 MG CHEW PO (10:05)
[2018-04-06] MEDS: Bacitracin 1 PACKET TP ×3 (10:05→20:33)
[2018-04-06] MEDS: Citalopram 10 MG TAB 20 MG PO (10:06)
[2018-04-06] MEDS: risperiDONE 0.25 MG TAB PO (10:06)
[2018-04-06] MEDS: risperiDONE 0.25 MG TAB 0.5 MG PO (20:32)
[2018-04-06] MEDS: Senna TAB 2 TAB PO (20:32)
[2018-04-06] MEDS: Mirtazapine 15 MG TAB 7.5 MG PO (20:33)
[2018-04-06] MEDS: Melatonin 3 MG TAB 9 MG PO (20:33)
[2018-04-06] MEDS: traZODone 50 MG TAB 100 MG PO (20:33)
[2018-04-06] MEDS: Acetaminophen 325 MG TAB 650 MG PO (22:07)
[2018-04-06 22:21] VITALS: TEMP 37.5
[2018-04-07] MEDS: Bacitracin 1 PACKET TP ×3 (08:14→20:06)
[2018-04-07] MEDS: Docusate Sodium 100 MG/10 ML CUP PO ×3 (08:14→20:05)
[2018-04-07] MEDS: Polyethylene Glycol 3350 17 GM PACKET PO (08:14)
[2018-04-07] MEDS: LORazepam 0.5 MG TAB PO ×2 (08:15→10:05)
[2018-04-07] MEDS: risperiDONE 0.25 MG TAB PO (08:15)
[2018-04-07] MEDS: Citalopram 10 MG TAB 20 MG PO (08:15)
[2018-04-07] MEDS: Potassium Chloride 10 MEQ CAPCR 20 MEQ PO (08:15)
[2018-04-07] MEDS: Aspirin 81 MG CHEW PO (08:15)
[2018-04-07] MEDS: traZODone 50 MG TAB 100 MG PO (20:04)
[2018-04-07] MEDS: Senna TAB 2 TAB PO (20:04)
[2018-04-07] MEDS: Mirtazapine 15 MG TAB 7.5 MG PO (20:05)
[2018-04-07] MEDS: risperiDONE 0.25 MG TAB 0.5 MG PO (20:05)
[2018-04-07] MEDS: Melatonin 3 MG TAB 9 MG PO (20:06)
[2018-04-08] MEDS: Citalopram 10 MG TAB 20 MG PO (07:00)
[2018-04-08] MEDS: Polyethylene Glycol 3350 17 GM PACKET PO (07:02)
[2018-04-08] MEDS: Docusate Sodium 100 MG/10 ML CUP PO (07:02)
[2018-04-08] MEDS: Bacitracin 1 PACKET TP (07:02)
[2018-04-08] MEDS: Aspirin 81 MG CHEW PO (07:03)
[2018-04-08] MEDS: LORazepam 0.5 MG TAB PO (07:03)
[2018-04-08] MEDS: Potassium Chloride 10 MEQ CAPCR 20 MEQ PO (07:03)
[2018-04-08] MEDS: risperiDONE 0.25 MG TAB PO (07:03)
[2018-04-08] MEDS: Acetaminophen 325 MG TAB 650 MG PO (11:30)
[2018-04-08] MEDS: Melatonin 3 MG TAB 9 MG PO (20:48)
[2018-04-08] MEDS: risperiDONE 0.25 MG TAB 0.5 MG PO (20:49)
[2018-04-08] MEDS: Mirtazapine 15 MG TAB 7.5 MG PO (20:49)
[2018-04-08] MEDS: traZODone 50 MG TAB 100 MG PO (21:49)
--- NOTE | 2018-04-09 07:19 | NUR.NOTE ---
Nursing Note: 04/09/18 Pt slept well overnight. Up to void x 3, one brief walk in daniels, and back to bed each time. Each time Mary Beth awoke he was pleasant and cooperative.
[2018-04-09] MEDS: Docusate Sodium 100 MG/10 ML CUP PO ×2 (08:42→21:22)
[2018-04-09] MEDS: Citalopram 10 MG TAB 20 MG PO (08:42)
[2018-04-09] MEDS: Potassium Chloride 10 MEQ CAPCR 20 MEQ PO (08:42)
[2018-04-09] MEDS: Bacitracin 1 PACKET TP ×2 (08:42→21:22)
[2018-04-09] MEDS: Polyethylene Glycol 3350 17 GM PACKET PO (08:42)
[2018-04-09] MEDS: risperiDONE 0.25 MG TAB PO (08:43)
[2018-04-09] MEDS: Aspirin 81 MG CHEW PO (08:43)
[2018-04-09] MEDS: LORazepam 0.5 MG TAB PO ×2 (08:43→21:23)
[2018-04-09] MEDS: Acetaminophen 325 MG TAB 650 MG PO (21:22)
[2018-04-09] MEDS: Melatonin 3 MG TAB 9 MG PO (21:22)
[2018-04-09] MEDS: Senna TAB 2 TAB PO (21:23)
[2018-04-09] MEDS: risperiDONE 0.25 MG TAB 0.5 MG PO (21:23)
[2018-04-09] MEDS: traZODone 50 MG TAB 100 MG PO (21:23)
[2018-04-09] MEDS: Mirtazapine 15 MG TAB 7.5 MG PO (21:23)
[2018-04-10] MEDS: LORazepam 0.5 MG TAB PO ×2 (00:55→08:51)
[2018-04-10] MEDS: Docusate Sodium 100 MG/10 ML CUP PO ×2 (08:42→20:00)
[2018-04-10] MEDS: Milk of Magnesia 30 ML CUP PO (08:42)
[2018-04-10] MEDS: Citalopram 10 MG TAB 20 MG PO (08:51)
[2018-04-10] MEDS: Aspirin 81 MG CHEW PO (08:51)
[2018-04-10] MEDS: risperiDONE 0.25 MG TAB PO (08:52)
[2018-04-10] MEDS: Potassium Chloride 10 MEQ CAPCR 20 MEQ PO (08:52)
[2018-04-10] MEDS: Polyethylene Glycol 3350 17 GM PACKET PO (08:52)
[2018-04-10] MEDS: Melatonin 3 MG TAB 9 MG PO (20:00)
[2018-04-10] MEDS: Bacitracin 1 PACKET TP (20:00)
[2018-04-10] MEDS: Senna TAB 2 TAB PO (20:00)
[2018-04-10] MEDS: traZODone 50 MG TAB 100 MG PO (20:00)
[2018-04-10] MEDS: Acetaminophen 325 MG TAB 650 MG PO (20:00)
[2018-04-10] MEDS: risperiDONE 0.25 MG TAB 0.5 MG PO (20:00)
[2018-04-10] MEDS: Mirtazapine 15 MG TAB 7.5 MG PO (20:00)
[2018-04-11] MEDS: Potassium Chloride 10 MEQ CAPCR 20 MEQ PO (08:54)
[2018-04-11] MEDS: risperiDONE 0.25 MG TAB PO (08:54)
[2018-04-11] MEDS: Aspirin 81 MG CHEW PO (08:54)
[2018-04-11] MEDS: Polyethylene Glycol 3350 17 GM PACKET PO (08:54)
[2018-04-11] MEDS: Milk of Magnesia 30 ML CUP PO (08:54)
[2018-04-11] MEDS: Citalopram 10 MG TAB 20 MG PO (08:54)
[2018-04-11] MEDS: LORazepam 0.5 MG TAB PO (08:54)
[2018-04-11] MEDS: Docusate Sodium 100 MG/10 ML CUP PO ×2 (08:54→21:21)
[2018-04-11] MEDS: Melatonin 3 MG TAB 9 MG PO (21:21)
[2018-04-11] MEDS: Senna TAB 2 TAB PO (21:21)
[2018-04-11] MEDS: traZODone 50 MG TAB 100 MG PO (21:21)
[2018-04-11] MEDS: Bacitracin 1 PACKET TP (21:21)
[2018-04-11] MEDS: Acetaminophen 325 MG TAB 650 MG PO (21:21)
[2018-04-11] MEDS: risperiDONE 0.25 MG TAB 0.5 MG PO (21:21)
[2018-04-11] MEDS: Mirtazapine 15 MG TAB 7.5 MG PO (21:21)
[2018-04-12] MEDS: Acetaminophen 325 MG TAB 650 MG PO ×2 (08:02→19:41)
[2018-04-12] MEDS: Potassium Chloride 10 MEQ CAPCR 20 MEQ PO (08:02)
[2018-04-12] MEDS: Bacitracin 1 PACKET TP ×2 (08:02→19:42)
[2018-04-12] MEDS: Polyethylene Glycol 3350 17 GM PACKET PO (08:02)
[2018-04-12] MEDS: Citalopram 10 MG TAB 20 MG PO (08:02)
[2018-04-12] MEDS: LORazepam 0.5 MG TAB PO ×2 (08:02→21:06)
[2018-04-12] MEDS: Docusate Sodium 100 MG/10 ML CUP PO ×2 (08:03→19:42)
[2018-04-12] MEDS: risperiDONE 0.25 MG TAB PO (08:03)
[2018-04-12] MEDS: Aspirin 81 MG CHEW PO (08:03)
--- NOTE | 2018-04-12 10:14 | NUR.NOTE ---
Nursing Note: Pt pleasant and cooperative this AM. Took a shower and was agreeable to taking all morning medications in chocolate pudding. Pt ate all of his breakfast and is now resting quietly in the chair.
--- NOTE | 2018-04-12 15:52 | PDOC.CMACT ---
- If Service Date Differs Date of service: 04/12/18 Time of Service: 15:52 Care Management Activity Note S/O: Mary Beth is ambulating with his spouse today around the halls she has brought him foods he enjoys from home. CM faxed updates to [facility] and spoke with [facility] they are reviewing nursing documentation. CM contacted Betty Steven who may be able to negotiate funding for a higher level of care for Mary Beth. CM is awaiting follow up. A: Mary Beth is a 72 year old male with dementia awaiting placement in [facility] home vs LTC facility. P: No change in Mary Beth's status today. He continues to have a patient observer. Dr. Caicedo continues to consult. Mary Beth will transition to [facility] vs LTC when placement is offered. CM to continue to provide support to patient and family ongoing discharge planning and disposition
[2018-04-12] MEDS: Melatonin 3 MG TAB 9 MG PO (19:41)
[2018-04-12] MEDS: risperiDONE 0.25 MG TAB 0.5 MG PO (19:42)
[2018-04-12] MEDS: Mirtazapine 15 MG TAB 7.5 MG PO (19:42)
[2018-04-12] MEDS: Senna TAB 2 TAB PO (21:06)
[2018-04-12] MEDS: traZODone 50 MG TAB 100 MG PO (21:06)
--- NOTE | 2018-04-13 01:43 | NUR.NOTE ---
Nursing Note: Mary Beth has been restless and combative towards staff since my arrival at 1900. He did have a cadre from 7-11 that he was physically aggressive with several times. Yobani lay in bed for about an hour between midnight and 0100 and got up, yelled at someone in his room; pt is delusional. Staff attempted to assist pt to use toilet x 3 and he was not able to do this but did become incontinent urine in his bed. 2 staff members were needed to help change his pants and brief. Later when Yobani got out of bed he attempted to urinate on the wall at end of his bed. I attempted to guide him to the toilet after turning the lights back on. He looked at me and took 3 quick steps toward me and was trying to grab me. He did grab my left hand/thumb and bent my thumb back until I got it away from him. I backed up quickly and Yobani continued toward me with his arms in the air. I was afraid so I left the room quickly and notified the charge nurse. Jacki then entered the room and Yobani walked to the toilet with her. He was given prn Ativan at this time, see MAR.
[2018-04-13] MEDS: LORazepam 0.5 MG TAB PO ×3 (02:45→20:02)
[2018-04-13 07:30] VITALS: BP 128/67; PULSE 60; RESP 18; TEMP 36.6; O2SAT 97
[2018-04-13] MEDS: Citalopram 10 MG TAB 20 MG PO (09:57)
[2018-04-13] MEDS: risperiDONE 0.25 MG TAB PO (09:57)
[2018-04-13] MEDS: Docusate Sodium 100 MG/10 ML CUP PO ×2 (09:57→20:02)
[2018-04-13] MEDS: Polyethylene Glycol 3350 17 GM PACKET PO (09:57)
[2018-04-13] MEDS: Bacitracin 1 PACKET TP ×2 (09:57→20:03)
[2018-04-13] MEDS: Potassium Chloride 10 MEQ CAPCR 20 MEQ PO (10:03)
[2018-04-13] MEDS: Aspirin 81 MG CHEW PO (10:04)
[2018-04-13 19:30] VITALS: BP 135/61; PULSE 79; RESP 18; O2SAT 95
[2018-04-13] MEDS: Mirtazapine 15 MG TAB 7.5 MG PO (20:01)
[2018-04-13] MEDS: risperiDONE 0.25 MG TAB 0.5 MG PO (20:01)
[2018-04-13] MEDS: traZODone 50 MG TAB 100 MG PO (20:02)
[2018-04-13] MEDS: Melatonin 3 MG TAB 9 MG PO (20:02)
[2018-04-13] MEDS: Senna TAB 2 TAB PO (20:02)
[2018-04-13] MEDS: Acetaminophen 325 MG TAB 650 MG PO (20:02)
--- NOTE | 2018-04-13 21:28 | NUR.NOTE ---
Nursing Note: Pt is agitated and combative with staff. I do not feel that staff and other patients are safe with pt, reported this to charge nurse. Because of severe dementia pt is not redirctable. Pt's aggressive s/s agitation and combativeness/behaviors are not well managed at this time.
--- NOTE | 2018-04-13 21:49 | NUR.NOTE ---
Nursing Note:staff report to me that nurse aide's feel pt cannot be safely managed with one patient observer and is not redirectable, is combative. Considered calling security, I reported to nurse external relations manager I am not comfortable physically intervening with pt as he was combative with me yesterday. I have administered all of the medications I have available to manage his behavior at this time. I found pt to be walking down hallway towards his room with 5 staff members around him, one on each arm, and the rest walking along with.
[2018-04-14] MEDS: LORazepam 0.5 MG TAB PO (07:43)
[2018-04-14] MEDS: risperiDONE 0.25 MG TAB PO (07:43)
[2018-04-14] MEDS: Citalopram 10 MG TAB 20 MG PO (07:43)
[2018-04-14] MEDS: Aspirin 81 MG CHEW PO (07:44)
[2018-04-14] MEDS: Polyethylene Glycol 3350 17 GM PACKET PO (07:44)
[2018-04-14] MEDS: Bacitracin 1 PACKET TP ×2 (07:44→20:06)
[2018-04-14] MEDS: Potassium Chloride 10 MEQ CAPCR 20 MEQ PO (07:44)
[2018-04-14] MEDS: Docusate Sodium 100 MG/10 ML CUP PO ×2 (07:44→20:06)
--- NOTE | 2018-04-14 13:47 | NUTRITION ---
Mr. Cordero has excellent PO intake and his weight is entirely stable. His BMI is 27.3 kg/m2 which is well WNL. Will continue to monitor PO intake and weight and adjust his nutrition care plan accordingly.
[2018-04-14 16:50] VITALS: BP 195/89; PULSE 80; RESP 20; TEMP 37.1; O2SAT 97
[2018-04-14] MEDS: Acetaminophen 325 MG TAB 650 MG PO (17:31)
[2018-04-14 17:40] VITALS: BP 171/74; PULSE 80
[2018-04-14] MEDS: Melatonin 3 MG TAB 9 MG PO (20:07)
[2018-04-14] MEDS: traZODone 50 MG TAB 100 MG PO (20:07)
[2018-04-14] MEDS: Mirtazapine 15 MG TAB 7.5 MG PO (20:08)
[2018-04-14] MEDS: risperiDONE 0.25 MG TAB 0.5 MG PO (20:08)
[2018-04-14] MEDS: Senna TAB 2 TAB PO (20:10)
[2018-04-14 20:26] VITALS: BP 135/70; PULSE 67; RESP 18; TEMP 37.1; O2SAT 95
--- NOTE | 2018-04-15 02:38 | NUR.NOTE ---
Nursing Note: Answered call light in room, entered to find pt leaning on edge and end of bed being held on bed by RN that was sitting with him. We were able to help him stand to prevent him falling to the floor. 3 staff required to change pt's wet brief. He was uncooperative and combative during encounter.
--- NOTE | 2018-04-15 05:52 | NUR.NOTE ---
Nursing Note: 7P to 7A shift: Patient non stop pacing in the room and hallway, No sleep until this time. Cadre at bedside. When underwriter replaced cadre in the room , pt was moving about then almost tripped at the edge of bed end up of leaning on end side of the bed with half of his butt was out of bed, underwriter called for help, unable to redirect him to be sitting on bed in proper position.Needs maximum assist with 3 staff to do care since he was combative on the care.Continue to closely monitor for safety.
[2018-04-15] MEDS: Bacitracin 1 PACKET TP ×3 (07:41→19:39)
[2018-04-15] MEDS: Polyethylene Glycol 3350 17 GM PACKET PO (07:41)
[2018-04-15] MEDS: Docusate Sodium 100 MG/10 ML CUP PO ×3 (07:41→19:43)
[2018-04-15] MEDS: Potassium Chloride 10 MEQ CAPCR 20 MEQ PO (07:42)
[2018-04-15] MEDS: LORazepam 0.5 MG TAB PO (07:42)
[2018-04-15] MEDS: risperiDONE 0.25 MG TAB PO (07:42)
[2018-04-15] MEDS: Citalopram 10 MG TAB 20 MG PO (07:42)
[2018-04-15] MEDS: Aspirin 81 MG CHEW PO (07:42)
[2018-04-15 08:00] VITALS: BP 152/73; PULSE 72; RESP 16; TEMP 36.7; O2SAT 96
--- NOTE | 2018-04-15 10:57 | NUR.NOTE ---
Nursing Note: patient has removed dressing on his right hand, area still bleeding slighty, he allows a new dressing to be placed on the affected area. Cadre is with patient for safety
[2018-04-15] MEDS: Melatonin 3 MG TAB 9 MG PO (19:39)
[2018-04-15] MEDS: Mirtazapine 15 MG TAB 7.5 MG PO (19:40)
[2018-04-15] MEDS: traZODone 50 MG TAB 100 MG PO (19:41)
[2018-04-15] MEDS: Acetaminophen 325 MG TAB 650 MG PO (19:41)
[2018-04-15] MEDS: Senna TAB 2 TAB PO (19:42)
[2018-04-15] MEDS: risperiDONE 0.25 MG TAB 0.5 MG PO (19:42)
--- NOTE | 2018-04-16 05:41 | NUR.NOTE ---
Nursing Note: Pt has been sleeping thus far this 3am-7am shift. Per previous nurse report he was up at approximately 0100 with bed soaked, voided on toilet and then went back to bed. Resting comfortably at this time with eyes closed, respirations even and unlabored. Bed alarm is on, TV is on and door is partially shut.
[2018-04-16] MEDS: Potassium Chloride 10 MEQ CAPCR 20 MEQ PO (07:54)
[2018-04-16] MEDS: Aspirin 81 MG CHEW PO (07:54)
[2018-04-16] MEDS: Docusate Sodium 100 MG/10 ML CUP PO ×2 (07:54→21:52)
[2018-04-16] MEDS: Polyethylene Glycol 3350 17 GM PACKET PO (07:54)
[2018-04-16] MEDS: risperiDONE 0.25 MG TAB PO (07:55)
[2018-04-16] MEDS: LORazepam 0.5 MG TAB PO (07:55)
[2018-04-16] MEDS: Citalopram 10 MG TAB 20 MG PO (07:55)
[2018-04-16] MEDS: Bacitracin 1 PACKET TP ×2 (07:55→21:52)
[2018-04-16] MEDS: Melatonin 3 MG TAB 9 MG PO (21:52)
[2018-04-16] MEDS: traZODone 50 MG TAB 100 MG PO (21:52)
[2018-04-16] MEDS: Mirtazapine 15 MG TAB 7.5 MG PO (21:52)
[2018-04-16] MEDS: Senna TAB 2 TAB PO (21:52)
[2018-04-16] MEDS: risperiDONE 0.25 MG TAB 0.5 MG PO (21:52)
[2018-04-16] MEDS: Acetaminophen 325 MG TAB 650 MG PO (21:52)
[2018-04-17] MEDS: Aspirin 81 MG CHEW PO (07:31)
[2018-04-17] MEDS: Polyethylene Glycol 3350 17 GM PACKET PO (07:32)
[2018-04-17] MEDS: Docusate Sodium 100 MG/10 ML CUP PO ×2 (07:32→20:29)
[2018-04-17] MEDS: risperiDONE 0.25 MG TAB PO (07:33)
[2018-04-17] MEDS: Potassium Chloride 10 MEQ CAPCR 20 MEQ PO (07:33)
[2018-04-17] MEDS: Citalopram 10 MG TAB 20 MG PO (07:33)
[2018-04-17] MEDS: LORazepam 0.5 MG TAB PO (07:33)
[2018-04-17] MEDS: Bacitracin 1 PACKET TP ×2 (07:34→20:29)
--- NOTE | 2018-04-17 20:31 | NUR.NOTE ---
pt is very happy this evening making jokes and talking with staff. pt took all meds this evening and is sitting in his chair enjoying an HS snack and the TV.
[2018-04-17] MEDS: Acetaminophen 325 MG TAB 650 MG PO (21:44)
[2018-04-17] MEDS: Senna TAB 2 TAB PO (21:44)
[2018-04-17] MEDS: risperiDONE 0.25 MG TAB 0.5 MG PO (21:44)
[2018-04-17] MEDS: Melatonin 3 MG TAB 9 MG PO (21:44)
[2018-04-17] MEDS: traZODone 50 MG TAB 100 MG PO (21:44)
[2018-04-17] MEDS: Mirtazapine 15 MG TAB 7.5 MG PO (21:44)
[2018-04-18] MEDS: Docusate Sodium 100 MG/10 ML CUP PO ×3 (08:23→22:00)
[2018-04-18] MEDS: Bacitracin 1 PACKET TP ×3 (08:23→22:00)
[2018-04-18] MEDS: Potassium Chloride 10 MEQ CAPCR 20 MEQ PO (08:24)
[2018-04-18] MEDS: Aspirin 81 MG CHEW PO (08:24)
[2018-04-18] MEDS: LORazepam 0.5 MG TAB PO (08:24)
[2018-04-18] MEDS: Polyethylene Glycol 3350 17 GM PACKET PO (08:24)
[2018-04-18] MEDS: risperiDONE 0.25 MG TAB PO (08:24)
[2018-04-18] MEDS: Citalopram 10 MG TAB 20 MG PO (08:24)
[2018-04-18] MEDS: Mirtazapine 15 MG TAB 7.5 MG PO (22:01)
[2018-04-18] MEDS: risperiDONE 0.25 MG TAB 0.5 MG PO (22:01)
[2018-04-18] MEDS: Melatonin 3 MG TAB 9 MG PO (22:01)
[2018-04-18] MEDS: traZODone 50 MG TAB 100 MG PO (22:01)
[2018-04-18] MEDS: Senna TAB 2 TAB PO (22:01)
[2018-04-19] MEDS: Potassium Chloride 10 MEQ CAPCR 20 MEQ PO (10:18)
[2018-04-19] MEDS: Bacitracin 1 PACKET TP ×3 (10:18→20:56)
[2018-04-19] MEDS: Polyethylene Glycol 3350 17 GM PACKET PO (10:18)
[2018-04-19] MEDS: Citalopram 10 MG TAB 20 MG PO (10:18)
[2018-04-19] MEDS: Aspirin 81 MG CHEW PO (10:18)
[2018-04-19] MEDS: Acetaminophen 325 MG TAB 650 MG PO ×2 (10:18→20:52)
[2018-04-19] MEDS: LORazepam 0.5 MG TAB PO (10:19)
[2018-04-19] MEDS: risperiDONE 0.25 MG TAB PO (10:19)
--- NOTE | 2018-04-19 16:02 | PGE_ITS ---
Date of Service Date of service: 04/19/18 Time of Service: 15:54 Assessment and Plan (1) Dementia: Current visit: No Status: Acute The increased Risperidone seems to be working well. He is less agitated, less aggression noted. He continues to have 1:1 patient observation. He ambulates in the halls frequently. Dr. Caicedo continues to follow his course. Continue to have Haldol and ativan available on a PRN basis. Continue to seek senior care placement. (2) Discharge planning issues: Current visit: Yes Status: Acute He is a DNR/DNI. Care management continues to work on a safe discharge plan for him, likely at a long-term care facility. This case was discussed with Dr. Claros who is in agreement. Subjective Interval history since last seen: Mary Beth Cordero is a 73 year old man with a history of severe dementia who is on swing bed status awaiting long-term placement. His is present, she brought him a birthday cake. He is resting in the chair. He opens his eyes to verbal stimuli. He is unable to engage in a review of systems due to his advanced dementia. He ambulates frequently in the halls with a 1:1 patient observer. No reports of behavioral issues in the last few days. He has not required PRN ativan or haldol for the last few days. His Risperidone was increased last week to 0.5 mg at HS from 0.25, which appears to be working well. Exam Narrative Exam Narrative: General: he is sitting up in the chair, resting with eyes closed. He is wearing his own clothes. He awakens easily to verbal stimuli. He is pleasant and cooperative. in NAD. HEENT: normocephalic, atraumatic. Neck: supple, no JVD. Respiratory: respirations even and unlabored. Lung sounds are clear to auscultation throughout. Cardiovascular: Heart sounds regular, no murmur appreciated. GI: abdomen soft, nontender on palpation, no masses appreciated. Extremities: TEDs on bilaterally, no significant edema. Objective Objective Clinical Data: Vital Signs Temperature 36.7 C 04/15/18 08:00 Temperature Source Tympanic 04/15/18 08:00 Pulse 72 04/15/18 08:00 Pulse Rhythm Regular 04/19/18 09:36 Respiratory Rate 16 04/15/18 08:00 Respiratory Effort Non-Labored 04/19/18 09:36 Respiratory Depth Normal 04/19/18 09:36 Respiratory Pattern Irregular 04/19/18 09:36 Blood Pressure 152/73 H 04/15/18 08:00 Pulse Oximetry 96 04/15/18 08:00 Oxygen Delivery Method Room Air 04/15/18 08:00 Oxygen Flow Rate 0 04/15/18 08:00 Pain Level 0 04/17/18 08:33 Comment 04/14/18 17:40 Intake & Output 04/18/18 04/19/18 04/19/18 23:59 11:59 23:59 Intake Total 370 / 370 Balance 370 / 370 Weight 87.8 kg Intake: Oral 370 / 370 Other: Urine Color Yellow Urine Appearance Clear Urine Odor Normal Comment amount unknown incontinent of urine. Stool Size Large Stool Characteristics Soft Formed Voiding Methods Diaper Incontinent Diaper Incontinent Incontinent Laboratory Results WBC 7.26 k/cumm (4.4-10.8) 03/01/18 11:24 RBC 3.63 m/cumm (4.50-6.00) L 03/01/18 11:24 Hgb 11.8 g/dL (13.5-17.5) L 03/01/18 11:24 Hct 36.6 % (40.0-50.0) L 03/01/18 11:24 MCV 100.8 fL (80-95) H 03/01/18 11:24 MCH 32.5 pg (27.0-33.0) 03/01/18 11:24 MCHC 32.2 g/dL (32.0-36.0) 03/01/18 11:24 RDW 13.8 % (11.8-14.1) 03/01/18 11:24 Plt Count 223 x1000/uL (130-400) 03/01/18 11:24 MPV 9.2 fL (8.0-11.0) 03/01/18 11:24 Immature Gran % 0.1 01/18/18 06:50 Neutrophils % 59.8 01/18/18 06:50 Lymphocytes % 22.0 01/18/18 06:50 Monocytes % 15.0 01/18/18 06:50 Eosinophils % 3.0 01/18/18 06:50 Basophils % 0.1 01/18/18 06:50 Absolute Neutrophils 4.45 k/cumm (1.2-6.7) 01/18/18 06:50 Absolute Lymphocytes 1.64 k/cumm (1.2-3.4) 01/18/18 06:50 Absolute Monocytes 1.12 k/cumm (0.11-0.7) H 01/18/18 06:50 Absolute Eosinophils 0.22 k/cumm (0.0-0.7) 01/18/18 06:50 Absolute Basophils 0.01 k/cumm (0.0-0.2) 01/18/18 06:50 Sodium 141 mmol/L (136-145) 03/17/18 11:00 Potassium 4.0 mmol/L (3.5-5.1) 03/17/18 11:00 Chloride 103 mmol/L (98-107) 03/17/18 11:00 Carbon Dioxide 26.6 mmol/L (21.0-32.0) 03/17/18 11:00 Anion Gap 11.4 mmol/L (3-11) H 03/17/18 11:00 BUN 32 mg/dL (7-18) H 03/17/18 11:00 Creatinine 1.50 mg/dL (0.70-1.30) H 03/17/18 11:00 Estimated GFR/1.73 m2 45.75 (mL/min/1.73m2) 03/17/18 11:00 Glucose 162 mg/dL (70-100) H 03/17/18 11:00 Hemoglobin A1c 6.9 % (4.5-6.2) H 12/10/17 06:48 Uric Acid 7.5 mg/dL (3.5-7.2) H 01/18/18 06:50 Calcium 9.0 mg/dL (8.5-10.1) 03/17/18 11:00 Total Bilirubin 0.3 mg/dL (0.2-1.0) 01/18/18 06:50 AST 11 U/L (15-37) L 01/18/18 06:50 ALT 17 U/L (12-78) 01/18/18 06:50 Alkaline Phosphatase 55 U/L (46-116) 01/18/18 06:50 NT-Pro-B Natriuret Pep 219 pg/mL (-299) 03/01/18 11:24 Total Protein 6.8 g/dL (6.4-8.2) 01/18/18 06:50 Albumin 2.9 g/dL (3.4-5.0) L 01/18/18 06:50 Triglycerides 75 mg/dL (30-150) 12/21/17 06:35 Total Cholesterol 126 mg/dL (50-200) 12/21/17 06:35 LDL Cholesterol Direct 83 mg/dL (<100) 12/21/17 06:35 HDL Cholesterol 37 mg/dL (40-60) L 12/21/17 06:35 TSH 2.03 uIU/mL (0.358-3.74) 01/18/18 06:50 Urine Color Yellow (Yellow) 01/19/18 13:05 Urine Clarity Clear 01/19/18 13:05 Urine pH 6.0 (5-8) 01/19/18 13:05 Ur Specific [place] 1.020 (1.005-1.025) 01/19/18 13:05 Urine Protein Negative mg/dL (Negative) 01/19/18 13:05 Urine Ketones Negative mg/dL (Negative) 01/19/18 13:05 Urine Blood Negative (Negative) 01/19/18 13:05 Urine Nitrite Negative (Negative) 01/19/18 13:05 Urine Bilirubin Negative (Negative) 01/19/18 13:05 Urine Urobilinogen 0.2 EU/dL (Up TO 0.2) 01/19/18 13:05 Ur Leukocyte Esterase Trace (Negative) H 01/19/18 13:05 Urine RBC Negative (0-2) 01/19/18 13:05 Urine WBC >50 HPF (0-5) 01/19/18 13:05 Ur Epithelial Cells Few HPF (Negative) 01/19/18 13:05 Urine Crystals Moderate amorphous HPF (Negative) 01/19/18 13:05 Urine Bacteria Few HPF (Negative) 01/19/18 13:05 Urine Casts Negative LPF (Negative) 01/19/18 13:05 Urine Mucus Trace (Negative) 01/19/18 13:05 Ur Culture Indicated? Yes 01/19/18 13:05 Urine Glucose Negative mg/dL (Negative) 01/19/18 13:05
--- NOTE | 2018-04-19 16:14 | PDOC.CMACT ---
- If Service Date Differs Date of service: 04/19/18 Time of Service: 16:14 Care Management Activity Note S/O: Today is Mary Beth's birthday his spouse and family have been here to visit, walk with him and bring him a birthday cake. Mary Beth smiles occasionally. Family is attentive while here. Mary Beth walks frequently sometimes multiple laps a day. He continues to have a patient observer. He appears to enjoy food from home and his spouse sitting with him. CM left additional messages for [facility]. CM contacted [facility] and they continue to outreach to [facility] for placement. A: Mary Beth is a 72 year old male with dementia awaiting placement in [facility] home vs LTC facility. P: No change in Mary Beth's status today. He continues to have a patient observer. Dr. Caicedo continues to consult. Mary Beth will transition to A[facility] vs LTC when placement is offered. CM to continue to provide support to patient and family ongoing discharge planning and disposition
[2018-04-19] MEDS: Melatonin 3 MG TAB 9 MG PO (20:52)
[2018-04-19] MEDS: traZODone 50 MG TAB 100 MG PO (20:53)
[2018-04-19] MEDS: Mirtazapine 15 MG TAB 7.5 MG PO (20:54)
[2018-04-19] MEDS: Senna TAB 2 TAB PO (20:54)
[2018-04-19] MEDS: risperiDONE 0.25 MG TAB 0.5 MG PO (20:55)
[2018-04-19] MEDS: Docusate Sodium 100 MG/10 ML CUP PO (20:56)
--- NOTE | 2018-04-20 03:14 | NUR.NOTE ---
pt has been in a good mood this evening very happy and talkative. pt has been joking with staff pushing staff in a wheelchair and being pushed in a wheelchair. pt took his meds on evening shift and has been resting well in bed so far tonight.
[2018-04-20] MEDS: Aspirin 81 MG CHEW PO (08:07)
[2018-04-20] MEDS: Bacitracin 1 PACKET TP ×3 (08:07→19:40)
[2018-04-20] MEDS: Docusate Sodium 100 MG/10 ML CUP PO ×2 (08:07→19:39)
[2018-04-20] MEDS: Polyethylene Glycol 3350 17 GM PACKET PO (08:07)
[2018-04-20] MEDS: Citalopram 10 MG TAB 20 MG PO (08:07)
[2018-04-20] MEDS: risperiDONE 0.25 MG TAB PO (08:08)
[2018-04-20] MEDS: LORazepam 0.5 MG TAB PO (08:08)
[2018-04-20] MEDS: Potassium Chloride 10 MEQ CAPCR 20 MEQ PO (08:08)
--- NOTE | 2018-04-20 10:00 | PDOC.CMACT ---
Care Management Activity Note Mary Beth remains in SWB2 at [facility] due to lack of disposition. His family visits throughout the week and will see him today for Thanksgiving. He has a patient observer with him to ambulate in the halls. CM meets with Mary Beth regularly to update on current events. He is offered reiki, pet therapy and music therapy when available. He is offered his favorite foods daily and enjoys fidgeting with gadgets and exploring Med/Surg with support.
--- NOTE | 2018-04-20 10:04 | CMACTNOTE_ITS ---
Care Management Activity Note Mary Beth remains in SWB2 at [facility] due to lack of disposition. His family visits throughout the week and will see him today for Thanksgiving. He has a patient observer with him to ambulate in the halls. CM meets with Mary Beth regularly to update on current events. He is offered reiki, pet therapy and music therapy when available. He is offered his favorite foods daily and enjoys fidgeting with gadgets and exploring Med/Surg with support.
[2018-04-20] MEDS: Milk of Magnesia 30 ML CUP PO (19:39)
[2018-04-20] MEDS: Melatonin 3 MG TAB 9 MG PO (19:39)
[2018-04-20] MEDS: traZODone 50 MG TAB 100 MG PO (19:40)
[2018-04-20] MEDS: Acetaminophen 325 MG TAB 650 MG PO (19:40)
[2018-04-20] MEDS: Mirtazapine 15 MG TAB 7.5 MG PO (19:40)
[2018-04-20] MEDS: Senna TAB 2 TAB PO (19:41)
[2018-04-20] MEDS: risperiDONE 0.25 MG TAB 0.5 MG PO (19:42)
[2018-04-21] MEDS: Docusate Sodium 100 MG/10 ML CUP PO ×2 (09:09→21:03)
[2018-04-21] MEDS: Citalopram 10 MG TAB 20 MG PO (09:09)
[2018-04-21] MEDS: Bacitracin 1 PACKET TP ×3 (09:10→21:04)
[2018-04-21] MEDS: Potassium Chloride 10 MEQ CAPCR 20 MEQ PO (09:10)
[2018-04-21] MEDS: risperiDONE 0.25 MG TAB PO (09:10)
[2018-04-21] MEDS: LORazepam 0.5 MG TAB PO (09:10)
[2018-04-21] MEDS: Aspirin 81 MG CHEW PO (09:10)
[2018-04-21] MEDS: Polyethylene Glycol 3350 17 GM PACKET PO (09:10)
--- NOTE | 2018-04-21 16:12 | NUR.NOTE ---
Nursing Note: 1600: this RN has been in charge of pt's care for the past 3 days on the 7-3 shift. pt has been pleasant, cooperative, takes medications without incidence. pt has not shown any s/s of aggression during my time with pt. pt has been incontinent to urine and to stool x 1. pt eating and drinking well. pt enjoyed his birthday on Tuesday, ate Thanksgiving meals well and enjoyed his visit with his today. pt verbalizes at times but at others has garbled language. pt has denied pain today. pt currently ambulating in halls with staff. continue to monitor.
--- NOTE | 2018-04-21 16:14 | NUR.NOTE ---
Nursing Note: 1200: pt's Kaity gave this scribe permission to throw pt's purple cotton pants away today. large holes present in the lower leg of the left calf. pt's are well worn. pt's has brought in a new pair of flannel pants that are red and black checkered.
[2018-04-21] MEDS: risperiDONE 0.25 MG TAB 0.5 MG PO (21:03)
[2018-04-21] MEDS: Senna TAB 2 TAB PO (21:03)
[2018-04-21] MEDS: Melatonin 3 MG TAB 9 MG PO (21:03)
[2018-04-21] MEDS: Mirtazapine 15 MG TAB 7.5 MG PO (21:03)
[2018-04-21] MEDS: traZODone 50 MG TAB 100 MG PO (21:04)
[2018-04-21 21:16] VITALS: BP 147/71; PULSE 73; RESP 18; TEMP 37.3; O2SAT 98
[2018-04-22] MEDS: Polyethylene Glycol 3350 17 GM PACKET PO (09:25)
[2018-04-22] MEDS: Docusate Sodium 100 MG/10 ML CUP PO ×3 (09:25→19:48)
[2018-04-22] MEDS: Potassium Chloride 10 MEQ CAPCR 20 MEQ PO (09:25)
[2018-04-22] MEDS: Aspirin 81 MG CHEW PO (09:25)
[2018-04-22] MEDS: Citalopram 10 MG TAB 20 MG PO (09:25)
[2018-04-22] MEDS: Bacitracin 1 PACKET TP ×3 (09:25→19:49)
[2018-04-22] MEDS: LORazepam 0.5 MG TAB PO (09:25)
[2018-04-22] MEDS: risperiDONE 0.25 MG TAB PO (09:26)
[2018-04-22] MEDS: Acetaminophen 325 MG TAB 650 MG PO (19:48)
[2018-04-22] MEDS: Melatonin 3 MG TAB 9 MG PO (19:48)
[2018-04-22] MEDS: Mirtazapine 15 MG TAB 7.5 MG PO (19:49)
[2018-04-22] MEDS: traZODone 50 MG TAB 100 MG PO (19:49)
[2018-04-22] MEDS: risperiDONE 0.25 MG TAB 0.5 MG PO (19:49)
[2018-04-22] MEDS: Senna TAB 2 TAB PO (19:49)
[2018-04-23] MEDS: Potassium Chloride 10 MEQ CAPCR 20 MEQ PO (10:15)
[2018-04-23] MEDS: Bacitracin 1 PACKET TP ×3 (10:15→20:55)
[2018-04-23] MEDS: Docusate Sodium 100 MG/10 ML CUP PO ×3 (10:15→20:54)
[2018-04-23] MEDS: Polyethylene Glycol 3350 17 GM PACKET PO (10:15)
[2018-04-23] MEDS: Aspirin 81 MG CHEW PO (10:15)
[2018-04-23] MEDS: Citalopram 10 MG TAB 20 MG PO (10:16)
[2018-04-23] MEDS: LORazepam 0.5 MG TAB PO (10:16)
[2018-04-23] MEDS: risperiDONE 0.25 MG TAB PO (10:16)
[2018-04-23] MEDS: Mirtazapine 15 MG TAB 7.5 MG PO (20:54)
[2018-04-23] MEDS: Melatonin 3 MG TAB 9 MG PO (20:54)
[2018-04-23] MEDS: traZODone 50 MG TAB 100 MG PO (20:55)
[2018-04-23] MEDS: Senna TAB 2 TAB PO (20:56)
[2018-04-23] MEDS: risperiDONE 0.25 MG TAB 0.5 MG PO (21:05)
[2018-04-24] MEDS: Polyethylene Glycol 3350 17 GM PACKET PO (08:35)
[2018-04-24] MEDS: Bacitracin 1 PACKET TP ×3 (08:36→21:00)
[2018-04-24] MEDS: Potassium Chloride 10 MEQ CAPCR 20 MEQ PO (08:36)
[2018-04-24] MEDS: Aspirin 81 MG CHEW PO (08:36)
[2018-04-24] MEDS: risperiDONE 0.25 MG TAB PO (08:36)
[2018-04-24] MEDS: Citalopram 10 MG TAB 20 MG PO (08:36)
[2018-04-24] MEDS: LORazepam 0.5 MG TAB PO ×3 (08:36→22:09)
[2018-04-24] MEDS: Docusate Sodium 100 MG/10 ML CUP PO ×3 (08:37→21:00)
[2018-04-24] MEDS: risperiDONE 0.25 MG TAB 0.5 MG PO (21:00)
[2018-04-24] MEDS: Senna TAB 2 TAB PO (21:00)
[2018-04-24] MEDS: traZODone 50 MG TAB 100 MG PO (21:00)
[2018-04-24] MEDS: Melatonin 3 MG TAB 9 MG PO (21:00)
[2018-04-24] MEDS: Mirtazapine 15 MG TAB 7.5 MG PO (21:00)
[2018-04-24] MEDS: Acetaminophen 325 MG TAB 650 MG PO (22:09)
[2018-04-25] MEDS: Potassium Chloride 10 MEQ CAPCR 20 MEQ PO (10:39)
[2018-04-25] MEDS: LORazepam 0.5 MG TAB PO ×2 (10:39→20:16)
[2018-04-25] MEDS: Aspirin 81 MG CHEW PO (10:39)
[2018-04-25] MEDS: Polyethylene Glycol 3350 17 GM PACKET PO (10:39)
[2018-04-25] MEDS: Citalopram 10 MG TAB 20 MG PO (10:39)
[2018-04-25] MEDS: Docusate Sodium 100 MG/10 ML CUP PO (10:40)
[2018-04-25] MEDS: Bacitracin 1 PACKET TP (10:40)
[2018-04-25] MEDS: risperiDONE 0.25 MG TAB PO (10:42)
[2018-04-25] MEDS: risperiDONE 0.25 MG TAB 0.5 MG PO (20:15)
[2018-04-25] MEDS: traZODone 50 MG TAB 100 MG PO (20:17)
[2018-04-25] MEDS: Acetaminophen 325 MG TAB 650 MG PO (20:17)
[2018-04-25] MEDS: Senna TAB 2 TAB PO (20:18)
[2018-04-25] MEDS: Melatonin 3 MG TAB 9 MG PO (20:18)
[2018-04-25] MEDS: Mirtazapine 15 MG TAB 7.5 MG PO (20:19)
[2018-04-26] MEDS: Docusate Sodium 100 MG/10 ML CUP PO ×2 (08:43→14:41)
[2018-04-26] MEDS: Acetaminophen 325 MG TAB 650 MG PO ×2 (08:43→20:12)
[2018-04-26] MEDS: Polyethylene Glycol 3350 17 GM PACKET PO (08:43)
[2018-04-26] MEDS: Potassium Chloride 10 MEQ CAPCR 20 MEQ PO (08:43)
[2018-04-26] MEDS: Aspirin 81 MG CHEW PO (08:44)
[2018-04-26] MEDS: Citalopram 10 MG TAB 20 MG PO (08:44)
[2018-04-26] MEDS: Bacitracin 1 PACKET TP ×2 (08:44→14:41)
[2018-04-26] MEDS: LORazepam 0.5 MG TAB PO ×2 (08:44→20:14)
[2018-04-26] MEDS: risperiDONE 0.25 MG TAB PO (08:44)
[2018-04-26] MEDS: Melatonin 3 MG TAB 9 MG PO (20:11)
[2018-04-26] MEDS: Senna TAB 2 TAB PO (20:12)
[2018-04-26] MEDS: risperiDONE 0.25 MG TAB 0.5 MG PO (20:13)
[2018-04-26] MEDS: Mirtazapine 15 MG TAB 7.5 MG PO (20:13)
[2018-04-26] MEDS: traZODone 50 MG TAB 100 MG PO (20:14)
[2018-04-27] MEDS: Docusate Sodium 100 MG/10 ML CUP PO ×3 (08:23→19:36)
[2018-04-27] MEDS: Potassium Chloride 10 MEQ CAPCR 20 MEQ PO (08:23)
[2018-04-27] MEDS: Bacitracin 1 PACKET TP ×3 (08:23→19:37)
[2018-04-27] MEDS: Aspirin 81 MG CHEW PO (08:23)
[2018-04-27] MEDS: Polyethylene Glycol 3350 17 GM PACKET PO (08:23)
[2018-04-27] MEDS: Citalopram 10 MG TAB 20 MG PO (08:24)
[2018-04-27] MEDS: risperiDONE 0.25 MG TAB PO (08:24)
[2018-04-27] MEDS: LORazepam 0.5 MG TAB PO (08:24)
--- NOTE | 2018-04-27 13:02 | PDOC.CMACT ---
- If Service Date Differs Date of service: 04/27/18 Time of Service: 13:02 Care Management Activity Note S/O: Mary Beth has been visited by family he did have a cake brought in from home for his birthday. Mary Beth often walks in the daniels with family and patient observer per report he has been redirectable. He is calm when CM visits daily. Mary Beth participates in pet and music therapy when available. CM [facility] awaiting bed offer for transition to LTC facility. A: Mary Beth is a 72 year old male with dementia awaiting placement in [facility] home vs LTC facility. P: No change in Mary Beth's status today. He continues to have a patient observer. Dr. Caicedo continues to consult. Mary Beth will transition to AFC vs LTC when placement is offered. CM to continue to provide support to patient and family ongoing discharge planning and disposition
--- NOTE | 2018-04-27 13:11 | CMACTNOTE_ITS ---
- If Service Date Differs Date of service: 04/27/18 Time of Service: 13:02 Care Management Activity Note S/O: Mary Beth has been visited by family he did have a cake brought in from home for his birthday. Mary Beth often walks in the daniels with family and patient observer per report he has been redirectable. He is calm when CM visits daily. Mary Beth participates in pet and music therapy when available. CM has [facility] awaiting bed offer for transition to LTC facility. A: Mary Beth is a 72 year old male with dementia awaiting placement in A[facility] home vs LTC facility. P: No change in Mary Beth's status today. He continues to have a patient observer. Dr. Caicedo continues to consult. Mary Beth will transition to AFC vs LTC when placement is offered. CM to continue to provide support to patient and family ongoing discharge planning and disposition
[2018-04-27] MEDS: Melatonin 3 MG TAB 9 MG PO (19:36)
[2018-04-27] MEDS: risperiDONE 0.25 MG TAB 0.5 MG PO (19:36)
[2018-04-27] MEDS: Mirtazapine 15 MG TAB 7.5 MG PO (19:36)
[2018-04-27] MEDS: Senna TAB 2 TAB PO (19:36)
[2018-04-27] MEDS: traZODone 50 MG TAB 100 MG PO (19:37)
[2018-04-28] MEDS: Acetaminophen 325 MG TAB 650 MG PO (09:40)
[2018-04-28] MEDS: Bacitracin 1 PACKET TP ×3 (09:41→21:09)
[2018-04-28] MEDS: Citalopram 10 MG TAB 20 MG PO (09:41)
[2018-04-28] MEDS: Aspirin 81 MG CHEW PO (09:41)
[2018-04-28] MEDS: Docusate Sodium 100 MG/10 ML CUP PO ×3 (09:41→21:09)
[2018-04-28] MEDS: Polyethylene Glycol 3350 17 GM PACKET PO (09:41)
[2018-04-28] MEDS: Potassium Chloride 10 MEQ CAPCR 20 MEQ PO (09:41)
[2018-04-28] MEDS: LORazepam 0.5 MG TAB PO ×2 (09:41→17:25)
[2018-04-28] MEDS: risperiDONE 0.25 MG TAB PO (09:42)
--- NOTE | 2018-04-28 17:33 | NUR.NOTE ---
Nursing Note: Patient striking out at staff. Ativan PO given
[2018-04-28] MEDS: Senna TAB 2 TAB PO (21:10)
[2018-04-28] MEDS: Mirtazapine 15 MG TAB 7.5 MG PO (21:10)
[2018-04-28] MEDS: traZODone 50 MG TAB 100 MG PO (21:10)
[2018-04-28] MEDS: risperiDONE 0.25 MG TAB 0.5 MG PO (21:10)
[2018-04-28] MEDS: Melatonin 3 MG TAB 9 MG PO (21:10)
[2018-04-29] MEDS: Aspirin 81 MG CHEW PO (08:40)
[2018-04-29] MEDS: LORazepam 0.5 MG TAB PO (08:40)
[2018-04-29] MEDS: risperiDONE 0.25 MG TAB PO (08:41)
[2018-04-29] MEDS: Potassium Chloride 10 MEQ CAPCR 20 MEQ PO (08:41)
[2018-04-29] MEDS: Docusate Sodium 100 MG/10 ML CUP PO ×2 (08:41→20:11)
[2018-04-29] MEDS: Polyethylene Glycol 3350 17 GM PACKET PO (08:41)
[2018-04-29] MEDS: Bacitracin 1 PACKET TP ×2 (08:41→20:16)
[2018-04-29] MEDS: Citalopram 10 MG TAB 20 MG PO (08:41)
[2018-04-29 08:51] VITALS: BP 168/80; PULSE 63; RESP 16; TEMP 36; O2SAT 95
[2018-04-29] MEDS: traZODone 50 MG TAB 100 MG PO (20:12)
[2018-04-29] MEDS: Mirtazapine 15 MG TAB 7.5 MG PO (20:13)
[2018-04-29] MEDS: Senna TAB 2 TAB PO (20:14)
[2018-04-29] MEDS: Melatonin 3 MG TAB 9 MG PO (20:14)
[2018-04-29] MEDS: risperiDONE 0.25 MG TAB 0.5 MG PO (20:15)
[2018-04-29] MEDS: Acetaminophen 325 MG TAB 650 MG PO (20:15)
[2018-04-30] MEDS: Citalopram 10 MG TAB 20 MG PO (07:55)
[2018-04-30] MEDS: Aspirin 81 MG CHEW PO (07:56)
[2018-04-30] MEDS: Polyethylene Glycol 3350 17 GM PACKET PO (07:56)
[2018-04-30] MEDS: Potassium Chloride 10 MEQ CAPCR 20 MEQ PO (07:56)
[2018-04-30] MEDS: risperiDONE 0.25 MG TAB PO (07:56)
[2018-04-30] MEDS: Bacitracin 1 PACKET TP ×2 (07:56→21:15)
[2018-04-30] MEDS: LORazepam 0.5 MG TAB PO ×2 (07:56→23:26)
[2018-04-30] MEDS: Milk of Magnesia 30 ML CUP PO (07:57)
[2018-04-30] MEDS: Docusate Sodium 100 MG/10 ML CUP PO ×2 (07:57→21:15)
[2018-04-30] MEDS: Mirtazapine 15 MG TAB 7.5 MG PO (21:15)
[2018-04-30] MEDS: Acetaminophen 325 MG TAB 650 MG PO (21:15)
[2018-04-30] MEDS: traZODone 50 MG TAB 100 MG PO (21:15)
[2018-04-30] MEDS: Melatonin 3 MG TAB 9 MG PO (21:15)
[2018-04-30] MEDS: risperiDONE 0.25 MG TAB 0.5 MG PO (21:15)
[2018-04-30] MEDS: Senna TAB 2 TAB PO (21:15)
--- NOTE | 2018-05-01 02:12 | NUR.NOTE ---
at the start of this nurses shift the pt was happy and joking with the staff and his cadre. pt sat with nurses in the nurses station for a few minutes while having a HS snack. pt talked appropriately with staff and was calm at this time. pt took all HS medications with no problems. at around 2300 pt began to get agitated so PRN Ativan was given. pt took Ativan walked a few loops witg cadre then calmed down and went to sleep.
[2018-05-01] MEDS: LORazepam 0.5 MG TAB PO ×2 (08:06→16:23)
[2018-05-01] MEDS: Aspirin 81 MG CHEW PO (08:06)
[2018-05-01] MEDS: Potassium Chloride 10 MEQ CAPCR 20 MEQ PO (08:06)
[2018-05-01] MEDS: Docusate Sodium 100 MG/10 ML CUP PO ×2 (08:07→19:34)
[2018-05-01] MEDS: Polyethylene Glycol 3350 17 GM PACKET PO (08:07)
[2018-05-01] MEDS: risperiDONE 0.25 MG TAB PO (08:07)
[2018-05-01] MEDS: Bacitracin 1 PACKET TP ×2 (08:07→19:32)
[2018-05-01] MEDS: Citalopram 10 MG TAB 20 MG PO (08:07)
[2018-05-01] MEDS: Acetaminophen 325 MG TAB 650 MG PO (16:22)
[2018-05-01] MEDS: Mirtazapine 15 MG TAB 7.5 MG PO (19:33)
[2018-05-01] MEDS: risperiDONE 0.25 MG TAB 0.5 MG PO (19:33)
[2018-05-01] MEDS: Melatonin 3 MG TAB 9 MG PO (19:33)
[2018-05-01 20:58] VITALS: BP 145/73; PULSE 68; RESP 18; TEMP 36.7; O2SAT 97
[2018-05-02] MEDS: Senna TAB 2 TAB PO ×2 (00:22→19:37)
[2018-05-02] MEDS: traZODone 50 MG TAB 100 MG PO ×2 (00:22→19:37)
--- NOTE | 2018-05-02 03:47 | NUR.NOTE ---
Nursing Note: 7 P to 7A Shift: Resident received ambulating with cadre in multiple loops in the hallway. Appears in good spirit. Medication at HS well tolerated with chocolate shakes. Able to sleep then woke up around midnight. 22:00 scheduled meds given at this time. Bed alarm in progress. Sounds asleep. Remains with cadre at bedside.
[2018-05-02] MEDS: LORazepam 0.5 MG TAB PO ×2 (07:53→19:39)
[2018-05-02] MEDS: Polyethylene Glycol 3350 17 GM PACKET PO (07:53)
[2018-05-02] MEDS: Citalopram 10 MG TAB 20 MG PO (07:53)
[2018-05-02] MEDS: Potassium Chloride 10 MEQ CAPCR 20 MEQ PO (07:53)
[2018-05-02] MEDS: Docusate Sodium 100 MG/10 ML CUP PO ×2 (07:53→19:37)
[2018-05-02] MEDS: Aspirin 81 MG CHEW PO (07:54)
[2018-05-02] MEDS: risperiDONE 0.25 MG TAB PO (07:54)
[2018-05-02] MEDS: Bacitracin 1 PACKET TP ×2 (07:54→19:40)
[2018-05-02] MEDS: Melatonin 3 MG TAB 9 MG PO (19:37)
[2018-05-02] MEDS: Mirtazapine 15 MG TAB 7.5 MG PO (19:37)
[2018-05-02] MEDS: risperiDONE 0.25 MG TAB 0.5 MG PO (19:38)
--- NOTE | 2018-05-03 00:06 | NUR.NOTE ---
Nursing Note: Patient is getting hard to redirect. Pushing on frias and trying to get into other patient's rooms
[2018-05-03] MEDS: Citalopram 10 MG TAB 20 MG PO (07:43)
[2018-05-03] MEDS: Aspirin 81 MG CHEW PO (07:43)
[2018-05-03] MEDS: risperiDONE 0.25 MG TAB PO (07:43)
[2018-05-03] MEDS: Polyethylene Glycol 3350 17 GM PACKET PO (07:43)
[2018-05-03] MEDS: Potassium Chloride 10 MEQ CAPCR 20 MEQ PO (07:43)
[2018-05-03] MEDS: LORazepam 0.5 MG TAB PO ×2 (07:44→17:03)
[2018-05-03] MEDS: Bacitracin 1 PACKET TP ×3 (07:44→20:09)
--- NOTE | 2018-05-03 12:28 | W.PM.PROGNOT ---
Date of Service Date of service: 05/03/18 Time of Service: 12:28 Assessment and Plan (1) Dementia: Current visit: No Status: Acute Fairly stable, however, he did require PRN ativan last night. Dr. Caicedo continues to follow his course. Continue to have Haldol and ativan available on a PRN basis. Continue to seek intermediate accountant placement. Continue 1:1 patient observation. (2) Skin tear: Current visit: Yes Status: Acute Stable, healing. Continue dressing changes. (3) Discharge planning issues: Current visit: Yes Status: Acute He is a DNR/DNI. Care management continues to work on a safe discharge plan for him, likely at a long-term care facility. This case was discussed with Dr. Jackman who is in agreement. Subjective Interval history since last seen: Mary Beth Cordero is a 73 year old man with a history of severe dementia, coronary artery disease, with history of CABG, as well as history of mitral valve repair, venous insufficiency and restless leg syndrome who is on swing bed status awaiting long-term placement. On the evening of 05/01/18, he apparently struck his right wrist at the sight of a previous skin tear which caused bleeding. He required a PRN dose of ativan last night, see nursing documentation for details. Nursing reports that he has been having large, soft stools. Today, he is resting in the chair, he did not awaken, he has a 1:1 patient observer, he has a clear dressing on his RFA, there is old blood under the dressing, no active bleeding, no signs of infection. Exam Narrative Exam Narrative: General: he is sitting up in the chair, resting with eyes closed. He is wearing his own clothes. He did not awaken during exam. he is in NAD. HEENT: normocephalic, atraumatic. Neck: supple, no JVD. Respiratory: respirations even and unlabored. Lung sounds are clear to auscultation throughout. Cardiovascular: Heart sounds regular, no murmur appreciated. GI: abdomen soft, does not appear to be tender on palpation, no masses appreciated. Extremities: TEDs on bilaterally, mild edema to BLEs. Objective Objective Clinical Data: Vital Signs Temperature 36.7 C 05/01/18 20:58 Temperature Source Tympanic 05/01/18 20:58 Pulse 68 05/01/18 20:58 Pulse Rhythm Regular 05/03/18 08:47 Respiratory Rate 18 05/01/18 20:58 Respiratory Effort Non-Labored 05/03/18 08:47 Respiratory Depth Normal 05/03/18 08:47 Respiratory Pattern Normal 05/03/18 08:47 Blood Pressure 145/73 H 05/01/18 20:58 Pulse Oximetry 97 05/01/18 20:58 Oxygen Delivery Method Room Air 05/01/18 20:58 Oxygen Flow Rate 0 05/01/18 20:58 Pain Level 3 05/01/18 16:22 Comment 04/23/18 07:50 Intake & Output 05/02/18 05/03/18 05/03/18 23:59 11:59 23:59 Intake Total 240 / 240 Output Total 200 / 200 Balance 40 / 40 Weight 88.4 kg Intake: Oral 240 / 240 Output: Urine 200 / 200 Other: Urine Color Yellow Yellow Urine Appearance Clear Clear Urine Odor Normal Normal Stool Size Large Moderate Stool Characteristics Formed Soft Formed Voiding Methods Toilet Toilet Laboratory Results WBC 7.26 k/cumm (4.4-10.8) 03/01/18 11:24 RBC 3.63 m/cumm (4.50-6.00) L 03/01/18 11:24 Hgb 11.8 g/dL (13.5-17.5) L 03/01/18 11:24 Hct 36.6 % (40.0-50.0) L 03/01/18 11:24 MCV 100.8 fL (80-95) H 03/01/18 11:24 MCH 32.5 pg (27.0-33.0) 03/01/18 11:24 MCHC 32.2 g/dL (32.0-36.0) 03/01/18 11:24 RDW 13.8 % (11.8-14.1) 03/01/18 11:24 Plt Count 223 x1000/uL (130-400) 03/01/18 11:24 MPV 9.2 fL (8.0-11.0) 03/01/18 11:24 Immature Gran % 0.1 01/18/18 06:50 Neutrophils % 59.8 01/18/18 06:50 Lymphocytes % 22.0 01/18/18 06:50 Monocytes % 15.0 01/18/18 06:50 Eosinophils % 3.0 01/18/18 06:50 Basophils % 0.1 01/18/18 06:50 Absolute Neutrophils 4.45 k/cumm (1.2-6.7) 01/18/18 06:50 Absolute Lymphocytes 1.64 k/cumm (1.2-3.4) 01/18/18 06:50 Absolute Monocytes 1.12 k/cumm (0.11-0.7) H 01/18/18 06:50 Absolute Eosinophils 0.22 k/cumm (0.0-0.7) 01/18/18 06:50 Absolute Basophils 0.01 k/cumm (0.0-0.2) 01/18/18 06:50 Sodium 141 mmol/L (136-145) 03/17/18 11:00 Potassium 4.0 mmol/L (3.5-5.1) 03/17/18 11:00 Chloride 103 mmol/L (98-107) 03/17/18 11:00 Carbon Dioxide 26.6 mmol/L (21.0-32.0) 03/17/18 11:00 Anion Gap 11.4 mmol/L (3-11) H 03/17/18 11:00 BUN 32 mg/dL (7-18) H 03/17/18 11:00 Creatinine 1.50 mg/dL (0.70-1.30) H 03/17/18 11:00 Estimated GFR/1.73 m2 45.75 (mL/min/1.73m2) 03/17/18 11:00 Glucose 162 mg/dL (70-100) H 03/17/18 11:00 Hemoglobin A1c 6.9 % (4.5-6.2) H 12/10/17 06:48 Uric Acid 7.5 mg/dL (3.5-7.2) H 01/18/18 06:50 Calcium 9.0 mg/dL (8.5-10.1) 03/17/18 11:00 Total Bilirubin 0.3 mg/dL (0.2-1.0) 01/18/18 06:50 AST 11 U/L (15-37) L 01/18/18 06:50 ALT 17 U/L (12-78) 01/18/18 06:50 Alkaline Phosphatase 55 U/L (46-116) 01/18/18 06:50 NT-Pro-B Natriuret Pep 219 pg/mL (-299) 03/01/18 11:24 Total Protein 6.8 g/dL (6.4-8.2) 01/18/18 06:50 Albumin 2.9 g/dL (3.4-5.0) L 01/18/18 06:50 Triglycerides 75 mg/dL (30-150) 12/21/17 06:35 Total Cholesterol 126 mg/dL (50-200) 12/21/17 06:35 LDL Cholesterol Direct 83 mg/dL (<100) 12/21/17 06:35 HDL Cholesterol 37 mg/dL (40-60) L 12/21/17 06:35 TSH 2.03 uIU/mL (0.358-3.74) 01/18/18 06:50 Urine Color Yellow (Yellow) 01/19/18 13:05 Urine Clarity Clear 01/19/18 13:05 Urine pH 6.0 (5-8) 01/19/18 13:05 Ur Specific [place] 1.020 (1.005-1.025) 01/19/18 13:05 Urine Protein Negative mg/dL (Negative) 01/19/18 13:05 Urine Ketones Negative mg/dL (Negative) 01/19/18 13:05 Urine Blood Negative (Negative) 01/19/18 13:05 Urine Nitrite Negative (Negative) 01/19/18 13:05 Urine Bilirubin Negative (Negative) 01/19/18 13:05 Urine Urobilinogen 0.2 EU/dL (Up TO 0.2) 01/19/18 13:05 Ur Leukocyte Esterase Trace (Negative) H 01/19/18 13:05 Urine RBC Negative (0-2) 01/19/18 13:05 Urine WBC >50 HPF (0-5) 01/19/18 13:05 Ur Epithelial Cells Few HPF (Negative) 01/19/18 13:05 Urine Crystals Moderate amorphous HPF (Negative) 01/19/18 13:05 Urine Bacteria Few HPF (Negative) 01/19/18 13:05 Urine Casts Negative LPF (Negative) 01/19/18 13:05 Urine Mucus Trace (Negative) 01/19/18 13:05 Ur Culture Indicated? Yes 01/19/18 13:05 Urine Glucose Negative mg/dL (Negative) 01/19/18 13:05
[2018-05-03] MEDS: Mirtazapine 15 MG TAB 7.5 MG PO (20:09)
[2018-05-03] MEDS: traZODone 50 MG TAB 100 MG PO (20:09)
[2018-05-03] MEDS: risperiDONE 0.25 MG TAB 0.5 MG PO (20:09)
[2018-05-03] MEDS: Melatonin 3 MG TAB 9 MG PO (20:09)
[2018-05-03] MEDS: Senna TAB 2 TAB PO (20:10)
[2018-05-03] MEDS: Docusate Sodium 100 MG/10 ML CUP PO (20:10)
[2018-05-03] MEDS: Acetaminophen 325 MG TAB 650 MG PO (20:12)
[2018-05-04 04:03] VITALS: RESP 18
[2018-05-04] MEDS: LORazepam 0.5 MG TAB PO ×2 (10:22→20:45)
[2018-05-04] MEDS: Bacitracin 1 PACKET TP ×3 (10:22→20:49)
[2018-05-04] MEDS: Aspirin 81 MG CHEW PO (10:22)
[2018-05-04] MEDS: risperiDONE 0.25 MG TAB PO (10:22)
[2018-05-04] MEDS: Potassium Chloride 10 MEQ CAPCR 20 MEQ PO (10:22)
[2018-05-04] MEDS: Polyethylene Glycol 3350 17 GM PACKET PO (10:22)
[2018-05-04] MEDS: Citalopram 10 MG TAB 20 MG PO (10:22)
--- NOTE | 2018-05-04 16:53 | PDOC.CMACT ---
- If Service Date Differs Date of service: 05/04/18 Time of Service: 16:53 Care Management Activity Note S/O: Mary Beth has been visited by family today CM met him while ambulating the halls with his spouse. He showered today and is interactive with staff. Mary Beth is offered activities including hands on activities to allow him time to fidget. 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 He appears to enjoy walking in the halls. CM offers daily visit and updates on current activities. Mary Beth at times will speak full sentences and has been to the CM office several times this week. CM ambulates in the halls with patient often and assists in redirection. Spouse has been updated with current plan and bed status. A: Mary Beth is a 72 year old male with dementia awaiting placement in [facility] home vs LTC facility. P: No change in Mary Beth's status today. He continues to have a patient observer. Dr. Caicedo continues to consult. Mary Beth will transition to AFC vs LTC when placement is offered. Anticipate the service will be provided through [facility] awaiting confirmation. CM left message with Wang Mccloud for update. CM to continue to provide support to patient and family ongoing discharge planning and disposition
[2018-05-04] MEDS: Mirtazapine 15 MG TAB 7.5 MG PO (20:46)
[2018-05-04] MEDS: Acetaminophen 325 MG TAB 650 MG PO (20:46)
[2018-05-04] MEDS: traZODone 50 MG TAB 100 MG PO (20:47)
[2018-05-04] MEDS: Senna TAB 2 TAB PO (20:47)
[2018-05-04] MEDS: risperiDONE 0.25 MG TAB 0.5 MG PO (20:48)
[2018-05-04] MEDS: Melatonin 3 MG TAB 9 MG PO (20:48)
[2018-05-04] MEDS: Docusate Sodium 100 MG/10 ML CUP PO (20:49)
[2018-05-05] MEDS: Docusate Sodium 100 MG/10 ML CUP PO ×2 (07:49→21:05)
[2018-05-05] MEDS: Aspirin 81 MG CHEW PO (07:49)
[2018-05-05] MEDS: Polyethylene Glycol 3350 17 GM PACKET PO (07:49)
[2018-05-05] MEDS: risperiDONE 0.25 MG TAB PO (07:49)
[2018-05-05] MEDS: Citalopram 10 MG TAB 20 MG PO (07:50)
[2018-05-05] MEDS: Bacitracin 1 PACKET TP ×3 (07:50→21:05)
[2018-05-05] MEDS: Potassium Chloride 10 MEQ CAPCR 20 MEQ PO (07:50)
[2018-05-05] MEDS: LORazepam 0.5 MG TAB PO (07:50)
[2018-05-05] MEDS: Melatonin 3 MG TAB 9 MG PO (21:06)
[2018-05-05] MEDS: Mirtazapine 15 MG TAB 7.5 MG PO (21:06)
[2018-05-05] MEDS: Senna TAB 2 TAB PO (21:07)
[2018-05-05] MEDS: traZODone 50 MG TAB 100 MG PO (21:07)
[2018-05-05] MEDS: risperiDONE 0.25 MG TAB 0.5 MG PO (21:07)
--- NOTE | 2018-05-06 07:55 | NUR.NOTE ---
Nursing Note 05/06/18 Mary Beth had a good night. Mary Beth slept and woke x 2 walked to bathroom to void and easily went back to bed. Mary Beth pleasant and cooperative when up.
--- NOTE | 2018-05-06 13:17 | NUR.NOTE ---
Nursing Note: 1235: random fs 119. pt exhibits some signs that could be hypoglycemia; body shakes, diaphoresis, unable to make eye contact. pt did not eat breakfast as he slept through it and had just recently awoken for the day.
[2018-05-06] MEDS: Bacitracin 1 PACKET TP (13:33)
[2018-05-06] MEDS: Acetaminophen 325 MG TAB 650 MG PO (13:34)
[2018-05-06] MEDS: Potassium Chloride 10 MEQ CAPCR 20 MEQ PO (13:34)
[2018-05-06] MEDS: Citalopram 10 MG TAB 20 MG PO (13:34)
[2018-05-06] MEDS: risperiDONE 0.25 MG TAB PO (13:35)
[2018-05-06] MEDS: LORazepam 0.5 MG TAB PO (13:35)
[2018-05-06] MEDS: Aspirin 81 MG CHEW PO (13:35)
[2018-05-06] MEDS: Melatonin 3 MG TAB 9 MG PO (19:42)
[2018-05-06] MEDS: risperiDONE 0.25 MG TAB 0.5 MG PO (19:42)
[2018-05-06] MEDS: Mirtazapine 15 MG TAB 7.5 MG PO (19:42)
[2018-05-06] MEDS: Senna TAB 2 TAB PO (19:43)
[2018-05-06] MEDS: traZODone 50 MG TAB 100 MG PO (19:43)
[2018-05-07] MEDS: Docusate Sodium 100 MG/10 ML CUP PO ×2 (09:28→21:02)
[2018-05-07] MEDS: Polyethylene Glycol 3350 17 GM PACKET PO (09:28)
[2018-05-07] MEDS: Citalopram 10 MG TAB 20 MG PO (09:29)
[2018-05-07] MEDS: risperiDONE 0.25 MG TAB PO (09:29)
[2018-05-07] MEDS: Bacitracin 1 PACKET TP ×2 (09:29→21:02)
[2018-05-07] MEDS: Potassium Chloride 10 MEQ CAPCR 20 MEQ PO (09:29)
[2018-05-07] MEDS: LORazepam 0.5 MG TAB PO ×2 (09:29→21:03)
[2018-05-07] MEDS: Aspirin 81 MG CHEW PO (09:30)
[2018-05-07] MEDS: traZODone 50 MG TAB 100 MG PO (21:02)
[2018-05-07] MEDS: Mirtazapine 15 MG TAB 7.5 MG PO (21:02)
[2018-05-07] MEDS: Melatonin 3 MG TAB 9 MG PO (21:02)
[2018-05-07] MEDS: risperiDONE 0.25 MG TAB 0.5 MG PO (21:03)
[2018-05-07] MEDS: Senna TAB 2 TAB PO (21:03)
[2018-05-08] MEDS: Acetaminophen 325 MG TAB 650 MG PO (02:34)
[2018-05-08] MEDS: LORazepam 0.5 MG TAB PO ×2 (02:34→12:03)
[2018-05-08] MEDS: Milk of Magnesia 30 ML CUP PO (02:34)
[2018-05-08] MEDS: Bacitracin 1 PACKET TP ×2 (12:03→23:00)
[2018-05-08] MEDS: risperiDONE 0.25 MG TAB PO (12:03)
[2018-05-08] MEDS: Docusate Sodium 100 MG/10 ML CUP PO ×2 (12:03→23:00)
[2018-05-08] MEDS: Polyethylene Glycol 3350 17 GM PACKET PO (12:03)
[2018-05-08] MEDS: Citalopram 10 MG TAB 20 MG PO (12:04)
[2018-05-08] MEDS: Aspirin 81 MG CHEW PO (12:04)
[2018-05-08] MEDS: Potassium Chloride 10 MEQ CAPCR 20 MEQ PO (12:04)
[2018-05-08] MEDS: Mirtazapine 15 MG TAB 7.5 MG PO (23:01)
[2018-05-08] MEDS: traZODone 50 MG TAB 100 MG PO (23:01)
[2018-05-08] MEDS: Melatonin 3 MG TAB 9 MG PO (23:01)
[2018-05-08] MEDS: risperiDONE 0.25 MG TAB 0.5 MG PO (23:01)
[2018-05-08] MEDS: Senna TAB 2 TAB PO (23:01)
[2018-05-09] MEDS: Polyethylene Glycol 3350 17 GM PACKET PO (09:44)
[2018-05-09] MEDS: Docusate Sodium 100 MG/10 ML CUP PO ×2 (09:44→20:03)
[2018-05-09] MEDS: Aspirin 81 MG CHEW PO (09:45)
[2018-05-09] MEDS: Potassium Chloride 10 MEQ CAPCR 20 MEQ PO (09:45)
[2018-05-09] MEDS: Bacitracin 1 PACKET TP ×2 (09:45→20:03)
[2018-05-09] MEDS: LORazepam 0.5 MG TAB PO ×2 (09:45→17:31)
[2018-05-09] MEDS: Acetaminophen 325 MG TAB 650 MG PO (09:45)
[2018-05-09] MEDS: risperiDONE 0.25 MG TAB PO (09:46)
[2018-05-09] MEDS: Citalopram 10 MG TAB 20 MG PO (09:46)
[2018-05-09] MEDS: Melatonin 3 MG TAB 9 MG PO (20:02)
[2018-05-09] MEDS: Mirtazapine 15 MG TAB 7.5 MG PO (20:02)
[2018-05-09] MEDS: traZODone 50 MG TAB 100 MG PO (20:02)
[2018-05-09] MEDS: Senna TAB 2 TAB PO (20:03)
[2018-05-09] MEDS: risperiDONE 0.25 MG TAB 0.5 MG PO (20:03)
[2018-05-10] MEDS: Bacitracin 1 PACKET TP ×2 (09:40→20:12)
[2018-05-10] MEDS: Docusate Sodium 100 MG/10 ML CUP PO ×2 (09:40→20:12)
[2018-05-10] MEDS: Citalopram 10 MG TAB 20 MG PO (09:41)
[2018-05-10] MEDS: Acetaminophen 325 MG TAB 650 MG PO ×2 (09:41→20:12)
[2018-05-10] MEDS: risperiDONE 0.25 MG TAB PO (09:41)
[2018-05-10] MEDS: LORazepam 0.5 MG TAB PO (09:41)
[2018-05-10] MEDS: Polyethylene Glycol 3350 17 GM PACKET PO (09:41)
[2018-05-10] MEDS: Aspirin 81 MG CHEW PO (09:41)
[2018-05-10] MEDS: Potassium Chloride 10 MEQ CAPCR 20 MEQ PO (09:41)
[2018-05-10 11:22] VITALS: BP 121/64; PULSE 58; RESP 16; TEMP 37.4; O2SAT 97
[2018-05-10] MEDS: risperiDONE 0.25 MG TAB 0.5 MG PO (20:11)
[2018-05-10] MEDS: Mirtazapine 15 MG TAB 7.5 MG PO (20:12)
[2018-05-10] MEDS: Melatonin 3 MG TAB 9 MG PO (20:13)
[2018-05-10] MEDS: Senna TAB 2 TAB PO (20:13)
[2018-05-10] MEDS: traZODone 50 MG TAB 100 MG PO (20:14)
[2018-05-11] MEDS: Aspirin 81 MG CHEW PO (09:37)
[2018-05-11] MEDS: Citalopram 10 MG TAB 20 MG PO (09:37)
[2018-05-11] MEDS: Acetaminophen 325 MG TAB 650 MG PO (09:37)
[2018-05-11] MEDS: risperiDONE 0.25 MG TAB PO (09:37)
[2018-05-11] MEDS: Polyethylene Glycol 3350 17 GM PACKET PO (09:37)
[2018-05-11] MEDS: Bacitracin 1 PACKET TP ×2 (09:37→20:23)
[2018-05-11] MEDS: LORazepam 0.5 MG TAB PO (09:37)
[2018-05-11] MEDS: Potassium Chloride 10 MEQ CAPCR 20 MEQ PO (09:38)
[2018-05-11] MEDS: Docusate Sodium 100 MG/10 ML CUP PO ×2 (09:38→20:23)
--- NOTE | 2018-05-11 15:06 | PDOC.CMACT ---
Care Management Activity Note Mary Beth continues to enjoy visiting with his and family. He recently celebrated his anniversary with his , and the [facility] staff all signed a card with Mary Beth to present to his and they celebrated with mary as well. Mary Beth ambulates often and likes to keep moving. He enjoys tinkering with objects and has a curious mind. His dementia is progressive and he requires support but is beloved by the staff. His plan remains the same-to discharge to LTC facility when bed becomes available. In the interim; [facility] staff works diligently to keep Mary Beth as content and well cared for as possible.
--- NOTE | 2018-05-11 15:35 | CMACTNOTE_ITS ---
Care Management Activity Note Mary Beth continues to enjoy visiting with his and family. He recently celebrated his anniversary with his , and the [facility] staff all signed a card with Mary Beth to present to his and they celebrated with mary as well. Mary Beth ambulates often and likes to keep moving. He enjoys tinkering with objects and has a curious mind. His dementia is progressive and he requires support but is beloved by the staff. His plan remains the same-to discharge to LTC facility when bed becomes available. In the interim; [facility] staff works diligently to keep Mary Beth as content and well cared for as possible.
[2018-05-11] MEDS: Mirtazapine 15 MG TAB 7.5 MG PO (20:22)
[2018-05-11] MEDS: risperiDONE 0.25 MG TAB 0.5 MG PO (20:23)
[2018-05-11] MEDS: traZODone 50 MG TAB 100 MG PO (20:23)
[2018-05-11] MEDS: Melatonin 3 MG TAB 9 MG PO (20:23)
[2018-05-11] MEDS: Senna TAB 2 TAB PO (20:24)
--- NOTE | 2018-05-12 06:45 | NUR.NOTE ---
Nursing Note:05/12/18 Mary Beth had a good night. Slept well, waken to void in toilet x 1. Up this morning in chair watching television. Pleasant and cooperative.
[2018-05-12] MEDS: Polyethylene Glycol 3350 17 GM PACKET PO (07:51)
[2018-05-12] MEDS: LORazepam 0.5 MG TAB PO (07:52)
[2018-05-12] MEDS: Bacitracin 1 PACKET TP ×3 (07:52→21:25)
[2018-05-12] MEDS: Potassium Chloride 10 MEQ CAPCR 20 MEQ PO (07:52)
[2018-05-12] MEDS: Citalopram 10 MG TAB 20 MG PO (07:52)
[2018-05-12] MEDS: risperiDONE 0.25 MG TAB PO (07:52)
[2018-05-12] MEDS: Acetaminophen 325 MG TAB 650 MG PO (07:53)
[2018-05-12] MEDS: Aspirin 81 MG CHEW PO (07:53)
[2018-05-12] MEDS: traZODone 50 MG TAB 100 MG PO (21:25)
[2018-05-12] MEDS: Melatonin 3 MG TAB 9 MG PO (21:25)
[2018-05-12] MEDS: Docusate Sodium 100 MG/10 ML CUP PO (21:25)
[2018-05-12] MEDS: Mirtazapine 15 MG TAB 7.5 MG PO (21:25)
[2018-05-12] MEDS: Senna TAB 2 TAB PO (21:26)
[2018-05-12] MEDS: risperiDONE 0.25 MG TAB 0.5 MG PO (21:26)
[2018-05-13] MEDS: LORazepam 0.5 MG TAB PO ×2 (09:43→18:57)
[2018-05-13] MEDS: Citalopram 10 MG TAB 20 MG PO (09:43)
[2018-05-13] MEDS: Bacitracin 1 PACKET TP ×2 (09:43→14:44)
[2018-05-13] MEDS: Polyethylene Glycol 3350 17 GM PACKET PO (09:43)
[2018-05-13] MEDS: Aspirin 81 MG CHEW PO (09:43)
[2018-05-13] MEDS: Potassium Chloride 10 MEQ CAPCR 20 MEQ PO (09:43)
[2018-05-13] MEDS: risperiDONE 0.25 MG TAB PO (09:43)
[2018-05-13] MEDS: Docusate Sodium 100 MG/10 ML CUP PO (14:44)
[2018-05-13] MEDS: Mirtazapine 15 MG TAB 7.5 MG PO (18:54)
[2018-05-13] MEDS: Melatonin 3 MG TAB 9 MG PO (18:54)
[2018-05-13] MEDS: risperiDONE 0.25 MG TAB 0.5 MG PO (18:55)
[2018-05-13] MEDS: traZODone 50 MG TAB 100 MG PO (18:55)
[2018-05-14] MEDS: Milk of Magnesia 30 ML CUP PO (05:11)
[2018-05-14] MEDS: Bacitracin 1 PACKET TP (11:48)
[2018-05-14] MEDS: Potassium Chloride 10 MEQ CAPCR 20 MEQ PO (11:48)
[2018-05-14] MEDS: Polyethylene Glycol 3350 17 GM PACKET PO (11:48)
[2018-05-14] MEDS: Citalopram 10 MG TAB 20 MG PO (11:48)
[2018-05-14] MEDS: Aspirin 81 MG CHEW PO (11:48)
[2018-05-14] MEDS: Docusate Sodium 100 MG/10 ML CUP PO ×2 (11:48→20:15)
[2018-05-14] MEDS: risperiDONE 0.25 MG TAB PO (11:49)
[2018-05-14] MEDS: LORazepam 0.5 MG TAB PO (11:49)
[2018-05-14] MEDS: Senna TAB 2 TAB PO (20:13)
[2018-05-14] MEDS: Melatonin 3 MG TAB 9 MG PO (20:13)
[2018-05-14] MEDS: Acetaminophen 325 MG TAB 650 MG PO (20:13)
[2018-05-14] MEDS: risperiDONE 0.25 MG TAB 0.5 MG PO (20:13)
[2018-05-14] MEDS: traZODone 50 MG TAB 100 MG PO (20:14)
[2018-05-14] MEDS: Mirtazapine 15 MG TAB 7.5 MG PO (20:14)
[2018-05-15] MEDS: LORazepam 0.5 MG TAB PO ×3 (07:35→20:38)
[2018-05-15] MEDS: Polyethylene Glycol 3350 17 GM PACKET PO (07:35)
[2018-05-15] MEDS: Aspirin 81 MG CHEW PO (07:35)
[2018-05-15] MEDS: Citalopram 10 MG TAB 20 MG PO (07:35)
[2018-05-15] MEDS: Bacitracin 1 PACKET TP ×2 (07:35→20:36)
[2018-05-15] MEDS: Docusate Sodium 100 MG/10 ML CUP PO ×2 (07:36→20:35)
[2018-05-15] MEDS: risperiDONE 0.25 MG TAB PO (07:36)
[2018-05-15] MEDS: Potassium Chloride 10 MEQ CAPCR 20 MEQ PO (07:37)
--- NOTE | 2018-05-15 17:04 | NUR.NOTE ---
Nursing Note: Pt received Ativan PRN for agitation.
[2018-05-15] MEDS: Mirtazapine 15 MG TAB 7.5 MG PO (20:36)
[2018-05-15] MEDS: traZODone 50 MG TAB 100 MG PO (20:36)
[2018-05-15] MEDS: Melatonin 3 MG TAB 9 MG PO (20:36)
[2018-05-15] MEDS: Senna TAB 2 TAB PO (20:36)
[2018-05-15] MEDS: risperiDONE 0.25 MG TAB 0.5 MG PO (20:47)
--- NOTE | 2018-05-15 20:48 | NUR.NOTE ---
Nursing Note: Patient is becoming agitated, pushes RN and cadre and forces his way to the nurse's station. PRN Ativan p.o given
[2018-05-16] MEDS: Acetaminophen 325 MG TAB 650 MG PO ×3 (00:20→18:23)
[2018-05-16] MEDS: Potassium Chloride 10 MEQ CAPCR 20 MEQ PO (07:42)
[2018-05-16] MEDS: Bacitracin 1 PACKET TP (07:42)
[2018-05-16] MEDS: LORazepam 0.5 MG TAB PO ×2 (07:42→18:24)
[2018-05-16] MEDS: Docusate Sodium 100 MG/10 ML CUP PO ×2 (07:42→20:51)
[2018-05-16] MEDS: Aspirin 81 MG CHEW PO (07:42)
[2018-05-16] MEDS: Polyethylene Glycol 3350 17 GM PACKET PO (07:42)
[2018-05-16] MEDS: risperiDONE 0.25 MG TAB PO (07:43)
[2018-05-16] MEDS: Citalopram 10 MG TAB 20 MG PO (07:43)
[2018-05-16] MEDS: Melatonin 3 MG TAB 9 MG PO (20:51)
[2018-05-16] MEDS: Mirtazapine 15 MG TAB 7.5 MG PO (20:51)
[2018-05-16] MEDS: traZODone 50 MG TAB 100 MG PO (20:51)
[2018-05-16] MEDS: Senna TAB 2 TAB PO (20:51)
[2018-05-16] MEDS: risperiDONE 0.25 MG TAB 0.5 MG PO (20:51)
[2018-05-17] MEDS: Docusate Sodium 100 MG/10 ML CUP PO ×2 (10:42→19:56)
[2018-05-17] MEDS: Bacitracin 1 PACKET TP ×2 (10:42→19:56)
[2018-05-17] MEDS: Potassium Chloride 10 MEQ CAPCR 20 MEQ PO (10:42)
[2018-05-17] MEDS: Polyethylene Glycol 3350 17 GM PACKET PO (10:42)
[2018-05-17] MEDS: Acetaminophen 325 MG TAB 650 MG PO (10:43)
[2018-05-17] MEDS: Citalopram 10 MG TAB 20 MG PO (10:43)
[2018-05-17] MEDS: Aspirin 81 MG CHEW PO (10:43)
[2018-05-17] MEDS: LORazepam 0.5 MG TAB PO (10:43)
[2018-05-17] MEDS: risperiDONE 0.25 MG TAB PO (10:43)
[2018-05-17 11:50] VITALS: BP 125/69; PULSE 61; RESP 18; TEMP 36.4; O2SAT 95
[2018-05-17] MEDS: risperiDONE 0.25 MG TAB 0.5 MG PO (19:56)
[2018-05-17] MEDS: Melatonin 3 MG TAB 9 MG PO (19:56)
[2018-05-17] MEDS: Senna TAB 2 TAB PO (19:56)
[2018-05-17] MEDS: Mirtazapine 15 MG TAB 7.5 MG PO (19:56)
[2018-05-17] MEDS: traZODone 50 MG TAB 100 MG PO (19:56)
[2018-05-18] MEDS: Polyethylene Glycol 3350 17 GM PACKET PO (11:26)
[2018-05-18] MEDS: Potassium Chloride 10 MEQ CAPCR 20 MEQ PO (11:27)
[2018-05-18] MEDS: Docusate Sodium 100 MG/10 ML CUP PO ×2 (11:27→20:02)
[2018-05-18] MEDS: Bacitracin 1 PACKET TP ×2 (11:27→20:02)
[2018-05-18] MEDS: LORazepam 0.5 MG TAB PO ×2 (11:28→15:06)
[2018-05-18] MEDS: risperiDONE 0.25 MG TAB PO (11:29)
[2018-05-18] MEDS: Aspirin 81 MG CHEW PO (11:30)
[2018-05-18] MEDS: Citalopram 10 MG TAB 20 MG PO (11:33)
[2018-05-18] MEDS: Acetaminophen 325 MG TAB 650 MG PO ×2 (15:06→20:15)
[2018-05-18] MEDS: Melatonin 3 MG TAB 9 MG PO (20:02)
[2018-05-18] MEDS: traZODone 50 MG TAB 100 MG PO (20:02)
[2018-05-18] MEDS: Mirtazapine 15 MG TAB 7.5 MG PO (20:02)
[2018-05-18] MEDS: Senna TAB 2 TAB PO (20:02)
[2018-05-18] MEDS: risperiDONE 0.25 MG TAB 0.5 MG PO (20:02)
[2018-05-18 20:12] VITALS: BP 136/66; PULSE 69; RESP 19; TEMP 37.3; O2SAT 96
[2018-05-19] MEDS: Aspirin 81 MG CHEW PO (11:06)
[2018-05-19] MEDS: Docusate Sodium 100 MG/10 ML CUP PO ×3 (11:06→20:34)
[2018-05-19] MEDS: Polyethylene Glycol 3350 17 GM PACKET PO (11:06)
[2018-05-19] MEDS: Bacitracin 1 PACKET TP ×3 (11:06→20:35)
[2018-05-19] MEDS: risperiDONE 0.25 MG TAB PO (11:07)
[2018-05-19] MEDS: LORazepam 0.5 MG TAB PO ×2 (11:08→18:27)
[2018-05-19] MEDS: Citalopram 10 MG TAB 20 MG PO (11:10)
[2018-05-19] MEDS: Acetaminophen 325 MG TAB 650 MG PO (11:11)
[2018-05-19] MEDS: Potassium Chloride 10 MEQ CAPCR 20 MEQ PO (11:12)
--- NOTE | 2018-05-19 15:26 | PDOC.CMACT ---
- If Service Date Differs Date of service: 05/19/18 Time of Service: 15:26 Care Management Activity Note S/O: Mary Beth has been visited by family today CM met him while ambulating the halls with his spouse. 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 He appears to enjoy walking in the halls. CM offers daily visit and updates on current activities. Mary Beth appears to enjoy visits with his family and walking in the [place]. A: Mary Beth is a 72 year old male with dementia awaiting placement in [facility] home vs LTC facility. P: No change in Mary Beth's status today. He continues to have a patient observer. Dr. Caicedo continues to consult. [facility] continue to not have bed availability at this time. CM contacted admissions at [facility] and [facility] for update. Referral has been resent to AFC agencies awaiting update from [facility].
--- NOTE | 2018-05-19 15:36 | CMACTNOTE_ITS ---
- If Service Date Differs Date of service: 05/19/18 Time of Service: 15:26 Care Management Activity Note S/O: Mary Beth has been visited by family today CM met him while ambulating the halls with his spouse. 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 He appears to enjoy walking in the halls. CM offers daily visit and updates on current activities. Mary Beth appears to enjoy visits with his family and walking in the [place]. A: Mary Beth is a 72 year old male with dementia awaiting placement in [facility] home vs LTC facility. P: No change in Mary Beth's status today. He continues to have a patient observer. Dr. Caicedo continues to consult. [facility] continue to not have bed availability at this time. CM contacted admissions at [facility] and [facility] for update. Referral has been resent to AFC agencies awaiting update from [facility].
[2018-05-19] MEDS: Melatonin 3 MG TAB 9 MG PO (20:34)
[2018-05-19] MEDS: traZODone 50 MG TAB 100 MG PO (20:34)
[2018-05-19] MEDS: Senna TAB 2 TAB PO (20:34)
[2018-05-19] MEDS: risperiDONE 0.25 MG TAB 0.5 MG PO (20:35)
[2018-05-19] MEDS: Mirtazapine 15 MG TAB 7.5 MG PO (20:35)
[2018-05-20] MEDS: LORazepam 0.5 MG TAB PO ×2 (04:49→08:01)
[2018-05-20] MEDS: Docusate Sodium 100 MG/10 ML CUP PO ×2 (08:00→19:31)
[2018-05-20] MEDS: Polyethylene Glycol 3350 17 GM PACKET PO (08:00)
[2018-05-20] MEDS: Citalopram 10 MG TAB 20 MG PO (08:01)
[2018-05-20] MEDS: risperiDONE 0.25 MG TAB PO (08:01)
[2018-05-20] MEDS: Potassium Chloride 10 MEQ CAPCR 20 MEQ PO (08:01)
[2018-05-20] MEDS: Aspirin 81 MG CHEW PO (08:01)
[2018-05-20] MEDS: Acetaminophen 325 MG TAB 650 MG PO ×2 (08:01→19:31)
[2018-05-20] MEDS: Bacitracin 1 PACKET TP ×2 (08:06→19:32)
[2018-05-20] MEDS: Melatonin 3 MG TAB 9 MG PO (19:31)
[2018-05-20] MEDS: traZODone 50 MG TAB 100 MG PO (19:31)
[2018-05-20] MEDS: risperiDONE 0.25 MG TAB 0.75 MG PO (19:32)
[2018-05-20] MEDS: Mirtazapine 15 MG TAB 7.5 MG PO (19:32)
[2018-05-20] MEDS: Senna TAB 2 TAB PO (19:32)
[2018-05-21] MEDS: Docusate Sodium 100 MG/10 ML CUP PO ×2 (11:46→19:22)
[2018-05-21] MEDS: Bacitracin 1 PACKET TP ×2 (11:46→19:23)
[2018-05-21] MEDS: Polyethylene Glycol 3350 17 GM PACKET PO (11:46)
[2018-05-21] MEDS: Acetaminophen 325 MG TAB 650 MG PO ×2 (11:47→19:23)
[2018-05-21] MEDS: Potassium Chloride 10 MEQ CAPCR 20 MEQ PO (11:47)
[2018-05-21] MEDS: risperiDONE 0.25 MG TAB PO (11:47)
[2018-05-21] MEDS: LORazepam 0.5 MG TAB PO (11:47)
[2018-05-21] MEDS: Citalopram 10 MG TAB 20 MG PO (11:47)
[2018-05-21] MEDS: Aspirin 81 MG CHEW PO (11:47)
--- NOTE | 2018-05-21 16:07 | W.PM.PROGNOT ---
Date of Service Date of service: 05/21/18 Time of Service: 16:21 Assessment and Plan (1) Dementia: Continue increased dose of risperidone, having weighed pros and cons of increasing risperidone dose vs relying on prn benzodiazepines for breakthrough behaviors. I feel increasing risperidone is safest for both patient and staff - and it helped with his sleep. Continue 1:1 monitoring and continue to look for placement Qualifiers: Dementia type: Alzheimer's disease Alzheimer's disease onset: unspecified onset Dementia behavioral disturbance: with behavioral disturbance Qualified Code(s): G30.9 - Alzheimer's disease, unspecified; F02.81 - Dementia in other diseases classified elsewhere with behavioral disturbance (2) Discharge planning issues: Subjective Interval history since last seen: Interval history since last seen: I was informed yesterday that the patient was swinging at staff overnight and required prn ativan most nights this week. Per staff, the patient also had not slept in 2 days. I have increased his night time risperidone dose to 0.75 mg. After this, the patient slept and woke up today most clear he had been in days, per staff. His responses to my questions are minimal. Exam Narrative Exam Narrative: General: patient seen ambulating in the hallway. Calm, cooperative HEENT; EOMI, MMM Heart: RRR Lungs: CTAB GI: abdomen nondistended Extremities: no obvious edema
[2018-05-21] MEDS: Melatonin 3 MG TAB 9 MG PO (19:22)
[2018-05-21] MEDS: risperiDONE 0.25 MG TAB 0.75 MG PO (19:23)
[2018-05-21] MEDS: Senna TAB 2 TAB PO (19:23)
[2018-05-21] MEDS: traZODone 50 MG TAB 100 MG PO (19:23)
[2018-05-21] MEDS: Mirtazapine 15 MG TAB 7.5 MG PO (19:23)
[2018-05-22] MEDS: Docusate Sodium 100 MG/10 ML CUP PO ×2 (08:06→19:55)
[2018-05-22] MEDS: Aspirin 81 MG CHEW PO (08:06)
[2018-05-22] MEDS: Bacitracin 1 PACKET TP ×2 (08:06→19:55)
[2018-05-22] MEDS: Polyethylene Glycol 3350 17 GM PACKET PO (08:06)
[2018-05-22] MEDS: Potassium Chloride 10 MEQ CAPCR 20 MEQ PO (08:06)
[2018-05-22] MEDS: LORazepam 0.5 MG TAB PO (08:06)
[2018-05-22] MEDS: risperiDONE 0.25 MG TAB PO (08:06)
[2018-05-22] MEDS: Citalopram 10 MG TAB 20 MG PO (08:07)
--- NOTE | 2018-05-22 12:35 | PDOC.CMPRO ---
- If Service Date Differs Date of service: 05/22/18 Time of Service: 12:35 Care Management Progress Note S/O: CALVIN met with spouse Kaity she is open to the possibility of Mary Beth returning home if resources could be in place. She is not able to identify any immediate resources however is willing to explore it as a option if no other facility is able to take Mary Beth. CM emailed [facility] to request idea of what support could be at home and what funding would be available. CM will follow up with Crystal Arreola as well at [facility] to determine what resources would be available through the agency as well. Mary Beth's Risperidone was increased after review of his increased inability to sleep and review of PRN Lorazepam. Since the increase he has been more redirectable and per report his rest times have improved. He appears to be more engaged with staff during his awake times. CM will follow up again with [facility] related to bed availability. Last update from [facility] there in not a bed at this time. A: Mary Beth is a 72 year old male with dementia awaiting placement in [facility] home vs LTC facility. P: No change in Mary Beth's status today. He continues to have a patient observer. Dr. Caicedo continues to consult. [facility] continue to not have bed availability at this time. CM contacted admissions at [facility] and [facility] for update. Referral has been resent to AFC agencies awaiting update from [facility].
--- NOTE | 2018-05-22 12:53 | CMPROGNOTE_ITS ---
- If Service Date Differs Date of service: 05/22/18 Time of Service: 12:35 Care Management Progress Note S/O: CALVIN met with spouse Kaity she is open to the possibility of Mary Beth returning home if resources could be in place. She is not able to identify any immediate resources however is willing to explore it as a option if no other facility is able to take Mary Beth. CM emailed [facility] to request idea of what support could be at home and what funding would be available. CM will follow up with Crystal Arreola as well at [facility] to determine what resources would be available through the agency as well. Mary Beth's Risperidone was increased after review of his increased inability to sleep and review of PRN Lorazepam. Since the increase he has been more redirectable and per report his rest times have improved. He appears to be more engaged with staff during his awake times. CM will follow up again with [facility] related to bed availability. Last update from [facility] there in not a bed at this time. A: Mary Beth is a 72 year old male with dementia awaiting placement in [facility] home vs LTC facility. P: No change in Mary Beth's status today. He continues to have a patient observer. Dr. Caicedo continues to consult. [facility] continue to not have bed availability at this time. CM contacted admissions at [facility] and [facility] for update. Referral has been resent to AFC agencies awaiting update from [facility].
--- NOTE | 2018-05-22 13:37 | W.NUTRFU ---
Date of service: 05/22/18 Time of Service: 13:37 Nutritional Follow up NOTE: Mr. Cordero has generally been eating well at meal times. CDM continues to visit with his or nursing staff once or twice per day to get his meal preferences. We continue to give him prunes every morning. His weight is stable at 87.2 kg. His BMI is WNL at 26.8 kg/m2. Will continue to monitor his progress, his weight, and PO intake. Will continue to evaluate his nutrition care plan and adjust as needed. Time Spent in Nutritional Counseling and Treatment: CHRISTIANA
[2018-05-22] MEDS: Melatonin 3 MG TAB 9 MG PO (19:55)
[2018-05-22] MEDS: Senna TAB 2 TAB PO (19:55)
[2018-05-22] MEDS: risperiDONE 0.25 MG TAB 0.75 MG PO (19:55)
[2018-05-22] MEDS: Mirtazapine 15 MG TAB 7.5 MG PO (19:55)
[2018-05-22] MEDS: traZODone 50 MG TAB 100 MG PO (19:56)
--- NOTE | 2018-05-23 03:32 | NUR.NOTE ---
at this point in the shift the pt has been pleasant and cooperative. he has been conversing with staff and his Kaity. He took all his meds and has been cooperative with [facility] care. pt was a little restless around 2300 but he took a walk with staff and managed to get comfortable and fall asleep. will continue to monitor.
[2018-05-23] MEDS: Acetaminophen 325 MG TAB 650 MG PO ×2 (10:25→14:19)
[2018-05-23] MEDS: Citalopram 10 MG TAB 20 MG PO (10:26)
[2018-05-23] MEDS: LORazepam 0.5 MG TAB PO ×2 (10:26→14:19)
[2018-05-23] MEDS: Bacitracin 1 PACKET TP ×3 (10:26→19:38)
[2018-05-23] MEDS: Potassium Chloride 10 MEQ CAPCR 20 MEQ PO (10:26)
[2018-05-23] MEDS: Aspirin 81 MG CHEW PO (10:26)
[2018-05-23] MEDS: Docusate Sodium 100 MG/10 ML CUP PO ×3 (10:26→19:36)
[2018-05-23] MEDS: risperiDONE 0.25 MG TAB PO (10:27)
[2018-05-23] MEDS: Polyethylene Glycol 3350 17 GM PACKET PO (10:28)
[2018-05-23] MEDS: Senna TAB 2 TAB PO (19:36)
[2018-05-23] MEDS: Melatonin 3 MG TAB 9 MG PO (19:36)
[2018-05-23] MEDS: Mirtazapine 15 MG TAB 7.5 MG PO (19:36)
[2018-05-23] MEDS: risperiDONE 0.25 MG TAB 0.75 MG PO (19:37)
[2018-05-23 19:45] VITALS: BP 157/69; PULSE 74; RESP 18; TEMP 37.2; O2SAT 94
[2018-05-23] MEDS: traZODone 50 MG TAB 100 MG PO (21:05)
[2018-05-24] MEDS: Docusate Sodium 100 MG/10 ML CUP PO ×2 (09:15→19:58)
[2018-05-24] MEDS: Citalopram 10 MG TAB 20 MG PO (09:15)
[2018-05-24] MEDS: Bacitracin 1 PACKET TP ×2 (09:15→19:58)
[2018-05-24] MEDS: Potassium Chloride 10 MEQ CAPCR 20 MEQ PO (09:15)
[2018-05-24] MEDS: Acetaminophen 325 MG TAB 650 MG PO (09:15)
[2018-05-24] MEDS: LORazepam 0.5 MG TAB PO (09:16)
[2018-05-24] MEDS: Aspirin 81 MG CHEW PO (09:16)
[2018-05-24] MEDS: risperiDONE 0.25 MG TAB PO (09:16)
[2018-05-24] MEDS: Polyethylene Glycol 3350 17 GM PACKET PO (09:16)
[2018-05-24 19:47] VITALS: BP 133/72; PULSE 66; RESP 18; TEMP 37.6; O2SAT 95
[2018-05-24] MEDS: Melatonin 3 MG TAB 9 MG PO (19:58)
[2018-05-24] MEDS: risperiDONE 0.25 MG TAB 0.75 MG PO (19:58)
[2018-05-24] MEDS: Mirtazapine 15 MG TAB 7.5 MG PO (19:59)
[2018-05-24] MEDS: traZODone 50 MG TAB 100 MG PO (21:12)
[2018-05-24] MEDS: Senna TAB 2 TAB PO (21:12)
--- NOTE | 2018-05-25 01:49 | NUR.NOTE ---
Nursing Note: 7P - 7A Shift;\: Patient was monitored for safety. Cadre at all times on his side. Able to have naps, 1-2 hrs. interval. At this time, he is awake, up and about and snacks given. Bed alarm in placed.
[2018-05-25] MEDS: Bacitracin 1 PACKET TP ×2 (09:10→18:54)
[2018-05-25] MEDS: risperiDONE 0.25 MG TAB PO (09:10)
[2018-05-25] MEDS: Potassium Chloride 10 MEQ CAPCR 20 MEQ PO (09:10)
[2018-05-25] MEDS: Polyethylene Glycol 3350 17 GM PACKET PO (09:10)
[2018-05-25] MEDS: Acetaminophen 325 MG TAB 650 MG PO (09:11)
[2018-05-25] MEDS: Docusate Sodium 100 MG/10 ML CUP PO ×2 (09:11→18:54)
[2018-05-25] MEDS: LORazepam 0.5 MG TAB PO ×3 (09:11→22:20)
[2018-05-25] MEDS: Aspirin 81 MG CHEW PO (09:11)
[2018-05-25] MEDS: Citalopram 10 MG TAB 20 MG PO (09:11)
--- NOTE | 2018-05-25 16:21 | PDOC.CMPRO ---
- If Service Date Differs Date of service: 05/25/18 Time of Service: 16:21 Care Management Progress Note S/O: Mary Beth has been visited by family throughout the week. He continues to have a one on one patient observer to walk with him in the halls as needed. 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 He appears to enjoy walking in the halls. CM offers daily visit and updates on current activities. Mary Beth appears to enjoy visits with his family and walking in the [place]. A: Mary Beth is a 72 year old male with dementia awaiting placement in [facility] home vs LTC facility. P: No change in Mary Beth's status today.CM faxed a referral to [facility] per facility there is one open bed in their dementia unit. He continues to have a patient observer. Dr. Caicedo continues to consult. [facility] continue to not have bed availability at this time. Lnida Mccloud does report that they will take patient once a bed in their unit is available. CM contacted admissions at facility and [facility] for update. Referral has been resent to AF agencies awaiting update from [facility]
--- NOTE | 2018-05-25 16:27 | CMPROGNOTE_ITS ---
- If Service Date Differs Date of service: 05/25/18 Time of Service: 16:21 Care Management Progress Note S/O: Mary Beth has been visited by family throughout the week. He continues to have a one on one patient observer to walk with him in the halls as needed. 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 He appears to enjoy walking in the halls. CM offers daily visit and updates on current activities. Mary Beth appears to enjoy visits with his family and walking in the [place]. A: Mary Beth is a 72 year old male with dementia awaiting placement in [facility] home vs LTC facility. P: No change in Mary Beth's status today.CM faxed a referral to [facility] per facility there is one open bed in their dementia unit. He continues to have a patient observer. Dr. Caicedo continues to consult. [facility] continue to not have bed availability at this time. [facility] does report that they will take patient once a bed in their unit is available. CM contacted admissions at facility and [facility] for update. Referral has been resent to AF agencies awaiting update from [facility].
[2018-05-25] MEDS: Mirtazapine 15 MG TAB 7.5 MG PO (18:53)
[2018-05-25] MEDS: risperiDONE 0.25 MG TAB 0.75 MG PO (18:54)
[2018-05-25] MEDS: Melatonin 3 MG TAB 9 MG PO (18:55)
[2018-05-25] MEDS: Senna TAB 2 TAB PO (19:02)
[2018-05-25] MEDS: traZODone 50 MG TAB 100 MG PO (19:02)
[2018-05-26] MEDS: Aspirin 81 MG CHEW PO (11:11)
[2018-05-26] MEDS: Polyethylene Glycol 3350 17 GM PACKET PO (11:11)
[2018-05-26] MEDS: Acetaminophen 325 MG TAB 650 MG PO (11:11)
[2018-05-26] MEDS: risperiDONE 0.25 MG TAB PO (11:11)
[2018-05-26] MEDS: LORazepam 0.5 MG TAB PO (11:11)
[2018-05-26] MEDS: Bacitracin 1 PACKET TP ×2 (11:11→20:51)
[2018-05-26] MEDS: Potassium Chloride 10 MEQ CAPCR 20 MEQ PO (11:11)
[2018-05-26] MEDS: Citalopram 10 MG TAB 20 MG PO (11:12)
[2018-05-26] MEDS: Docusate Sodium 100 MG/10 ML CUP PO ×2 (11:12→20:51)
--- NOTE | 2018-05-26 14:24 | PDOC.CMPRO ---
- If Service Date Differs Date of service: 05/26/18 Time of Service: 14:24 Care Management Progress Note S/O: CM spoke with Jeffrey Jackson, whom states that they are able to accept Mary Beth to their dementia unit on Tuesday 05/29. CM spoke with Mary Beth's Kaity, whom requested that CM contact [facility] in regards to bed availability. CM spoke with Linda Nagel, whom states that they have no beds available and have no knowledge as to when a bed will be available. CM notified Kaity of this, whom stated that she was hoping for [facility]. CM discussed accepting the bed that is available, and discussed her feelings in regards to the above. Kaity is worried about Mary Beth's transition to another facility, and CM discussed wanting a smooth transition for Mary Beth. Discussed ambulance transport which Dr. Jackman states would be qualified due to Mary Beth's dementia. A: 73 y/o male admitted to [facility] for dementia. P: Mary Beth will DC to [facility] on Tuesday 05/29 @ 1100. He will transport via ambulance. CM to arrange transportation on Tuesday.
--- NOTE | 2018-05-26 14:42 | CMPROGNOTE_ITS ---
- If Service Date Differs Date of service: 05/26/18 Time of Service: 14:24 Care Management Progress Note S/O: CM spoke with Jeffrey Jackson, whom states that they are able to accept Mary Beth to their dementia unit on Tuesday 05/29. CM spoke with Mary Beth's Kaity, whom requested that CM contact [facility] in regards to bed availability. CM spoke with Linda Nagel, whom states that they have no beds available and have no knowledge as to when a bed will be available. CM notified Kaity of this, whom stated that she was hoping for [facility]. CM discussed accepting the bed that is available, and discussed her feelings in regards to the above. Kaity is worried about Mary Beth's transition to another facility, and CM discussed wanting a smooth transition for Mary Beth. Discussed ambulance transport which Dr. Jackman states would be qualified due to Mary Beth's dementia. A: 73 y/o male admitted to [facility] for dementia. P: Mary Beth will DC to [facility] on Tuesday 05/29 @ 1100. He will transport via ambulance. CM to arrange transportation on Tuesday.
[2018-05-26] MEDS: Melatonin 3 MG TAB 9 MG PO (20:51)
[2018-05-26] MEDS: traZODone 50 MG TAB 100 MG PO (20:51)
[2018-05-26] MEDS: Senna TAB 2 TAB PO (20:51)
[2018-05-26] MEDS: risperiDONE 0.25 MG TAB 0.75 MG PO (20:51)
[2018-05-26] MEDS: Mirtazapine 15 MG TAB 7.5 MG PO (20:52)
[2018-05-27] MEDS: Polyethylene Glycol 3350 17 GM PACKET PO (07:38)
[2018-05-27] MEDS: Potassium Chloride 10 MEQ CAPCR 20 MEQ PO (07:39)
[2018-05-27] MEDS: Citalopram 10 MG TAB 20 MG PO (07:39)
[2018-05-27] MEDS: risperiDONE 0.25 MG TAB PO (07:39)
[2018-05-27] MEDS: Bacitracin 1 PACKET TP ×3 (07:39→19:54)
[2018-05-27] MEDS: LORazepam 0.5 MG TAB PO (07:39)
[2018-05-27] MEDS: Aspirin 81 MG CHEW PO (07:39)
--- NOTE | 2018-05-27 15:47 | PDOC.CMPRO ---
- If Service Date Differs Date of service: 05/27/18 Time of Service: 15:47 Care Management Progress Note S/O: CALVIN met with Mary Beth's , Kaity, this afternoon. [facility] has offered Mary Beth a bed on 05/29 and Kaity reports that she is having anxiety about the transition and is just not sure. CM and Kaity discussed her feelings about transition and the fact that up until yesterday, Kaity had believed Mary Beth was going to [facility]. The plan has abruptly changed and that change is difficult. Kaity reports that she and her son are going to visit [facility] on Tuesday to assuage her concerns. She is in agreement by the end of the conversation that Mary Beth may have a difficult transition from the hospital to another facility but will do well once situated. Kaity understands that she will be needed at admission to [facility]. She is worried about Mary Beth's care at the facility and that he will not be getting the same medications he has been getting here. CM assures her that his discharge paperwork, including medications, will be forwarded to [facility] so that there will be no disruption in his medical care. Kaity understands that when a bed offer has been made, the bed must either be accepted or Mary Beth will need to go home with her. CALVIN will continue to offer support to Kaity and family and will follow up with her on Tuesday. A: 73 y/o male admitted to [facility] for dementia. P: Mary Beth will discharge to the [facility] on 05/29/18 at 1100. Patient will transport via ambulance due to his advanced dementia. CM will arrange transportation on Tuesday. CALVIN will continue to offer support to patient, family, and care team regarding discharge planning and disposition.
--- NOTE | 2018-05-27 16:06 | CMPROGNOTE_ITS ---
- If Service Date Differs Date of service: 05/27/18 Time of Service: 15:47 Care Management Progress Note S/O: CALVIN met with Mary Beth's , Kaity, this afternoon. [facility] has offered Mary Beth a bed on 05/29 and Kaity reports that she is having anxiety about the transition and is just not sure. CM and Kaity discussed her feelings about transition and the fact that up until yesterday, Kaity had believed Mary Beth was going to [facility]. The plan has abruptly changed and that change is difficult. Kaity reports that she and her son are going to visit [facility] on Tuesday to assuage her concerns. She is in agreement by the end of the conversation that Mary Beth may have a difficult transition from the hospital to another facility but will do well once situated. Kaity understands that she will be needed at admission to [facility]. She is worried about Mary Beth's care at the facility and that he will not be getting the same medications he has been getting here. CM assures her that his discharge paperwork, including medications, will be forwarded to [facility] so that there will be no disruption in his medical care. Kaity understands that when a bed offer has been made, the bed must either be accepted or Mary Beth will need to go home with her. CALVIN will continue to offer support to Kaity and family and will follow up with her on Tuesday. A: 73 y/o male admitted to [facility] for dementia. P: Mary Beth will discharge to the [facility] on 05/29/18 at 1100. Patient will transport via ambulance due to his advanced dementia. CM will arrange transportation on Tuesday. CALVIN will continue to offer support to patient, family, and care team regarding discharge planning and disposition.
[2018-05-27] MEDS: Mirtazapine 15 MG TAB 7.5 MG PO (19:54)
[2018-05-27] MEDS: Acetaminophen 325 MG TAB 650 MG PO (19:55)
[2018-05-27] MEDS: risperiDONE 0.25 MG TAB 0.75 MG PO (19:56)
[2018-05-27] MEDS: Senna TAB 2 TAB PO (19:56)
[2018-05-27] MEDS: traZODone 50 MG TAB 100 MG PO (19:57)
[2018-05-27] MEDS: Melatonin 3 MG TAB 9 MG PO (19:57)
[2018-05-28] MEDS: Bacitracin 1 PACKET TP ×2 (07:45→14:04)
[2018-05-28] MEDS: risperiDONE 0.25 MG TAB PO (07:45)
[2018-05-28] MEDS: Polyethylene Glycol 3350 17 GM PACKET PO (07:45)
[2018-05-28] MEDS: LORazepam 0.5 MG TAB PO (07:45)
[2018-05-28] MEDS: Aspirin 81 MG CHEW PO (07:46)
[2018-05-28] MEDS: Docusate Sodium 100 MG/10 ML CUP PO ×2 (07:46→14:04)
[2018-05-28] MEDS: Potassium Chloride 10 MEQ CAPCR 20 MEQ PO (07:46)
[2018-05-28] MEDS: Citalopram 10 MG TAB 20 MG PO (07:46)
--- NOTE | 2018-05-28 16:44 | PDOC.CMPRO ---
- If Service Date Differs Date of service: 05/28/18 Time of Service: 16:44 Care Management Progress Note S/O: Mary Beth's , Kaity met with CALVIN this afternoon. She had just come from the [facility] which she reported as 'very old'. The staff were friendly however and she reported feeling a little better about Mary Beth transferring there tomorrow. Kaity reports that his room is small, there is no TV or chair, so she will be bringing Yobani a recliner. Kaity reports that she will be at [facility] at 1000 tomorrow. Interestingly, per nursing, Yobani seems a bit 'anxious' tonight though no one has informed him of his pending move tomorrow. JANET Robles maria d up a list of Yobani's 'quirks', foods he likes etc. It is in the front of his paper chart and is additionally saved to the desktop at the nursing station should anyone want to add to it. The list will go with Yobani tomorrow. Kaity additionally brought in [employer] paperwork for copying per request. CALVIN copied first and last pages and Kaity reports she will have it with her tomorrow if all of the pages need to be scanned. A:73 y/o male admitted to [facility] for dementia. P: Mary Beth will discharge to the [facility] in [place] on 05/29/18 at 1100. Patient will transport via ambulance due to his advanced dementia. CM will arrange transportation on Tuesday. CALVIN will continue to offer support to patient, family, and care team regarding discharge planning and disposition.
--- NOTE | 2018-05-28 16:49 | CMPROGNOTE_ITS ---
- If Service Date Differs Date of service: 05/28/18 Time of Service: 16:44 Care Management Progress Note S/O: Mary Beth's , Kaity met with CALVIN this afternoon. She had just come from the [facility] which she reported as 'very old'. The staff were friendly however and she reported feeling a little better about Mary Beth transferring there tomorrow. Kaity reports that his room is small, there is no TV or chair, so she will be bringing Yobani a recliner. Kaity reports that she will be at [facility] at 1000 tomorrow. Interestingly, per nursing, Yobani seems a bit 'anxious' tonight though no one has informed him of his pending move tomorrow. JANET Robles maria d up a list of Yobani's 'quirks', foods he likes etc. It is in the front of his paper chart and is additionally saved to the desktop at the nursing station should anyone want to add to it. The list will go with Yobani tomorrow. Kaity additionally brought in [employer] paperwork for copying per request. CALVIN copied first and last pages and Kaity reports she will have it with her tomorrow if all of the pages need to be scanned. A:73 y/o male admitted to [facility] for dementia. P: Mary Beth will discharge to the [facility] in [place] on 05/29/18 at 1100. Patient will transport via ambulance due to his advanced dementia. CM will arrange transportation on Tuesday. CALVIN will continue to offer support to patient, family, and care team regarding discharge planning and disposition.
[2018-05-28] MEDS: Melatonin 3 MG TAB 9 MG PO (20:02)
[2018-05-28] MEDS: Senna TAB 2 TAB PO (20:02)
[2018-05-28] MEDS: traZODone 50 MG TAB 100 MG PO (20:02)
[2018-05-28] MEDS: Acetaminophen 325 MG TAB 650 MG PO (20:02)
[2018-05-28] MEDS: risperiDONE 0.25 MG TAB 0.75 MG PO (20:03)
[2018-05-28] MEDS: Mirtazapine 15 MG TAB 7.5 MG PO (20:03)
[2018-05-29] MEDS: LORazepam 0.5 MG TAB PO (09:16)
[2018-05-29] MEDS: risperiDONE 0.25 MG TAB PO (09:16)
[2018-05-29] MEDS: Polyethylene Glycol 3350 17 GM PACKET PO (09:16)
[2018-05-29] MEDS: Docusate Sodium 100 MG/10 ML CUP PO (09:16)
[2018-05-29] MEDS: Bacitracin 1 PACKET TP (09:16)
[2018-05-29] MEDS: Citalopram 10 MG TAB 20 MG PO (09:17)
[2018-05-29] MEDS: Potassium Chloride 10 MEQ CAPCR 20 MEQ PO (09:17)
[2018-05-29] MEDS: Aspirin 81 MG CHEW PO (09:17)
--- NOTE | 2018-05-29 10:46 | W.PM.DS.N ---
Date of service: 05/29/18 Time of Service: 10:47 DS: Diagnosis Discharge Diagnosis (1) Dementia: Status: Acute (2) Discharge planning issues: Status: Acute Discharge Plan Disposition Patient Disposition: INTERMED.CARE FAC.(LEVEL 2) Condition: Stable Discharge Details Reason For Visit: DEMENTIA Admit Date/Time: 11/28/17 16:00 Admit Provider: Chris Sparrow Attending Provider: Chris Sparrow Primary Care Provider: Michelle Novoa [facility] Hospital Course: CC: Worsening Agitation HPI: 72-year-old man with a prior history of progressive dementia, initially admitted on 11/27/2017 secondary to acutely worsening mental status, readmitted on 11/30/[address] [facility] emergency department with the same complaint. The patient has a history of severe dementia, coronary artery disease, with history of CABG, as well as history of mitral valve repair, venous insufficiency. He also suffers from HTN, and dyslipidemia. Essentially Mr. Cordero has been having progressively worsening dementia with neuropsychiatric symptoms including agitation, without any evidence of a medical cause for acutely worsening delirium, was readmitted under swing bed status due to the inability of his family to care for him at home. The patient was essential brought in for observation to work on long-term placement as the family has maximized their ability to care for him at home. Symptoms have included worsening intermittent agitation with delusional thoughts. He was admitted under swing bed level 2 and case management worked on placement. He exhibited occasional signs of agitation, requiring medication adjustments, but for the majority of his time was not a significant management problem. He was also seen by psychiatry for inpatient med management. He was maintained on SSRI, Risperidone, nighttime Mirtazapine, and both both scheduled and prn ativan. He also had prn Haldol ordered. He is safely transferred today to [facility] in [place], [place]. Home Meds and New Rx's Prescriptions: New haloperidol 0.5 mg Tablet 0.25 mg PO TID PRN PRN (Reason: Agitation) Qty: 0 RF: 0 docusate sodium 50 mg/5 mL Liquid 100 mg PO TID Qty: 0 RF: 0 sennosides [Senokot] 8.6 mg Tablet 2 tab PO HS Qty: 0 RF: 0 potassium chloride 10 mEq Capsule, Extended Release 20 meq PO DAILY Qty: 0 RF: 0 acetaminophen [Tylenol] 325 mg Tablet 650 mg PO Q4H PRN PRNQty: 0 RF: 0 trazodone 50 mg Tablet 100 mg PO HS Qty: 0 RF: 0 polyethylene glycol 3350 17 gram Powder In Packet 17 g PO DAILY Qty: 0 RF: 0 citalopram 10 mg Tablet 20 mg PO DAILY Qty: 0 RF: 0 risperidone [Risperdal] 0.25 mg Tablet 0.25 mg PO DAILY Qty: 0 RF: 0 risperidone [Risperdal] 0.25 mg Tablet 0.75 mg PO QPM Qty: 0 RF: 0 lorazepam 0.5 mg Tablet 0.5 mg PO DAILY Qty: 30 RF: 0 lorazepam 0.5 mg Tablet 0.5 mg PO TID PRN PRN (Reason: agitation or anxiety) Qty: 90 RF: 0 magnesium hydroxide [Milk of Magnesia] 400 mg/5 mL Suspension 30 ml PO DAILY PRN PRNQty: 0 RF: 0 bisacodyl 10 mg Suppository 10 mg CO DAILY PRN PRN (Reason: Constipation) Qty: 0 RF: 0 ranitidine HCl 150 mg Tablet 300 mg PO DAILY Qty: 0 RF: 0 hydrochlorothiazide 12.5 mg Capsule 12.5 mg PO DAILY Qty: 0 RF: 0 Enema Disposable 19-7 gram/118 mL Enema 133 ml CO Q72H PRN (Reason: Constipation) Qty: 0 RF: 0 nitroglycerin [Nitrostat] 0.4 mg Tablet, Sublingual 0.4 mg Sublingual Q5 MIN PRN X3 PRNQty: 0 RF: 0 magnesium citrate [Citrate of Magnesia] Solution 300 ml PO DIRECTED PRN (Reason: Constipation) Qty: 0 RF: 0 aspirin 81 mg Tablet,Chewable 81 mg PO DAILY Qty: 0 RF: 0 mirtazapine [Remeron] 15 mg Tablet 7.5 mg PO QPM Qty: 0 RF: 0 alum-mag hydroxide-simeth [Mag-Al Plus] 200-200-20 mg/5 mL Suspension 30 ml PO Q2H PRN PRNQty: 0 RF: 0 melatonin 3 mg Tablet Extended Release 9 mg PO DAILY@2000 Qty: 0 RF: 0 sodium chloride [Deep Sea Nasal] 0.65 % Aerosol,[place] 44 ml NS QID PRN PRNQty: 0 RF: 0 glycerin (adult) [Sani-Supp (Adult)] Suppository 1 supp CO DAILY PRN PRN (Reason: Constipation) Qty: 0 RF: 0 Continued blood sugar diagnostic [FreeStyle Lite Strips] 1 EACH strip 1 strip Miscellaneous PRN RF: 0 Discontinued aspirin [Aspir-81] 81 MG tablet,delayed release (DR/EC) 81 mg PO DAILY RF: 0 nitroglycerin [Nitrostat] 0.4 MG tablet, sublingual 1 tab Sublingual PRN Qty: 25 RF: 1 ranitidine HCl 300 MG capsule 300 mg PO DAILY Qty: 90 RF: 3 ropinirole 1 MG tablet 1 mg PO HS Qty: 90 RF: 3 mirtazapine 15 MG tablet,disintegrating 15 mg PO HS Qty: 30 RF: 0 Lorazepam 1 MG tablet 1 mg PO BID PRNQty: 60 RF: 0 Discharge Instructions Stand Alone Forms: Nursing Discharge Form Referrals: Michelle Novoa MD [Primary Care Provider] - Activity:: Activity as Tolerated Equipment/Supplies:: No Equipment Needed Diet:: Heart Healthy Discharge Orders Discharge Orders: Discharge Order (Routine); Ordered 05/29/18 Ordered By: Chris Sparrow DS: Data Vitals/I&O Vitals and I&O: Vital Signs Temperature 37.6 C H 05/24/18 19:47 Temperature Source Tympanic 05/24/18 19:47 Pulse 66 05/24/18 19:47 Pulse Rhythm Regular 05/29/18 05:00 Respiratory Rate 18 05/24/18 19:47 Respiratory Effort Non-Labored 05/29/18 05:00 Respiratory Depth Normal 05/29/18 05:00 Respiratory Pattern Normal 05/29/18 05:00 Blood Pressure 133/72 05/24/18 19:47 Pulse Oximetry 95 05/24/18 19:47 Oxygen Delivery Method Room Air 05/24/18 19:47 Oxygen Flow Rate 0 05/24/18 19:47 Pain Level 0 05/29/18 07:36 Comment 05/29/18 07:36 Intake & Output 05/28/18 05/28/18 05/29/18 11:59 23:59 11:59 Intake Total 0 / 490 490 / 490 Balance 0 / 490 490 / 490 Weight 85.5 kg Intake: Oral 0 490 490 / 490 Other: Urine Color Straw Urine Appearance Clear Clear Urine Odor Normal Comment incontinent of large amt Incontinent of large amount of urine Incontinent large amount in brief and bed. Did not void on toilet. Voiding Methods Diaper Diaper Diaper Incontinent Incontinent Incontinent Completed studies during hospitalization [Text1]: Chest 2 Views PA,Lat 11/26/2017 SYMPTOM/DIAGNOSIS: CONFUSION, HALLUCINATIONS, ALZEHEIMERS, ? PNEUMONIA AP AND LATERAL CHEST: Comparison is made with 07/22/17. The lungs are suboptimally inflated on both views. The heart is enlarged. The patient is status post CABG. No definite infiltrate, effusion or pulmonary edema is seen. IMPRESSION: Limited exam. No gross evidence of an acute abnormality. CT:Head WO 11/26/2017 SYMPTOM/DIAGNOSIS: ALTERED MENTAL STATUS, H/O ALZHEIMERS, CONFUSION, ? ACUTE CVA NONCONTRAST HEAD CT: Comparison is made with 07/22/17. Mild atrophy and white matter changes are again noted. No superimposed hemorrhage, mass or acute infarct is seen. The ventricles are normal in size. There is no evidence of skull fracture. The sinuses and mastoid air cells appear clear. IMPRESSION: No acute abnormality. EXAM: CT Head Without Intravenous Contrast CLINICAL HISTORY: 72 years old, male; Signs and symptoms; Altered mental status/memory loss; Patient HX: Altered mental status, confusion, hallucinations, h/o alzheimer's; Additional info: R/O acute CVA TECHNIQUE: Axial computed tomography images of the head/brain without intravenous contrast. Coronal and sagittal reformatted images were created and reviewed. COMPARISON: CT - HEAD WITHOUT CONTRAST 2017-07-22 09:37 FINDINGS: Brain: There is mild periventricular white matter hypodensity consistent with mild chronic microvascular ischemic change. No hemorrhage. Ventricles: There is moderate to severe, diffuse involutional change with moderate associated ventriculomegaly. Bones/joints: Unremarkable. No acute fracture. Soft tissues: Unremarkable. Sinuses: Unremarkable as visualized. No acute sinusitis. Mastoid air cells: Unremarkable as visualized. No mastoid effusion. IMPRESSION: No acute findings. Moderate to severe cerebral atrophy as discussed above. [facility] Medical History CAD (coronary artery disease) Dementia Depression Hx of CABG Prediabetes Surgical History CORONARY BYPASS, 3 (~08/2005) Colonoscopy - MAC Repair of inguinal hernia (~03/2009) Repair of umbilical hernia (~03/2009) Social History Smoking/Tobacco Use Status: Never
--- NOTE | 2018-05-29 11:04 | DSE_ITS ---
Date of service: 05/29/18 Time of Service: 10:47 DS: Diagnosis Discharge Diagnosis (1) Dementia: Status: Acute (2) Discharge planning issues: Status: Acute Discharge Plan Disposition Patient Disposition: INTERMED.CARE FAC.(LEVEL 2) Condition: Stable Discharge Details Reason For Visit: DEMENTIA Admit Date/Time: 11/28/17 16:00 Admit Provider: Chris Sparrow Attending Provider: Chris Sparrow Primary Care Provider: Michelle Novoa [facility] Course Hospital Course: CC: Worsening Agitation HPI: 72-year-old man with a prior history of progressive dementia, initially admitted on 11/27/2017 secondary to acutely worsening mental status, readmitted on 11/30/2007 from [facility] emergency department with the same complaint. The patient has a history of severe dementia, coronary artery disease, with history of CABG, as well as history of mitral valve repair, venous insufficiency. He also suffers from HTN, and dyslipidemia. Essentially Mr. Cordero has been having progressively worsening dementia with neuropsychiatric symptoms including agitation, without any evidence of a medical cause for acutely worsening delirium, was readmitted under swing bed status due to the inability of his family to care for him at home. The patient was essential brought in for observation to work on long-term placement as the family has maximized their ability to care for him at home. Symptoms have included worsening intermittent agitation with delusional thoughts. He was admitted under swing bed level 2 and case management worked on placement. He exhibited occasional signs of agitation, requiring medication adjustments, but for the majority of his time was not a significant management problem. He was also seen by psychiatry for inpatient med management. He was maintained on SSRI, Risperidone, nighttime Mirtazapine, and both both scheduled and prn ativan. He also had prn Haldol ordered. He is safely transferred today to [facility] in [place], [place]. Home Meds and New Rx's Prescriptions: New haloperidol 0.5 mg Tablet 0.25 mg PO TID PRN PRN (Reason: Agitation) Qty: 0 RF: 0 docusate sodium 50 mg/5 mL Liquid 100 mg PO TID Qty: 0 RF: 0 sennosides [Senokot] 8.6 mg Tablet 2 tab PO HS Qty: 0 RF: 0 potassium chloride 10 mEq Capsule, Extended Release 20 meq PO DAILY Qty: 0 RF: 0 acetaminophen [Tylenol] 325 mg Tablet 650 mg PO Q4H PRN PRNQty: 0 RF: 0 trazodone 50 mg Tablet 100 mg PO HS Qty: 0 RF: 0 polyethylene glycol 3350 17 gram Powder In Packet 17 g PO DAILY Qty: 0 RF: 0 citalopram 10 mg Tablet 20 mg PO DAILY Qty: 0 RF: 0 risperidone [Risperdal] 0.25 mg Tablet 0.25 mg PO DAILY Qty: 0 RF: 0 risperidone [Risperdal] 0.25 mg Tablet 0.75 mg PO QPM Qty: 0 RF: 0 lorazepam 0.5 mg Tablet 0.5 mg PO DAILY Qty: 30 RF: 0 lorazepam 0.5 mg Tablet 0.5 mg PO TID PRN PRN (Reason: agitation or anxiety) Qty: 90 RF: 0 magnesium hydroxide [Milk of Magnesia] 400 mg/5 mL Suspension 30 ml PO DAILY PRN PRNQty: 0 RF: 0 bisacodyl 10 mg Suppository 10 mg MO DAILY PRN PRN (Reason: Constipation) Qty: 0 RF: 0 ranitidine HCl 150 mg Tablet 300 mg PO DAILY Qty: 0 RF: 0 hydrochlorothiazide 12.5 mg Capsule 12.5 mg PO DAILY Qty: 0 RF: 0 Enema Disposable 19-7 gram/118 mL Enema 133 ml MO Q72H PRN (Reason: Constipation) Qty: 0 RF: 0 nitroglycerin [Nitrostat] 0.4 mg Tablet, Sublingual 0.4 mg Sublingual Q5 MIN PRN X3 PRNQty: 0 RF: 0 magnesium citrate [Citrate of Magnesia] Solution 300 ml PO DIRECTED PRN (Reason: Constipation) Qty: 0 RF: 0 aspirin 81 mg Tablet,Chewable 81 mg PO DAILY Qty: 0 RF: 0 mirtazapine [Remeron] 15 mg Tablet 7.5 mg PO QPM Qty: 0 RF: 0 alum-mag hydroxide-simeth [Mag-Al Plus] 200-200-20 mg/5 mL Suspension 30 ml PO Q2H PRN PRNQty: 0 RF: 0 melatonin 3 mg Tablet Extended Release 9 mg PO DAILY@2000 Qty: 0 RF: 0 sodium chloride [Deep Sea Nasal] 0.65 % Aerosol,[place] 44 ml NS QID PRN PRNQty: 0 RF: 0 glycerin (adult) [Sani-Supp (Adult)] Suppository 1 supp MO DAILY PRN PRN (Reason: Constipation) Qty: 0 RF: 0 Continued blood sugar diagnostic [FreeStyle Lite Strips] 1 EACH strip 1 strip Miscellaneous PRN RF: 0 Discontinued aspirin [Aspir-81] 81 MG tablet,delayed release (DR/EC) 81 mg PO DAILY RF: 0 nitroglycerin [Nitrostat] 0.4 MG tablet, sublingual 1 tab Sublingual PRN Qty: 25 RF: 1 ranitidine HCl 300 MG capsule 300 mg PO DAILY Qty: 90 RF: 3 ropinirole 1 MG tablet 1 mg PO HS Qty: 90 RF: 3 mirtazapine 15 MG tablet,disintegrating 15 mg PO HS Qty: 30 RF: 0 Lorazepam 1 MG tablet 1 mg PO BID PRNQty: 60 RF: 0 Discharge Instructions Stand Alone Forms: Nursing Discharge Form Referrals: Michelle Novoa MD [Primary Care Provider] - Activity:: Activity as Tolerated Equipment/Supplies:: No Equipment Needed Diet:: Heart Healthy Discharge Orders Discharge Orders: Discharge Order (Routine); Ordered 05/29/18 Ordered By: Chris Sparrow DS: Data Vitals/I&O Vitals and I&O: Vital Signs Temperature 37.6 C H 05/24/18 19:47 Temperature Source Tympanic 05/24/18 19:47 Pulse 66 05/24/18 19:47 Pulse Rhythm Regular 05/29/18 05:00 Respiratory Rate 18 05/24/18 19:47 Respiratory Effort Non-Labored 05/29/18 05:00 Respiratory Depth Normal 05/29/18 05:00 Respiratory Pattern Normal 05/29/18 05:00 Blood Pressure 133/72 05/24/18 19:47 Pulse Oximetry 95 05/24/18 19:47 Oxygen Delivery Method Room Air 05/24/18 19:47 Oxygen Flow Rate 0 05/24/18 19:47 Pain Level 0 05/29/18 07:36 Comment 05/29/18 07:36 Intake & Output 05/28/18 05/28/18 05/29/18 11:59 23:59 11:59 Intake Total 0 / 490 490 / 490 Balance 0 / 490 490 / 490 Weight 85.5 kg Intake: Oral 0 490 490 / 490 Other: Urine Color Straw Urine Appearance Clear Clear Urine Odor Normal Comment incontinent of large amt Incontinent of large amount of urine Incontinent large amount in brief and bed. Did not void on toilet. Voiding Methods Diaper Diaper Diaper Incontinent Incontinent Incontinent Completed studies during hospitalization [Text1]: Chest 2 Views PA,Lat 11/26/2017 SYMPTOM/DIAGNOSIS: CONFUSION, HALLUCINATIONS, ALZEHEIMERS, ? PNEUMONIA AP AND LATERAL CHEST: Comparison is made with 07/22/17. The lungs are suboptimally inflated on both views. The heart is enlarged. The patient is status post CABG. No definite infiltrate, effusion or pulmonary edema is seen. IMPRESSION: Limited exam. No gross evidence of an acute abnormality. CT:Head WO 11/26/2017 SYMPTOM/DIAGNOSIS: ALTERED MENTAL STATUS, H/O ALZHEIMERS, CONFUSION, ? ACUTE CVA NONCONTRAST HEAD CT: Comparison is made with 07/22/17. Mild atrophy and white matter changes are again noted. No superimposed hemorrhage, mass or acute infarct is seen. The ventricles are normal in size. There is no evidence of skull fracture. The sinuses and mastoid air cells appear clear. IMPRESSION: No acute abnormality. EXAM: CT Head Without Intravenous Contrast CLINICAL HISTORY: 72 years old, male; Signs and symptoms; Altered mental status/memory loss; Patient HX: Altered mental status, confusion, hallucinations, h/o alzheimer's; Additional info: R/O acute CVA TECHNIQUE: Axial computed tomography images of the head/brain without intravenous contrast. Coronal and sagittal reformatted images were created and reviewed. COMPARISON: CT - HEAD WITHOUT CONTRAST 2017-07-22 09:37 FINDINGS: Brain: There is mild periventricular white matter hypodensity consistent with mild chronic microvascular ischemic change. No hemorrhage. Ventricles: There is moderate to severe, diffuse involutional change with moderate associated ventriculomegaly. Bones/joints: Unremarkable. No acute fracture. Soft tissues: Unremarkable. Sinuses: Unremarkable as visualized. No acute sinusitis. Mastoid air cells: Unremarkable as visualized. No mastoid effusion. IMPRESSION: No acute findings. Moderate to severe cerebral atrophy as discussed above. [facility] Medical History CAD (coronary artery disease) Dementia Depression Hx of CABG Prediabetes Surgical History CORONARY BYPASS, 3 (~08/2005) Colonoscopy - MAC Repair of inguinal hernia (~03/2009) Repair of umbilical hernia (~03/2009) Social History Smoking/Tobacco Use Status: Never
--- NOTE | 2018-05-29 18:14 | PDOC.CMDIS ---
- If Service Date Differs Date of service: 05/29/18 Time of Service: 18:14 LACE Index Scoring Tool - Questions: Length of Stay (in days): 14 or more Acuity (Admit via E.D.?): Yes Comorbidities: Dementia E.D. Visits: 1 - Answers: Total Score: 14 Risk of Readmission: High Risk Care Management Discharge Reason for Hospitalization: Aggitated Dementia Discharge Plan: Mary Beth is being discharged to [facility] via ambulance coordinated by CM. CM reviewed plan with Kaity (spouse) and answered all questions related to plan. CM completed 804a and 804c all which was faxed to [facility] and a copy to Stephanie Pimentel. CM faxed advance directives, colst, and PAASR to [facility] and reviewed plans for discharge with admission director. Mary Beth is quiet prior to discharge he appears calm and Kaity is with him at time of discharge. Patient/Family Education Needs: Discharge education, follow up plan including community resources and how to contact them with concerns or questions including [place] on aging, choices for care and obudsman for the area. Kaity request that Mary Beth stay on the waiting list for [facility]. CM contacted Cheo in admissions and provided Kaity with his contact information as well. Services Needed at Discharge: Longterm Facility, Transportation
--- NOTE | 2018-05-29 18:20 | CMDISCH_ITS ---
- If Service Date Differs Date of service: 05/29/18 Time of Service: 18:14 LACE Index Scoring Tool - Questions: Length of Stay (in days): 14 or more Acuity (Admit via E.D.?): Yes Comorbidities: Dementia E.D. Visits: 1 - Answers: Total Score: 14 Risk of Readmission: High Risk Care Management Discharge Reason for Hospitalization: Aggitated Dementia Discharge Plan: Mary Beth is being discharged to [facility] via ambulance coordinated by CM. CM reviewed plan with Kaity (spouse) and answered all questions related to plan. CM completed 804a and 804c all which was faxed to [facility] and a copy to Stephanie Pimentel. CM faxed advance directives, colst, and PAASR to [facility] and reviewed plans for discharge with admission director. Mary Beth is quiet prior to discharge he appears calm and Kaity is with him at time of discharge. Patient/Family Education Needs: Discharge education, follow up plan including community resources and how to contact them with concerns or questions including [place] on aging, choices for care and obudsman for the area. Kaity request that Mary Beth stay on the waiting list for [facility]. CM contacted Cheo in admissions and provided Kaity with his contact information as well. Services Needed at Discharge: Long Term Facility, Transportation
== END 2018-05-29 11:27 | disposition intermediate care facility (04) | DRG 884 ==
PROVIDERS: Internal Medicine; Nurse Practitioner; Admitting Provider Internal Medicine; PCP Family Medicine; Visit Provider Internal Medicine
DX: F03.91 Unspecified dementia, unspecified severity, with behavioral disturbance (principal); I10 Essential (primary) hypertension; E78.5 Hyperlipidemia, unspecified; Z74.2 Need for assistance at home and no other household member able to render care; I83.12 Varicose veins of left lower extremity with inflammation; I83.11 Varicose veins of right lower extremity with inflammation; R29.6 Repeated falls; F41.8 Other specified anxiety disorders; I25.10 Atherosclerotic heart disease of native coronary artery without angina pectoris; G25.81 Restless legs syndrome; Z66 Do not resuscitate; Z86.73 Personal history of transient ischemic attack (TIA), and cerebral infarction without residual deficits
CPT/HCPCS: 36415; 80048; 80053; 80061; 83721; 85027; 99232; 99239; 99252; 99306; 99307; 99308; 99309; 99316; NC; 81003; 81015; 83036; 83880; 84443; 84550; 85025; 87086; 93005; 93010; J1630